=== PATIENT | female | born 1965 | race Caucasian/White ===

== ENCOUNTER 2020-03-17 06:54 | Outpatient (NON) | payer BC, SELFPAY ==
[2020-03-17 23:36] LABS: SARS-CoV-2 RNA PCR Negative
== END 2020-03-17 06:55 ==
LOC: ANHCOVIDDT 07:09
PROVIDERS: PCP Family Medicine; Visit Provider Family Medicine
DX: R51.9 Headache, unspecified (principal); R43.0 Anosmia; R43.2 Parageusia; Z20.828 Contact with and (suspected) exposure to other viral communicable diseases
CPT/HCPCS: 87635; C9803; U0003

== ENCOUNTER → 2020-09-18 06:39 | Outpatient (CLI) | payer BC, SELFPAY ==
[2020-09-18 18:15] LABS: SARS-CoV-2 RNA PCR Negative
== END ==
PROVIDERS: PCP Family Medicine; Visit Provider Physician Assistant
DX: R68.89 Other general symptoms and signs (principal); Z20.822 Contact with and (suspected) exposure to COVID-19
CPT/HCPCS: C9803; U0003; U0005

== ENCOUNTER 2021-07-27 15:51 | Observation (INO) | payer BC, SELFPAY ==
[2021-07-27] VITALS (37 sets, daily range): BP systolic 75–98; BP diastolic 35–74; PULSE 101–130; RESP 12–29; TEMP 36.3–36.7; O2SAT 93–100; BMI 32.3
--- NOTE | ~2021-07-27 | XR_ITS ---
EXAMINATION: XR abdomen/kub 1V INDICATION: Nausea and vomiting TECHNIQUE: Supine view of the abdomen is obtained. COMPARISON: 0830 hours FINDINGS: Cholecystectomy clips are noted. There is a paucity of abdominal gas. No dilated loops of b owel are evident. The visualized lung bases are clear. IMPRESSION: 1. Nonspecific bowel gas pattern. Reviewed, dictated and finalized at location A.
--- NOTE | ~2021-07-27 | CT_ITS ---
EXAMINATION: CT abdomen pelvis wo con DATE: 07/27/2021 18:10 INDICATION: fistula pain TECHNIQUE: Computed tomography (CT) of the abdomen and pelvis was performed without intravenous contr ast. Automated exposure control and iterative reconstruction technique were employed. The dose-length product was 1060.76 mGy-cm. COMPARISON: 07/06/2017. FINDINGS: Lower thorax: Unremarkable. Liver: Normal. Biliary/Gallbladder: Gallbladder is absent. No bile duct dilation. Spleen: Normal. Pancreas: No mass or duct dilation. Adrenals:No mass. Kidneys: No mass or hydronephrosis. Bilateral nonobstructive renal calculi. GI tract: Status post colectomy. Right lower quadrant ostomy with a adjacent fat and small bowel cont aining uncomplicated appearing ventral hernia, to the right of midline. Midline ventral hernia contai rosendo a loop of dilated small bowel, no inflammation or fluid within the sac Smaller uncomplicated mid line ventral hernia more superiorly. Mesentery/Peritoneum: No ascites, mass, or free air. Retroperitoneum: No mass. Pelvis: Fibroid uterus. Normal bladder. No free pelvic fluid. Bones/Soft Tissues: No additional soft tissue abnormalities. No acute osseous finding. Additional Findings: None. IMPRESSION: Midline ventral abdominal wall hernia containing a dilated loop of small bowel which may represent mi ld early or partial mechanical obstruction. Otherwise no evidence of bowel obstruction or ileus. Audie tional ventral abdominal wall hernias are uncomplicated. Reviewed, dictated and finalized at location K. IMPRESSION: Midline ventral abdominal wall hernia containing a dilated loop of small bowel which may represent mild early or partial mechanical obstruction. Otherwise no evidence of bowel obstruction or ileus. Additional ventral abdominal wall herni as are uncomplicated.
--- NOTE | ~2021-07-27 | XR_ITS ---
EXAMINATION: XR abdomen obstructive series DATE: 07/28/2021 08:45 INDICATION: Nausea and vomiting. TECHNIQUE: Upright and supine views of the abdomen on 3 radiographs were obtained. COMPARISON: CT abdomen and pelvis 07/27/2021 FINDINGS: There are no dilated loops of bowel. There is a paucity of stool in the colon. There are st ones in the kidneys measuring up to 10 mm on the left. There are phleboliths in the pelvis. Surgical clips in the right upper quadrant are likely from cholecystectomy. No free intraperitoneal gas. IMPRESSION: 1. Nonobstructive bowel gas pattern. 2. Bilateral kidney stones. Reviewed, dictated and finalized at location A.
--- NOTE | 2021-07-27 16:04 | ECG_ITS ---
Measurements Intervals [place] Rate: 121 P: 36 CA: 136 QRS: 43 QRSD: 86 T: 3 QT: 312 QTc: 444 Interpretive Statements SINUS TACHYCARDIA NONSPECIFIC T-WAVE ABNORMALITY ABNORMAL ECG NO PREVIOUS ECG AVAILABLE FOR COMPARISON Electronically Signed On 07-30-2021 15:35:03 CDT by Willy Gomez M.D.
[2021-07-27 16:21] LABS: Basophils Absolute Auto 0.1 K/mm3 (0.0-0.1); Basophils Percent Auto 0.9 % (0.2-1.2); Eosinophils Absolute Auto 0.2 K/mm3 (0-0.3); Eosinophils Percent Auto 1.6 % (0-4.4); Hematocrit 56.2 % (37.0-47.0); Hemoglobin 18.7 g/dL (12.0-15.0); Immature Granulocyte Absolute 0.07 K/mm3 (0.00-0.031); Immature Granulocyte Percent A 0.5 % (0-0.5); Lymphocytes Absolute Auto 0.97 K/mm3 (0.9-3.2); Lymphocytes Percent Auto 6.6 % (18.3-44.2); Mean Corpuscular HGB Conc 33.3 g/dl (32-36); Mean Corpuscular Hemoglobin 34.7 pg (26-34); Mean Corpuscular Volume 104.3 fl (80-100); Mean Platelet Volume 10.7 fl (7.4-10.4); Monocytes Absolute Auto 1.5 K/mm3 (0.1-0.6); Monocytes Percent Auto 10.3 % (2.6-8.5); Neutrophils Absolute Auto 11.9 K/mm3 (1.3-6.7); Neutrophils Percent Auto 80.1 % (45.5-73.1); Platelet Count Result 277 k/mm3 (150-375); Red Blood Count 5.39 M/mm3 (4.2-5.4); Red Cell Distribution Width 14.4 % (11.5-14.5); White Blood Count 14.8 K/mm3 (4.5-10.0)
[2021-07-27] MEDS: SODIUM CHLORIDE 0.9% IV 1,000 ML 999 ML IV CONT ×2 (16:23→18:31)
[2021-07-27] MEDS: ONDANSETRON INJ 4 MG/2 ML VIAL IV PUSH (16:23)
--- NOTE | 2021-07-27 16:27 | ED.NAVMDI ---
HPI - Nausea/Vomiting/Diarrhea General Chief complaint: Nausea/Vomiting/Diarrhea Stated complaint: n/v, diarrhea in ostomy Time Seen by Provider: 07/27/21 16:20 Source: patient Limitations: no limitations History of Present Illness HPI Narrative: Pt presents with nausea, vomiting and diarrhea since 0600 today. Pt also says the area in her low back where she had a fistula and necrotizing fascitis is a little painful. Pt has vomited and had numerous episodes of diarrhea. MD elicited complaint: nausea, vomiting and diarrhea Pertinent past history: other (ileostomy , fistula, necrotizing fasciitis) Onset (ago): hour(s) (10) Description of vomiting: bilious Description of diarrhea: lose Associated nausea: Yes Associated abdominal pain: No Exacerbating factors: none Relieving factors: none Related Data Home Medications Medication Instructions Recorded Confirmed diphenhydramine HCl 25 mg capsule 25 mg PO Q6H PRN 01/28/21 03/08/21 famotidine 20 mg tablet 20 mg PO BID tablet 01/28/21 03/08/21 gabapentin 600 mg tablet See Rx Instructions .ROUTE .COMPLEX 01/28/21 03/08/21 hydrocortisone 1 % topical cream 1 applic TOPICAL TID PRN 01/28/21 03/08/21 oxycodone 10 mg tablet 10 mg PO Q8H PRN 01/28/21 03/08/21 ropinirole 0.5 mg tablet 0.5 mg PO QHS tablet 01/28/21 03/08/21 vitamin A palmitate 10,000 unit unit PO QHS cap 01/28/21 03/08/21 capsule Allergies Allergy/AdvReac Type Severity Reaction Status Date / Time adhesive tape Allergy Unknown BLISTERED Verified 07/27/21 16:12 egg Allergy Unknown Nausea Verified 07/27/21 16:12 erythromycin base Allergy Unknown intolerance Verified 07/27/21 16:12 kiwi Allergy Unknown Swelling Verified 07/27/21 16:12 in mouth latex Allergy Unknown Unknown Verified 07/27/21 16:12 meperidine Allergy Unknown Nausea Verified 07/27/21 16:12 prochlorperazine Allergy Unknown Skin Verified 07/27/21 16:12 Reaction Review of Systems Review of Systems: All systems reviewed & are unremarkable except as noted in HPI and below PMFSH Family History Family History Mother Hypertension Family history of elevated blood lipids Diabetes mellitus Grandparent Diabetes mellitus Family history of glaucoma Hypertension Family history of elevated blood lipids Social History Social History Alcohol intake: current Exam Const: General: no acute distress Orientation/consciousness: patient oriented x3 HENMT: Mouth: Yes dry mucous membranes Chest: Chest palpation & inspection: normal inspection of the chest Resp: Effort & Inspection: normal respiratory effort Auscultation: clear to auscultation bilaterally Cardio: Rate: regular rate Rhythm: regular rhythm GI: GI Palp: Yes Soft to palpation Auscultation: normal bowel sounds Other: fistulas not draining no obvious abscess or erythema Neuro: General: patient oriented x3, moves all extremities and no focal motor deficits Extrem: General: normal to inspection Psych: Appearance: grossly normal Mental Status: mental status grossly normal Thought content: Yes Normal thought content present Course Vital Signs Vital signs: Vital Signs Temperature 97.4 F L 07/27/21 15:53 Pulse Rate 124 H 07/27/21 15:53 Respiratory Rate 19 07/27/21 15:53 Blood Pressure 75/46 L 07/27/21 15:53 Pulse Oximetry 96 07/27/21 15:53 Temperature 97.4 F L 07/27/21 15:53 Pulse Rate 106 H 07/27/21 19:02 Respiratory Rate 22 H 07/27/21 19:02 Blood Pressure 88/52 L 07/27/21 19:02 Pulse Oximetry 94 07/27/21 19:02 MDM - Nausea/Vomiting/Diarrhea Lab Data Result diagrams: 07/27/21 16:15 07/27/21 17:32 Labs: Lab Results 07/27/21 07/27/21 07/27/21 Range/Units 16:15 17:32 18:34 WBC 14.8 H (4.5-10.0) K/mm3 RBC 5.39 (4.2-5.4) M/mm3 Hgb 18.7 H (12.0-15.0) g/dL Hct 56.2 H (37.0-47.
[2021-07-27 17:48] LABS: Alanine Aminotransferase 82 U/L (4-35); Albumin Level 4.9 g/dL (3.5-5.1); Alkaline Phosphatase 87 U/L (38-126); Anion Gap 17 mmol/L (8-16); Aspartate Amino Transferase 81 U/L (14-36); Bilirubin,Total 1.6 mg/dL (0.2-1.3); Blood Urea Nitrogen 29 mg/dL (7-17); Calcium 11.2 mg/dL (8.4-10.2); Carbon Dioxide 20 mmol/L (22-30); Chloride 101 mmol/L (98-107); Estimated CRCL calculation 31 ml/min; Estimated Glomerular Filt Rate 27; Glucose 115 mg/dL (65-110); Lipase 148 U/L (23-300); Potassium 4.1 mmol/L (3.4-5.0); Sodium 138 mmol/L (137-145)
--- NOTE | 2021-07-27 18:15 | PC.NURSE ---
ERP notified of Pt. low BPs. ERP ordered additional liter of normal saline via verbal order readback.
[2021-07-27 18:41] LABS: Appearance Urine Clear (Clear); Bilirubin Urine Negative (Negative); Blood Urine Negative (Negative); Glucose Urine UA Negative (Negative); Ketones Urine Negative (Negative); Leukocyte Esterase Ur Negative LEU/UL (Negative); Nitrate Urine Negative (Negative); Protein Urine 1+ mg/dL (Negative); Specific Grav Ur >= 1.030 (1.001-1.035); Urobilinogen Urine 0.2 mg/dL (<2.0); pH Urine 5.5 (5.0-9.0)
[2021-07-27 18:53] LABS: Add Urine Microscopic? YES; Color Urine Dark Brown (Yellow)
[2021-07-27 19:00] LABS: Mucus Urine Few /lpf
--- NOTE | 2021-07-27 19:55 | PM.IMHP ---
H&P: HPI History of Present Illness Date/Time: 07/27/21 19:55 Chief Complaint: Nausea and vomiting. Narrative: This is a 56-year-old female with past medical history significant for Crohn's disease with fistula formation patient is status post ileostomy secondary to necrotizing fascitis. Patient presents to the emergency room due to intractable nausea vomiting and increased ileostomy output diet started the day before in the morning and has persisted for the last 48 hours or so. Patient denies any fevers rigors or chills states that she has had sepsis before, she has been in her usual state of health prior to this. Patient denies any abdominal pain. Preliminary workup was significant for CT of abdomen and pelvis early or partial mechanical obstruction. In emergency room patient had episodes of hypotension. Patient was started on IV fluids. Decision has been made to admit the patient for further evaluation, management and treatment. Review of Systems Review of Systems: Nausea, vomiting, increased ileostomy output. Constitutional: Constitutional: Denies chills, Reports fatigue, Denies fever(s), Denies malaise, Denies night sweats and Denies weakness Eyes: Eyes: Denies change in vision ENT: Denies dysphagia, Denies nasal congestion, Denies nasal discharge, Denies nasal obstruction and Denies odynophagia Cardiovascular: Cardiovascular: Denies pedal edema, Denies edema, Denies irregular heart rhythm, Denies leg edema, Denies lightheadedness, Denies radiating jaw, neck or arm pain, Denies palpitations, Denies dyspnea and Denies dyspnea on exertion Respiratory: Respiratory: Denies cough, Denies excessive phlegm production and Denies dyspnea Gastrointestinal: Gastrointestinal: Reports abdominal pain, Denies dyspepsia, Denies heartburn, Reports nausea and Reports vomiting Comments: Increased ileostomy output. Genitourinary: Genitourinary: Denies dysuria Musculoskeletal: Musculoskeletal: Denies back pain, Denies myalgias and Denies arthralgias Integumentary/Breasts: Skin/Breast: Denies rash Neurologic: Denies focal weakness and Denies Sensory deficit (Neuro) Psychiatric: Psychiatric: Reports no additional psychiatric complaints and Reports as per HPI Endocrine: Endocrine: Denies cold intolerance, Denies heat intolerance, Denies polyphagia, Denies polydipsia and Denies palpitations Hematologic/Lymphatic: Hematologic/Lymphatic: Reports no additional hematologic/lymphatic complaints and Reports as per HPI Allergic/Immunologic: Allergic/Immunologic: Reports no additional allergic/immunologic complaints and Reports as per HPI PMFSH Family History Family History Mother Hypertension Family history of elevated blood lipids Diabetes mellitus Grandparent Diabetes mellitus Family history of glaucoma Hypertension Family history of elevated blood lipids Social History Social History Smoking status: Never smoker Alcohol intake: current Substance use: never Spiritual care concerns: No Meds Home Medications and Allergies Home Medications Medication Instructions Recorded Confirmed Type diphenhydramine HCl 25 mg capsule 25 mg PO Q6H PRN 01/28/21 07/27/21 History duloxetine 60 mg capsule,delayed 60 mg PO DAILY #90 cap 01/28/21 07/27/21 Rx release famotidine 20 mg tablet 20 mg PO DAILY tablet 01/28/21 07/27/21 History gabapentin 600 mg tablet 300 mg PO BID 01/28/21 07/27/21 History hydrocortisone 1 % topical cream 1 applic TOPICAL DAILY PRN 01/28/21 07/27/21 History metoprolol succinate 25 mg 25 mg PO DAILY #90 tablet 01/28/21 07/27/21 Rx tablet,extended release 24 hr oxycodone 10 mg tablet 10 mg PO Q6H PRN 01/28/21 07/27/21 History ropinirole 0.5 mg tablet 1 mg PO QHS tablet 01/28/21 07/27/21 History insulin glargine [Lantus Solostar 30 unit SUBCUT BID 07/27/21 07/27/21 History U-100 Insulin] insuli
--- NOTE | 2021-07-27 20:00 | PC.NURSE ---
Handoff received from Lex LYNCH. Pt found lying comfortably in ED stretcher. Calm and cooperative. AAOx4. Equal and unlabored resp. Skin is warm and dry. 20g IV L AC and 22g IV R hand in place secured and patent. Ileostomy in place, secured and draining green liquid. Site WNL. No complaints at this time. Pending admission orders and bed assignment. Will continue to monitor.
[2021-07-27 22:34] LABS: SARS-CoV-2 RNA PCR Negative
--- NOTE | 2021-07-27 23:30 | ADMGEN ---
This patient, Terrie Lopez, was admitted to IMU Room 206-02 at 2330. Patient/family oriented to hospital policies and general routines including ID bracelet, bed and alarms, visiting hours, pain management, procedures, bathroom and other care routines, personal items, smoking policy, room service/diet, and visiting hours. Information on how to activate the Rapid Response Team has been discussed. Patient/Family are encouraged to report perceived risks to care and to ask questions if they do not understand what they are told or what they should do.
[2021-07-28] VITALS (10 sets, daily range): BP systolic 95–116; BP diastolic 37–62; PULSE 93–116; RESP 14–18; TEMP 36–36.4; O2SAT 93–98
[2021-07-28] MEDS: oxyCODONE HCL (*CRX) 5 MG TAB IR 10 MG PO ×3 (01:20→20:17)
[2021-07-28] MEDS: rOPINIRole HCL 1 MG TABLET PO ×2 (01:21→20:17)
[2021-07-28 05:02] LABS: Basophils Absolute Auto 0.1 K/mm3 (0.0-0.1); Basophils Percent Auto 0.7 % (0.2-1.2); Eosinophils Absolute Auto 0.2 K/mm3 (0-0.3); Hematocrit 48.7 % (37.0-47.0); Hemoglobin 15.9 g/dL (12.0-15.0); Immature Granulocyte Absolute 0.04 K/mm3 (0.00-0.031); Immature Granulocyte Percent A 0.5 % (0-0.5); Lymphocytes Percent Auto 13.8 % (18.3-44.2); Mean Corpuscular HGB Conc 32.6 g/dl (32-36); Mean Corpuscular Hemoglobin 35.3 pg (26-34); Mean Platelet Volume 9.8 fl (7.4-10.4); Monocytes Absolute Auto 1.1 K/mm3 (0.1-0.6); Monocytes Percent Auto 12.6 % (2.6-8.5); Neutrophils Absolute Auto 6.1 K/mm3 (1.3-6.7); Neutrophils Percent Auto 70.4 % (45.5-73.1); Platelet Count Result 279 k/mm3 (150-375); Red Blood Count 4.51 M/mm3 (4.2-5.4); Red Cell Distribution Width 13.9 % (11.5-14.5); White Blood Count 8.7 K/mm3 (4.5-10.0)
[2021-07-28 05:25] LABS: Anion Gap 16 mmol/L (8-16); Blood Urea Nitrogen 34 mg/dL (7-17); Calcium 9.8 mg/dL (8.4-10.2); Carbon Dioxide 21 mmol/L (22-30); Chloride 100 mmol/L (98-107); Estimated CRCL calculation 34 ml/min; Estimated Glomerular Filt Rate 31; Glucose 150 mg/dL (65-110); Potassium 3.8 mmol/L (3.4-5.0); Sodium 137 mmol/L (137-145)
[2021-07-28 08:24] LABS: Glucose Point of Care 178 mg/dl (65-105)
[2021-07-28] MEDS: FAMOTIDINE 20 MG TABLET PO (08:30)
[2021-07-28] MEDS: DULoxetine HCL 60 MG CAPSULE.DR PO (08:30)
[2021-07-28] MEDS: GABAPENTIN 300 MG CAPSULE PO ×2 (08:30→20:17)
[2021-07-28] MEDS: predniSONE 5 MG TABLET PO (08:31)
[2021-07-28] MEDS: INSULIN ASPART (*BKC) 100 UNITS/ML 18 UNITS SUB-Q ×2 (08:31→12:12)
[2021-07-28] MEDS: INSULIN GLARGINE (*BKC) 100 UNITS/ML 30 UNITS SUB-Q (08:31)
--- NOTE | 2021-07-28 09:03 | ECG_ITS ---
Measurements Intervals [place] Rate: 97 P: 50 MS: 142 QRS: 55 QRSD: 86 T: 46 QT: 331 QTc: 421 Interpretive Statements SINUS RHYTHM NONSPECIFIC T-WAVE ABNORMALITY ABNORMAL ECG COMPARED TO ECG 07/27/2021 16:04:58 SINUS RHYTHM NOW PRESENT Electronically Signed On 07-28-2021 15:50:41 CDT by Willy Gomez M.D.
[2021-07-28 09:52] LABS: Mean Corpuscular HGB Conc 33.3 g/dl (32-36); Mean Platelet Volume 9.5 fl (7.4-10.4); Platelet Count Result 281 k/mm3 (150-375); Red Blood Count 4.57 M/mm3 (4.2-5.4); Red Cell Distribution Width 13.8 % (11.5-14.5); White Blood Count 7.3 K/mm3 (4.5-10.0)
[2021-07-28 10:13] LABS: Alanine Aminotransferase 65 U/L (4-35); Alkaline Phosphatase 77 U/L (38-126); Anion Gap 13 mmol/L (8-16); Aspartate Amino Transferase 70 U/L (14-36); Bilirubin,Total 1.4 mg/dL (0.2-1.3); Blood Urea Nitrogen 37 mg/dL (7-17); Carbon Dioxide 28 mmol/L (22-30); Chloride 98 mmol/L (98-107); Estimated CRCL calculation 36 ml/min; Estimated Glomerular Filt Rate 33; Glucose 194 mg/dL (65-110); Lactic Acid Reflex 4.2 mmol/L (0.7-2.1); Potassium 4.5 mmol/L (3.4-5.0); Sodium 139 mmol/L (137-145)
--- NOTE | 2021-07-28 10:18 | PM.CNGS ---
Assessment and Plan Assessment and plan (1) Partial intestinal obstruction: Code(s): K56.600 - Partial intestinal obstruction, unspecified as to cause Status: Acute Assessment and Plan: CT reviewed and discussed with the patient in detail. There was concern of a possible small bowel obstruction secondary to the inferior ventral hernia with a loop of dilated small bowel in the hernia. On exam, her inferior incisional hernia that was containing small bowel is soft, nontender, and fully reducible. There is no evidence of incarceration or obstruction. She is clinically improving and no longer having any nausea, vomiting, or abdominal pain. Her abdominal exam is benign and ileostomy is functioning well. No indication for urgent surgical intervention. Will start advancing her diet as tolerated. If she continues to improve and is able to tolerate a diet, then we would recommend that she follow-up with her surgeon at [facility] to discuss hernia repair given her extensive surgical history and treatment at [facility]. Patient is agreeable to plan. Thank you for allowing us to see the patient in consultation and we will continue to follow along with you. (2) Ventral hernia without obstruction or gangrene: Code(s): K43.9 - Ventral hernia without obstruction or gangrene Status: Acute Assessment and Plan: Two ventral hernias noted on CT scan with the more superior hernia at midline appearing small and containing fat. The inferior incisional hernia is larger and containing a loop of dilated small bowel on CT scan. Both hernias are soft and reducible on exam with no evidence of incarceration. She is clinically improving as well. No indication for urgent surgical intervention at this time. Would recommend that she follow-up with the surgeon at [facility] to discuss options for surgical repair given her extensive surgical and medical history. (3) Acute dehydration: Code(s): E86.0 - Dehydration Status: Acute Assessment and Plan: Likely secondary to high ileostomy output and vomiting. This appears to be improving with IV fluids, but she received 2L IV boluses in the ER and is not currently on continuous IV fluids with only a clear liquid diet. I discussed this with the Hospitalist, who was adding IV fluids this morning. Continue to monitor labs and urine output. (4) Intractable nausea and vomiting: Code(s): R11.2 - Nausea with vomiting, unspecified Status: Acute Assessment and Plan: Resolving. Seems more likely to be related to gastroenteritis considering her high ileostomy output. She also could have had a mechanical obstruction due to positioning of her ostomy appliance over the stoma, which has resolved. She is clinically improving and no longer having any nausea or vomiting. Okay to start advancing her diet. Discussed this with the Hospitalist. Continue antiemetics as needed. (5) Parastomal hernia without obstruction or gangrene: Code(s): K43.5 - Parastomal hernia without obstruction or gangrene Status: Acute Assessment and Plan: Parastomal hernia noted on CT with a loop of small bowel that does not appear to be obstructed. On exam, this is soft and non-tender. Recommended following up with Surgery at [facility] to discuss options for surgical repair electively due to her extensive surgical and medical history. (6) Ileostomy in place: Code(s): Z93.2 - Ileostomy status Status: Acute Assessment and Plan: Functioning well with actually increased output, possibly related to gastroenteritis. (7) Crohn's disease: Code(s): K50.90 - Crohn's disease, unspecified, without complications Status: Acute Assessment and Plan: No acute issues. Recommend follow-up with GI as an outpatient. (8) Insulin dependent type 2 diabetes mellitus: Code(s): E11.9 - Type 2 diabetes mellitus without complications; Z79.4 - terminal worker (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 of insulin Status: Chronic
[2021-07-28] MEDS: SODIUM CHLORIDE 0.9% IV 1,000 ML 125 ML IV CONT ×2 (12:02→20:17)
[2021-07-28 12:13] LABS: Glucose Point of Care 142 mg/dl (65-105)
[2021-07-28 12:47] LABS: Reflex Lactic Acid Yes or No Add Lactic
[2021-07-28 13:29] LABS: Lactic Acid 2.9 mmol/L (0.7-2.1)
[2021-07-28] MEDS: METOPROLOL SUCCINATE EXT REL 25 MG TABCR PO (15:20)
--- NOTE | 2021-07-28 15:48 | PC.NURSE ---
This patient, Terrie Lopez, was transferred to [facility] on 07/28/21 at 1548. Personal belongings sent with patient. Report given to Sheila LYNCH. Appropriate documentation sent with patient.
--- NOTE | 2021-07-28 15:50 | PM.IMPN ---
Progress Note: A&P Assessment and Plan (1) Intractable nausea and vomiting: Code(s): R11.2 - Nausea with vomiting, unspecified Status: Acute Assessment and Plan: NPO Supportive care IV fluids 07/28/2021 interval history: patient presented with possible small-bowel obstruction secondary to ventral hernia patient was seen by surgery service, hernia is reducible and patient does not have any obstruction, currently patient is eating her lunch denies any abdominal pain nausea or vomiting, will continue present management monitor patient overnight and possibly discharge the patient tomorrow. (2) Increased ileostomy output: Code(s): R19.8 - Other specified symptoms and signs involving the digestive system and abdomen; Z93.2 - Ileostomy status Status: Acute Assessment and Plan: Continue to monitor Ileostomy care (3) Partial intestinal obstruction: Code(s): K56.600 - Partial intestinal obstruction, unspecified as to cause Status: Acute Assessment and Plan: Obstructive series in a.m. Surgery consult (4) Gastro-esophageal reflux disease without esophagitis: Code(s): K21.9 - Gastro-esophageal reflux disease without esophagitis Status: Chronic (5) Type 2 diabetes mellitus: Qualifiers: Diabetes mellitus skilled nursing insulin use: with skilled nursing use Diabetes mellitus complication status: with hyperglycemia Qualified Code(s): E11.65 - Type 2 diabetes mellitus with hyperglycemia; Z79.4 - longterm (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 of insulin Code(s): E11.9 - Type 2 diabetes mellitus without complications Status: Deleted Assessment and Plan: Continue to monitor. NPO currently (6) Crohn's disease, unspecified, with abscess: Qualifiers: Gastrointestinal tract location: unspecified location Qualified Code(s): K50.914 - Crohn's disease, unspecified, with abscess Code(s): K50.914 - Crohn's disease, unspecified, with abscess Status: Resolved Assessment and Plan: Status post partial bowel resection and ileostomy placement. Subjective Date/time seen: 07/28/21 15:50 Chief Complaint: Nausea and vomiting. HPI:Narrative: This is a 56-year-old female with past medical history significant for Crohn's disease with fistula formation patient is status post ileostomy secondary to necrotizing fascitis. Patient presents to the emergency room due to intractable nausea vomiting and increased ileostomy output diet started the day before in the morning and has persisted for the last 48 hours or so. Patient denies any fevers rigors or chills states that she has had sepsis before, she has been in her usual state of health prior to this. Patient denies any abdominal pain. Preliminary workup was significant for CT of abdomen and pelvis early or partial mechanical obstruction. In emergency room patient had episodes of hypotension. Patient was started on IV fluids. Decision has been made to admit the patient for further evaluation, management and treatment. 07/28/2021 interval history: patient presented with possible small-bowel obstruction secondary to ventral hernia patient was seen by surgery service, hernia is reducible and patient does not have any obstruction, currently patient is eating her lunch denies any abdominal pain nausea or vomiting, will continue present management monitor patient overnight and possibly discharge the patient tomorrow. Review of Systems Review of Systems: All systems reviewed & are unremarkable except as noted in HPI and below Exam Narrative: moderately obese Patient is comfortable, NAD HEENT: eyes are clear and none icteric LUNGS: normal respiratory effort ABD: distended Lower extremities: no edema SKIN: nonjaundiced Neuro: grossly intact. Objective Data Vital Signs Vital Signs: Vital Signs - 24 hr 07/27/21 15:53 07/27/21 16:01 07/27/21 16:02 Temperature 97.4 F L Pulse Rate 124 H 130 H 127 H R
--- NOTE | 2021-07-28 16:16 | PC.NURSE ---
This patient, Terrie Lopez, was received from [IMU bed 206 ] on 07/28/21 at 1535. Patient/family oriented to unit policies and routines. Report received from Vish LYNCH
[2021-07-28 16:22] LABS: Glucose Point of Care 129 mg/dl (65-105)
[2021-07-28 19:47] LABS: Glucose Point of Care 146 mg/dl (65-105)
[2021-07-28] MEDS: ONDANSETRON INJ 4 MG/2 ML VIAL IV PUSH (22:35)
[2021-07-29] VITALS (7 sets, daily range): BP systolic 100–115; BP diastolic 49–76; PULSE 97–112; RESP 14–19; TEMP 35.5–36.8; O2SAT 90–97
[2021-07-29] MEDS: SODIUM CHLORIDE 0.9% IV 1,000 ML 125 ML IV CONT (02:25)
[2021-07-29] MEDS: oxyCODONE HCL (*CRX) 5 MG TAB IR 10 MG PO ×3 (02:25→23:36)
[2021-07-29] MEDS: ONDANSETRON INJ 4 MG/2 ML VIAL IV PUSH (05:12)
[2021-07-29 07:56] LABS: Glucose Point of Care 181 mg/dl (65-105)
[2021-07-29] MEDS: DULoxetine HCL 60 MG CAPSULE.DR PO (09:05)
[2021-07-29] MEDS: FAMOTIDINE 20 MG TABLET PO (09:05)
[2021-07-29] MEDS: METOPROLOL SUCCINATE EXT REL 25 MG TABCR PO (09:05)
[2021-07-29] MEDS: GABAPENTIN 300 MG CAPSULE PO ×2 (09:06→20:10)
[2021-07-29] MEDS: predniSONE 5 MG TABLET PO (09:06)
[2021-07-29 09:50] LABS: Hematocrit 52.7 % (37.0-47.0); Hemoglobin 17.1 g/dL (12.0-15.0); Mean Corpuscular HGB Conc 32.4 g/dl (32-36); Mean Corpuscular Hemoglobin 34.6 pg (26-34); Mean Corpuscular Volume 106.7 fl (80-100); Mean Platelet Volume 9.9 fl (7.4-10.4); Platelet Count Result 318 k/mm3 (150-375); Red Blood Count 4.94 M/mm3 (4.2-5.4); Red Cell Distribution Width 13.8 % (11.5-14.5); White Blood Count 7.2 K/mm3 (4.5-10.0)
[2021-07-29 10:00] LABS: Lactic Acid Reflex 3.8 mmol/L (0.7-2.1)
[2021-07-29 10:10] LABS: Anion Gap 13 mmol/L (8-16); Blood Urea Nitrogen 37 mg/dL (7-17); Calcium 9.9 mg/dL (8.4-10.2); Carbon Dioxide 23 mmol/L (22-30); Chloride 99 mmol/L (98-107); Estimated CRCL calculation 40 ml/min; Estimated Glomerular Filt Rate 36; Glucose 197 mg/dL (65-110); Potassium 5.8 mmol/L (3.4-5.0); Sodium 135 mmol/L (137-145)
--- NOTE | 2021-07-29 11:42 | PM.PNGS ---
Progress Note: A&P Assessment and Plan (1) Partial intestinal obstruction: Code(s): K56.600 - Partial intestinal obstruction, unspecified as to cause <Kyleigh BeckTRIXIE - Last Filed: 07/29/21 11:52> Status: Acute <Kyleigh Beck E LEARNING MANAGER - Last Filed: 07/29/21 11:52> Assessment and Plan: Vomiting again overnight. Plain films this morning show nonobstructive bowel gas pattern. Abdominal exam is benign. Ileostomy has high output. She is feeling better this morning. Will back off to full liquids. Could still be related to gastroenteritis. If ileostomy output slows down and she continues to have issues tolerating her diet, then may need to consider gastrografin SBFT. <Kyleigh BeckTRIXIE - Last Filed: 07/29/21 11:52> (2) Ventral hernia without obstruction or gangrene: Code(s): K43.9 - Ventral hernia without obstruction or gangrene <Kyleigh TrimbleTRIXIE bright - Last Filed: 07/29/21 11:52> Status: Acute <Kyleigh Beck E LEARNING MANAGER - Last Filed: 07/29/21 11:52> Assessment and Plan: Remains soft and reducible. Does not appear to be incarcerated or causing her acute issues. Continue to monitor. <Kyleigh Beck E LEARNING MANAGER - Last Filed: 07/29/21 11:52> (3) Acute dehydration: Code(s): E86.0 - Dehydration <Kyleigh TrimbleTRIXIE bright - Last Filed: 07/29/21 11:52> Status: Acute <Kyleigh Beck E LEARNING MANAGER - Last Filed: 07/29/21 11:52> Assessment and Plan: Slight improvement, but continues to have high ileostomy output and vomiting overnight. Continue IV fluids. <Kyleigh TrimbleTRIXIE bright - Last Filed: 07/29/21 11:52> (4) Intractable nausea and vomiting: Code(s): R11.2 - Nausea with vomiting, unspecified <Kyleigh TrimbleTRIXIE bright - Last Filed: 07/29/21 11:52> Status: Acute <TRIXIE Carcamo - Last Filed: 07/29/21 11:52> Assessment and Plan: Had vomiting again overnight, but feeling better this morning. KUB showed nonobstructive bowel gas pattern. See plan above. <TRIXIE Carcamo - Last Filed: 07/29/21 11:52> (5) Parastomal hernia without obstruction or gangrene: Code(s): K43.5 - Parastomal hernia without obstruction or gangrene <Kyleigh Beck E LEARNING MANAGER - Last Filed: 07/29/21 11:52> Status: Acute <AIME CarcamoP - Last Filed: 07/29/21 11:52> Assessment and Plan: Soft and nontender. Ileostomy functioning well. <AIME CarcamoP - Last Filed: 07/29/21 11:52> (6) Ileostomy in place: Code(s): Z93.2 - Ileostomy status <Kyleigh Beck TRIXIE - Last Filed: 07/29/21 11:52> Status: Acute <Kyleigh Beck E LEARNING MANAGER - Last Filed: 07/29/21 11:52> (7) Crohn's disease: Code(s): K50.90 - Crohn's disease, unspecified, without complications <Kyleigh Beck E LEARNING MANAGER - Last Filed: 07/29/21 11:52> Status: Acute <Kyleigh Beck E LEARNING MANAGER - Last Filed: 07/29/21 11:52> Additional Plan I have discussed the patient's case and plan of care with Dr. Love. <Kyleigh Beck E LEARNING MANAGER - Last Filed: 07/29/21 11:52> Pt seen and examined on 07/28/21. Labs and imaging reviewed. Agree c documentation per Ebony ARMOR OFFICER. Abd - S, sl dist, NT, ileostomy +fxn. Exam benign, agree c slowly ADAT, long d/w pt re: known incisional hernias and pt wants to cont c conservative mgmt <Kirstin Love MD - Last Filed: 07/30/21 09:04> Subjective Subjective Date/Time Seen: 07/29/21 09:42 <TRIXIE Carcamo - Last Filed: 07/29/21 11:52> Patient reports: nausea (subsided), vomiting and afebrile <TRIXIE Carcamo - Last Filed: 07/29/21 11:52> Interval history: Patient seen and examined this morning. She reports generalized weakness and fatigue this morning. She reportedly tolerated her diet yesterday until after dinner. She had pork roast with vegetables. She reports feeling well when eating and ate most of her tray, but shortly after eating she had
[2021-07-29 11:53] LABS: Glucose Point of Care 192 mg/dl (65-105)
[2021-07-29] MEDS: ONDANSETRON HCL ODT 4 MG TABLET PO ×2 (12:33→23:29)
[2021-07-29 12:45] LABS: Reflex Lactic Acid Yes or No Add Lactic
[2021-07-29 13:20] LABS: Lactic Acid 3.2 mmol/L (0.7-2.1)
--- NOTE | 2021-07-29 13:20 | PCCCNOTE ---
On 07/29/21, the student, [Mariola Gray], provided care and completed [facility] documentation on this patient. I have reviewed the student's documentation and agree with the findings.
--- NOTE | 2021-07-29 13:53 | PC.NURSE ---
On 07/29/21, the student, [ Mercedes Jansen], provided care and completed [facility] documentation on this patient. I have reviewed the student's documentation and agree with the findings.
--- NOTE | 2021-07-29 14:18 | PM.IMPN ---
Progress Note: A&P Assessment and Plan (1) Intractable nausea and vomiting: Code(s): R11.2 - Nausea with vomiting, unspecified Status: Acute Assessment and Plan: NPO Supportive care IV fluids 07/28/2021 interval history: patient presented with possible small-bowel obstruction secondary to ventral hernia patient was seen by surgery service, hernia is reducible and patient does not have any obstruction, currently patient is eating her lunch denies any abdominal pain nausea or vomiting, will continue present management monitor patient overnight and possibly discharge the patient tomorrow. (2) Increased ileostomy output: Code(s): R19.8 - Other specified symptoms and signs involving the digestive system and abdomen; Z93.2 - Ileostomy status Status: Acute Assessment and Plan: Continue to monitor Ileostomy care (3) Partial intestinal obstruction: Code(s): K56.600 - Partial intestinal obstruction, unspecified as to cause Status: Acute Assessment and Plan: Obstructive series in a.m. Surgery consult (4) Gastro-esophageal reflux disease without esophagitis: Code(s): K21.9 - Gastro-esophageal reflux disease without esophagitis Status: Chronic (5) Type 2 diabetes mellitus: Qualifiers: Diabetes mellitus mcfp insulin use: with terminal worker use Diabetes mellitus complication status: with hyperglycemia Qualified Code(s): E11.65 - Type 2 diabetes mellitus with hyperglycemia; Z79.4 - intermediate (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 of insulin Code(s): E11.9 - Type 2 diabetes mellitus without complications Status: Deleted Assessment and Plan: Continue to monitor. NPO currently (6) Crohn's disease, unspecified, with abscess: Qualifiers: Gastrointestinal tract location: unspecified location Qualified Code(s): K50.914 - Crohn's disease, unspecified, with abscess Code(s): K50.914 - Crohn's disease, unspecified, with abscess Status: Resolved Assessment and Plan: Status post partial bowel resection and ileostomy placement. Subjective Date/time seen: 07/29/21 14:18 07/28/2021 interval history: patient presented with possible small-bowel obstruction secondary to ventral hernia patient was seen by surgery service, hernia is reducible and patient does not have any obstruction, currently patient is eating her lunch denies any abdominal pain nausea or vomiting, will continue present management monitor patient overnight and possibly discharge the patient tomorrow. 07/29/2021 interval history patient was seen by surgery service and was placed on regular diet however 1st patient had a bloating and then had a high output in her ileostomy, and felt nauseated, KUB was done and showed normal bowel pattern no obstruction, surgery service seen the patient and recommended stop the regular diet started the patient on a clear liquid will continue to monitor and there is no improvement further evaluate patient will need a small bowel follow-through study, will continue to monitor. Review of Systems Review of Systems: All systems reviewed & are unremarkable except as noted in HPI and below Exam Narrative: moderately obese Patient is comfortable, NAD HEENT: eyes are clear and none icteric LUNGS: normal respiratory effort ABD: distended Lower extremities: no edema SKIN: nonjaundiced Neuro: grossly intact. Objective Data Vital Signs Vital Signs: Vital Signs - 24 hr 07/28/21 16:00 07/28/21 21:48 07/28/21 23:05 Temperature 97.6 F 96.8 F L Pulse Rate 112 H 93 Respiratory Rate 18 18 Blood Pressure 116/62 97/37 L Pulse Oximetry 98 93 93 07/29/21 06:01 07/29/21 08:18 07/29/21 09:05 Temperature 98.3 F Pulse Rate 112 H 101 H Respiratory Rate 18 Blood Pressure 100/66 Pulse Oximetry 90 94 07/29/21 14:08 Temperature 96 F L Pulse Rate 104 H Respiratory Rate 14 Blood Pressure 115/76 Pulse Oximetry 96 Intake/Outp
[2021-07-29 17:04] LABS: Glucose Point of Care 189 mg/dl (65-105)
[2021-07-29] MEDS: INSULIN GLARGINE (*BKC) 100 UNITS/ML 30 UNITS SUB-Q (17:07)
[2021-07-29] MEDS: rOPINIRole HCL 1 MG TABLET PO (20:10)
[2021-07-29 21:29] LABS: Glucose Point of Care 137 mg/dl (65-105)
[2021-07-30 05:54] VITALS: BP 108/62; PULSE 112; RESP 18; TEMP 36.1; O2SAT 97
[2021-07-30 07:34] LABS: Glucose Point of Care 178 mg/dl (65-105)
[2021-07-30] MEDS: INSULIN GLARGINE (*BKC) 100 UNITS/ML 30 UNITS SUB-Q (08:00)
[2021-07-30 08:07] VITALS: PULSE 120
[2021-07-30] MEDS: predniSONE 5 MG TABLET PO (08:07)
[2021-07-30] MEDS: DULoxetine HCL 60 MG CAPSULE.DR PO (08:07)
[2021-07-30] MEDS: FAMOTIDINE 20 MG TABLET PO (08:07)
[2021-07-30] MEDS: METOPROLOL SUCCINATE EXT REL 25 MG TABCR PO (08:07)
[2021-07-30] MEDS: GABAPENTIN 300 MG CAPSULE PO (08:07)
[2021-07-30] MEDS: ONDANSETRON HCL ODT 4 MG TABLET PO (08:12)
[2021-07-30] MEDS: oxyCODONE HCL (*CRX) 5 MG TAB IR 10 MG PO (09:07)
--- NOTE | 2021-07-30 09:23 | WPDPN ---
Progress Note: A&P Assessment and Plan (1) Partial intestinal obstruction: Code(s): K56.600 - Partial intestinal obstruction, unspecified as to cause Status: Acute Assessment and Plan: resolved, +ostomy fxn, exam CHOLO conrad, no acute surgical issues, will sign off, call c ?s, issues (2) Ventral hernia without obstruction or gangrene: Code(s): K43.9 - Ventral hernia without obstruction or gangrene Status: Acute Assessment and Plan: easily reducible, cont conservative mgmt Subjective Date/time seen: 07/30/21 09:23 feels pretty good, rosio full liquids, +ileostomy fxn Review of Systems Review of Systems: All systems reviewed & are unremarkable except as noted in HPI and below Exam Const: General: cooperative, comfortable and no acute distress Resp: Auscultation: clear to auscultation bilaterally Cardio: Rate: regular rate Rhythm: regular rhythm GI: Inspection: normal to inspection and non-distended GI Palp: No abdominal tenderness, Yes Soft to palpation, No Tenderness to palpation present (GI), No Guarding due to palpation present (GI) and No Rigid due to palpation Other: ileostomy - +fxn Objective Data Vital Signs Vital Signs: Vital Signs - 24 hr 07/29/21 14:08 07/29/21 14:25 07/29/21 20:20 Temperature 35.5 C L 35.9 C L Pulse Rate 104 H 97 Respiratory Rate 14 19 Blood Pressure 115/76 101/49 L Pulse Oximetry 96 97 97 07/29/21 21:51 07/30/21 05:54 07/30/21 08:07 Temperature 36.4 C L 36.1 C L Pulse Rate 99 112 H 120 H Respiratory Rate 18 18 Blood Pressure 110/71 108/62 Pulse Oximetry 96 97 Intake/Output Intake/Output: Intake & Output 07/27/21 07/28/21 07/29/21 07/30/21 23:59 23:59 23:59 23:59 Intake Total 19990 418 Output Total 6650 4700 700 Balance 1999 -360 -2310 -282 Meds/Results Medications: Active Medications Generic Name Dose Route Start Last Admin Trade Name Freq PRN Reason Stop Dose Admin Dextrose 12.5 gm 07/29/21 08:04 Dextrose 50% 25 Gm/50 Ml Syringe IV PUSH PRN PRN Hypoglycemia Protocol Diphenhydramine HCl 25 mg 07/28/21 00:34 Diphenhydramine Hcl Cap 25 Mg Capsule PO Q6H PRN Allergy Symptoms Duloxetine HCl 60 mg 07/28/21 09:00 07/30/21 08:07 Duloxetine Hcl 60 Mg Capsule.Dr PO 60 mg DAILY LEE Administration Famotidine 20 mg 07/28/21 09:00 07/30/21 08:07 Famotidine 20 Mg Tablet PO 20 mg DAILY LEE Administration Gabapentin 300 mg 07/28/21 09:00 07/30/21 08:07 Gabapentin 300 Mg Capsule PO 300 mg Q12HR LEE Administration Glucagon 1 mg 07/29/21 08:04 Glucagon For Inj 1 Mg Vial IM PRN PRN Hypoglycemia Protocol Glucose 15 gm 07/29/21 08:04 Glucose Oral Gel 15 Gm Of Glucse In 37.5 Gm Tube PO PRN PRN Hypoglycemia Protocol Dextrose 1,000 mls @ 100 mls/hr 07/29/21 08:04 Dextrose 5% 1,000 Ml IVPB PRN PRN Hypoglycemia Protocol Insulin Aspart 2 - 5 units 07/29/21 12:00 07/30/21 07:45 Insulin Aspart (*Bkc) 100 Units/Ml SUB-Q Not Given TIDWM [facility] Protocol Insulin Glargine 30 units 07/28/21 09:00 07/30/21 08:00 Insulin Glargine (*Bkc) 100 Units/Ml SUB-Q 30 units BID LEE Administration Metoprolol Succinate 25 mg 07/28/21 09:00 07/30/21 08:07 Metoprolol Succinate Ext Rel 25 Mg Tabcr PO 25 mg DAILY LEE Administration Ondansetron HCl 4 mg 07/29/21 12:20 07/30/21 08:12 Ondansetron Hcl Odt 4 Mg Tablet PO 4 mg Q6H PRN Administration Nausea And Vomiting Oxycodone HCl 10 mg 07/28/21 00:34 07/30/21 09:07 Oxycodone Hcl (*Crx) 5 Mg Tab Ir PO 10 mg Q6H PRN Administration Pain Rated 7-10 Prednisone 5 mg 07/28/21 08:00 07/30/21 08:07 Prednisone 5 Mg Tablet PO 5 mg DAILY@0800 LEE Administration Ropinirole HCl 1 mg 07/28/21 21:00 07/29/21 20:10 Ropinirole Hcl 1 Mg Tablet PO 1 mg HS LEE Administration Triamcinolone
[2021-07-30 09:26] LABS: Hematocrit 51.3 % (37.0-47.0); Hemoglobin 16.8 g/dL (12.0-15.0); Mean Corpuscular HGB Conc 32.7 g/dl (32-36); Mean Corpuscular Hemoglobin 34.5 pg (26-34); Mean Corpuscular Volume 105.3 fl (80-100); Mean Platelet Volume 9.6 fl (7.4-10.4); Platelet Count Result 308 k/mm3 (150-375); Red Blood Count 4.87 M/mm3 (4.2-5.4); Red Cell Distribution Width 13.6 % (11.5-14.5); White Blood Count 9.1 K/mm3 (4.5-10.0)
[2021-07-30 09:36] LABS: Anion Gap 15 mmol/L (8-16); Blood Urea Nitrogen 33 mg/dL (7-17); Calcium 9.9 mg/dL (8.4-10.2); Carbon Dioxide 22 mmol/L (22-30); Chloride 96 mmol/L (98-107); Estimated CRCL calculation 43 ml/min; Estimated Glomerular Filt Rate 39; Glucose 200 mg/dL (65-110); Magnesium 1.8 mg/dL (1.6-2.3); Potassium 4.1 mmol/L (3.4-5.0); Sodium 133 mmol/L (137-145)
[2021-07-30 11:34] LABS: Glucose Point of Care 214 mg/dl (65-105)
[2021-07-30] MEDS: INSULIN ASPART (*BKC) 100 UNITS/ML SUB-Q (11:40)
--- NOTE | 2021-07-30 13:28 | PM.DS ---
DS: Admitting Diagnosis Discharge Date 07/30/2021 Admitting Diagnosis Nausea and vomiting. DS: Discharge Diagnosis Discharge Diagnosis (1) Intractable nausea and vomiting: Code(s): R11.2 - Nausea with vomiting, unspecified Status: Acute Assessment and Plan: NPO Supportive care IV fluids 07/28/2021 interval history: patient presented with possible small-bowel obstruction secondary to ventral hernia patient was seen by surgery service, hernia is reducible and patient does not have any obstruction, currently patient is eating her lunch denies any abdominal pain nausea or vomiting, will continue present management monitor patient overnight and possibly discharge the patient tomorrow. (2) Increased ileostomy output: Code(s): R19.8 - Other specified symptoms and signs involving the digestive system and abdomen; Z93.2 - Ileostomy status Status: Acute Assessment and Plan: Continue to monitor Ileostomy care (3) Partial intestinal obstruction: Code(s): K56.600 - Partial intestinal obstruction, unspecified as to cause Status: Acute Assessment and Plan: Obstructive series in a.m. Surgery consult (4) Gastro-esophageal reflux disease without esophagitis: Code(s): K21.9 - Gastro-esophageal reflux disease without esophagitis Status: Chronic (5) Type 2 diabetes mellitus: Qualifiers: Diabetes mellitus long distance operator insulin use: with long distance operator use Diabetes mellitus complication status: with hyperglycemia Qualified Code(s): E11.65 - Type 2 diabetes mellitus with hyperglycemia; Z79.4 - FDC (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 of insulin Code(s): E11.9 - Type 2 diabetes mellitus without complications Status: Deleted Assessment and Plan: Continue to monitor. NPO currently (6) Crohn's disease, unspecified, with abscess: Qualifiers: Gastrointestinal tract location: unspecified location Qualified Code(s): K50.914 - Crohn's disease, unspecified, with abscess Code(s): K50.914 - Crohn's disease, unspecified, with abscess Status: Resolved Assessment and Plan: Status post partial bowel resection and ileostomy placement. DS: Summary Hospital Course Reason for hospitalization: Chief Complaint: Nausea and vomiting. Narrative: This is a 56-year-old female with past medical history significant for Crohn's disease with fistula formation patient is status post ileostomy secondary to necrotizing fascitis. Patient presents to the emergency room due to intractable nausea vomiting and increased ileostomy output diet started the day before in the morning and has persisted for the last 48 hours or so. Patient denies any fevers rigors or chills states that she has had sepsis before, she has been in her usual state of health prior to this. Patient denies any abdominal pain. Preliminary workup was significant for CT of abdomen and pelvis early or partial mechanical obstruction. In emergency room patient had episodes of hypotension. Patient was started on IV fluids. Decision has been made to admit the patient for further evaluation, management and treatment. Hospital Course: 07/28/2021 interval history: patient presented with possible small-bowel obstruction secondary to ventral hernia patient was seen by surgery service, hernia is reducible and patient does not have any obstruction, currently patient is eating her lunch denies any abdominal pain nausea or vomiting, will continue present management monitor patient overnight and possibly discharge the patient tomorrow. 07/29/2021 interval history patient was seen by surgery service and was placed on regular diet however 1st patient had a bloating and then had a high output in her ileostomy, and felt nauseated, KUB was done and showed normal bowel pattern no obstruction, surgery service seen the patient and recommended stop the regular diet started the patient on a clear liquid will continue to monitor and ther
[2021-07-30 14:00] VITALS: BP 109/86; PULSE 96; RESP 16; TEMP 35.6; O2SAT 93
--- NOTE | 2021-07-30 16:08 | PCCCNOTE ---
On 07/30/21, the student, [Mariola Gray], provided care and completed [facility] documentation on this patient. I have reviewed the student's documentation and agree with the findings.
== END 2021-07-30 14:00 | disposition home or self-care (01) ==
LOC: ANHED 20:13 → ANHIMU 07-28 12:00 → ANH3MEDSUR 07-29 11:14 → ANHIMU 08-02 11:14
PROVIDERS: Emergency Medicine; Admitting Provider Internal Medicine; Emergency Provider Emergency Medicine; PCP Family Medicine; Visit Provider Family Medicine
DX: K43.2 Incisional hernia without obstruction or gangrene (principal); K43.9 Ventral hernia without obstruction or gangrene; K43.5 Parastomal hernia without obstruction or gangrene; K50.90 Crohn's disease, unspecified, without complications; E86.0 Dehydration; K21.9 Gastro-esophageal reflux disease without esophagitis; I10 Essential (primary) hypertension; E11.9 Type 2 diabetes mellitus without complications; Q79.60 Ehlers-Danlos syndrome, unspecified; E66.9 Obesity, unspecified; Z20.822 Contact with and (suspected) exposure to COVID-19; Z93.2 Ileostomy status; Z79.4 Long term (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 of insulin; Z79.899 Other long term (current) drug therapy
CPT/HCPCS: 36415; 51701; 74018; 74019; 74176; 80048; 80053; 81001; 82948; 83605; 83690; 83735; 85025; 85027; 87086; 93005; 96361; 96374; 96376; 99285; A9270; C9803; G0378; J1815; J2405; J7030; J7512; U0003; U0005

== ENCOUNTER 2022-03-08 10:35 | Outpatient (CLI) | payer BC, SELFPAY ==
--- NOTE | ~2022-03-08 | CT_ITS ---
EXAMINATION: CT abdomen pelvis w con DATE: 03/08/2022 11:34 INDICATION: Crohn's disease presenting with abdominal pain TECHNIQUE: Computed tomography (CT) of the abdomen and pelvis was performed with 100 mL Omnipaque-350 intravenous contrast. Automated exposure control and iterative reconstruction technique were employe d. The dose-length product was 1115.30 mGy-cm. COMPARISON: 07/27/2021 FINDINGS: Mild dependent atelectasis in the bilateral lower lobes. Heart size is normal. No pericardial or pleu ral effusion. Cholecystectomy clips at the gallbladder fossa. Mild focal hepatic steatosis along the glenys hepatis. Spleen, pancreas and bilateral adrenal glands are normal. Bilateral subcentimeter low- attenuation renal cysts. The right kidney is 9 mm stone filling a calyx in the interpolar region of t he left kidney. Cluster of a few smaller stones the largest measuring 5 mm in the anterior calyx of t he horizontally oriented right kidney. Additional 3 mm stone in a middle calyx of the right kidney. N o ureteral stones or hydronephrosis. Fibroid uterus with a 9.2 similar fibroid at the right posterior lower uterine segment which exerts mass effect upon the posterior wall of the bladder. Postoperative changes of a subtotal colectomy with residual long Gay's pouch and a right lower quadrant and il eostomy. There is extensive fatty infiltration of the wall of the Gay's pouch and increased perir ectal fat consistent with sequela of chronic inflammatory bowel disease. Multiple loops of more proxi mal nonobstructed bowel extending into a moderate-sized widemouthed umbilical hernia and similar mode rate-sized widemouth peristomal hernia which have essentially combined with only a small intervening sagittally oriented strip of the right rectus abdominis muscle. Aside from the fatty infiltration of the remaining distal colon there are no other segments of bowel demonstrating wall thickening or surr ounding inflammatory stranding to suggest acute Crohn's flare. There is an additional small supraumbi lical ventral hernia. No abscess or free intraperitoneal gas or fluid. No pathologically enlarged abd ominal or pelvic lymphadenopathy. Bones are unremarkable. IMPRESSION: 1. No abscess or acute intra-abdominal/pelvic process. 2. Status post prior subtotal colectomy with long Gay's pouch and right lower quadrant and ileost corona. No interval change in herniation of several loops of nonobstructed small bowel into both a moder ate-sized umbilical hernia and immediately adjacent right lower quadrant parastomal hernia. 3. Bilateral nonobstructing nephrolithiasis. 4. Fibroid uterus. Reviewed, dictated and finalized at location A. KO KURA TUARUA IMPRESSION: 1. No abscess or acute intra-abdominal/pelvic process. 2. Status post prior subtotal colectomy with long Gay's pouch and right low er quadrant and ileostomy. No interval change in herniation of several loops of nonobstructed small bowel into both a moderate-sized umbilical hernia and imme diately adjacent right lower quadrant parastomal hernia. 3. Bilateral nonobstructing nephrolithiasis. 4. Fibroid uterus.
[2022-03-08 11:22] LABS: Estimated Glomerular Filt Rate 51
== END 2022-03-08 10:36 | disposition home or self-care (01) ==
PROVIDERS: PCP Family Medicine; Visit Provider Physician Assistant
DX: R10.9 Unspecified abdominal pain (principal); D25.9 Leiomyoma of uterus, unspecified; N20.0 Calculus of kidney
CPT/HCPCS: 74177; Q9967

== ENCOUNTER 2022-06-08 14:21 | Outpatient (CLI) | payer BC, SELFPAY ==
[2022-06-08 14:39] LABS: Basophils Absolute Auto 0.1 K/mm3 (0.0-0.1); Basophils Percent Auto 1.3 % (0.2-1.2); Eosinophils Absolute Auto 0.2 K/mm3 (0-0.3); Hematocrit 44.3 % (37.0-47.0); Hemoglobin 14.7 g/dL (12.0-15.0); Immature Granulocyte Absolute 0.03 K/mm3 (0.00-0.031); Immature Granulocyte Percent A 0.3 % (0-0.5); Lymphocytes Absolute Auto 1.16 K/mm3 (0.9-3.2); Lymphocytes Percent Auto 12.1 % (18.3-44.2); Mean Corpuscular HGB Conc 33.2 g/dl (32-36); Mean Corpuscular Hemoglobin 34.3 pg (26-34); Mean Corpuscular Volume 103.3 fl (80-100); Mean Platelet Volume 10.5 fl (7.4-10.4); Monocytes Absolute Auto 0.6 K/mm3 (0.1-0.6); Monocytes Percent Auto 6.6 % (2.6-8.5); Neutrophils Absolute Auto 7.5 K/mm3 (1.3-6.7); Neutrophils Percent Auto 77.7 % (45.5-73.1); Platelet Count Result 161 k/mm3 (150-375); Red Blood Count 4.29 M/mm3 (4.2-5.4); Red Cell Distribution Width 13.2 % (11.5-14.5); White Blood Count 9.6 K/mm3 (4.5-10.0)
[2022-06-08 16:29] LABS: Alanine Aminotransferase 97 U/L (6-35); Albumin Level 4.4 g/dL (3.5-5.1); Alkaline Phosphatase 84 U/L (38-126); Anion Gap 7 mmol/L (8-16); Aspartate Amino Transferase 182 U/L (14-36); Bilirubin,Total 0.7 mg/dL (0.2-1.3); Blood Urea Nitrogen 17 mg/dL (7-17); Calcium 10.3 mg/dL (8.4-10.2); Carbon Dioxide 25 mmol/L (22-30); Chloride 105 mmol/L (98-107); Estimated Glomerular Filt Rate > 60; Glucose 123 mg/dL (65-110); Potassium 4.2 mmol/L (3.4-5.0); Sodium 137 mmol/L (137-145)
[2022-06-08 16:40] LABS: Immunoglobulin A 451 mg/dL (70-400); Immunoglobulin G 1088 mg/dL (700-1600); Immunoglobulin M 71 mg/dL (40-230)
[2022-06-08 16:50] LABS: Erythrocyte Sedimentation Rate 19 mm/hr (0-20)
[2022-06-10 20:11] LABS: Lambda Light Chain 25.4 mg/L (5.7-26.3)
[2022-06-11 17:25] LABS: Albumin 3.9 g/dL (3.8-4.8); Alpha 1 Globulin 0.3 g/dL (0.2-0.3); Alpha 2 Globulin 0.8 g/dL (0.5-0.9); Beta 1 Globulin 0.7 g/dL (0.4-0.6); Gamma Globulin 1.2 g/dL (0.8-1.7); Protein, Total 7.4 g/dL (6.1-8.1)
== END 2022-06-08 14:22 | disposition home or self-care (01) ==
LOC: ANHLAB 14:22
PROVIDERS: PCP Family Medicine; Visit Provider Internal Medicine Hematology & Oncology
DX: D72.9 Disorder of white blood cells, unspecified (principal)
CPT/HCPCS: 36415; 80053; 82784; 83883; 84155; 84165; 85025; 85652

== ENCOUNTER 2022-06-09 15:58 | Outpatient (CLI) | payer BC, SELFPAY ==
[2022-06-09 17:54] LABS: Alanine Aminotransferase 77 U/L (6-35); Albumin Level 4.2 g/dL (3.5-5.1); Alkaline Phosphatase 80 U/L (38-126); Anion Gap 8 mmol/L (8-16); Aspartate Amino Transferase 126 U/L (14-36); Bilirubin,Total 0.9 mg/dL (0.2-1.3); Blood Urea Nitrogen 14 mg/dL (7-17); Carbon Dioxide 25 mmol/L (22-30); Chloride 106 mmol/L (98-107); Estimated Glomerular Filt Rate 57; Glucose 276 mg/dL (65-110); Potassium 4.5 mmol/L (3.4-5.0); Sodium 139 mmol/L (137-145); Uric Acid 6.9 mg/dL (2.5-7.5)
[2022-06-09 17:55] LABS: Rheumatoid Factor < 8.6 IU/ML (<12)
[2022-06-09 18:21] LABS: Hepatitis B Surface Antigen Negative (Negative)
[2022-06-09 18:27] LABS: HAV RESULT Negative (Negative); Hepatitis B Core IgM Result Negative (Negative)
[2022-06-09 18:39] LABS: Hepatitis C Virus Antibody Negative (Negative)
[2022-06-11 15:24] LABS: GGT 102 U/L (3-70)
[2022-06-13 11:23] LABS: Gliadin AB, IgG 1.3 U/mL (<15.0); TTG IGA AB <1.0 U/mL (<15.0)
[2022-06-13 23:33] LABS: ANA Cascade Screen Negative (Negative)
== END 2022-06-09 15:59 | disposition home or self-care (01) ==
LOC: ANHLAB 15:59
PROVIDERS: PCP Family Medicine; Visit Provider Family Medicine
DX: D75.89 Other specified diseases of blood and blood-forming organs (principal); R74.8 Abnormal levels of other serum enzymes; K50.90 Crohn's disease, unspecified, without complications; M25.50 Pain in unspecified joint
CPT/HCPCS: 36415; 80053; 80074; 82248; 82607; 82728; 82977; 83516; 84550; 86038; 86255; 86430

== ENCOUNTER 2022-06-13 11:54 | Outpatient (CLI) | payer BC, SELFPAY ==
--- NOTE | ~2022-06-13 | US_ITS ---
US abdomen limited INDICATION: Elevated liver enzymes PROCEDURE: Realtime right upper abdominal ultrasound. COMPARISON: No prior studies for comparison. FINDINGS: The pancreas is normal without focal mass or pancreatic ductal dilation. Liver echotexture is increased, consistent with fatty infiltration. There is normal directional flow in the portal ve in. Gallbladder surgically absent. Common bile duct measures 6.5 mm. No sonographic Shoemaker's sign. IMPRESSION: 1: Hepatic steatosis. Reviewed, dictated and finalized at location B. X UNIX SYSTEM ADMINISTRATOR IMPRESSION: 1: Hepatic steatosis.
== END 2022-06-13 11:55 ==
LOC: MICIMG 11:55
PROVIDERS: PCP Family Medicine; Visit Provider Family Medicine
DX: R74.8 Abnormal levels of other serum enzymes (principal); K50.90 Crohn's disease, unspecified, without complications; K76.0 Fatty (change of) liver, not elsewhere classified; Z90.49 Acquired absence of other specified parts of digestive tract
CPT/HCPCS: 76705

== ENCOUNTER 2022-08-09 15:07 | Outpatient (CLI) | payer BC, SELFPAY ==
--- NOTE | ~2022-08-09 | US_ITS ---
EXAMINATION: US pelvic complete w TV DATE: 08/09/2022 15:55 INDICATION: Pelvic and perineal pain. TECHNIQUE: Multiple transabdominal and transvaginal sonographic images of the pelvis were obtained. COMPARISON: CT abdomen and pelvis 03/08/2022 FINDINGS: TRANSABDOMINAL ULTRASOUND: The uterus measures 12.1 x 9.1 x 7.4 cm. There is no free fluid in the pelvis. TRANSVAGINAL ULTRASOUND: The endometrial complex is not well visualized. There is a 4.9 cm subserosal fibroid. There is 8.5 cm intramural fibroid. The ovaries are not visualized. IMPRESSION: 1. Uterine fibroids. 2. Endometrial complex not well visualized. Reviewed, dictated and finalized at location A.
== END 2022-08-09 15:08 ==
PROVIDERS: PCP Family Medicine; Visit Provider Registered Nurse
DX: D25.9 Leiomyoma of uterus, unspecified (principal)
CPT/HCPCS: 76830; 76856

== ENCOUNTER 2022-08-12 11:01 | Outpatient (CLI) | payer BC, SELFPAY ==
[2022-08-12 18:38] LABS: Basophils Absolute Auto 0.1 K/mm3 (0.0-0.1); Basophils Percent Auto 1.6 % (0.2-1.2); Eosinophils Absolute Auto 0.4 K/mm3 (0-0.3); Eosinophils Percent Auto 4.7 % (0-4.4); Hematocrit 45.6 % (37.0-47.0); Hemoglobin 14.6 g/dL (12.0-15.0); Immature Granulocyte Absolute 0.03 K/mm3 (0.00-0.031); Immature Granulocyte Percent A 0.4 % (0-0.5); Lymphocytes Absolute Auto 0.92 K/mm3 (0.9-3.2); Lymphocytes Percent Auto 11.2 % (18.3-44.2); Mean Corpuscular Hemoglobin 33.4 pg (26-34); Mean Corpuscular Volume 104.3 fl (80-100); Mean Platelet Volume 10.6 fl (7.4-10.4); Monocytes Absolute Auto 0.7 K/mm3 (0.1-0.6); Monocytes Percent Auto 8.4 % (2.6-8.5); Neutrophils Absolute Auto 6.1 K/mm3 (1.3-6.7); Neutrophils Percent Auto 73.7 % (45.5-73.1); Platelet Count Result 245 k/mm3 (150-375); Red Blood Count 4.37 M/mm3 (4.2-5.4); Red Cell Distribution Width 14.3 % (11.5-14.5); White Blood Count 8.2 K/mm3 (4.5-10.0)
[2022-08-12 18:57] LABS: Hemoglobin A1C 6.7 % (<5.7)
[2022-08-12 19:05] LABS: Alanine Aminotransferase 102 U/L (6-35); Albumin Level 4.1 g/dL (3.5-5.1); Alkaline Phosphatase 78 U/L (38-126); Amylase 65 U/L (30-110); Aspartate Amino Transferase 146 U/L (14-36); Bilirubin,Total 0.9 mg/dL (0.2-1.3); Lipase 188 U/L (23-300)
[2022-08-12 19:31] LABS: Vitamin D 25 Hydroxy 37.4 ng/mL
[2022-08-16 15:51] LABS: Ionized Calcium 5.5 mg/dL (4.7-5.5)
== END 2022-08-12 11:02 | disposition home or self-care (01) ==
LOC: ANHGOSHLAB 11:02
PROVIDERS: PCP Family Medicine; Visit Provider Physician Assistant
DX: K76.0 Fatty (change of) liver, not elsewhere classified (principal); D75.89 Other specified diseases of blood and blood-forming organs; E11.9 Type 2 diabetes mellitus without complications; E55.9 Vitamin D deficiency, unspecified; Q79.60 Ehlers-Danlos syndrome, unspecified; Z79.4 Long term (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 of insulin
CPT/HCPCS: 36415; 80076; 82150; 82306; 82330; 82728; 83036; 83690; 85025

== ENCOUNTER → 2022-09-01 10:28 | Outpatient (CLI) | payer BC, SELFPAY ==
--- NOTE | ~2022-09-01 | DEXA_ITS ---
Bone Density Report Name: TIA IRENE Age: 57 Sex: Female Ethnicity: White Date of : 1965 Indication: osteopenia; parental hip fracture; height loss; inflammatory bowel disease; history of glucocorticoids; asthma or emphysema; rheumatoid arthritis; postmenopausal Referring Provider: MarcusCata Study: Bone densitometry was performed. Exam Date: September 01, 2022 Accession number: [id number] Bone Density: Region BMD T-score Z-score Classification AP Spine (L1-L4) 0.945 -0.9 0.3 Normal Femoral Neck (Left) 0.735 -1.0 0.1 Normal Total Hip (Left) 0.801 -1.2 -0.4 Osteopenia Femoral Neck (Right) 0.693 -1.4 -0.3 Osteopenia Total Hip (Right) 0.838 -0.9 -0.1 Normal Total Hip Mean 0.820 -1.1 -0.3 Osteopenia World Health Organization criteria for BMD impression classify patients as: Normal (T-score at or above -1.0), Osteopenia (T-score between -1.0 and -2.5), or Osteoporosis (T-score at or below -2.5). 10-year Fracture Risk(1): Major Osteoporotic Fracture 26% Hip Fracture 1.3% Reported Risk Factors: [place] (), Neck BMD=0.693, BMI=35.4, parental fracture, glucocorticoids, rheumatoid arthritis (1) FRAX(R) Version 3.08. Fracture probability calculated for an untreated patient. Fracture probability may be lower if the patient has received treatment. Previous Exams: Region Exam Age BMD T-score BMD Change BMD Change Date g/cm2 vs Baseline vs Previous AP Spine(L1-L4) 09/01/2022 57 0.945 -0.9 -0.040* 0.065* 09/08/2016 51 0.881 -1.5 -0.104* -0.104* 07/31/2013 48 0.985 -0.6 Total Hip(Left) 09/01/2022 57 0.801 -1.2 -0.137* -0.129* 09/08/2016 51 0.930 -0.1 -0.008 -0.008 07/31/2013 48 0.939 0.0 Total Hip(Right) 09/01/2022 57 0.838 -0.9 -0.109* -0.064* 09/08/2016 51 0.903 -0.3 -0.044* -0.044* 07/31/2013 48 0.947 0.0 *Denotes significance at 95% confidence level, LSC for AP Spine = 0.022 g/cm2, LSC for Total Hip = 0.027 g/cm2 Clinical Information Provided by Patient: Parent has had a hip fracture Has taken Glucocorticoids Has rheumatoid arthritis Has used the following medications: Vitamin D Has the following medical conditions: Asthma or Emphysema, Inflammatory bowel diseases Patient maximum height was 63.5 No regular weight bearing exercise Drinks caffeinated beverages Onset of menses at age 14 Number of children 2
== END ==
PROVIDERS: PCP Family Medicine; Visit Provider Internal Medicine Endocrinology, Diabetes & Metabolism
DX: N95.1 Menopausal and female climacteric states (principal); M85.851 Other specified disorders of bone density and structure, right thigh
CPT/HCPCS: 77080

== ENCOUNTER 2022-10-26 14:26 | Outpatient (CLI) | payer BC, SELFPAY ==
--- NOTE | ~2022-10-26 | CT_ITS ---
EXAMINATION: CT abdomen pelvis wo con DATE: 10/26/2022 14:46 INDICATION: Nephrolithiasis and uterine fibroids presenting with left flank and abdominal pain, fever and chills.. TECHNIQUE: Computed tomography (CT) of the abdomen and pelvis was performed without intravenous contr ast. Automated exposure control and iterative reconstruction technique were employed. The dose-length product was 718.81 mGy-cm. COMPARISON: 03/08/2022 FINDINGS: Mild dependent atelectasis in bilateral lower lobes. Heart size is normal. No pericardial or pleural effusion. Cholecystectomy clips at the gallbladder fossa. Liver, gallbladder, spleen, pancreas and bi lateral adrenal glands are normal. 13 x 8 x 8 mm obstructing stone at the proximal left ureter with m oderate more proximal hydroureteronephrosis. A few stones in the lower pole calyces of the right kidn ey the largest measuring up to 7 mm in maximal diameter. Fibroid uterus including a 8.6 cm fibroid at the lower uterine segment which exerts mass effect upon the bladder which is compressed anteriorly. Subtotal colectomy with Gay's pouch in the pelvis. There is fatty infiltration of the wall of the Gay's pouch which suggests sequela of chronic colitis centimeters in the setting of inflammatory bowel disease. Right lower quadrant and ileostomy with associated large parastomal hernia containing multiple loops of nonobstructed small bowel. Multiple additional loops of nonobstructed small bowel extend into a second large more midline ventral hernia. Additional small more cephalad midline ventra l hernia. Small fat-containing right inguinal hernia. No free intraperitoneal gas or fluid. No pathol ogically enlarged abdominal or pelvic lymphadenopathy. Bones are unremarkable. IMPRESSION: 1. Bilateral nephrolithiasis with obstructing 13 x 8 x 8 mm proximal left ureteral stone with moderat e left hydroureteronephrosis. 2. Status post prior subtotal colectomy with long Gay's pouch and right lower quadrant end ileostomy. No interval change in herniation of several loops of nonobstructed small bowel into both a moderate-sized umbilical hernia and immediately adjacent right lower quadrant parastomal hernia. 3. Fibroid uterus. Reviewed, dictated and finalized at location A. IMPRESSION: 1. Bilateral nephrolithiasis with obstructing 13 x 8 x 8 mm proximal left urete ral stone with moderate left hydroureteronephrosis. 2. Status post prior subtotal colectomy with long Gay's pouch and right low er quadrant end ileostomy. No interval change in herniation of several loops of nonobstructed s mall bowel into both a moderate-sized umbilical hernia and immediately adjacent right lower quadrant parastomal hernia. 3. Fibroid uterus.
== END 2022-10-26 14:27 ==
PROVIDERS: PCP Family Medicine; Visit Provider Family Medicine
DX: R31.9 Hematuria, unspecified (principal); R10.9 Unspecified abdominal pain; N20.0 Calculus of kidney; D25.9 Leiomyoma of uterus, unspecified
CPT/HCPCS: 74176

== ENCOUNTER 2022-10-26 14:50 | Outpatient (CLI) | payer BC, SELFPAY ==
[2022-10-29 05:56] LABS: Prolactin 3.9 ng/mL (***)
== END 2022-10-26 14:51 | disposition home or self-care (01) ==
LOC: ANHGOSHLAB 14:53
PROVIDERS: PCP Family Medicine; Visit Provider Registered Nurse
DX: N64.3 Galactorrhea not associated with childbirth (principal); R31.9 Hematuria, unspecified
CPT/HCPCS: 36415; 84146

== ENCOUNTER 2023-07-03 14:22 | Outpatient (CLI) | payer BC, SELFPAY ==
--- NOTE | ~2023-07-03 | MMUS_ITS ---
EXAMINATION: MM diagnostic derrick BI w tamie, US breast BI limited HISTORY: Palpable left breast abnormality. Bilateral axillary lymph nodes swelling for one year. TECHNIQUE: Additional 3-D tomosynthesis images of the breasts were performed and synthetic 2-D images were generated. CAD analysis was submitted and interpreted. High resolution limited bilateral breast ultrasound was performed. COMPARISON: Comparison to multiple prior studies sequentially, with oldest reviewed study dated 07/31. BREAST PARENCHYMAL COMPOSITION: Not dense: There are scattered areas of fibroglandular density. FINDINGS: MAMMOGRAPHIC FINDINGS: There is right axillary lymphadenopathy which is new compared with prior studies allowing for differe nces of technique. The left breast is stable without evidence for malignancy. No discrete abnormality is identified in the area palpable concern. ULTRASOUND: Limited right breast/axillary ultrasound: In the area of axillary swelling there is an enlarged lymph node measuring 1.8 x 1.3 x 1.2 cm with persistent fatty hilum and internal vascularity. Limited left breast ultrasound: Normal heterogeneous echotexture in the area of palpable concern. No discrete mass. IMPRESSION: 1. Right axillary lymphadenopathy. No evidence for malignancy in the left breast. 2. Ultrasound-guided right axillary biopsy recommended. BI-RADS category 4, suspicious findings. Reviewed, dictated and finalized at location A. IMPRESSION: 1. Right axillary lymphadenopathy. No evidence for malignancy in the left breas t. 2. Ultrasound-guided right axillary biopsy recommended. BI-RADS category 4, suspicious findings.
== END 2023-07-03 14:23 ==
LOC: MICIMG 14:22
PROVIDERS: PCP Family Medicine; Visit Provider Emergency Medicine
DX: N63.20 Unspecified lump in the left breast, unspecified quadrant (principal); R92.8 Other abnormal and inconclusive findings on diagnostic imaging of breast
CPT/HCPCS: 76642; 77062; 77066; G0279

== ENCOUNTER 2023-07-21 08:27 | Outpatient (CLI) | payer BC, SELFPAY ==
--- NOTE | ~2023-07-21 | US_ITS ---
US soft tissue head and neck DATE: 07/21/2023 09:38 INDICATION: Localized swelling, mass, lump TECHNIQUE: Real-time imaging, color flow imaging COMPARISON: None FINDINGS: There is a circumscribed oval heterogeneous hypoechoic mass with through transmission and t he right lobe of the thyroid gland, measuring approximately 5.5 x 8 x 10 mm dimension, with through t ransmission and posterior enhancement. No cervical mass lesion or lymphadenopathy is detected otherwise. IMPRESSION: Nonspecific 1 cm right thyroid lobe heterogeneous hypoechoic lesion with through transmis jorge posterior enhancement Reviewed, dictated and finalized at Location [facility]. Reviewed, dictated and finalized at location A. IMPRESSION: Nonspecific 1 cm right thyroid lobe heterogeneous hypoechoic lesion with through transmission posterior enhancement
--- NOTE | ~2023-07-21 | US_ITS ---
EXAMINATION: US_BXSTAXLIMG_US DATE: 07/21/2023 09:38 INDICATION: Localized enlarged right axillary lymph node TECHNIQUE: The procedure including the risks and benefits was discussed with the patient. Risks discu ssed included bleeding and infection. The patient understood the risks and agreed to proceed. The sk in overlying the liver was prepped and draped in usual sterile fashion. Anesthetic was administered with 1% lidocaine subcutaneously. A 14 gauge core biopsy needle was advanced under continuous ultras ound observation to the lesion of interest. 6 core biopsy specimens were obtained, 4 placed in RPMI media and 2 in formalin. The needle was removed and the entry site was cleaned and dressed. Post pr ocedure ultrasound demonstrated no hemorrhage. FINDINGS: Ultrasound images demonstrate the 2.9 x 2.1 x 1.0 cm right axillary lymph node of concern. Subsequent images demonstrate the biopsy needle advanced through the lymph node. IMPRESSION: 1. Successful Ultrasound-guided biopsy of a 2.9 x 2.1 x 1.0 cm right axillary lymph node. Reviewed, dictated and finalized at location A. IMPRESSION: 1. Successful Ultrasound-guided biopsy of a 2.9 x 2.1 x 1.0 cm right axillary l ymph node.
== END 2023-07-21 08:28 | disposition home or self-care (01) ==
PROVIDERS: PCP Family Medicine; Visit Provider Family Medicine
DX: R59.0 Localized enlarged lymph nodes (principal); R93.0 Abnormal findings on diagnostic imaging of skull and head, not elsewhere classified
CPT/HCPCS: 20999; 76536; 76942; 88305; 88341; 88342

== ENCOUNTER 2023-08-28 12:34 | Outpatient (CLI) | payer BC, SELFPAY ==
--- NOTE | ~2023-08-28 | US_ITS ---
EXAMINATION: US FNA w image guidance DATE: 08/28/2023 13:26 INDICATION: Disorder of thyroid, unspecified. TECHNIQUE: The procedure and its benefits and risks were discussed with the patient. Risks specifically discusse d included bleeding. The patient verbalized understanding of the risks and agreed to proceed. The nec k was prepped and draped in the usual sterile manner. 1% lidocaine was used for local anesthesia. 6 passes were made with a 25G needle into the lesion under ultrasound guidance. There were no immedia te complications. FINDINGS: Grayscale ultrasound images demonstrate needles advanced into a 10 mm nodule in right thyroid lobe fo r biopsy. IMPRESSION: 1. Ultrasound-guided fine needle aspiration of a thyroid nodule. Reviewed, dictated and finalized at location A.
== END 2023-08-28 12:35 | disposition home or self-care (01) ==
PROVIDERS: PCP Family Medicine; Visit Provider Family Medicine
DX: E07.9 Disorder of thyroid, unspecified (principal)
CPT/HCPCS: 10005; 88172; 88173; 88305

== ENCOUNTER 2024-05-21 17:38 | Emergency (ER) | payer BC, SELFPAY ==
--- OUTSIDE RECORDS SUMMARY | 2024-05-21 17:41 | XMS_ITS | Encounter Summary ---
Author Organization [facility] Address [facility] [place] [address] Care Team Providers Care Plate Take Out Worker Name Role Phone Candida Paris MD Primary Care Provider [phone] Encounter Details Date Type Department Care Team (Late st Contact Info) Description 07/24/2023 Lab Requisition [facility] - Pathology Lab [address] [place] [id number] Jatin Altamirano MD [address] [place] [id number] Illness, unspecified Social History Tobacco Use Types Packs/Day Years Used Date Smoking Tobacco: Never Assessed Sex and Gender Information Value Date Recorded Sex Assigned at Not on file Gender Identity Not on file Sexual Orientation Not on file documented as of this encounter Plan of Treatment Not on file documented as of this encounter Procedures Procedure Name Priority Date/Time Associated Diagnosis Comments PATHOLOGY TISSUE Routine 07/21/2023 9:28 AM CDT Illness, unspecified documented in this encounter Results * PATHOLOGY TISSUE (07/21/2023 9:28 AM CDT) Case Report Surgical Pathology Report ? Case: [id number] ? Authorizing Provider: ??Jatin Altamirano MD ?Collected: ? 07/21/2023 09:28 AM ? Ordering Location: ? [facility] - ??Received: ?07/24/2023 01:18 PM ? Pathology Lab ? Pathologist: ? Stephenie Arguelles MD ? Specimen: ?Lymph Node Biopsy ? 07/25/2023 9:56 AM [facility] Final Diagnosis Lymph node, right axilla, needle core biopsy: - Follicular and paracortical hyperplasia - No evidence of lymphoma or metastatic carcinoma, as sampled - See description 07/25/2023 9:56 AM [facility] Microscopic Description and Comment Sections show lymph node parenchyma with multiple germinal centers with intact mantle zones. The paracortical areas show a mild increase in vascularity and also contain a mix of cellularity, with occasional eosinophils and plasma cells. Despite the cellular mix, no definitive Hodgkin or Panchito-Zachariah cells are seen in this sample of tissue. No necrosis or granulomas are present. A deeper H&E recut of the specimen confirms these findings. To further define the cellular mix in the specimen, immunohistochemistry is performed. All controls are appropriately reactive. CD20 shows B-cells appropriately present in the specimen, concentrated in the follicles/germinal centers and mantle zones. CD21 corresponds to these follicular dendritic cell meshworks. CD3 is expressed by the T-cells, appropriately located in the paracortical areas. PAX-5 is normally expressed by the B-cells and does not highlight any potential Hodgkin or Panchito-Zachariah cells. CD30 shows scattered small immunoblasts, and CD15 highlights granulocytes. OCT-2 and RENARD.1 show normal expression in the B-cells and immunoblasts. Pancytokeratin is negative for metastatic carcinoma. Concurrent flow cytometry ([employer] [address], [address], [place] [address]) shows non-specific findings. B-cells are described as polyclonal. T-cells show no aberrancy; however, bright CD38 is described (feature of activation). The CD4:CD8 ratio is normal (2.7:1). In summary, this sample of right axillary lymph node shows no evidence of lymphoma or metastatic carcinoma, as sampled. While the paracortical cellular mix can be noted in classic Hodgkin lymphoma, no tumor cells are appreciated on multiple H&E levels or by immunohistochemistry. This could be related to sampling. If clinical suspicion for a neoplastic process persists, consider excisional biopsy. 07/25/2023 9:56 AM [facility] Clinical History The patient is a 58 year old woman with an enlarged right axillary lymph node. 07/25/2023 9:56 AM [facility] Materials Received Received are 2 slides and 1 block labeled [id number] for initial diagnostic interpretation. [place] [address]. All original materials are returned to the referring institution, along with a copy of our final report. 07/25/2023 9:56 AM [facility] Pathologist Location at [facility] 07/25/2023 9:56 AM [facility] Disclaimer The performance characteristics of all immunohistochemical and indirect immunofluorescence stains (if any) cited in this report were determined by the Histopathology Laboratory of [facility]. Some of these tests were developed by our own laboratory and have not been cleared or approved by the US Food and Drug Administration. The FDA does not require this test to go through premarket FDA review. These tests are used for clinical purposes. They should not be regarded as investigational or for research. This laboratory is certified under the Clinical Laboratory Improvement Amendments (CLIA) as qualified to perform high complexity clinical laboratory testing. This case has been personally reviewed and interpreted by the attending (teaching) pathologist. 07/25/2023 9:56 AM CDT [facility] Embedded Images 07/25/2023 9:56 AM CDT [facility] Pathology/Cytolo gy BIOPSY OF LYMPH NODE / Unknown 07/21/2023 9:28 AM CDT 07/24/2023 1:18 PM CDT Jatin Altamirano MD LAB - PATHOLOGY/CYTO LOGY ORDERABLES Performing Organization Address City/State/[facility] Co de Phone Number [facility] [address] [phone] documented in this encounter Visit Diagnoses Diagnosis Illness, unspecified documented in this encounter Care Teams Plate Take Out Worker Relationship Specialty Start Date End Date Candida Paris MD [address] [place], [place] [id number] PCP - General Family Medicine 06/11/14 documented as of this encounter
--- OUTSIDE RECORDS SUMMARY | 2024-05-21 17:41 | XMS_ITS | Data Portability ---
Author Organization [facility], Main Office Address [address] [place] [address] Assessment No assessment recorded. Plan of Treatment Reminders Order Date Submit Date Provider Last Modified By Organization Details Last Modified Time Details Appointments None recorded. Lab phosphorus, serum or plasma 2022 023 [facility], 2022 [address], [address], [place], [address], 3 15:20:57 PTH (parathyroi d hormone), intact + calcium, serum or plasma 2022 023 [facility], 2022 K[address]olomew, [address], [place], [address], 3 15:20:58 vitamin D, 25-hydroxy, total, serum 2022 023 [facility], 2022 Karely [address]omew, [address], [place], [address], 3 15:20:58 HbA1c (hemoglobin A1c), blood 2022 023 [facility], 2022 [address]tholomew, [address], [place], [address], 3 15:19:13 albumin/cre atinine, mass ratio, urine 2022 023 [facility], 2022 Kare[address]th[address]omew, [address], [place], [address], 3 15:19:14 CMP, serum or plasma 2022 023 [facility], 2022 [address]ome[address], [address], [place], [address], 3 15:19:14 TSH + free T4, serum 2022 023 [facility], 2022 [address], [address], [place], [address], 3 15:19:14 lipid panel, serum 2022 023 [facility], 2022 Kare[address]th[address]omew, [address], [place], [address], 3 15:19:13 Referral None recorded. Procedures None recorded. Surgeries None recorded. Imaging SPECT-CT, parathyroid 2022 [address] [facility], [facility] [place], [address], 3 16:58:19 bone density 2022 023 [facility], 2022 Luci [address]omew, [address], [place], [address], 3 18:13:51 Medication Orders Jardiance 25 mg tablet 2022 023 [facility] [address] [place], [address], 3 15:13:21 Ozempic 0.25 mg or 0.5 mg (2 mg/1.5 mL) subcutaneou s pen injector 2022 023 [facility] [address] [place], [address], 3 15:13:19 glimepiride 2 mg tablet 2022 023 [facility] [address] [place], [address], 3 15:18:29 metformin ER 500 mg tablet,exte nded release 24 hr 2022 023 [facility] [address] [place], [address], 3 17:48:59 Patient TargetsNo targets recorded. Patient InstructionsNo instructions recorded. Reason for Referral None Reported. Results Created Date Observation Date Name Description Value Unit Range Abnormal Flag Note LastModifiedBy Organization Detail LastModifiedTime 08/11/19 23 08/10/2022 SPECT -CT, parat hyroi d No observ ation record ed. [facility] [place] [address] [place], [address], 09/15/2022 09:11:30 09/02/19 23 09/01/2022 bone densi ty No observ ation record ed. [facility] [address], [place], [address], 09/08/2022 11:00:47 09/16/19 bone densi ty No observ ation record ed. [facility] [address], [place], [address], 09/15/2022 11:40:46 Result Notes None recorded. Problems Name Problem SNOMED Code Status Onset Date Resolution Date Notes Provider Name and Address Organization Details Recorded Time Well controlled type 2 diabetes mellitus 907225339 Active 2022 Cata Velazquez MD [address], [place], [address], [employer] 3 15:11:07 Dyslipidemia 456053084 Active 2022 Cata Velazquez MD [address], [place], [address], [employer] 3 15:18:42 Menopausal symptom 02658867 Active 2022 Cata Velazquez MD [address], [address], [place], [address], [employer] 3 15:19:24 Hyperparathyro idism 19907753 Active 2022 Cata Velazquez MD [address], [address], [place], [address], [employer] 3 15:19:39 Primary hyperparathyro idism 30285676 Active 2022 Cata Velazquez MD [address], [address], [place], [address], [employer] 3 16:59:54 Problem Notes None recorded. Procedures Surgical History None recorded. Imaging Results Imaging Date Name Status LastModified by Organiz ation Details LastModified Time 08/10/2022 SPECT-CT, parathyroid completed [facility] [place] [address], [place], [address], 09/15/2022 09:11:30 09/01/2022 bone density completed [facility] [address], [place], [address], 09/08/2022 11:00:47 09/15/2022 bone density completed [address] [facility] [address], [place], [address], 09/15/2022 11:40:46 Procedure Notes None recorded. Medical Equipment None Reported. Allergies Allergen ID Allergen Name Allergen Category Reaction Reaction Severity Criticality Documentation Date Start Date Code Code System Note Provider Name and Address Organization Details Recorded Time 79937 latex environme nt,medica tion Not available Not available Not available 06/16/2022 27937 91 RxNorm Not Available [facility] 3 00:02:23 12529 Compazine medicatio n Not available Not available Not available 06/16/202285368 6 RxNorm Not Available [facility] 3 00:02:24 Medications Name Sig Start Date Stop Date Status Note LastModified by Organization Details LastModified Time gabapentin 600 mg tablet 04/23 completed Not Available Not Available Not Available fluconazole 150 mg tablet 04/23 completed Not Available Not Available Not Available ondansetron HCl 4 mg tablet TAKE 1 TABLET BY MOUTH EVERY 8 HOURS NEEDED FOR NAUSEA AND VOMITING active Not Available Not Available No t Available gabapentin 400 mg capsule TAKE 1 CAPSULE BY MOUTH THREE TIMES DAILY 04/29 completed Not Available Not Available Not Available prednisone 5 mg tablet TAKE 1 & 1/2 (ONE & ONE-HALF) TABLETS BY MOUTH ONCE DAILY active Not Available Not Available No t Available ciprofloxac in 500 mg tablet TAKE 1 TABLET BY MOUTH EVERY 12 HOURS 12/13 completed Not Available Not Available Not Available triamcinolo ne acetonide 0.1 % topical cream APPLY TO THE AFFECTED AREA(S) TWICE DAILY active Not Available Not Available No t Available glimepiride 2 mg tablet TAKE 2 TABLETS BY MOUTH TWICE DAILY BEFORE MEAL(S) active Not Available Not Available No t Available amoxicillin 875 mg tablet 04/23 completed Not Available Not Available Not Available cephalexin 500 mg capsule TAKE 1 CAPSULE BY MOUTH EVERY 8 HOURS 12/13 completed Not Available Not Available Not Available ropinirole 0.5 mg tablet TAKE 2 TABLETS BY MOUTH ONCE DAILY AT BEDTIME active Not Available Not Available No t Available gabapentin 300 mg capsule TAKE 1 CAPSULE BY MOUTH TWICE DAILY 04/29 completed Not Available Not Available Not Available hydrocortis one 2.5 % topical cream APPLY CREAM TO AFFECTED AREA TWICE DAILY NEEDED FOR IRRITATIO N active Not Available Not Available No t Available mupirocin 2 % topical ointment APPLY OINTMENT TOPICALLY TWICE DAILY active Not Available Not Available No t Available gabapentin 100 mg capsule TAKE 1 CAPSULE BY MOUTH THREE TIMES DAILY FOR 90 DAYS active Not Available Not Available No t Available metoprolol succinate ER 25 mg tablet,exte nded release 24 hr TAKE 1 TABLET BY MOUTH ONCE DAILY active Not Available Not Available No t Available ergocalcife rol (vitamin D2) 1,250 mcg (50,000 unit) capsule TAKE 1 CAPSULE BY MOUTH ONCE A WEEK 07/05 completed Not Available Not Available Not Available ondansetron 4 mg disintegrat ing tablet DISSOLVE 1 TABLET IN MOUTH EVERY 6 HOURS NEEDED FOR NAUSEA AND VOMITING active Not Available Not Available No t Available metformin ER 500 mg tablet,exte nded release 24 hr TAKE 1 TABLET BY MOUTH TWICE DAILY BEFORE MEAL(S) 2022 active Not Available Not Available Not Avai lable calcitriol 0.25 mcg capsule TAKE 1 CAPSULE BY MOUTH ONCE DAILY FOR 14 DAYS active Not Available Not Available No t Available amoxicillin 875 mg-shanique m clavulanate 125 mg tablet 04/23 completed Not Available Not Available Not Available Benadryl 25 mg capsule Take 1 capsule every 4 hours by oral route. 2021 active Not Available Not Available Not Avai lable insulin lispro (U-100) 100 unit/mL subcutaneou s pen INJECT 20 UNITS SUBCUTANE OUSLY THREE TIMES DAILY BEFORE MEAL(S) active Not Available Not Available No t Available duloxetine 20 mg capsule,del ayed release TAKE 1 CAPSULE BY MOUTH TWICE DAILY active Not Available Not Available No t Available duloxetine 30 mg capsule,del ayed release 04/29 completed Not Available Not Available Not Available duloxetine 60 mg capsule,del ayed release TAKE 1 CAPSULE BY MOUTH ONCE DAILY active Not Available Not Available No t Available Lantus Solostar U-100 Insulin 100 unit/mL (3 mL) subcutaneou s pen INJECT 60 UNITS SUBCUTANE OUSLY ONCE DAILY AT BEDTIME active Not Available Not Available No t Available oxycodone 10 mg tablet TAKE 1 TABLET BY MOUTH EVERY 6 HOURS NEEDED FOR 30 DAYS active Not Available Not Available No t Available pen needle, diabetic 32 gauge x 5/32 USE 1 TO INJECT INSULIN UP TO 5 TIMES DAILY BEFORE MEALS AND AT BEDTIME. active Not Available Not Available No t Available OneTouch Verio test strips USE 1 STRIP TO CHECK GLUCOSE 4 TIMES DAILY BEFORE MEAL(S) active Not Available Not Available No t Available Jardiance 25 mg tablet Take 1 tablet every day by oral route in the morning for 90 days. 2022 active Not Available Not Available Not Avai lable OneTouch Verio Flex Meter active Not Available Not Available Not Available Ozempic 0.25 mg or 0.5 mg (2 mg/1.5 mL) subcutaneou s pen injector INJECT 0.5 MG WEEKLY active Not Available Not Available No t Available OneTouch Delica Plus Lancet 33 gauge active Not Available Not Available Not Available Vitals Date Recorded Body mass index (BMI) Body height Oxygen saturation Oxygen saturation in Arterial blood by Pulse oximetry Heart rate Body temperature Body weight Systolic blood pressure Diastolic blood pressure Provider Name and Address Organization Details Last Updated DateTime 3 35.4 kg/m2 160.02 cm 98 % 98 % 99 /min 98.2 [degF] 06945.4 7 g 132 mm[Hg] 71 mm[Hg] Not Available [facility] 3 00:00:13 Date Recorded Body height Body mass index (BMI) Body weight Body temperature Heart rate Systolic blood pressure Diastolic blood pressure Provider Name and Address Organization Details Last Updated DateTime 3 160.02 cm 37 kg/m2 30756.8 1 g 97.2 [degF] 120 /min 126 mm[Hg] 72 mm[Hg] RADHA Ames [place] [facility] [employer] 3 14:51:06 Social History Question Answer Notes LastModified by [employer] ion Details LastModified Time Tobacco Smoking Status Never Smoker Not Available [facility] 06/15/2022 23:58:11 What Is Your Level Of Alcohol Consumption? None [id number] Information not available 06/15/2022 What Is Your Level Of Caffeine Consumption? Moderate [id number] Information not available 06/15/2022 In The 14 Days Before Symptom Onset, Have You Had Close Contact With A Laboratory-confirm ed COVID-19 While That Case Was Ill? No [id number] Information not available 06/15/2022 In The 14 Days Before Symptom Onset, Have You Had Close Contact With A Person Who Is Under Investigation For COVID-19 While That Person Was Ill? No [id number] Information not available 06/15/2022 What Type Of Diet Are You Following? REGULAR [id number] Information not available 06/15/2022 What Is Your Relationship Status? [id number] Information not available 06/15/2022 Have You Recently Traveled Abroad? No [id number] Information not available 06/15/2022 Sex: Female Functional Status None recorded. Mental Status None recorded. Family History Relationship Description Onset Age of this Age Resolved Age Notes LastModified by Organization Details LastModified Time Mother Diabetes mellitus [id number] Not available 06/15/2022 23:58:20 Paternal Grandmother Diabetes mellitus [id number] Not available 06/15/2022 23:58:20 Maternal Aunt Diabetes mellitus [id number] Not available 06/15/2022 23:58:20 Maternal Uncle Diabetes mellitus [id number] Not available 06/15/2022 23:58:20 Maternal Uncle Heart disease [id number] Not available 06/15/2022 23:58:20 Medical History Condition Response DEPRESSION (INCLUDING POST ) Y ARTHRITIS Y USE OF BLOOD THINNERS Y DIABETES, TYPE GI PROBLEMS Y HEART DISEASE/HEART PROBLEMS Y KIDNEY DISEASE BLOOD TRANSFUSION Y ANEMIA/BLOOD DISORDER Y Gynecological HistoryNo gynecological history recorded. Obstetrics History GPAL:G 0 P 0 0 0 0 Past Encounters Encounter ID Performer Location Encounter Start Date Encounter Closed Date Diagnosis/Indication Diagnosis SNOMED-CT Code Diagnosis ICD10 Code Diagnosis Note [id number] [facility] [address] [place] [address] 04/23/2021 00:00:00 04/23/2021 16:34:21 [id number] [facility] [address] [place] [address] 04/29/2022 00:00:00 04/29/2022 17:48:00 [id number] Cata Velazquez MD [facility] [address] [place] [address] 07/05/2022 14:27:36 07/05/2022 15:25:27 Well controlled type 2 diabetes mellitus 066311595 E11.9 a1c of 6.8% much improved with high C peptide c/w type 2 DM- will transition off high dose insulin and try to get patient on better type 2 regimen for insulin resistance . Will uptitrate metformin to twice daily before meals. Will add jardiance 10 mg daily x 1 week (sample provided) and if well tolerated uptitrate to 25 mg daily - patient advised to drink adequate water up to 64 ozs per day due to loss of calories and sugar through renal excretion- she was advised to contact clinic with any concern of dizziness, lightheade dness, flank pain or urinary pain or discomfort that might suggest the need for a urinalysis . She voiced understand ing. Recommende d GLP1 agonist therapy as she is having trouble at times with cravings of sweets and portion control. 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 She has no hx of pancreatit is or medullary thyroid cancer and is willing to trial on a GLP1 agonist therapy. She was advised to contact clinic if she experience s any nausea, vomiting or significan t thyroid pain / swelling or abdominal pain so we can discuss and discontinu e and potentiall y look to other therapy. Will trial on ozempic 0.25 mg SQ weekly x 4 weeks then increase to 0.5 mg SQ weekly with largest meal of that day as tolerated. Encouraged patient to test sugars prebreakfa st and predinner and at times before bedtime to maintain log for review at return visit. Recommend she take her glimepirid e on glucose scale according to glucose checks. If sugars are running under 100 mg/dL hold glimepirid e, if 101-140 mg/dL take half tablet, if 141-180 mg/dL take full tablet and if over 180 mg/dL take 2 tablets for the full 4 mg of glimepirid e up to twice daily before meals. If sugars are consistent ly over 180 mg/dL she was advised to contact clinic and notify me so we can modify changes. Patient advised to bring glucose meter at return visit for review. She is aware to hold lispro and only take for rescue if premeals sugars 2U:50>200 mg/dL. Will split her lantus to 15 units in morning and 30 units at bedtime and she is aware goal is to wean off insulin and to reduce if sugars under 90 mg/dL fasting. Dyslipidemia 090681407 E 78.5 Continue statin therapy. Menopausal symptom 52113 002 N95.1 Send for bone density scan to screen for bone loss. Hyperparathyroidism 6699 9008 E21.3 Patient is not taking any additional sources of calcium such as tums or rolaids or calcium containing antacids and was encouraged to abstain from these supplement s. If urinary calcium is markedly elevated with calcium to creatinine clearance of >0.01 then very consistent with primary hyperparat hyroidism however if calcium to creatinine clearance is <0.01 then more consistent with benign condition known as familial hypercalce анна hypocalciu vitor. Will send for parathyroi d scan to assess for localizati on. Will send for bone density to screen for bone loss. Spent up to 28 minutes preparing to see the patient (eg, review of tests), obtaining and/or reviewing separately obtained history, performing a medically appropriat e examinatio n and evaluation , counseling and educating the patient, ordering medication s, tests, along with documentin g clinical informatio n in the electronic health record, independen tly interpreti ng results and communicat ing results to the patient. RTC in 4 months. Patient was provided a handwritte n lab order which contains our fax number. If she chooses to go outside of the [facility] system to obtain labwork she was advised to provide our fax number and my informatio n to the lab she will be obtaining labwork from in order to have her labs properly forwarded over for me to review so there is no loss of follow up due to use of outside network. She was also advised to contact our clinic informing us that she has completed her labwork so we are aware we will need to reach out to the appropriat e laboratory to request her results be forwarded to us so I might have the ability to review and make further medical decision making in her case. She voiced understand ing. Health Concerns Section Related Observation LastModified by Organization Detai ls LastModified Time None Recorded Concern Status LastModified by Organization Details LastModified Time None Recorded Advance Directives Directive None Recorded Payers Encounter Date Sequence Insurance Name Policy Number Policy Hanley Covered Member ID Hanley Member ID Guarantor Name 07/05/2022 1 [place] [id number] Lee Lopez [id number] Terrie Lopez Notes Date Note Type Note Provider Name and Address Organization Details Recorded Time 3 text/html 56 yo female comes in for follow up in management of well controlled type 2 DM (A1C 6.8%), dyslipidemia and hypercalcemia appears secondary to hyperparathyroidism (get bone denity/scan) last seen in April at that time we added metformin and had patient split her lantus and take 28 units in morning and 32 units at bedtime if having 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 We also had patient continue on lispro 1:3 carb ratio along with correction of 2U:50>150 mg/dL on premeal sugars. She is doing well on the metformin and tolerating well. She is taking lantus 20 units in morning and 40 units in evening and lispro 20 units TID before meals. She saw Dr. Anthony and she was tested for multiple myeloma and she was negative for this. we sent for calcium workup labs from 05/09:microalbumin 59 ug/mginsulin/islet cell abs negcalcium 10.2 mg/dL with PTH 48 pg/mL24 hour urine calcium 119 mg/24 hourcpeptide 4.5 ng/mlGAD negTSH of 1.150 uIU/mlFT4 of 1.8 ng/dLglucose 116 mg/dLa1c 6.8%SPEP/immunofixation normal Cata Velazquez MD [address] [facility], [facility] [place] [address], [place], [address], [place] [facility] [employer] [facility] 07/05/2022 17:52:03 OBGyn Episode No OBEpisode recorded.
--- OUTSIDE RECORDS SUMMARY | 2024-05-21 17:41 | XMS_ITS | Referral Summary ---
Author Organization [facility] Address [address] [place] [address] Care Team Providers Care Deputy Director Of Nursing Name Role Phone Candida Paris MD Primary Care Provider Source Comments [facility],non-owned Affiliates and Associated Physician Practices is amultiple site organization consisting of ambulatory clinics and hospital sitesin [place], [place], [place] and [place]. This disclosure is being madepursuant to the Care Everywhere program and may not contain all information available regarding this patient. Last updated 18.[facility] Allergies Active Allergy Reactions Criticality Noted Date Comments Prochlorperazine Rash Low 07/14/2014 Latex Rash Low 07/14/2014 Medications * Be aware that medications may not be up to date on this document. Alwaysverify current medications with the patient. Medication Sig Dispensed Refills Start Date End Date Status predniSONE (DELTASONE) 5 MG tablet Take 5 mg by mouth once daily. Active metoprolol succinate XL 24hr (TOPROL XL) 25 MG tablet Take 25 mg by mouth at bedtime. Active hydrocodone-aceta minophen (NORCO) 5-325 MG tablet Take 1 Tab by mouth every 6 hours as needed for Pain. Active acetaminophen (TYLENOL) 325 MG tablet Take 325 mg by mouth every 4 hours as needed for Fever or Pain. Maximum allowable Acetaminophen amount = 4 Grams (4000 mg) / 24 hours. Active ibuprofen (MOTRIN) 200 MG tablet Take by mouth every 6 hours as needed for Pain Active DULoxetine (CYMBALTA) 30 MG capsule Take 30 mg by mouth once daily Active gabapentin (NEURONTIN) 300 MG capsule Take 300 mg by mouth 3 times daily Active vitamin D, ergocalciferol, (DRISDOL) 10573 UNITS capsule Take 50,000 Units by mouth every 30 days Active ascorbic acid (VITAMIN C) 500 MG tablet Take 500 mg by mouth once daily Active cyanocobalamin (VITAMIN B-12) 1000 MCG tablet Take 1,000 mcg by mouth once daily Active iron dextran complex 500 mg in 0.9% NaCl 0.9 % 500 mL 500 mg by Intravenous route once Active ondansetron (ZOFRAN) 8 MG tablet Take 8 mg by mouth every 6 hours as needed for Nausea/Vomiting Active ranitidine (ZANTAC) 300 MG tabletIndications :Gastroesophageal Reflux Disease Take 300 mg by mouth once daily Reasons: Gastroesophageal Reflux Disease Active Active Problems Problem Noted Date Diagnosed Date Hypermobility of joint 07/16/2014 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 Social History Tobacco Use Types Packs/Day Years Used Date Smoking Tobacco: Never Assessed Sex and Gender Information Value Date Recorded Sex Assigned at Not on file Gender Identity Not on file Sexual Orientation Not on file Last Filed Vital Signs Vital Sign Reading Time Taken Comments Blood Pressure 92/56 10/21/2014 10:36 AM CDT Pulse 102 10/21/2014 10:36 AM CDT Temperature - - Respiratory Rate 16 10/21/2014 10:36 AM CDT Oxygen Saturation - - Inhaled Oxygen Concentration - - Weight 81.4 kg (179 lb 6.4 oz) 10/21/2014 10:36 AM CDT Height 159.2 cm (5' 2.68 ) 10/21/2014 10:36 AM C DT Body Mass Index 32.11 10/21/2014 10:36 AM CDT Plan of Treatment Not on file Care Teams Deputy Director Of Nursing Relationship Specialty Start Date End Date Candida Paris MD [address] [place] [address] PCP - General Family Medicine 06/11/14
--- OUTSIDE RECORDS SUMMARY | 2024-05-21 17:41 | XMS_ITS | Clinical Summary ---
Author Organization [facility] Address [address] [address] Phone Care Team Providers Care Supervisor Wood Crew Name Role Phone Viral Paris MD Primary Care Provider Allergies Active Allergy Reactions Criticality Noted Date Comments Prochlorperazine Maleate Unknown 10/19/2016 Latex Unknown 10/19/2016 Medications gabapentin (NEURONTIN) 600 MG Tablet Take 600 mg by mouth 3 times daily. Active HYDROcodone-acet aminophen (NORCO) 5-325 MG Tablet Take 1 Tab by mouth every 8 hours as needed for Pain. Active HYDROcodone Bitartrate ER (HYSINGLA ER) 30 MG Tablet Extended Release 24 hour Abuse-Deterrent Take 1 Tab by mouth daily. Active DULoxetine (CYMBALTA) [address] Particles Take 30 mg by mouth daily. Active metoprolol tartrate (LOPRESSOR) 50 MG Tablet Take 50 mg by mouth daily. Active predniSONE (DELTASONE) 10 MG Tablet Take 10 mg by mouth daily. Active bisacodyl EC (DULCOLAX) 5 MG Tablet Delayed Response Take 5 mg by mouth daily as needed for Constipatio n. Active Cholecalciferol (VITAMIN D PO) Take 50,000 Units by mouth once a week. Active Calcium Carbonate-Vit D-Min (CALCIUM 1200 PO) Take 1 Tab by mouth daily. Active Family History Medical History Relation Name Comments Diabetes Mother Relation Name Status Comments Mother Social History Tobacco Use Types Packs/Day Years Used Date Smoking Tobacco: Never Smokeless Tobacco: Never Alcohol Use Standard Drinks/Week Comments Yes 0 (1 standard drink = 0.6 oz pur e alcohol) 1 glass wine per month Comments Unknown Sex and Gender Information Value Date Recorded Sex Assigned at Not on file Legal Sex Female 12:35 AM CDT Gender Identity Not on file Sexual Orientation Not on file Plan of Treatment Health Maintenance Due Date Last Done Comments Hepatitis C Virus (HCV) Screening 1965 TdaP Immunization 1965 Hepatitis B Immunization (1 of 3 - 19+ 3-dose series) 1984 Pap Smear 1986 Cervical Cancer Screening (CCS) 07/12/1995 HPV/Cotest 07/12/1995 Colonoscopy 2010 Colorectal Cancer Screening 2010 Cologuard 07/12/2015 Immunochemical Fecal Occult Blood 07/12/2015 Mammogram 07/12/2015 Pneumococcal Immunization (5 0+ years) (1 of 1 - PCV) 07/12/2015 Zoster Immunization (1 of 2) 07/12/2015 Influenza Immunization (#1) 2023 SARS-COV-2 Immunization (1 - 2023- season) 2023 Respiratory Syncytial Virus (RSV) Immunization (Adult) (1 - 1-dose 75+ series) 2040 Meningococcal Immunization (ACWY) Aged Out No longer eligible based on patient's age to complete this topic Pneumococcal Immunization Combined Aged Out No longer eligible based on patient's age to complete this topic Rotavirus Immunization Aged Out No lo nger eligible based on patient's age to complete this topic Insurance [facility] Care Teams Supervisor Wood Crew Relationship Specialty Start Date End Date Viral Paris MD [address] [place] [address] PCP - General Family Medicine 05/31/16
--- OUTSIDE RECORDS SUMMARY | 2024-05-21 17:41 | XMS_ITS | Clinical Summary ---
Author Organization [facility] Address [address] [place] [address] Care Team Providers Care Ciaio Counter Molder Name Role Phone Bhaskar Marcano MD Primary Care Provider [phone] Allergies Active Allergy Reactions Criticality Noted Date Comments Adhesive Rash Low 06/08/2022 Latex Rash Low 06/08/2022 Prochlorperazine Rash Low 06/08/2022 Medications predniSONE (DELTASONE) 5 mg tablet prednisone 5 mg tablet TAKE 1 & 1/2 (ONE & ONE-HALF) TABLETS BY MOUTH ONCE DAILY Active gabapentin (NEURONTIN) 100 mg capsule Take 100 mg by mouth 3 times daily. 3 Active oxyCODONE (ROXICODONE) 10 mg tablet oxycodone 10 mg tablet TAKE 1 TABLET BY MOUTH EVERY 6 HOURS Active rOPINIRole (REQUIP) 0.5 mg tablet ropinirole 0.5 mg tablet TAKE 2 TABLETS BY MOUTH ONCE DAILY AT BEDTIME 1 Active metoprolol succinate (TOPROL XL) 25 mg Extended Release 24 hour tablet metoprolol succinate ER 25 mg tablet,extended release 24 hr TAKE 1 TABLET BY MOUTH ONCE DAILY Active DULoxetine (CYMBALTA) 20 mg Capsule, Delayed Release(E.C.) duloxetine 20 mg capsule,delayed release TAKE 1 CAPSULE BY MOUTH TWICE DAILY Active Active Problems No known active problems Family History Relation Name Status Comments Father Mother Alive Social History Tobacco Use Types Packs/Day Years Used Date Smoking Tobacco: Former Cigarettes 0.3 3 0 04/17/1982 - 04/17/1985 Smokeless Tobacco: Never Tobacco Cessation:Counseling Given: Not Answered Comments Unknown Sex and Gender Information Value Date Recorded Sex Assigned at Not on file Legal Sex Female 10:27 AM CONCERT SINGER Gender Identity Not on file Sexual Orientation Not on file Last Filed Vital Signs Vital Sign Reading Time Taken Comments Blood Pressure 110/68 06/08/2022 1:36 PM CONCERT SINGER Pulse 94 06/08/2022 1:36 PM CONCERT SINGER Temperature 36.2 ??C (97.1 ??F) 06/08/2022 1:36 PM CS T Respiratory Rate 20 06/08/2022 1:36 PM CONCERT SINGER Oxygen Saturation 96% 06/08/2022 1:36 PM CONCERT SINGER Inhaled Oxygen Concentration - - Weight 93.3 kg (205 lb 11.2 oz) 06/08/2022 1:36 PM CONCERT SINGER Height 160 cm (5' 3 ) 06/08/2022 1:36 PM CONCERT SINGER Body Mass Index 36.44 06/08/2022 1:36 PM CONCERT SINGER Plan of Treatment Health Maintenance Due Date Last Done Comments PNEUMOCOCCAL VACCINE 0-64 YEARS (1 of 2 - PCV) 972 DTAP/TDAP/TD VACCINES (1 - Tdap) 1984 HEPATITIS B VACCINES (1 of 3 - 19+ 3-dose series) 06/16 CERVICAL CANCER SCREENING 07/12/1995 BREAST CANCER SCREENING 2005 COLORECTAL SCREENING 2010 Colorectal Cancer Screening 2010 FIT-DNA Q 3 years 2010 FIT/FOBT Q 1 year 2010 Flex Sig/CT Colonography Q 5 years 2010 ZOSTER VACCINE (1 of 2) 07/12/2015 INFLUENZA VACCINE (#1) 2023 03/07/2013 Insurance [facility] BLUE ACCESS CHOICE BLUE ACCESS CHOICE Care Teams Ciaio Counter Molder Relationship Specialty Start Date End Date Bhaskar Marcano MD PCP - General Family Practice 06/08/22
--- OUTSIDE RECORDS SUMMARY | 2024-05-21 17:41 | XMS_ITS | Patient Health Summary ---
Author Organization [facility] [employer] Address [address] [place] [address] Care Team Providers Care Ticket Agent Name Role Phone Candida Paris MD Primary Care Provider [phone] Note from [facility],non-owned Affiliates and Associated Physician Practices is amultiple site organization consisting of ambulatory clinics and hospital sitesin [place], [place], [place] and [place]. This disclosure is being madepursuant to the Care Everywhere program and may not contain all information available regarding this patient. Last updated 18.[facility] [employer] Allergies * Prochlorperazine(Rash) -Low Criticality * Latex(Rash) -Low Criticality Medications * Be aware that medications may not be up to date on this document. Alwaysverify current medications with the patient. * predniSONE (DELTASONE) 5 MG tablet Take 5 mg by mouth once daily. * metoprolol succinate XL 24hr (TOPROL XL) 25 MG tablet Take 25 mg by mouth at bedtime. * hydrocodone-acetaminophen (NORCO) 5-325 MG tablet Take 1 Tab by mouth every 6 hours as needed for Pain. * acetaminophen (TYLENOL) 325 MG tablet Take 325 mg by mouth every 4 hours as needed for Fever or Pain. Maximum allowable Acetaminophen amount = 4 Grams (4000 mg) / 24 hours. * ibuprofen (MOTRIN) 200 MG tablet Take by mouth every 6 hours as needed for Pain * DULoxetine (CYMBALTA) 30 MG capsule Take 30 mg by mouth once daily * gabapentin (NEURONTIN) 300 MG capsule Take 300 mg by mouth 3 times daily * vitamin D, ergocalciferol, (DRISDOL) 88808 UNITS capsule Take 50,000 Units by mouth every 30 days * ascorbic acid (VITAMIN C) 500 MG tablet Take 500 mg by mouth once daily * cyanocobalamin (VITAMIN B-12) 1000 MCG tablet Take 1,000 mcg by mouth once daily * iron dextran complex 500 mg in 0.9% NaCl 0.9 % 500 mL 500 mg by Intravenous route once * ondansetron (ZOFRAN) 8 MG tablet Take 8 mg by mouth every 6 hours as needed for Nausea/Vomiting * ranitidine (ZANTAC) 300 MG tablet Take 300 mg by mouth once daily Reasons: Gastroesophageal Reflux Disease Active Problems Problem Noted Date Diagnosed Date [...] Mass Index 32.11 10/21/2014 10:36 AM CDT Procedures * PATHOLOGY TISSUE(Performed 07/21/2023) Performed for Illness, unspecified * LAB MISC TEST(Performed 07/14/2014) Performed for Hypermobility of joint Results * PATHOLOGY TISSUE (07/21/2023 9:28 AM CDT) Case Report Surgical Pathology Report ? Case: [id number] ? Authorizing Provider: ??Jatin Altamirano MD ?Collected: ? 07/21/2023 09:28 AM ? Ordering Location: ? [facility] - ??Received: ?07/24/2023 01:18 PM ? Pathology Lab ? Pathologist: ? Stephenie Arguelles MD ? Specimen: ?Lymph Node Biopsy ? 07/25/2023 9:56 AM [facility] Final Diagnosis Lymph node, right axilla, needle core biopsy: - Follicular and paracortical hyperplasia - No evidence of lymphoma or metastatic carcinoma, as sampled - See description 07/25/2023 9:56 AM [facility] Microscopic Description and Comment Sections [...] negative for metastatic carcinoma. Concurrent flow cytometry ([employer] [address], [facility], [place] [address]) shows non-specific findings. B-cells are described as [...] persists, consider excisional biopsy. 07/25/2023 9:56 AM [facility] Clinical History The patient is a 58 year old woman with an enlarged right axillary lymph node. 07/25/2023 9:56 AM [facility] Materials Received Received are 2 slides and 1 block labeled [id number] for initial diagnostic interpretation. [place] [address]. All original materials are returned to the referring institution, along with a copy of our final report. 07/25/2023 9:56 AM [facility] Pathologist Location at [facility] 07/25/2023 9:56 AM [facility] Disclaimer The performance characteristics of all immunohistochemical and indirect immunofluorescence stains (if any) cited in this report were determined by the Histopathology Laboratory of [facility]. Some of these tests were developed [...] attending (teaching) pathologist. 07/25/2023 9:56 AM CDT [facility] Embedded Images 07/25/2023 9:56 AM CDT [facility] Pathology/Cytolo gy BIOPSY OF LYMPH NODE / Unknown 07/21/2023 9:28 AM CDT 07/24/2023 1:18 PM CDT Jatin Altamirano MD LAB - PATHOLOGY/CYTO LOGY ORDERABLES Performing Organization Address City/[facility]/ZIP Co de Phone Number [facility] [address] [place], [place] [id number] [place] [address] * LAB MISC TEST (07/14/2014 4:17 PM CDT) Test Name Send out to [employer]/test# 597/2-5ml blood in EDTA 09/25/2014 7:45 AM CDT [facility] Test Result See Scanned Report 09/25/2014 7:45 AM CDT [facility] Other (qualifier value) BLOOD SPECIMEN / Unknown Lab Venipuncture / Unknown 07/14/2014 4:17 PM CDT 07/14/2014 4:25 PM CDT Emma Alcala MD LAB SEND OUT Performing Organization Address City/[facility]/ZIP Co de Phone Number [facility] [address] [place] [address] Care Teams Ticket Agent Relationship Specialty Start Date End Date Candida Paris MD [address] [place] [address] PCP - General Family Medicine 06/11/14
--- OUTSIDE RECORDS SUMMARY | 2024-05-21 17:41 | XMS_ITS | Clinical Summary ---
Author Organization [facility] [employer] Address [address] [facility] [place] [address] Care Team Providers Care City Engineer Name Role Phone Candida Paris MD Primary Care Provider [phone] Source Comments [facility] [employer],non-owned Affiliates and Associated Physician Practices is amultiple site organization consisting of ambulatory clinics and hospital sitesin [place], [place], [place]. This disclosure is being madepursuant to the Care Everywhere program and may not contain all information available regarding this patient. Last updated 18.[facility] [employer] Allergies Active Allergy Reactions Criticality Noted Date [...] times daily Active vitamin D, ergocalciferol, (DRISDOL) 07840 UNITS capsule Take 50,000 Units by mouth [...] 10/21/2014 10:36 AM CDT Plan of Treatment Health Maintenance Due Date Last Done Comments COLOGUARD (AGES 45-75) - COL ON CA SCREENING 1965 COLON MONITORING 1965 COLONOSCOPY - COLON CA SCREENING 1965 CT COLONOGRAPHY - COLON CA SCREENING 1965 Colorectal Cancer Screening 1965 FIT - COLON CA SCREENING 1965 FLEX SIG - COLON CA SCREENING 1965 LIPID TESTING 1965 MAMMOGRAM 1965 PAP SMEAR 1965 HIV SCREENING 1980 HEPATITIS C SCREENING 07/07/1983 DTAP/TDAP/TD VACCINES (1 - Tdap) 1984 HEPATITIS B VACCINE (1 of 3 - 19+ 3-dose series) 1984 PNEUMOCOCCAL VACCINE 50+ (1 of 1 - PCV) 07/12/2015 ZOSTER VACCINE (1 of 2) 07/12/2015 COVID-19 VACCINE ( - 2023-2 5 season) 2023 INFLUENZA VACCINE (#1) 2023 DEPRESSION SCREENING 04/17/2024 HIB VACCINE Aged Out No longer eligi ble based on patient's age to complete this topic HPV VACCINE Aged Out No longer eligi ble based on patient's age to complete this topic MENINGOCOCCAL (Group B) VACCINE Aged Out No longer eligible based on patient's age to complete this topic MENINGOCOCCAL VACCINE Aged Out No martha francisco eligible based on patient's age to complete this topic PNEUMOCOCCAL VACCINE Aged Out No long er eligible based on patient's age to complete this topic Care Teams City Engineer Relationship Specialty Start Date End Date Candida Paris MD [address] [place] [address] PCP - General Family Medicine 06/11/14
[2024-05-21 19:26] VITALS: BP 103/68; PULSE 120; RESP 18; TEMP 36.6; O2SAT 95
[2024-05-21 20:30] LABS: Influenza A QL RT-PCR Negative (Negative); Influenza B QL RT-PCR Negative (Negative); RSV RNA, RT-PCR Negative (Negative); SARS-CoV-2 RNA PCR Negative (Negative)
--- NOTE | 2024-05-21 21:40 | PC.NURSE ---
Pt at triage desk stating she would like to leave. States that she would like her results. Explained to pt that she could go into the portal/have provider obtain results, but encouraged pt to stay for MSE. Pt axox4 at this time and declined staying for MSE. Ambulatory to parking lot with steady gait.
--- OUTSIDE RECORDS SUMMARY | 2024-05-21 21:45 | XMS_ITS | Clinical Summary ---
Author Organization [facility] Address [address] [address] Phone Care Team Providers Care Appeals And Generalist Clerk Name Role Phone Viral Paris MD Primary Care Provider [phone] Allergies Active Allergy Reactions Criticality Noted Date [...] patient's age to complete this topic Insurance [facility] [[email or web address]] Care Teams Appeals And Generalist Clerk Relationship Specialty Start Date End Date Viral Paris MD [address] [place] [address] PCP - General Family Medicine 05/31/16
--- OUTSIDE RECORDS SUMMARY | 2024-05-21 21:45 | XMS_ITS | Clinical Summary ---
Author Organization [facility] [employer] Address [address] [facility] [place] [address] Care Team Providers Care Putaway Driver Name Role Phone Candida Paris MD Primary Care Provider [phone] Source Comments [facility] [employer],non-owned Affiliates and Associated Physician Practices is amultiple site organization consisting of ambulatory clinics and hospital sitesin [place], [place], [place] and [place]. This disclosure is being madepursuant to the Care Everywhere program and may not contain all information available regarding this patient. Last updated 18.[facility] [employer] Allergies Active Allergy Reactions Criticality Noted Date [...] times daily Active vitamin D, ergocalciferol, (DRISDOL) 58756 UNITS capsule Take 50,000 Units by mouth [...] age to complete this topic Care Teams Putaway Driver Relationship Specialty Start Date End Date Candida Paris MD [address] [place] [address] PCP - General Family Medicine 06/11/14
--- OUTSIDE RECORDS SUMMARY | 2024-05-21 21:45 | XMS_ITS | Clinical Summary ---
Author Organization [facility] [employer] Address [address] [place] [address] Care Team Providers Care Customer Success Manager Name Role Phone Bhaskar Marcano MD Primary Care Provider [phone] Allergies Active Allergy Reactions Criticality Noted Date [...] on file Legal Sex Female 10:27 AM SAT MATH TUTOR Gender Identity Not on file Sexual Orientation Not on file Last Filed Vital Signs Vital Sign Reading Time Taken Comments Blood Pressure 110/68 06/08/2022 1:36 PM SAT MATH TUTOR Pulse 94 06/08/2022 1:36 PM SAT MATH TUTOR Temperature 36.2 ??C (97.1 ??F) 06/08/2022 1:36 PM CS T Respiratory Rate 20 06/08/2022 1:36 PM SAT MATH TUTOR Oxygen Saturation 96% 06/08/2022 1:36 PM SAT MATH TUTOR Inhaled Oxygen Concentration - - Weight 93.3 kg (205 lb 11.2 oz) 06/08/2022 1:36 PM SAT MATH TUTOR Height 160 cm (5' 3 ) 06/08/2022 1:36 PM SAT MATH TUTOR Body Mass Index 36.44 06/08/2022 1:36 PM SAT MATH TUTOR Plan of Treatment Health Maintenance Due Date [...] 07/12/2015 INFLUENZA VACCINE (#1) 2023 03/07/2013 Insurance [facility] BLUE ACCESS CHOICE BLUE ACCESS CHOICE Care Teams Customer Success Manager Relationship Specialty Start Date End Date Bhaskar Marcano MD PCP - General Family Practice 06/08/22
--- OUTSIDE RECORDS SUMMARY | 2024-05-21 21:45 | XMS_ITS | Patient Health Summary ---
Author Organization [facility] [employer] Address [address] [facility] [place] [address] Care Team Providers Care Commodity Loan Clerk Name Role Phone Candida Paris MD Primary Care Provider [phone] Note from [facility],non-owned Affiliates and Associated Physician Practices is amultiple site organization consisting of ambulatory clinics and hospital sitesin [place], [place], [place] and [place]. This disclosure is being madepursuant to the Care Everywhere program and may not contain all information available regarding this patient. Last updated 18.[facility] [employer] Allergies * Prochlorperazine(Rash) -Low Criticality * Latex(Rash) [...] times daily * vitamin D, ergocalciferol, (DRISDOL) 00055 UNITS capsule Take 50,000 Units by mouth [...] Case Report Surgical Pathology Report ? Case: [id number] ? Authorizing Provider: ??Jatin Altamirano MD ?Collected: ? 07/21/2023 09:28 AM ? Ordering Location: ? [facility] - ??Received: ?07/24/2023 01:18 PM ? Pathology Lab ? Pathologist: ? Stephenie Arguelles MD ? Specimen: ?Lymph Node Biopsy ? 07/25/2023 9:56 AM [facility] Final Diagnosis Lymph node, right axilla, needle core biopsy: - Follicular and paracortical hyperplasia - No evidence of lymphoma or metastatic carcinoma, as sampled - See description 07/25/2023 9:56 AM [facility] Microscopic Description and Comment Sections [...] negative for metastatic carcinoma. Concurrent flow cytometry ([employer] [address], [facility], [place] [address]) shows non-specific findings. B-cells are described as [...] persists, consider excisional biopsy. 07/25/2023 9:56 AM [facility] Clinical History The patient is a 58 year old woman with an enlarged right axillary lymph node. 07/25/2023 9:56 AM [facility] Materials Received Received are 2 slides and 1 block labeled [id number] for initial diagnostic interpretation. [place] [address]. All original materials are returned to the referring institution, along with a copy of our final report. 07/25/2023 9:56 AM [facility] Pathologist Location at [facility] 07/25/2023 9:56 AM [facility] Disclaimer The performance characteristics of [...] attending (teaching) pathologist. 07/25/2023 9:56 AM CDT [facility] Embedded Images 07/25/2023 9:56 AM CDT [facility] Pathology/Cytolo gy BIOPSY OF LYMPH NODE / Unknown 07/21/2023 9:28 AM CDT 07/24/2023 1:18 PM CDT Jatin Altamirano MD LAB - PATHOLOGY/CYTO LOGY ORDERABLES Performing Organization Address City/[facility]/ZIP Co de Phone Number [facility] [address] [place], [place] [id number] [place] [address] * LAB MISC TEST (07/14/2014 4:17 PM CDT) Test Name Send out to [employer]/test# 597/2-5ml blood in EDTA 09/25/2014 7:45 AM CDT [facility] Test Result See Scanned Report 09/25/2014 7:45 AM CDT [facility] Other (qualifier value) BLOOD SPECIMEN / Unknown Lab Venipuncture / Unknown 07/14/2014 4:17 PM CDT 07/14/2014 4:25 PM CDT Emma Alcala MD LAB SEND OUT Performing Organization Address City/[facility]/ZIP Co de Phone Number [facility] [address] [place] [address] Care Teams Commodity Loan Clerk Relationship Specialty Start Date End Date Candida Paris MD [address] [place] [address] PCP - General Family Medicine 06/11/14
--- OUTSIDE RECORDS SUMMARY | 2024-05-21 21:46 | XMS_ITS | Referral Summary ---
Author Organization [facility] [employer] Address [address] [place] [address] Care Team Providers Care Injection Wax Molder Name Role Phone Candida Paris MD Primary Care Provider [phone] Source Comments [facility] [employer],non-owned Affiliates and Associated Physician Practices is amultiple site organization consisting of ambulatory clinics and hospital sitesin [place], [place], [place] and [place]. This disclosure is being madepursuant to the Care Everywhere program and may not contain all information available regarding this patient. Last updated 18.[facility] [employer] Allergies Active Allergy Reactions Criticality Noted Date [...] times daily Active vitamin D, ergocalciferol, (DRISDOL) 37535 UNITS capsule Take 50,000 Units by mouth [...] of Treatment Not on file Care Teams Injection Wax Molder Relationship Specialty Start Date End Date Candida Paris MD [address] [place] [address] PCP - General Family Medicine 06/11/14
--- OUTSIDE RECORDS SUMMARY | 2024-05-21 21:46 | XMS_ITS | Encounter Summary ---
Author Organization [facility] Address [facility] [place] [address] Care Team Providers Care Hogshead Liner Name Role Phone Candida Paris MD Primary Care Provider [phone] Encounter Details Date Type Department Care Team (Late st Contact Info) Description 07/24/2023 Lab Requisition [facility] - Pathology Lab [address] [place] [id number] Jatin Altamirano MD [address] [place] [id number] Illness, unspecified Social History Tobacco Use [...] Case Report Surgical Pathology Report ? Case: [id number] ? Authorizing Provider: ??Jatin Altamirano MD ?Collected: ? 07/21/2023 09:28 AM ? Ordering Location: ? [facility] - ??Received: ?07/24/2023 01:18 PM ? Pathology Lab ? Pathologist: ? Stephenie Arguelles MD ? Specimen: ?Lymph Node Biopsy ? 07/25/2023 9:56 AM [facility] Final Diagnosis Lymph node, right axilla, needle core biopsy: - Follicular and paracortical hyperplasia - No evidence of lymphoma or metastatic carcinoma, as sampled - See description 07/25/2023 9:56 AM [facility] Microscopic Description and Comment Sections [...] negative for metastatic carcinoma. Concurrent flow cytometry ([employer] [address], [place] [address]) shows non-specific findings. B-cells are described as [...] persists, consider excisional biopsy. 07/25/2023 9:56 AM [facility] Clinical History The patient is a 58 year old woman with an enlarged right axillary lymph node. 07/25/2023 9:56 AM [facility] Materials Received Received are 2 slides and 1 block labeled [id number] for initial diagnostic interpretation. [place] [address]. All original materials are returned to the referring institution, along with a copy of our final report. 07/25/2023 9:56 AM [facility] Pathologist Location at [facility] 07/25/2023 9:56 AM [facility] Disclaimer The performance characteristics of all immunohistochemical and indirect immunofluorescence stains (if any) cited in this report were determined by the Histopathology Laboratory of [facility]. Some of these tests were developed by [...] attending (teaching) pathologist. 07/25/2023 9:56 AM CDT [facility] PATH[facility] Embedded Images 07/25/2023 9:56 AM CDT [facility] Pathology/Cytolo gy BIOPSY OF LYMPH NODE / Unknown 07/21/2023 9:28 AM CDT 07/24/2023 1:18 PM CDT Jatin Altamirano MD LAB - PATHOLOGY/CYTO LOGY ORDERABLES Performing Organization Address City/State/[facility] Co de Phone Number [facility] [address] [phone] documented in this encounter Visit Diagnoses Diagnosis Illness, unspecified documented in this encounter Care Teams Hogshead Liner Relationship Specialty Start Date End Date Candida Paris MD [address] [place], [place] [id number] PCP - General Family Medicine 06/11/14 documented as of this encounter
== END 2024-05-21 21:53 | disposition left against medical advice (07) ==
PROVIDERS: Emergency Provider Family Medicine; PCP Family Medicine
DX: R09.02 Hypoxemia (principal); Z20.822 Contact with and (suspected) exposure to COVID-19
CPT/HCPCS: 87637; 99199

== ENCOUNTER 2024-05-23 16:13 | Inpatient (IN) | payer BC, SELFPAY ==
--- NOTE | ~2024-05-23 | CT_ITS ---
Clinical Indication: Dyspnea CT Scan of the Chest, Abdomen, and Pelvis with Contrast: Technique: Contiguous sections were acquired throughout the chest, abdomen, and pelvis after intraven ous administration of 100 cc of Omnipaque 350. Dose reduction technique was used on this scan by uti lizing automated exposure control and iterative reconstruction technique. The dose-length product (DL P) was 3410.00 mGy-cm. Comparison: 10/27/2022 Findings: There is no evidence of any significant mediastinal, hilar or axillary lymphadenopathy. The mediastin al soft tissues and vascular structures appear normal. No pulmonary embolus seen. No aortic aneurysm or dissection. There is no evidence of pleural or pericardial effusion. The lungs are clear. No pulmonary nodules or infiltrates are noted. Suggestion of nodular contour of the liver, compatible with sclerotic change. Cholecystectomy clips a re present. Nonobstructing right renal stones are similar to prior exam, with largest stone measuring 1.5 x 0.7 cm. The spleen, pancreas, adrenals and left kidney are within normal limits. No evidence of aortic aneurysm. No lymphadenopathy. Status post probable extensive partial colectomy with right lower quadrant ostomy present. Stable lar ge parastomal hernia containing mesenteric fat and several bowel loops. There is an additional modera te to large midline ventral hernia containing loops of bowel, also similar to prior exam. Urinary bladder is unremarkable. Stable uterine fibroids, including large exophytic posterior fibroid measuring 8.7 cm in diameter. No ascites. Impression: No acute abnormalities identified. No evidence of pulmonary embolus. Probable cirrhotic change of the liver. Nonobstructing right nephrolithiasis, similar to prior exam. Postoperative change of large bowel with large parastomal hernia and additional moderate to large alexus tral hernia, both containing multiple bowel loops, as detailed above. Stable uterine fibroids. Reviewed, dictated and finalized at location . NO BEVERAGE SERVER Impression: No acute abnormalities identified. No evidence of pulmonary embolus. Probable cirrhotic change of the liver. Nonobstructing right nephrolithiasis, similar to prior exam. Postoperative change of large bowel with large parastomal hernia and additional moderate to large ventral hernia, both containing multiple bowel loops, as det valentina above. Stable uterine fibroids.
--- NOTE | ~2024-05-23 | XR_ITS ---
CHEST RADIOGRAPH, PA AND LATERAL CLINICAL HISTORY: syncope . COMPARISON: None available TECHNIQUE: PA and lateral views of the chest. FINDINGS The cardiomediastinal silhouette is unremarkable. The lungs are clear. Visualized osseous structures and soft tissues are unremarkable. IMPRESSION: No focal infiltrate or effusion. Reviewed, dictated and finalized at location A. L [employer]
--- NOTE | ~2024-05-23 | CT_ITS ---
History: Syncope PROCEDURE: CT head without contrast. COMPARISON: None TECHNIQUE: Axial imaging of the head performed from the skull base to the vertex without IV contrast. Sagittal a nd coronal reformations obtained. DLP: 605 mGy-cm FINDINGS: The ventricles are normal in size, shape and position. There is no mass, mass effect or midline shift. There is no abnormal extra-axial fluid collection or intracranial hemorrhage. Visualized paranasal sinuses are clear. The mastoid air cells are well aerated. No acute displaced fractures within the overlying cranium. Impression: No acute intracranial hemorrhage or suspicious mass effect. Reviewed, dictated and finalized at location [facility] [employer] Impression: No acute intracranial hemorrhage or suspicious mass effect.
--- OUTSIDE RECORDS SUMMARY | 2024-05-23 16:14 | XMS_ITS | Clinical Summary ---
Author Organization [facility] [employer] Address [address] [facility] [place] [address] Care Team Providers Care Senior Quality Engineer Name Role Phone Candida Paris MD Primary Care Provider [phone] Source Comments [facility] [employer],non-owned Affiliates and Associated Physician Practices is amultiple site organization consisting of ambulatory clinics and hospital sitesin [place], [place], [place] and [place]. This disclosure is being madepursuant to the Care Everywhere program and may not contain all information available regarding this patient. Last updated 18.[facility] [employer] Allergies Active Allergy Reactions Criticality Noted Date [...] times daily Active vitamin D, ergocalciferol, (DRISDOL) 29552 UNITS capsule Take 50,000 Units by mouth [...] age to complete this topic Care Teams Senior Quality Engineer Relationship Specialty Start Date End Date Candida Paris MD [address] [place] [address] PCP - General Family Medicine 06/11/14
--- OUTSIDE RECORDS SUMMARY | 2024-05-23 16:15 | XMS_ITS | Clinical Summary ---
Author Organization [facility]3] [facility] [employer] Address [address] [place] [address] Care Team Providers Care Water Supervisor Name Role Phone Bhaskar Marcano MD Primary Care Provider [phone] Allergies Active Allergy Reactions Criticality Noted Date [...] on file Legal Sex Female 10:27 AM [facility] Gender Identity Not on file Sexual Orientation Not on file Last Filed Vital Signs Vital Sign Reading Time Taken Comments Blood Pressure 110/68 06/08/2022 1:36 PM [facility] Pulse 94 06/08/2022 1:36 PM [facility] Temperature 36.2 C (97.1 F) 06/08/2022 1:36 PM [facility] Respiratory Rate 20 06/08/2022 1:36 PM [facility] Oxygen Saturation 96% 06/08/2022 1:36 PM [facility] Inhaled Oxygen Concentration - - Weight 93.3 kg (205 lb 11.2 oz) 06/08/2022 1:36 PM [facility] Height 160 cm (5' 3 ) 06/08/2022 1:36 PM [facility] Body Mass Index 36.44 06/08/2022 1:36 PM [facility] Plan of Treatment Health Maintenance Due Date [...] 07/12/2015 INFLUENZA VACCINE (#1) 2023 03/07/2013 Insurance [facility] [employer] ACCESS CHOICE BLUE ACCESS CHOICE Care Teams Water Supervisor Relationship Specialty Start Date End Date Bhaskar Marcano MD PCP - General Family Practice 06/08/22
--- OUTSIDE RECORDS SUMMARY | 2024-05-23 16:15 | XMS_ITS | Encounter Summary ---
Author Organization [facility] Address [address] [place], [place] [address] [address] Care Team Providers Care Dairy Nutrition Specialist Name Role Phone Candida Paris MD Primary Care Provider [phone] Encounter Details Date Type Department Care Team (Late st Contact Info) Description 07/24/2023 Lab Requisition [facility] - Pathology Lab [address] [place] [address] Jatin Altamirano MD [address] [address] Illness, unspecified Social History Tobacco Use [...] AM CDT) Case Report Surgical Pathology Report Case: [id number] Authorizing Provider: Jatin Altamirano MD Collected: 07/21/2023 09:28 AM Ordering Location: [facility] - Received: 07/24/2023 01:18 PM Pathology Lab Pathologist: Stephenie Arguelles MD Specimen: Lymph Node Biopsy 07/25/2023 9:56 AM CDT [facility] Final Diagnosis Lymph node, right axilla, needle core biopsy: - Follicular and paracortical hyperplasia - No evidence of lymphoma or metastatic carcinoma, as sampled - See description 07/25/2023 9:56 AM [facility] PATH[facility] LAB Microscopic Description and [...] negative for metastatic carcinoma. Concurrent flow cytometry ([facility] [address], [address] [facility], [place] [address]) shows non-specific findings. B-cells are described as [...] persists, consider excisional biopsy. 07/25/2023 9:56 AM [facility] Clinical History The patient is a 58 year old woman with an enlarged right axillary lymph node. 07/25/2023 9:56 AM [facility] Materials Received Received are 2 slides and 1 block labeled [id number] for initial diagnostic interpretation. The materials originate from [address] [address]. All original materials are returned to the referring institution, along with a copy of our final report. 07/25/2023 9:56 AM CDT [facility] Pathologist Location at [facility] 07/25/2023 9:56 AM CDT [facility] Disclaimer The performance characteristics of all immunohistochemical and indirect immunofluorescence stains (if any) cited in this report were determined by the Histopathology Laboratory of [facility]. Some of these tests were developed [...] attending (teaching) pathologist. 07/25/2023 9:56 AM CDT [facility] Embedded Images 07/25/2023 9:56 AM CDT [facility] Pathology/Cytolo gy BIOPSY OF LYMPH NODE / Unknown 07/21/2023 9:28 AM CDT 07/24/2023 1:18 PM CDT Jatin Altamirano MD LAB - PATHOLOGY/CYTO LOGY ORDERABLES Performing Organization Address City/State/[facility] Co de Phone Number [facility] [address] [phone] documented in this encounter Visit Diagnoses Diagnosis Illness, unspecified documented in this encounter Care Teams Dairy Nutrition Specialist Relationship Specialty Start Date End Date Candida Paris MD [address] [place] [address] PCP - General Family Medicine 06/11/14 documented as of this encounter
--- OUTSIDE RECORDS SUMMARY | 2024-05-23 16:15 | XMS_ITS | Referral Summary ---
Author Organization [facility] [employer] Address [address] [facility] [place] [address] Care Team Providers Care Road Oiling Truck Driver Name Role Phone Candida Paris MD Primary Care Provider [phone] Source Comments [facility],non-owned Affiliates and Associated Physician Practices is amultiple site organization consisting of ambulatory clinics and hospital sitesin [place], [place], [place] and [place]. This disclosure is being madepursuant to the Care Everywhere program and may not contain all information available regarding this patient. Last updated 18.[facility] [employer] Allergies Active Allergy Reactions Criticality Noted Date [...] times daily Active vitamin D, ergocalciferol, (DRISDOL) 24161 UNITS capsule Take 50,000 Units by mouth [...] of Treatment Not on file Care Teams Road Oiling Truck Driver Relationship Specialty Start Date End Date Candida Paris MD [address] [place] [address] PCP - General Family Medicine 06/11/14
--- OUTSIDE RECORDS SUMMARY | 2024-05-23 16:15 | XMS_ITS | Patient Health Summary ---
Author Organization [facility] [employer] Address [address] [facility] [place] [address] Care Team Providers Care Documentation Liaison Name Role Phone Candida Paris MD Primary Care Provider [phone] Note from [facility] [place],non-owned Affiliates and Associated Physician Practices is amultiple site organization consisting of ambulatory clinics and hospital sitesin [place], [place], [place] and [place]. This disclosure is being madepursuant to the Care Everywhere program and may not contain all information available regarding this patient. Last updated 18.[facility] [employer] Allergies * Prochlorperazine(Rash) -Low Criticality * Latex(Rash) [...] times daily * vitamin D, ergocalciferol, (DRISDOL) 55584 UNITS capsule Take 50,000 Units by mouth [...] CDT) Case Report Surgical Pathology Report Case: [id number] Authorizing Provider: Jatin Altamirano MD Collected: 07/21/2023 09:28 AM Ordering Location: [facility] - Received: 07/24/2023 01:18 PM Pathology Lab Pathologist: Stephenie Arguelles MD Specimen: Lymph Node Biopsy 07/25/2023 9:56 AM CDT [facility] Final Diagnosis Lymph node, right axilla, needle core biopsy: - Follicular and paracortical hyperplasia - No evidence of lymphoma or metastatic carcinoma, as sampled - See description 07/25/2023 9:56 AM [facility] Microscopic Description and Comment [...] negative for metastatic carcinoma. Concurrent flow cytometry ([facility] [address], [place] [address], [place] [address]) shows non-specific findings. B-cells are described as [...] persists, consider excisional biopsy. 07/25/2023 9:56 AM [facility] Clinical History The patient is a 58 year old woman with an enlarged right axillary lymph node. 07/25/2023 9:56 AM [facility] Materials Received Received are 2 slides and 1 block labeled [id number] for initial diagnostic interpretation. The materials originate from [address] [place] [address]. All original materials are returned to the referring institution, along with a copy of our final report. 07/25/2023 9:56 AM CDT [facility] Pathologist Location at [facility] 07/25/2023 9:56 AM CDT [facility] Disclaimer The performance characteristics of all immunohistochemical and indirect immunofluorescence stains (if any) cited in this report were determined by the Histopathology Laboratory of [facility]. Some of these tests were [...] attending (teaching) pathologist. 07/25/2023 9:56 AM CDT [facility] Embedded Images 07/25/2023 9:56 AM CDT [facility] Pathology/Cytolo gy BIOPSY OF LYMPH NODE / Unknown 07/21/2023 9:28 AM CDT 07/24/2023 1:18 PM CDT Jatin Altamirano MD LAB - PATHOLOGY/CYTO LOGY ORDERABLES Performing Organization Address City/State/[facility] Co de Phone Number [facility] [address] [phone] * LAB MISC TEST (07/14/2014 4:17 PM CDT) Test Name Send out to [facility]/test# 597/2-5ml blood in EDTA 09/25/2014 7:45 AM CDT [facility] Test Result See Scanned Report 09/25/2014 7:45 AM CDT [facility] Other (qualifier value) BLOOD SPECIMEN / Unknown Lab Venipuncture / Unknown 07/14/2014 4:17 PM CDT 07/14/2014 4:25 PM CDT Emma J Alcala MD LAB SEND OUT [facility] [address] [facility] [place] [address] Care Teams Documentation Liaison Relationship Specialty Start Date End Date Candida Paris MD [address] [place] [id number] PCP - General Family Medicine 06/11/14
--- OUTSIDE RECORDS SUMMARY | 2024-05-23 16:15 | XMS_ITS | Clinical Summary ---
Author Organization [facility] Address [address] [address] Phone Care Team Providers Care Major Assembly Inspector Name Role Phone Viral Paris MD Primary Care Provider [phone] Allergies Active Allergy Reactions Criticality Noted Date [...] patient's age to complete this topic Insurance [facility] Care Teams Major Assembly Inspector Relationship Specialty Start Date End Date Viral Paris MD [address] [place] [address] PCP - General Family Medicine 05/31/16
[2024-05-23 16:45] VITALS: BP 129/59; PULSE 125; RESP 18; TEMP 36.9; O2SAT 94
--- NOTE | 2024-05-23 16:58 | ECG_ITS ---
Test Date: 2024-05-23 17:05:59 Measurements Intervals [place] Rate: 112 P: 51 MT: 130 QRS: 39 QRSD: 80 T: 50 QT: 275 QTc: 376 Interpretive Statements SINUS TACHYCARDIA NONSPECIFIC ST ELEVATION IN ANT/INF LEADS BASELINE ARTIFACT- I, II, III, AVR, AVL, AVF ABNORMAL ECG No previous ECG available for comparison Electronically Signed On 05-23-2024 17:23:02 GUARD IMMIGRATION by Torres Ibrahim D.O.
--- NOTE | 2024-05-23 17:12 | ED.SYNCOPE ---
HPI - Syncope General Chief Complaint: Syncope <BAR Gil Last Filed: 05/23/24 17:24> Stated Complaint: SOB <BAR Gil Last Filed: 05/23/24 17:24> Time Seen by Provider: 05/23/24 17:12 <BAR Gil Last Filed: 05/23/24 17:24> Focused HPI: Patient is a 58-year-old female who presents the ED with multiple complaints. Patient reports having diarrhea, increased flatulence over the past 2 weeks. Reports intermittent nausea with dry heaving. Has history of colostomy related to Crohn's disease. Reports she has become so weak and fatigued. She has been having lightheadedness and shortness of breath with exertion. Notes that her oxygen dropped to 70-78% with exertion at home via home pulse oximeter. She states she has had 4 syncopal episodes over the past 2 weeks, last occurring yesterday. She has been on metoprolol previously, but stopped taking this week due to having dizziness and lightheadedness. She also reports a 12 lb weight loss in the last 2 weeks. Reports exposure to COVID-19. Denies fevers. Denies significant chest pain. 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 GENERAL: Chronically ill-appearing, well-nourished, and in no acute distress. HEAD: Normocephalic, atraumatic. CHEST: Clear to auscultation. ?No respiratory distress. No significant focal lung sounds. HEART: Regular rate and rhythm.? ABD: Diffuse tenderness. Normoactive BS. Colostomy in R lower abdomen. NEURO: ?Alert and oriented x3. No focal deficits. Patient screened in triage and initial orders placed.? ?Additional care and disposition to be based upon?diagnostic testing and treatment. <BAR Gil Last Filed: 05/23/24 17:24> Source: patient <BAR Gil Last Filed: 05/23/24 17:24> Mode of arrival: ambulatory <Dede Kebede PA-C - Last Filed: 05/23/24 17:24> Limitations: no limitations <BAR Gil Last Filed: 05/23/24 17:24> Related Data Home Medications: Home Medications ?Medication ?Instructions ?Recorded ?Confirmed ?Last Taken ?Type oxycodone 10 mg tablet 10 mg PO Q6H PRN Pain 01/28/21 01/31/24 Unknown History gabapentin 100 mg capsule 100 mg PO TID 03/08/22 01/31/24 Unknown History ropinirole 0.5 mg tablet mg PO 07/06/23 01/31/24 Unknown History <BAR Gil Last Filed: 05/23/24 17:24> Allergies/Adverse Reactions: Allergies Allergy/AdvReac Type Severity Reaction Status Date / Time adhesive tape Allergy Unknown BLISTERED Verified 05/23/24 16:13 erythromycin base Allergy Unknown intolerance Verified 05/23/24 16:13 latex Allergy Unknown Unknown Verified 05/23/24 16:13 meperidine Allergy Unknown Nausea Verified 05/23/24 16:13 prochlorperazine Allergy Unknown Skin Verified 05/23/24 16:13 Reaction formaldehyde AdvReac Intermediate Itching Verified 05/23/24 16:13 ozempic AdvReac Severe vomiting Uncoded 05/23/24 16:13 <BAR Gil Last Filed: 05/23/24 17:24> Review of Systems Review of Systems: All systems as dictated in HPI <BAR Champion Last Filed: 05/24/24 03:21> [facility] Past Medical History Medical History: Medical History Irritable bowel syndrome Hypertension History of gastroesophageal reflux (GERD) Gallbladder disorder History of blood clots Arthritis Anxiety Asthma Allergies Elective Hx of herpes zoster Disseminated superficial actinic porokeratosis Trigger finger of right hand Uterine fibroid ct 2021: cm fibroid @ R posterior lower uterine segment .exerts mass effect upon the posterior wall of the bladder History of osteomyelitis History of meningioma Ileostomy in place History of necrotizing fasciitis Crohn's disease Partial intestinal obstruction Intractable nausea and vomiting Acute dehydration Gastro-esophageal reflux disease without esophagitis Vitamin D deficiency, unspecified Calculus of kidney Ch DVT/embl low ext NOS Not currently on anticoagulation Adam-Danlos syndrome Essential hypertension Fatty (change of) liver, not elsewhere classified <Dede Kebede PA-C - Last Filed: 05/23/24 17:24> Surgical History Surgical History: Surgical History History of parathyroid surgery [place] teeth removed H/O colectomy History of ventral hernia repair Strangulated ventral hernia that required emergent repair at [facility] with reported small bowel resection and suture repair. This was prior to her subtotal colectomy. History of delivery x1 History of laparoscopic cholecystectomy Hx of total colectomy 04/2018 at [facility] - Laparoscopic converted to open subtotal colectomy History of surgery on lower extremity 2017 - Necrotizing fasciitis in the left flank area extending to the left lateral upper leg with extensive debridement and wound care at [facility]. [place] to be a result of fistulizing Crohn's with abscess and possible connection to the necrotizing fasciitis. <Dede Kebede PA-C - Last Filed: 05/23/24 17:24> Family History Family History: Family History Mother Hypertension Family history of elevated blood lipids Diabetes mellitus Alcoholism Anxiety Depression Cerebrovascular accident Grandparent Diabetes mellitus Family history of glaucoma Hypertension Family history of elevated blood lipids Alcoholism <Dede Kebede PA-C - Last Filed: 05/23/24 17:24> Social History Social History: Social History Smoking status: Never smoker Alcohol intake: never Substance use: never Substance use type: does not use Do You Feel Safe in your Home?: Yes Lack of Transportation: No Lack of Food: Never True Current Housing: I Have Housing Concerned About Future Housing: No Difficulty Paying Gas/Electric Bills: No Difficulty Paying for Meds: No Currently Unemployed: No Education: High School Diploma/GED Difficulty w/ Childcare or Family Care: No Living arrangements: with family Additional living arrangements comments: Lives with her . Has two children. Spiritual care concerns: No <Dede Kebede PA-C - Last Filed: 05/23/24 17:24> Exam Narrative: GENERAL: Well-appearing, well-nourished, and in no acute distress. HEAD: Normocephalic, atraumatic. EYES: PERRLA and EOMI. ENT: Nares clear, no rhinorrhea or epistaxis. Mucous membranes moist. Oropharynx without tonsillar hypertrophy exudate or other lesions. NECK: Supple. No adenopathy or masses. CHEST: No respiratory distress. Clear to auscultation. No wheezes rales or rhonchi HEART: Regular rate and rhythm. No murmur heard. Normal peripheral pulses. ABDOMEN: Soft, nontender, nondistended, normal active bowel sounds. MSK: Normal range of motion. No edema. SKIN: Warm, dry, no rash. NEURO: Alert and oriented x4. No focal deficits. PSYCH: Normal mood and affect. <Travis Jorge PA-C - Last Filed: 05/24/24 03:21> GENERAL: Well-appearing, well-nourished, and in no acute distress. HEAD: Normocephalic, atraumatic. EYES: PERRLA and EOMI. ENT: Nares clear, no rhinorrhea or epistaxis. Mucous membranes moist. Oropharynx without tonsillar hypertrophy exudate or other lesions. NECK: Supple. No adenopathy or masses. CHEST: No respiratory distress. Clear to auscultation. No wheezes rales or rhonchi HEART: Regular rate and rhythm. No murmur heard. Normal peripheral pulses. ABDOMEN: Soft, nontender, nondistended, normal active bowel sounds. no appreciable fistula. MSK: Normal range of motion. No edema. SKIN: Warm, dry, no rash. NEURO: Alert and oriented x4. No focal deficits. PSYCH: Normal mood and affect. <Curtis Queen MD - Last Filed: 05/24/24 06:48> Course Course Emergency Course: HESHAM: patient signed out to me pending fluid resuscitation, repeat lab work and CT imaging. CTA chest abdomen pelvis did not show any acute findings. Patient felt better after 3 L of fluid however she is still tachycardic. Repeat lab work showed normalization of her lactic however she still has an acute kidney injury with creatinine of 2.0 from a baseline of 1.0. urine with 21-50 white blood cells and +[address] on ceftriaxone until culture results return. Case was discussed with Dr. Nguyen. C diff was added due to her diarrhea. Patient mentioned a fistula in her HPI but I did not appreciate one on exam. Patient will be placed in observation for rehydration. <Curtis Queen MD - Last Filed: 05/24/24 06:48> Vital Signs Vital signs: Vital Signs Temperature 98.5 F 05/23/24 16:45 Pulse Rate 125 H 05/23/24 16:45 Respiratory Rate 18 05/23/24 16:45 Blood Pressure 129/59 L 05/23/24 16:45 Pulse Oximetry 94 05/23/24 16:45 Oxygen Delivery Room Air 05/23/24 16:45 Temperature 98.5 F 05/23/24 16:45 Pulse Rate 100 05/24/24 06:00 Respiratory Rate 15 05/24/24 06:00 Blood Pressure 128/66 05/24/24 06:00 Pulse Oximetry 100 05/24/24 06:00 Oxygen Delivery Room Air 05/23/24 22:24 <Dede Kebede PA-C - Last Filed: 05/23/24 17:24> Vital Signs Temperature 98.5 F 05/23/24 16:45 Pulse Rate 125 H 05/23/24 16:45 Respiratory Rate 18 05/23/24 16:45 Blood Pressure 129/59 L 05/23/24 16:45 Pulse Oximetry 94 05/23/24 16:45 Oxygen Delivery Room Air 05/23/24 16:45 Temperature 98.5 F 05/23/24 16:45 Pulse Rate 100 05/24/24 06:00 Respiratory Rate 15 05/24/24 06:00 Blood Pressure 128/66 05/24/24 06:00 Pulse Oximetry 100 05/24/24 06:00 Oxygen Delivery Room Air 05/23/24 22:24 <Travis Jorge PA-C - Last Filed: 05/24/24 03:21> Vital Signs Temperature 98.5 F 05/23/24 16:45 Pulse Rate 125 H 05/23/24 16:45 Respiratory Rate 18 05/23/24 16:45 Blood Pressure 129/59 L 05/23/24 16:45 Pulse Oximetry 94 05/23/24 16:45 Oxygen Delivery Room Air 05/23/24 16:45 Temperature 98.5 F 05/23/24 16:45 Pulse Rate 100 05/24/24 06:00 Respiratory Rate 15 05/24/24 06:00 Blood Pressure 128/66 05/24/24 06:00 Pulse Oximetry 100 05/24/24 06:00 Oxygen Delivery Room Air 05/23/24 22:24 <Curtis Queen MD - Last Filed: 05/24/24 06:48> MDM - Syncope MDM Narrative Medical decision making narrative: MSE by SELMA in triage. <Dede Kebede PA-C - Last Filed: 05/23/24 17:24> MSE by SELMA in triage. This is a 58-year-old female who presents to the ED for multiple medical complaints, however seems to be chiefly concerned about the syncopal episodes with standing up and feeling short of breath. Vitals show tachycardia but otherwise are stable. No fevers. Exam remarkable for the above. She does not appear toxic. Lab work showing elevated white count of 16.3. Lactic acid elevated to 3.1. Mildly low bicarb and slightly elevated anion gap with an elevated sugar, however does not appear to be in overt DKA. Seems more consistent with the dehydration. Head CT is negative. Chest x-ray shows no acute findings.. Patient will be handed off pending CTA chest abdomen pelvis. Plan is to continue IV fluids and treat symptomatically. <Travis Jorge PA-C - Last Filed: 05/24/24 03:21> Lab Data Result diagrams: 05/23/24 18:31 05/24/24 05:11 <Dede Kebede PA-C - Last Filed: 05/23/24 17:24> Labs: Lab Results 05/23/24 05/23/24 05/23/24 Range/Units 18:31 19:08 23:08 WBC 16.3 H (4.5-10.0) K/mm3 RBC 4.57 (4.2-5.4) M/mm3 Hgb 16.1 H (12.0-15.0) g/dL Hct 46.6 (37.0-47.0) % MCV 102.0 H (80-100) fl MCH 35.2 H (26-34) pg MCHC 34.5 (32-36) g/dl RDW 14.0 (11.5-14.5) % Plt Count 262 (150-375) k/mm3 MPV 11.0 H (7.4-10.4) fl Immature Gran % (Auto) 1.2 H (0-0.5) % Neut % (Auto) 87.1 H (45.5-73.1) % Lymph % (Auto) 5.5 L (18.3-44.2) % [place] % (Auto) 4.9 (2.6-8.5) % Eos % (Auto) 0.5 (0-4.4) % Baso % (Auto) 0.8 (0.2-1.2) % Lymph # (Auto) 0.89 L (0.9-3.2) K/mm3 [place] # (Auto) 0.8 H (0.1-0.6) K/mm3 Eos # (Auto) 0.1 (0-0.3) K/mm3 Baso # (Auto) 0.1 (0.0-0.1) K/mm3 Abs Immat Gran (auto) 0.19 H (0.00-0.031) K/mm3 Absolute Neuts (auto) 14.2 H (1.3-6.7) K/mm3 Absolute Nucleated RBC 0.000 (0.0-0.012) K/mm3 Nucleated RBC % 0.0 (0.0-0.2) % PT 14.6 (11.1-14.7) Seconds INR 1.1 APTT 26.8 (22.3-36.8) Seconds D-Dimer 1.03 H (<0.48) ug/mL Sodium 128 L (137-145) mmol/L Potassium 5.7 H (3.4-5.0) mmol/L Chloride 95 L (98-107) mmol/L Carbon Dioxide 18 L (22-30) mmol/L Anion Gap 15 H (4-12) mmol/L BUN 53 H D (7-17) mg/dL Creatinine 1.97 H (0.7-1.0) mg/dL Estim Creat Clear Calc Not Reportable Estimated GFR 26 L (59 - ) Glucose 343 H (65-110) mg/dL POC Capillary Glucose (65-105) mg/dl Hemoglobin A1c (<5.7) % Lactic Acid 3.1 H (0.7-2.0) mmol/L Calcium 10.6 H (8.4-10.2) mg/dL Magnesium 1.6 (1.6-2.3) mg/dL Total Bilirubin 1.0 (0.2-1.3) mg/dL AST 40 H (14-36) U/L ALT 43 H (6-35) U/L Alkaline Phosphatase 107 (38-126) U/L Total Creatine Kinase 34 (30-135) U/L Troponin I < 0.012 (0.000-0.034) ng/mL NT-Pro-B Natriuret Pep 178 H (19.9-100) pg/mL Total Protein 8.0 (6.3-8.2) g/dL Albumin 4.3 (3.5-5.1) g/dL Urine Color Yellow (Yellow) Urine Appearance Cloudy H (Clear) Urine pH 6.0 (5.0-9.0) Ur Specific [place] 1.022 (1.001-1.035) Urine Protein 1+ H (Negative) mg/dL Urine Glucose (UA) Negative (Negative) mg/dL Urine Ketones Negative (Negative) mg/dL Ur Blood (Man) 3+ H (Negative) Urine Nitrate Negative (Negative) Urine Bilirubin Negative (Negative) Urine Urobilinogen 0.2 (<2.0) mg/dL Leukocyte Esterase Rfl 2+ H (Negative) LOUANN/UL Urine RBC 51-100 H (0-2) /hpf Urine WBC 21-50 H (0-3) /hpf Ur Squamous Epith Cells Occasional (Few) /hpf Urine Bacteria None seen /hpf Urine Casts 3-5 Influenza A (RT-PCR) Negative (Negative) Influenza B (RT-PCR) Negative (Negative) RSV (RT-PCR) Negative (Negative) SARS-CoV-2 RNA (RT-PCR) Negative (Negative) Blood Type A Positive Antibody Screen Negative 05/23/24 05/24/24 05/24/24 Range/Units 23:27 00:46 05:11 WBC (4.5-10.0) K/mm3 RBC (4.2-5.4) M/mm3 Hgb (12.0-15.0) g/dL Hct (37.0-47.0) % MCV (80-100) fl MCH (26-34) pg MCHC (32-36) g/dl RDW (11.5-14.5) % Plt Count (150-375) k/mm3 MPV (7.4-10.4) fl Immature Gran % (Auto) (0-0.5) % Neut % (Auto) (45.5-73.1) % Lymph % (Auto) (18.3-44.2) % [place] % (Auto) (2.6-8.5) % Eos % (Auto) (0-4.4) % Baso % (Auto) (0.2-1.2) % Lymph # (Auto) (0.9-3.2) K/mm3 [place] # (Auto) (0.1-0.6) K/mm3 Eos # (Auto) (0-0.3) K/mm3 Baso # (Auto) (0.0-0.1) K/mm3 Abs Immat Gran (auto) (0.00-0.031) K/mm3 Absolute Neuts (auto) (1.3-6.7) K/mm3 Absolute Nucleated RBC (0.0-0.012) K/mm3 Nucleated RBC % (0.0-0.2) % PT (11.1-14.7) Seconds INR APTT (22.3-36.8) Seconds D-Dimer (<0.48) ug/mL Sodium 131 L 129 L (137-145) mmol/L Potassium 4.9 4.6 (3.4-5.0) mmol/L Chloride 96 L 99 (98-107) mmol/L Carbon Dioxide 18 L 19 L (22-30) mmol/L Anion Gap 17 H 11 (4-12) mmol/L BUN 55 H 48 H (7-17) mg/dL Creatinine 1.94 H 1.83 H (0.7-1.0) mg/dL Estim Creat Clear Calc Not Reportable Not Reportable Estimated GFR 27 L 28 L (59 - ) Glucose 247 H 128 H (65-110) mg/dL POC Capillary Glucose 169 H (65-105) mg/dl Hemoglobin A1c 6.8 H (<5.7) % Lactic Acid 3.2 H 2.0 (0.7-2.0) mmol/L Calcium 10.6 H 8.7 (8.4-10.2) mg/dL Magnesium (1.6-2.3) mg/dL Total Bilirubin (0.2-1.3) mg/dL AST (14-36) U/L ALT (6-35) U/L Alkaline Phosphatase (38-126) U/L Total Creatine Kinase (30-135) U/L Troponin I (0.000-0.034) ng/mL NT-Pro-B Natriuret Pep (19.9-100) pg/mL Total Protein (6.3-8.2) g/dL Albumin (3.5-5.1) g/dL Urine Color (Yellow) Urine Appearance (Clear) Urine pH (5.0-9.0) Ur Specific [place] (1.001-1.035) Urine Protein (Negative) mg/dL Urine Glucose (UA) (Negative) mg/dL Urine Ketones (Negative) mg/dL Ur Blood (Man) (Negative) Urine Nitrate (Negative) Urine Bilirubin (Negative) Urine Urobilinogen (<2.0) mg/dL Leukocyte Esterase Rfl (Negative) LOUANN/UL Urine RBC (0-2) /hpf Urine WBC (0-3) /hpf Ur Squamous Epith Cells (Few) /hpf Urine Bacteria /hpf Urine Casts Influenza A (RT-PCR) (Negative) Influenza B (RT-PCR) (Negative) RSV (RT-PCR) (Negative) SARS-CoV-2 RNA (RT-PCR) (Negative) Blood Type Antibody Screen <Dede Kebede PA-C - Last Filed: 05/23/24 17:24> Lab Results 05/23/24 05/23/24 05/23/24 Range/Units 18:31 19:08 23:08 WBC 16.3 H (4.5-10.0) K/mm3 RBC 4.57 (4.2-5.4) M/mm3 Hgb 16.1 H (12.0-15.0) g/dL Hct 46.6 (37.0-47.0) % MCV 102.0 H (80-100) fl MCH 35.2 H (26-34) pg MCHC 34.5 (32-36) g/dl RDW 14.0 (11.5-14.5) % Plt Count 262 (150-375) k/mm3 MPV 11.0 H (7.4-10.4) fl Immature Gran % (Auto) 1.2 H (0-0.5) % Neut % (Auto) 87.1 H (45.5-73.1) % Lymph % (Auto) 5.5 L (18.3-44.2) % [place] % (Auto) 4.9 (2.6-8.5) % Eos % (Auto) 0.5 (0-4.4) % Baso % (Auto) 0.8 (0.2-1.2) % Lymph # (Auto) 0.89 L (0.9-3.2) K/mm3 [place] # (Auto) 0.8 H (0.1-0.6) K/mm3 Eos # (Auto) 0.1 (0-0.3) K/mm3 Baso # (Auto) 0.1 (0.0-0.1) K/mm3 Abs Immat Gran (auto) 0.19 H (0.00-0.031) K/mm3 Absolute Neuts (auto) 14.2 H (1.3-6.7) K/mm3 Absolute Nucleated RBC 0.000 (0.0-0.012) K/mm3 Nucleated RBC % 0.0 (0.0-0.2) % PT 14.6 (11.1-14.7) Seconds INR 1.1 APTT 26.8 (22.3-36.8) Seconds D-Dimer 1.03 H (<0.48) ug/mL Sodium 128 L (137-145) mmol/L Potassium 5.7 H (3.4-5.0) mmol/L Chloride 95 L (98-107) mmol/L Carbon Dioxide 18 L (22-30) mmol/L Anion Gap 15 H (4-12) mmol/L BUN 53 H D (7-17) mg/dL Creatinine 1.97 H (0.7-1.0) mg/dL Estim Creat Clear Calc Not Reportable Estimated GFR 26 L (59 - ) Glucose 343 H (65-110) mg/dL POC Capillary Glucose (65-105) mg/dl Hemoglobin A1c (<5.7) % Lactic Acid 3.1 H (0.7-2.0) mmol/L Calcium 10.6 H (8.4-10.2) mg/dL Magnesium 1.6 (1.6-2.3) mg/dL Total Bilirubin 1.0 (0.2-1.3) mg/dL AST 40 H (14-36) U/L ALT 43 H (6-35) U/L Alkaline Phosphatase 107 (38-126) U/L Total Creatine Kinase 34 (30-135) U/L Troponin I < 0.012 (0.000-0.034) ng/mL NT-Pro-B Natriuret Pep 178 H (19.9-100) pg/mL Total Protein 8.0 (6.3-8.2) g/dL Albumin 4.3 (3.5-5.1) g/dL Urine Color Yellow (Yellow) Urine Appearance Cloudy H (Clear) Urine pH 6.0 (5.0-9.0) Ur Specific [place] 1.022 (1.001-1.035) Urine Protein 1+ H (Negative) mg/dL Urine Glucose (UA) Negative (Negative) mg/dL Urine Ketones Negative (Negative) mg/dL Ur Blood (Man) 3+ H (Negative) Urine Nitrate Negative (Negative) Urine Bilirubin Negative (Negative) Urine Urobilinogen 0.2 (<2.0) mg/dL Leukocyte Esterase Rfl 2+ H (Negative) LOUANN/UL Urine RBC 51-100 H (0-2) /hpf Urine WBC 21-50 H (0-3) /hpf Ur Squamous Epith Cells Occasional (Few) /hpf Urine Bacteria None seen /hpf Urine Casts 3-5 Influenza A (RT-PCR) Negative (Negative) Influenza B (RT-PCR) Negative (Negative) RSV (RT-PCR) Negative (Negative) SARS-CoV-2 RNA (RT-PCR) Negative (Negative) Blood Type A Positive Antibody Screen Negative 05/23/24 05/24/24 05/24/24 Range/Units 23:27 00:46 05:11 WBC (4.5-10.0) K/mm3 RBC (4.2-5.4) M/mm3 Hgb (12.0-15.0) g/dL Hct (37.0-47.0) % MCV (80-100) fl MCH (26-34) pg MCHC (32-36) g/dl RDW (11.5-14.5) % Plt Count (150-375) k/mm3 MPV (7.4-10.4) fl Immature Gran % (Auto) (0-0.5) % Neut % (Auto) (45.5-73.1) % Lymph % (Auto) (18.3-44.2) % [place] % (Auto) (2.6-8.5) % Eos % (Auto) (0-4.4) % Baso % (Auto) (0.2-1.2) % Lymph # (Auto) (0.9-3.2) K/mm3 [place] # (Auto) (0.1-0.6) K/mm3 Eos # (Auto) (0-0.3) K/mm3 Baso # (Auto) (0.0-0.1) K/mm3 Abs Immat Gran (auto) (0.00-0.031) K/mm3 Absolute Neuts (auto) (1.3-6.7) K/mm3 Absolute Nucleated RBC (0.0-0.012) K/mm3 Nucleated RBC % (0.0-0.2) % PT (11.1-14.7) Seconds INR APTT (22.3-36.8) Seconds D-Dimer (<0.48) ug/mL Sodium 131 L 129 L (137-145) mmol/L Potassium 4.9 4.6 (3.4-5.0) mmol/L Chloride 96 L 99 (98-107) mmol/L Carbon Dioxide 18 L 19 L (22-30) mmol/L Anion Gap 17 H 11 (4-12) mmol/L BUN 55 H 48 H (7-17) mg/dL Creatinine 1.94 H 1.83 H (0.7-1.0) mg/dL Estim Creat Clear Calc Not Reportable Not Reportable Estimated GFR 27 L 28 L (59 - ) Glucose 247 H 128 H (65-110) mg/dL POC Capillary Glucose 169 H (65-105) mg/dl Hemoglobin A1c 6.8 H (<5.7) % Lactic Acid 3.2 H 2.0 (0.7-2.0) mmol/L Calcium 10.6 H 8.7 (8.4-10.2) mg/dL Magnesium (1.6-2.3) mg/dL Total Bilirubin (0.2-1.3) mg/dL AST (14-36) U/L ALT (6-35) U/L Alkaline Phosphatase (38-126) U/L Total Creatine Kinase (30-135) U/L Troponin I (0.000-0.034) ng/mL NT-Pro-B Natriuret Pep (19.9-100) pg/mL Total Protein (6.3-8.2) g/dL Albumin (3.5-5.1) g/dL Urine Color (Yellow) Urine Appearance (Clear) Urine pH (5.0-9.0) Ur Specific [place] (1.001-1.035) Urine Protein (Negative) mg/dL Urine Glucose (UA) (Negative) mg/dL Urine Ketones (Negative) mg/dL Ur Blood (Man) (Negative) Urine Nitrate (Negative) Urine Bilirubin (Negative) Urine Urobilinogen (<2.0) mg/dL Leukocyte Esterase Rfl (Negative) LOUANN/UL Urine RBC (0-2) /hpf Urine WBC (0-3) /hpf Ur Squamous Epith Cells (Few) /hpf Urine Bacteria /hpf Urine Casts Influenza A (RT-PCR) (Negative) Influenza B (RT-PCR) (Negative) RSV (RT-PCR) (Negative) SARS-CoV-2 RNA (RT-PCR) (Negative) Blood Type Antibody Screen <Travis Jorge PA-C - Last Filed: 05/24/24 03:21> Lab Results 05/23/24 05/23/24 05/23/24 Range/Units 18:31 19:08 23:08 WBC 16.3 H (4.5-10.0) K/mm3 RBC 4.57 (4.2-5.4) M/mm3 Hgb 16.1 H (12.0-15.0) g/dL Hct 46.6 (37.0-47.0) % MCV 102.0 H (80-100) fl MCH 35.2 H (26-34) pg MCHC 34.5 (32-36) g/dl RDW 14.0 (11.5-14.5) % Plt Count 262 (150-375) k/mm3 MPV 11.0 H (7.4-10.4) fl Immature Gran % (Auto) 1.2 H (0-0.5) % Neut % (Auto) 87.1 H (45.5-73.1) % Lymph % (Auto) 5.5 L (18.3-44.2) % [place] % (Auto) 4.9 (2.6-8.5) % Eos % (Auto) 0.5 (0-4.4) % Baso % (Auto) 0.8 (0.2-1.2) % Lymph # (Auto) 0.89 L (0.9-3.2) K/mm3 [place] # (Auto) 0.8 H (0.1-0.6) K/mm3 Eos # (Auto) 0.1 (0-0.3) K/mm3 Baso # (Auto) 0.1 (0.0-0.1) K/mm3 Abs Immat Gran (auto) 0.19 H (0.00-0.031) K/mm3 Absolute Neuts (auto) 14.2 H (1.3-6.7) K/mm3 Absolute Nucleated RBC 0.000 (0.0-0.012) K/mm3 Nucleated RBC % 0.0 (0.0-0.2) % PT 14.6 (11.1-14.7) Seconds INR 1.1 APTT 26.8 (22.3-36.8) Seconds D-Dimer 1.03 H (<0.48) ug/mL Sodium 128 L (137-145) mmol/L Potassium 5.7 H (3.4-5.0) mmol/L Chloride 95 L (98-107) mmol/L Carbon Dioxide 18 L (22-30) mmol/L Anion Gap 15 H (4-12) mmol/L BUN 53 H D (7-17) mg/dL Creatinine 1.97 H (0.7-1.0) mg/dL Estim Creat Clear Calc Not Reportable Estimated GFR 26 L (59 - ) Glucose 343 H (65-110) mg/dL POC Capillary Glucose (65-105) mg/dl Hemoglobin A1c (<5.7) % Lactic Acid 3.1 H (0.7-2.0) mmol/L Calcium 10.6 H (8.4-10.2) mg/dL Magnesium 1.6 (1.6-2.3) mg/dL Total Bilirubin 1.0 (0.2-1.3) mg/dL AST 40 H (14-36) U/L ALT 43 H (6-35) U/L Alkaline Phosphatase 107 (38-126) U/L Total Creatine Kinase 34 (30-135) U/L Troponin I < 0.012 (0.000-0.034) ng/mL NT-Pro-B Natriuret Pep 178 H (19.9-100) pg/mL Total Protein 8.0 (6.3-8.2) g/dL Albumin 4.3 (3.5-5.1) g/dL Urine Color Yellow (Yellow) Urine Appearance Cloudy H (Clear) Urine pH 6.0 (5.0-9.0) Ur Specific [place] 1.022 (1.001-1.035) Urine Protein 1+ H (Negative) mg/dL Urine Glucose (UA) Negative (Negative) mg/dL Urine Ketones Negative (Negative) mg/dL Ur Blood (Man) 3+ H (Negative) Urine Nitrate Negative (Negative) Urine Bilirubin Negative (Negative) Urine Urobilinogen 0.2 (<2.0) mg/dL Leukocyte Esterase Rfl 2+ H (Negative) LOUANN/UL Urine RBC 51-100 H (0-2) /hpf Urine WBC 21-50 H (0-3) /hpf Ur Squamous Epith Cells Occasional (Few) /hpf Urine Bacteria None seen /hpf Urine Casts 3-5 Influenza A (RT-PCR) Negative (Negative) Influenza B (RT-PCR) Negative (Negative) RSV (RT-PCR) Negative (Negative) SARS-CoV-2 RNA (RT-PCR) Negative (Negative) Blood Type A Positive Antibody Screen Negative 05/23/24 05/24/24 05/24/24 Range/Units 23:27 00:46 05:11 WBC (4.5-10.0) K/mm3 RBC (4.2-5.4) M/mm3 Hgb (12.0-15.0) g/dL Hct (37.0-47.0) % MCV (80-100) fl MCH (26-34) pg MCHC (32-36) g/dl RDW (11.5-14.5) % Plt Count (150-375) k/mm3 MPV (7.4-10.4) fl Immature Gran % (Auto) (0-0.5) % Neut % (Auto) (45.5-73.1) % Lymph % (Auto) (18.3-44.2) % [place] % (Auto) (2.6-8.5) % Eos % (Auto) (0-4.4) % Baso % (Auto) (0.2-1.2) % Lymph # (Auto) (0.9-3.2) K/mm3 [place] # (Auto) (0.1-0.6) K/mm3 Eos # (Auto) (0-0.3) K/mm3 Baso # (Auto) (0.0-0.1) K/mm3 Abs Immat Gran (auto) (0.00-0.031) K/mm3 Absolute Neuts (auto) (1.3-6.7) K/mm3 Absolute Nucleated RBC (0.0-0.012) K/mm3 Nucleated RBC % (0.0-0.2) % PT (11.1-14.7) Seconds INR APTT (22.3-36.8) Seconds D-Dimer (<0.48) ug/mL Sodium 131 L 129 L (137-145) mmol/L Potassium 4.9 4.6 (3.4-5.0) mmol/L Chloride 96 L 99 (98-107) mmol/L Carbon Dioxide 18 L 19 L (22-30) mmol/L Anion Gap 17 H 11 (4-12) mmol/L BUN 55 H 48 H (7-17) mg/dL Creatinine 1.94 H 1.83 H (0.7-1.0) mg/dL Estim Creat Clear Calc Not Reportable Not Reportable Estimated GFR 27 L 28 L (59 - ) Glucose 247 H 128 H (65-110) mg/dL POC Capillary Glucose 169 H (65-105) mg/dl Hemoglobin A1c 6.8 H (<5.7) % Lactic Acid 3.2 H 2.0 (0.7-2.0) mmol/L Calcium 10.6 H 8.7 (8.4-10.2) mg/dL Magnesium (1.6-2.3) mg/dL Total Bilirubin (0.2-1.3) mg/dL AST (14-36) U/L ALT (6-35) U/L Alkaline Phosphatase (38-126) U/L Total Creatine Kinase (30-135) U/L Troponin I (0.000-0.034) ng/mL NT-Pro-B Natriuret Pep (19.9-100) pg/mL Total Protein (6.3-8.2) g/dL Albumin (3.5-5.1) g/dL Urine Color (Yellow) Urine Appearance (Clear) Urine pH (5.0-9.0) Ur Specific [place] (1.001-1.035) Urine Protein (Negative) mg/dL Urine Glucose (UA) (Negative) mg/dL Urine Ketones (Negative) mg/dL Ur Blood (Man) (Negative) Urine Nitrate (Negative) Urine Bilirubin (Negative) Urine Urobilinogen (<2.0) mg/dL Leukocyte Esterase Rfl (Negative) LOUANN/UL Urine RBC (0-2) /hpf Urine WBC (0-3) /hpf Ur Squamous Epith Cells (Few) /hpf Urine Bacteria /hpf Urine Casts Influenza A (RT-PCR) (Negative) Influenza B (RT-PCR) (Negative) RSV (RT-PCR) (Negative) SARS-CoV-2 RNA (RT-PCR) (Negative) Blood Type Antibody Screen <Curtis Queen MD - Last Filed: 05/24/24 06:48> ABG Data ABG results: 05/24/24 04:05 VBG pH 7.447 H* VBG pCO2 20.9 L* VBG pO2 108.1 H VBG HCO3 14.1 L O2 Delivery Device Room air O2 Liters/Min 0.0 FiO2 21 <Dede Kebede PA-C - Last Filed: 05/23/24 17:24> 05/24/24 04:05 VBG pH 7.447 H* VBG pCO2 20.9 L* VBG pO2 108.1 H VBG HCO3 14.1 L O2 Delivery Device Room air O2 Liters/Min 0.0 FiO2 21 <Travis Jorge PA-C - Last Filed: 05/24/24 03:21> 05/24/24 04:05 VBG pH 7.447 H* VBG pCO2 20.9 L* VBG pO2 108.1 H VBG HCO3 14.1 L O2 Delivery Device Room air O2 Liters/Min 0.0 FiO2 21 <Curtis Queen MD - Last Filed: 05/24/24 06:48> Discharge Plan Discharge Clinical Impression: Acute dehydration, Syncope due to orthostatic hypotension, UTI (urinary tract infection) <Dede Kebede PA-C - Last Filed: 05/23/24 17:24> Patient Disposition: Still a Patient <Dede Kebede PA-C - Last Filed: 05/23/24 17:24> Condition: Stable <Dede Kebede PA-C - Last Filed: 05/23/24 17:24> Additional Instructions: Please make sure that you are staying well hydrated at home. Follow-up closely with PCP regarding this issue today. If you have any new or worsening symptoms please return to the ER for further evaluation. <Dede Kebede PA-C - Last Filed: 05/23/24 17:24> Patient Language: American <Dede Kebede PA-C - Last Filed: 05/23/24 17:24> Prescriptions: No Action oxycodone 10 mg tablet 10 mg PO Q6H PRN (Reason: Pain) ondansetron HCl 4 mg tablet 4 mg PO Q8H PRN (Reason: nausea and vomiting) Qty: 60 0RF gabapentin 100 mg capsule 100 mg PO TID ropinirole 0.5 mg tablet PO prednisone 1 mg tablet See Rx Instructions .ROUTE .COMPLEX Qty: 90 3RF Dose Instruction: Take 1 tablet by mouth once daily Rx Instructions: Take 1 tablet by mouth once daily ( to take with 5mg for total of 6mg q day) prednisone 5 mg tablet 5 mg PO DAILY Qty: 90 3RF Rx Instructions: 1 po q day ( to take with 1 mg for total of 6mg q day) hydrocortisone 2.5 % cream 1 applic topical BID-TID Qty: 30 2RF lorazepam 0.5 mg tablet 0.5 mg PO Q8H PRN (Reason: anxiety) Qty: 30 0RF duloxetine 20 mg capsule,delayed release(DR/EC) See Rx Instructions .ROUTE .COMPLEX Qty: 180 3RF Dose Instruction: Take 1 capsule by mouth twice daily Rx Instructions: Take 1 capsule by mouth twice daily metoprolol succinate 25 mg tablet extended release 24 hr See Rx Instructions .ROUTE .COMPLEX Qty: 90 3RF Dose Instruction: Take 1 tablet by mouth once daily Rx Instructions: Take 1 tablet by mouth once daily insulin glargine [Lantus Solostar U-100 Insulin] 100 unit/mL (3 mL) insulin pen 25 unit subcut BID Qty: 36 2RF clindamycin phosphate 1 % lotion 1 applic topical BID Qty: 120 2RF Mounjaro 7.5 mg/0.5 mL pen injector 7.5 mg subcut WEEKLY Qty: 2 4RF insulin lispro 100 unit/mL insulin pen 20 unit subcut TID 90 Days Qty: 54 3RF clobetasol 0.05 % solution See Rx Instructions .ROUTE .COMPLEX Qty: 100 0RF Dose Instruction: APPLY ONCE TO THE AFFECTED AREA TOPICALLY ONCE DAILY. Rx Instructions: APPLY ONCE TO THE AFFECTED AREA TOPICALLY ONCE DAILY. <Dede Kebede PA-C - Last Filed: 05/23/24 17:24> Follow-up/Referrals: Hillary Marcano MD [Primary Care Provider] - <Dede Kebede PA-C - Last Filed: 05/23/24 17:24> Time of Disposition: 03:20 <Dede Kebede PA-C - Last Filed: 05/23/24 17:24> 03:20 <Travis Jorge PA-C - Last Filed: 05/24/24 03:21> 03:20 <Curtis Queen MD - Last Filed: 05/24/24 06:48>
--- NOTE | 2024-05-23 17:32 | PC.NURSE ---
Pt. called for order completion. Family alerted this RN that the pt. is in x-ray.
--- NOTE | 2024-05-23 18:28 | PC.NURSE ---
Pt. states that adhesive tape is ok to use to tape her IV on L. hand. Pt. states she will alert staff it causes her irriatation. Pt. aware urine sample is needed.
[2024-05-23] MEDS: ONDANSETRON INJ 4 MG/2 ML VIAL IV PUSH (18:35)
[2024-05-23 18:38] LABS: Basophils Absolute Auto 0.1 K/mm3 (0.0-0.1); Basophils Percent Auto 0.8 % (0.2-1.2); Eosinophils Absolute Auto 0.1 K/mm3 (0-0.3); Eosinophils Percent Auto 0.5 % (0-4.4); Hematocrit 46.6 % (37.0-47.0); Hemoglobin 16.1 g/dL (12.0-15.0); Immature Granulocyte Absolute 0.19 K/mm3 (0.00-0.031); Immature Granulocyte Percent A 1.2 % (0-0.5); Lymphocytes Absolute Auto 0.89 K/mm3 (0.9-3.2); Lymphocytes Percent Auto 5.5 % (18.3-44.2); Mean Corpuscular HGB Conc 34.5 g/dl (32-36); Mean Corpuscular Hemoglobin 35.2 pg (26-34); Monocytes Absolute Auto 0.8 K/mm3 (0.1-0.6); Monocytes Percent Auto 4.9 % (2.6-8.5); Neutrophils Absolute Auto 14.2 K/mm3 (1.3-6.7); Neutrophils Percent Auto 87.1 % (45.5-73.1); Platelet Count Result 262 k/mm3 (150-375); Red Blood Count 4.57 M/mm3 (4.2-5.4); White Blood Count 16.3 K/mm3 (4.5-10.0)
[2024-05-23 18:48] LABS: Lactic Acid Reflex 3.1 mmol/L (0.7-2.0)
[2024-05-23 19:14] LABS: Influenza A QL RT-PCR Negative (Negative); Influenza B QL RT-PCR Negative (Negative); RSV RNA, RT-PCR Negative (Negative); SARS-CoV-2 RNA PCR Negative (Negative)
[2024-05-23 19:31] LABS: INR 1.1; Prothrombin Time 14.6 Seconds (11.1-14.7)
[2024-05-23 19:32] LABS: Partial Thromboplastin Time 26.8 Seconds (22.3-36.8)
[2024-05-23 19:39] LABS: Alanine Aminotransferase 43 U/L (6-35); Albumin Level 4.3 g/dL (3.5-5.1); Alkaline Phosphatase 107 U/L (38-126); Anion Gap 15 mmol/L (4-12); Aspartate Amino Transferase 40 U/L (14-36); Blood Urea Nitrogen 53 mg/dL (7-17); Calcium 10.6 mg/dL (8.4-10.2); Carbon Dioxide 18 mmol/L (22-30); Chloride 95 mmol/L (98-107); Creatine Kinase 34 U/L (30-135); Estimated Glomerular Filt Rate 26; Glucose 343 mg/dL (65-110); Magnesium 1.6 mg/dL (1.6-2.3); Potassium 5.7 mmol/L (3.4-5.0); Sodium 128 mmol/L (137-145)
[2024-05-23 19:44] LABS: D Dimer 1.03 ug/mL (<0.48)
[2024-05-23 19:51] LABS: NT Pro B Type Natriuretic Pept 178 pg/mL (19.9-100); Troponin I < 0.012 ng/mL (0.000-0.034)
[2024-05-23 21:35] LABS: Reflex Lactic Acid Yes or No Add Lactic
[2024-05-23 22:24] VITALS: O2SAT 97
[2024-05-23] MEDS: SODIUM CHLORIDE 0.9% IV 1,000 ML 999 ML IV CONT (22:57)
[2024-05-23] MEDS: LACTATED RINGERS 1,000 ML 999 ML IV CONT (22:57)
[2024-05-23] MEDS: INSULIN HUMAN REGULAR (*BKC) 100 UNITS/ML 6 UNITS IV PUSH (22:58)
[2024-05-23 23:28] LABS: Add Urine Microscopic? YES; Appearance Urine Cloudy (Clear); Bacteria Urine None Seen /hpf; Bilirubin Urine Negative (Negative); Blood Urine 3+ (Negative); Color Urine Yellow (Yellow); Glucose Urine UA Negative (Negative); Ketones Urine Negative (Negative); Leukocyte Esterase Ur 2+ LEU/UL (Negative); Nitrate Urine Negative (Negative); Protein Urine 1+ mg/dL (Negative); RBC Urine 51-100 /hpf (0-2); Specific Grav Ur 1.022 (1.001-1.035); Squamous Epithelial Cell Urine Occasional /hpf (Few); Urobilinogen Urine 0.2 mg/dL (<2.0); WBC Urine 21-50 /hpf (0-3)
[2024-05-23 23:30] VITALS: BP 119/52; PULSE 110; RESP 20; O2SAT 100
[2024-05-23 23:46] LABS: Lactic Acid 3.2 mmol/L (0.7-2.0)
[2024-05-23 23:47] LABS: Anion Gap 17 mmol/L (4-12); Blood Urea Nitrogen 55 mg/dL (7-17); Calcium 10.6 mg/dL (8.4-10.2); Carbon Dioxide 18 mmol/L (22-30); Chloride 96 mmol/L (98-107); Estimated Glomerular Filt Rate 27; Glucose 247 mg/dL (65-110); Potassium 4.9 mmol/L (3.4-5.0); Sodium 131 mmol/L (137-145)
[2024-05-24] VITALS (10 sets, daily range): BP systolic 105–137; BP diastolic 52–77; PULSE 100–113; RESP 12–21; TEMP 36.1–37.6; O2SAT 96–100; BMI 33.3
--- OUTSIDE RECORDS SUMMARY | 2024-05-24 00:04 | XMS_ITS | Clinical Summary ---
Author Organization [facility] Address [address] [address] Phone Care Team Providers Care General Warehouse Associate Name Role Phone Viral Paris MD Primary Care Provider [phone] Allergies Active Allergy Reactions Criticality Noted Date [...] patient's age to complete this topic Insurance [facility] Care Teams General Warehouse Associate Relationship Specialty Start Date End Date Viral Paris MD [address] [place] [address] PCP - General Family Medicine 05/31/16
--- OUTSIDE RECORDS SUMMARY | 2024-05-24 00:04 | XMS_ITS | Patient Health Summary ---
Author Organization [facility] Address [address] [place] [address] Care Team Providers Care Ultrasound Manager Name Role Phone Candida Paris MD Primary Care Provider [phone] Note from [facility],non-owned Affiliates and Associated Physician Practices is amultiple site organization consisting of ambulatory clinics and hospital sitesin [place], [place], [place] and [place]. This disclosure is being madepursuant to the Care Everywhere program and may not contain all information available regarding this patient. Last updated 18.[facility] [employer] Allergies * Prochlorperazine(Rash) -Low Criticality * Latex(Rash) [...] times daily * vitamin D, ergocalciferol, (DRISDOL) 27607 UNITS capsule Take 50,000 Units by mouth [...] CDT) Case Report Surgical Pathology Report Case: [id number] Authorizing Provider: Jatin Altamirano MD Collected: 07/21/2023 09:28 AM Ordering Location: [facility] - Received: 07/24/2023 01:18 PM Pathology Lab Pathologist: Stephenie Arguelles MD Specimen: Lymph Node Biopsy 07/25/2023 9:56 AM CDT [facility] Final Diagnosis Lymph node, right axilla, needle core biopsy: - Follicular and paracortical hyperplasia - No evidence of lymphoma or metastatic carcinoma, as sampled - See description 07/25/2023 9:56 AM [facility] Microscopic Description and Comment [...] negative for metastatic carcinoma. Concurrent flow cytometry ([facility] [address], [place] [address], [place] [address]) shows non-specific findings. B-cells are described as [...] persists, consider excisional biopsy. 07/25/2023 9:56 AM [facility] Clinical History The patient is a 58 year old woman with an enlarged right axillary lymph node. 07/25/2023 9:56 AM [facility] Materials Received Received are 2 slides and 1 block labeled [id number] for initial diagnostic interpretation. The materials originate from [address] [place] [address]. All original materials are returned to the referring institution, along with a copy of our final report. 07/25/2023 9:56 AM CDT [facility] Pathologist Location at [facility] 07/25/2023 9:56 AM CDT [facility] Disclaimer The performance characteristics of all immunohistochemical and indirect immunofluorescence stains (if any) cited in this report were determined by the Histopathology Laboratory of [facility]. Some of these tests were developed by [...] attending (teaching) pathologist. 07/25/2023 9:56 AM CDT [facility] Embedded Images 07/25/2023 9:56 AM CDT [facility] Pathology/Cytolo gy BIOPSY OF LYMPH NODE / Unknown 07/21/2023 9:28 AM CDT 07/24/2023 1:18 PM CDT Jatin Altamirano MD LAB - PATHOLOGY/CYTO LOGY ORDERABLES Performing Organization Address City/State/[facility] Co de Phone Number [facility] [address] [phone] * LAB MISC TEST (07/14/2014 4:17 PM CDT) Test Name Send out to [employer]/test# 597/2-5ml blood in EDTA 09/25/2014 7:45 AM CDT [facility] Test Result See Scanned Report 09/25/2014 7:45 AM CDT [facility] Other (qualifier value) BLOOD SPECIMEN / Unknown Lab Venipuncture / Unknown 07/14/2014 4:17 PM CDT 07/14/2014 4:25 PM CDT Emma J Alcala MD LAB SEND OUT [facility] [address] [place] [address] Care Teams Ultrasound Manager Relationship Specialty Start Date End Date Candida Paris MD [address] [place] [place] [id number] PCP - General Family Medicine 06/11/14
--- OUTSIDE RECORDS SUMMARY | 2024-05-24 00:04 | XMS_ITS | Clinical Summary ---
Author Organization [facility] [employer] Address [address] [place] [address] Care Team Providers Care Telecommunications Administrator Name Role Phone Candida Paris MD Primary Care Provider [phone] Source Comments [facility],non-owned Affiliates and Associated Physician Practices is amultiple site organization consisting of ambulatory clinics and hospital sitesin [place], [place], [place] and [place]. This disclosure is being madepursuant to the Care Everywhere program and may not contain all information available regarding this patient. Last updated 18.[facility] Allergies Active Allergy Reactions Criticality Noted Date [...] times daily Active vitamin D, ergocalciferol, (DRISDOL) 14460 UNITS capsule Take 50,000 Units by mouth [...] age to complete this topic Care Teams Telecommunications Administrator Relationship Specialty Start Date End Date Candida Paris MD [address] [place] [address] PCP - General Family Medicine 06/11/14
--- OUTSIDE RECORDS SUMMARY | 2024-05-24 00:04 | XMS_ITS | Encounter Summary ---
Author Organization [facility] Address [address] [place], [place] [address] [address] Care Team Providers Care Corrugator Name Role Phone Candida Paris MD Primary Care Provider [phone] Encounter Details Date Type Department Care Team (Late st Contact Info) Description 07/24/2023 Lab Requisition [facility] - Pathology Lab [address] [place] [address] Jatin Altamirano MD [address] [address] Illness, unspecified Social History Tobacco [...] CDT) Case Report Surgical Pathology Report Case: [id number] Authorizing Provider: Jatin Altamirano MD Collected: 07/21/2023 09:28 AM Ordering Location: [facility] - Received: 07/24/2023 [...] negative for metastatic carcinoma. Concurrent flow cytometry ([facility] [address], [facility], [place] [address]) shows non-specific findings. B-cells are described as [...] are 2 slides and 1 block labeled [id number] for initial diagnostic interpretation. The materials originate from [address] [address]. All original materials are returned to the referring institution, along with a copy of our final report. 07/25/2023 9:56 AM CDT [facility] Pathologist Location at [facility] 07/25/2023 9:56 AM CDT [facility] Disclaimer The [...] LAB Embedded Images 07/25/2023 9:56 AM CDT [facility] Pathology/Cytolo gy BIOPSY OF LYMPH NODE / Unknown 07/21/2023 9:28 AM CDT 07/24/2023 1:18 PM CDT Jatin Altamirano MD LAB - PATHOLOGY/CYTO LOGY ORDERABLES Performing Organization Address City/State/[facility] Co de Phone Number [facility] [address] [phone] documented in this encounter Visit Diagnoses Diagnosis Illness, unspecified documented in this encounter Care Teams Corrugator Relationship Specialty Start Date End Date Candida Paris MD [address] [place] [address] PCP - General Family Medicine 06/11/14 documented as of this encounter
--- OUTSIDE RECORDS SUMMARY | 2024-05-24 00:04 | XMS_ITS | Referral Summary ---
Author Organization [facility] [employer] Address [address] [place] [address] Care Team Providers Care Policy Officer Name Role Phone Candida Paris MD Primary Care Provider [phone] Source Comments [facility],non-owned Affiliates and Associated Physician Practices is amultiple site organization consisting of ambulatory clinics and hospital sitesin [place], [place], [place] and [place]. This disclosure is being madepursuant to the Care Everywhere program and may not contain all information available regarding this patient. Last updated 18.[facility] [employer] Allergies Active Allergy Reactions Criticality Noted Date [...] times daily Active vitamin D, ergocalciferol, (DRISDOL) 93935 UNITS capsule Take 50,000 Units by mouth [...] of Treatment Not on file Care Teams Policy Officer Relationship Specialty Start Date End Date Candida Paris MD [address] [place] [address] PCP - General Family Medicine 06/11/14
--- OUTSIDE RECORDS SUMMARY | 2024-05-24 00:04 | XMS_ITS | Clinical Summary ---
Author Organization [facility] [employer] Address [address] [place] [address] Care Team Providers Care Brim Flexer Name Role Phone Bhaskar Marcano MD Primary Care Provider [phone] Allergies Active Allergy Reactions Criticality Noted Date [...] on file Legal Sex Female 10:27 AM MANAGER SHELL Gender Identity Not on file Sexual Orientation Not on file Last Filed Vital Signs Vital Sign Reading Time Taken Comments Blood Pressure 110/68 06/08/2022 1:36 PM MANAGER SHELL Pulse 94 06/08/2022 1:36 PM MANAGER SHELL Temperature 36.2 C (97.1 F) 06/08/2022 1:36 PM MANAGER SHELL Respiratory Rate 20 06/08/2022 1:36 PM MANAGER SHELL Oxygen Saturation 96% 06/08/2022 1:36 PM MANAGER SHELL Inhaled Oxygen Concentration - - Weight 93.3 kg (205 lb 11.2 oz) 06/08/2022 1:36 PM MANAGER SHELL Height 160 cm (5' 3 ) 06/08/2022 1:36 PM MANAGER SHELL Body Mass Index 36.44 06/08/2022 1:36 PM MANAGER SHELL Plan of Treatment Health Maintenance Due Date [...] INFLUENZA VACCINE (#1) 2023 03/07/2013 Insurance [facility] [employer] ACCESS CHOICE BLUE ACCESS CHOICE Care Teams Brim Flexer Relationship Specialty Start Date End Date Bhaskar Marcano MD PCP - General Family Practice 06/08/22
[2024-05-24 00:21] LABS: Hemoglobin A1C 6.8 % (<5.7)
[2024-05-24] MEDS: oxyCODONE HCL (*CRX) 5 MG TAB IR 10 MG PO ×2 (00:43→21:50)
[2024-05-24 00:49] LABS: Glucose Point of Care 169 mg/dl (65-105)
[2024-05-24 04:09] LABS: Fractional Inspired Oxygen 21 %; HCO3 VBG 14.1 mEq/l (24.0-30.0); PO2 VBG 108.1 mmHg (35.0-45.0)
[2024-05-24 04:10] LABS: pH VBG 7.447 (7.300-7.400)
[2024-05-24 04:11] LABS: Device ROOM AIR; PCO2 VBG 20.9 mmHg (42.0-48.0)
[2024-05-24 05:26] LABS: Anion Gap 11 mmol/L (4-12); Blood Urea Nitrogen 48 mg/dL (7-17); Calcium 8.7 mg/dL (8.4-10.2); Carbon Dioxide 19 mmol/L (22-30); Chloride 99 mmol/L (98-107); Estimated Glomerular Filt Rate 28; Glucose 128 mg/dL (65-110); Potassium 4.6 mmol/L (3.4-5.0); Sodium 129 mmol/L (137-145)
--- NOTE | 2024-05-24 08:45 | PM.IMHP ---
H&P: HPI History of Present Illness Date/Time: 05/24/24 08:45 Chief Complaint: Weakness shortness of breath Narrative: This is a 58-year-old female who presents the ED from PCPs office with multiple complaints. Patient reports having diarrhea, increased flatulence over the past 2 weeks. Reports intermittent nausea with dry heaving. She complains of generalized weakness and fatigue with lightheadedness. She also reported shortness of breath with exertion. She noted her oxygen dropped to 70-75% on exertion at home. She also reported heart rate dropping to 30s at times. Also had 4 syncopal episodes over the past 2 weeks. Last 1 was yesterday. He has stopped taking her metoprolol due to dizziness and lightheadedness. She also reports a 12 lb weight loss in the last 2 weeks. She Reports exposure to COVID-19. Denies fevers. No chest pain. 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 She has a history of Crohn's disease requiring subtotal colectomy 2018 with history of colostomy tube. In the ED she was tachycardic. History of the vitals were optimal. Laboratory workup revealed leukocytosis 16.3 lactate was elevated at 3.1 bicarbonate was 19. Creatinine was 1.8. Head CT was negative for any acute intracranial abnormality. Chest x-ray showed no acute findings. Troponin was negative less than 0.012. BNP 178 urinalysis revealed 21-50 urine WBC 50 1-100 urine RBC with positive leukocyte esterase suggesting UTI. Influenza RSV COVID swab was negative. Repeat lactic acid after IV fluids was down to 2. She is also mildly hyponatremic at 1:29 a.m.. VBG 7.44/21/108/14. Her baseline creatinine was 1 back in 2022 indicating acute kidney injury. A1c at 6.8 CT chest abdomen pelvis was performed which negative for PE. Probable cirrhotic changes of the liver. Nonobstructing right nephrolithiasis similar to prior exam. Postoperative changes the large bowel with large parastomal hernia and additional moderate to large ventral hernia both containing multiple bowel loops. Stable uterine fibroids. She is admitted in the setting for further treatment. Review of Systems Review of Systems: - CONSTITUTIONAL: Denies weight loss, fever and chills. - HEENT: Denies changes in vision and hearing - RESPIRATORY: Denies SOB and cough. - CV: Denies palpitations and CP. - GI: Denies abdominal pain, reports nausea, vomiting and denies diarrhea. - : Denies dysuria and urinary frequency. - MSK: Denies myalgia and joint pain. - SKIN: Denies rash and pruritus. - NEUROLOGICAL: Denies headache and syncope. - PSYCHIATRIC: Denies recent changes in mood. Denies anxiety and depression. [facility] Past Medical History Medical History Irritable bowel syndrome Hypertension History of gastroesophageal reflux (GERD) Gallbladder disorder History of blood clots Arthritis Anxiety Asthma Allergies Elective Hx of herpes zoster Disseminated superficial actinic porokeratosis Trigger finger of right hand Uterine fibroid ct 2021: cm fibroid @ R posterior lower uterine segment .exerts mass effect upon the posterior wall of the bladder History of osteomyelitis History of meningioma Ileostomy in place History of necrotizing fasciitis Crohn's disease Partial intestinal obstruction Intractable nausea and vomiting Acute dehydration Gastro-esophageal reflux disease without esophagitis Vitamin D deficiency, unspecified Calculus of kidney Ch DVT/embl low ext NOS Not currently on anticoagulation Adam-Danlos syndrome Essential hypertension Fatty (change of) liver, not elsewhere classified Surgical History Surgical History History of parathyroid surgery Endeavor teeth removed H/O colectomy History of ventral hernia repair Strangulated ventral hernia that required emergent repair at [facility] with reported small bowel resection and suture repair. This was prior to her subtotal colectomy. History of delivery x1 History of laparoscopic cholecystectomy Hx of total colectomy 04/2018 at [facility] - Laparoscopic converted to open subtotal colectomy History of surgery on lower extremity 2018 - Necrotizing fasciitis in the left flank area extending to the left lateral upper leg with extensive debridement and wound care at [facility]. [place] to be a result of fistulizing Crohn's with abscess and possible connection to the necrotizing fasciitis. Family History Family History Mother Hypertension Family history of elevated blood lipids Diabetes mellitus Alcoholism Anxiety Depression Cerebrovascular accident Grandparent Diabetes mellitus Family history of glaucoma Hypertension Family history of elevated blood lipids Alcoholism Social History Social History Smoking status: Never smoker Alcohol intake: never Substance use: never Substance use type: does not use Do You Feel Safe in your Home?: Yes Lack of Transportation: No Lack of Food: Never True Current Housing: I Have Housing Concerned About Future Housing: No Difficulty Paying Gas/Electric Bills: No Difficulty Paying for Meds: No Currently Unemployed: No Education: High School Diploma/GED Difficulty w/ Childcare or Family Care: No Living arrangements: with family Additional living arrangements comments: Lives with her . Has two children. Spiritual care concerns: No Meds Home Medications and Allergies Home Medications ?Medication ?Instructions ?Recorded ?Confirmed ?Type oxycodone 10 mg tablet 10 mg PO Q6H PRN Pain 01/28/21 01/31/24 History gabapentin 100 mg capsule 100 mg PO TID 03/08/22 01/31/24 History ondansetron HCl 4 mg tablet 4 mg PO Q8H PRN nausea and 10/26/22 01/31/24 Rx vomiting #60 tabs prednisone 1 mg tablet See Rx Instructions .Route 07/06/23 01/31/24 Rx .COMPLEX #90 tabs prednisone 5 mg tablet 5 mg PO DAILY #90 tabs 07/06/23 01/31/24 Rx ropinirole 0.5 mg tablet mg PO 07/06/23 01/31/24 History hydrocortisone 2.5 % topical cream 1 applic topical BID-TID #30 grams 07/19/23 01/31/24 Rx duloxetine 20 mg capsule,delayed See Rx Instructions .Route 07/20/23 01/31/24 Rx release .COMPLEX #180 caps lorazepam 0.5 mg tablet 0.5 mg PO Q8H PRN anxiety #30 tabs 07/20/23 01/31/24 Rx metoprolol succinate 25 mg See Rx Instructions .Route 10/17/23 01/31/24 Rx tablet,extended release 24 hr .COMPLEX #90 tabs insulin glargine 100 unit/mL (3 25 unit (0.25 mL) subcut BID #36 mL 02/07/24 Rx mL) subcutaneous pen (Lantus Solostar U-100 Insulin) clindamycin phosphate 1 % lotion 1 applic topical BID #120 mL 02/13/24 Rx Mounjaro 7.5 mg/0.5 mL 7.5 mg (0.5 mL) subcut WEEKLY #2 mL 03/27/24 Rx subcutaneous pen injector (tirzepatide) insulin lispro 100 unit/mL 20 unit (0.2 mL) subcut TID 90 03/28/24 Rx subcutaneous pen days #54 mL clobetasol 0.05 % scalp solution See Rx Instructions .Route 04/29/24 Rx .COMPLEX #100 mL Allergies Allergy/AdvReac Type Severity Reaction Status Date / Time adhesive tape Allergy Unknown BLISTERED Verified 05/23/24 16:13 erythromycin base Allergy Unknown intolerance Verified 05/23/24 16:13 latex Allergy Unknown Unknown Verified 05/23/24 16:13 meperidine Allergy Unknown Nausea Verified 05/23/24 16:13 prochlorperazine Allergy Unknown Skin Verified 05/23/24 16:13 Reaction formaldehyde AdvReac Intermediate Itching Verified 05/23/24 16:13 ozempic AdvReac Severe vomiting Uncoded 05/23/24 16:13 Vital Signs Vital Signs - 24 hr 05/23/24 16:45 05/23/24 22:24 05/23/24 23:30 Temperature 98.5 F Pulse Rate 125 H 110 H Respiratory Rate 18 20 Blood Pressure 129/59 L 119/52 L Pulse Oximetry 94 97 100 Oxygen Delivery Room Air Room Air 05/24/24 01:00 05/24/24 03:00 05/24/24 05:00 Temperature Pulse Rate 107 H 103 H 100 Respiratory Rate 16 17 15 Blood Pressure 114/57 L 115/61 105/77 Pulse Oximetry 97 96 100 Oxygen Delivery 05/24/24 06:00 05/24/24 07:27 05/24/24 07:27 Temperature Pulse Rate 100 108 H 108 H Respiratory Rate 15 20 Blood Pressure 128/66 126/52 L Pulse Oximetry 100 97 Oxygen Delivery Exam Narrative: GENERAL: Well-appearing, well-nourished, and in no acute distress. HEAD: Normocephalic, atraumatic. EYES: PERRLA and EOMI. ENT: Nares clear, no rhinorrhea or epistaxis. Mucous membranes moist. NECK: Supple. No adenopathy or masses. CHEST: No respiratory distress. Clear to auscultation. No wheezes rales or rhonchi HEART: Regular rate and rhythm. No murmur heard. Normal peripheral pulses. ABDOMEN: Soft, nontender, nondistended, normal active bowel sounds. no appreciable fistula. MSK: Normal range of motion. No edema. Left hip with scar noted with no open sores SKIN: Warm, dry, no rash. NEURO: Alert and oriented x4. No focal deficits. PSYCH: Normal mood and affect. H&P: Results Labs Labs: Short CBC 05/23/24 Range/Units 18:31 WBC 16.3 H (4.5-10.0) K/mm3 Hgb 16.1 H (12.0-15.0) g/dL Hct 46.6 (37.0-47.0) % Plt Count 262 (150-375) k/mm3 BMP 05/23/24 05/23/24 05/24/24 19:08 23:27 05:11 Sodium 128 L 131 L 129 L Potassium 5.7 H 4.9 4.6 Chloride 95 L 96 L 99 Carbon Dioxide 18 L 18 L 19 L BUN 53 H D 55 H 48 H Creatinine 1.97 H 1.94 H 1.83 H Glucose 343 H 247 H 128 H Calcium 10.6 H 10.6 H 8.7 Cardiac Enzymes 05/23/24 Range/Units 19:08 Total Creatine Kinase 34 (30-135) U/L Troponin I < 0.012 (0.000-0.034) ng/mL Liver Function 05/23/24 Range/Units 19:08 Total Bilirubin 1.0 (0.2-1.3) mg/dL AST 40 H (14-36) U/L ALT 43 H (6-35) U/L Alkaline Phosphatase 107 (38-126) U/L Albumin 4.3 (3.5-5.1) g/dL Urine 05/23/24 Range/Units 23:08 Urine Color Yellow (Yellow) Urine Appearance Cloudy H (Clear) Urine pH 6.0 (5.0-9.0) Ur Specific [place] 1.022 (1.001-1.035) Urine Protein 1+ H (Negative) mg/dL Urine Glucose (UA) Negative (Negative) mg/dL Assessment and Plan Assessment and plan (1) Essential hypertension: Code(s): I10 - Essential (primary) hypertension Status: Chronic (2) Syncope due to orthostatic hypotension: Code(s): I95.1 - Orthostatic hypotension Status: Acute (3) Type 2 diabetes mellitus with chronic kidney disease, with long-term current use of insulin: Qualifiers: Chronic kidney disease stage: stage 3 (moderate) Chronic kidney disease stage 3 subtype: stage 3a (GFR 45-59) Qualified Code(s): E11.22 - Type 2 diabetes mellitus with diabetic chronic kidney disease; N18.31 - Chronic kidney disease, stage 3a; Z79.4 - retirement (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 of insulin Code(s): E11.22 - Type 2 diabetes mellitus with diabetic chronic kidney disease; Z79.4 - long term acute care registered nurse (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 of insulin Status: Acute (4) Crohn's disease: Qualifiers: Digestive disease complication type: unspecified complication Gastrointestinal tract location: unspecified location Qualified Code(s): K50.919 - Crohn's disease, unspecified, with unspecified complications Code(s): K50.90 - Crohn's disease, unspecified, without complications Status: Acute (5) H/O colectomy: Code(s): Z90.49 - Acquired absence of other specified parts of digestive tract Status: Acute (6) Ventral hernia without obstruction or gangrene: Code(s): K43.9 - Ventral hernia without obstruction or gangrene Status: Acute (7) Acute dehydration: Code(s): E86.0 - Dehydration Status: Acute (8) UTI (urinary tract infection): Code(s): N39.0 - Urinary tract infection, site not specified Status: Acute (9) Acute kidney injury: Code(s): N17.9 - Acute kidney failure, unspecified Status: Acute Plan This is a 58-year-old female who presents the ED from PCPs office with multiple complaints. Patient reports having diarrhea, increased flatulence over the past 2 weeks. Reports intermittent nausea with dry heaving. She complains of generalized weakness and fatigue with lightheadedness. She also reported shortness of breath with exertion. She noted her oxygen dropped to 70-75% on exertion at home. She also reported heart rate dropping to 30s at times. Also had 4 syncopal episodes over the past 2 weeks. Last 1 was yesterday. He has stopped taking her metoprolol due to dizziness and lightheadedness. She also reports a 12 lb weight loss in the last 2 weeks. She Reports exposure to COVID-19. Denies fevers. No chest pain. 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 She has a history of Crohn's disease requiring subtotal colectomy 2019 with history of colostomy tube. In the ED she was tachycardic. History of the vitals were optimal. Laboratory workup revealed leukocytosis 16.3 lactate was elevated at 3.1 bicarbonate was 19. Creatinine was 1.8. Head CT was negative for any acute intracranial abnormality. Chest x-ray showed no acute findings. Troponin was negative less than 0.012. BNP 178 urinalysis revealed 21-50 urine WBC 50 1-100 urine RBC with positive leukocyte esterase suggesting UTI. Influenza RSV COVID swab was negative. Repeat lactic acid after IV fluids was down to 2. She is also mildly hyponatremic at 1:29 a.m.. VBG 7.44/21/108/14. Her baseline creatinine was 1 back in 2022 indicating acute kidney injury. A1c at 6.8 CT chest abdomen pelvis was performed which negative for PE. Probable cirrhotic changes of the liver. Nonobstructing right nephrolithiasis similar to prior exam. Postoperative changes the large bowel with large parastomal hernia and additional moderate to large ventral hernia both containing multiple bowel loops. Stable uterine fibroids. She is admitted in the setting for further treatment. Possible cirrhotic liver she does report diagnosis of this in the past SHANI creatinine up to 1.9. Baseline 1. Continue IV fluid UTI ceftriaxone culture Syncope possible orthostasis will recheck orthostatic. Continue IV fluid Dehydration Type 2 diabetes on insulin Chronic steroid therapy DVT prophylaxis Lovenox Code status full code Hospitalist [facility] Advance Care Plan I have confirmed that the patient's Advanced Care Plan is present, code status is documented, or surrogate decision maker is listed in patient medical record.: Yes Medication Reconciliation I have utilized all available resources to obtain, update and review the patients current medications (includes all prescriptions, OTC, herbals, cannabis, and nutritional supplements).: Yes
[2024-05-24] MEDS: LACTATED RINGERS 1,000 ML 150 ML IV CONT (09:34)
--- NOTE | 2024-05-24 11:37 | PC.NURSE ---
1120- Patient assisted to bathroom using wheelchair. Patient again voicing wish to sign out-Made aware that calls have been placed to admitting MD Dr Dumont without answer
--- NOTE | 2024-05-24 12:44 | PC.NURSE ---
1230 Patient agreeing to stay after speaking with Dr Dumont
--- NOTE | 2024-05-24 13:19 | ADMGEN ---
This patient, Terrie Lopez, was admitted to [facility] Surg Room 312-01. Patient/family oriented to hospital policies and general routines including ID bracelet, bed and alarms, visiting hours, pain management, procedures, bathroom and other care routines, personal items, smoking policy, room service/diet, and visiting hours. Information on how to activate the Rapid Response Team has been discussed. Patient/Family are encouraged to report perceived risks to care and to ask questions if they do not understand what they are told or what they should do.
[2024-05-24 17:44] LABS: Anion Gap 7 mmol/L (4-12); Blood Urea Nitrogen 44 mg/dL (7-17); Calcium 8.1 mg/dL (8.4-10.2); Carbon Dioxide 21 mmol/L (22-30); Chloride 99 mmol/L (98-107); Estimated CRCL calculation 35 ml/min; Estimated Glomerular Filt Rate 33; Glucose 256 mg/dL (65-110); Sodium 127 mmol/L (137-145)
[2024-05-24] MEDS: SODIUM CHLORIDE 0.9% IV 1,000 ML 100 ML IV CONT (21:08)
[2024-05-24] MEDS: DULoxetine HCL 20 MG CAPSULE.DR PO (21:51)
[2024-05-24] MEDS: GABAPENTIN 100 MG CAPSULE PO (21:51)
[2024-05-24] MEDS: rOPINIRole HCL 1 MG TABLET PO (21:51)
[2024-05-24 23:33] LABS: Glucose Point of Care 252 mg/dl (65-105)
[2024-05-25] VITALS (10 sets, daily range): BP systolic 88–125; BP diastolic 42–70; PULSE 98–105; RESP 16–18; TEMP 36.2–36.9; O2SAT 96–99
[2024-05-25] MEDS: INSULIN GLARGINE (*BKC) 100 UNITS/ML 25 UNITS SUB-Q (00:04)
[2024-05-25] MEDS: SODIUM CHLORIDE 0.9% IV 1,000 ML 100 ML IV CONT (01:30)
--- NOTE | 2024-05-25 05:38 | P.PNCROSS_ITS ---
Event Note Event Note Event Note: At 5:26 a.m. notified by nurse the patient has orthostatic positive. Normal sa line increased from 100 cc to 200 cc. Continue orthostatics Q shift. Fall precautions. Discontinued metoprolol p.o. which was due to start today. Does not appear she received this yet. She has borderline tachycardia, continue to monitor this with further fluid resuscitation.
[2024-05-25 06:27] LABS: Basophils Absolute Auto 0.2 K/mm3 (0.0-0.1); Basophils Percent Auto 1.3 % (0.2-1.2); Eosinophils Absolute Auto 0.5 K/mm3 (0-0.3); Eosinophils Percent Auto 3.9 % (0-4.4); Hematocrit 39.5 % (37.0-47.0); Immature Granulocyte Absolute 0.05 K/mm3 (0.00-0.031); Immature Granulocyte Percent A 0.4 % (0-0.5); Lymphocytes Absolute Auto 1.16 K/mm3 (0.9-3.2); Lymphocytes Percent Auto 9.7 % (18.3-44.2); Mean Corpuscular HGB Conc 32.9 g/dl (32-36); Mean Corpuscular Hemoglobin 34.5 pg (26-34); Mean Corpuscular Volume 104.8 fl (80-100); Mean Platelet Volume 10.4 fl (7.4-10.4); Monocytes Absolute Auto 0.9 K/mm3 (0.1-0.6); Monocytes Percent Auto 7.7 % (2.6-8.5); Neutrophils Absolute Auto 9.2 K/mm3 (1.3-6.7); Platelet Count Result 176 k/mm3 (150-375); Red Blood Count 3.77 M/mm3 (4.2-5.4); White Blood Count 11.9 K/mm3 (4.5-10.0)
[2024-05-25 06:40] LABS: Alanine Aminotransferase 31 U/L (6-35); Albumin Level 3.2 g/dL (3.5-5.1); Alkaline Phosphatase 70 U/L (38-126); Anion Gap 10 mmol/L (4-12); Aspartate Amino Transferase 32 U/L (14-36); Bilirubin,Total 0.4 mg/dL (0.2-1.3); Blood Urea Nitrogen 39 mg/dL (7-17); Calcium 7.7 mg/dL (8.4-10.2); Carbon Dioxide 21 mmol/L (22-30); Chloride 103 mmol/L (98-107); Estimated CRCL calculation 38 ml/min; Estimated Glomerular Filt Rate 37; Glucose 218 mg/dL (65-110); Magnesium 1.5 mg/dL (1.6-2.3); Potassium 4.3 mmol/L (3.4-5.0); Sodium 134 mmol/L (137-145)
[2024-05-25 08:09] LABS: Glucose Point of Care 210 mg/dl (65-105)
[2024-05-25] MEDS: SODIUM CHLORIDE 0.9% IV 1,000 ML 200 ML IV CONT ×2 (09:14→16:14)
[2024-05-25] MEDS: GABAPENTIN 100 MG CAPSULE PO ×3 (09:15→16:20)
[2024-05-25] MEDS: INSULIN ASPART (*BKC) 100 UNITS/ML 25 UNITS SUB-Q ×3 (09:15→17:55)
[2024-05-25] MEDS: predniSONE 1 MG TABLET PO (09:15)
[2024-05-25] MEDS: DULoxetine HCL 20 MG CAPSULE.DR PO ×2 (09:15→21:06)
[2024-05-25] MEDS: predniSONE 5 MG TABLET PO (09:15)
[2024-05-25] MEDS: INSULIN ASPART (*BKC) 100 UNITS/ML SUB-Q (09:16)
[2024-05-25] MEDS: MAGNESIUM SULF 2 GM/WATER 50ML 2 GM/50 ML BAG IVPB (09:26)
[2024-05-25] MEDS: oxyCODONE HCL (*CRX) 5 MG TAB IR 10 MG PO ×3 (09:38→22:27)
[2024-05-25 11:36] LABS: Glucose Point of Care 150 mg/dl (65-105)
--- NOTE | 2024-05-25 12:49 | P.PNIM_ITS ---
Progress Note: A&P Assessment and Plan (1) Essential hypertension: Code(s): I10 - Essential (primary) hypertension Status: Chronic (2) Syncope due to orthostatic hypotension: Code(s): I95.1 - Orthostatic hypotension Status: Acute (3) Type 2 diabetes mellitus with chronic kidney disease, with long-term current use of insulin: Qualifiers: Chronic kidney disease stage: stage 3 (moderate) Chronic kidney disease stage 3 subtype: stage 3a (GFR 45-59) Qualified Code(s): E11.22 - Type 2 diabetes mellitus with diabetic chronic kidney disease; N18.31 - Chronic kidney disease, stage 3a; Z79.4 - long term care phlebotomist (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 of insulin Code(s): E11.22 - Type 2 diabetes mellitus with diabetic chronic kidney disease; Z79.4 - half-way (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 of insulin Status: Acute (4) Crohn's disease: Qualifiers: Gastrointestinal tract location: unspecified location Digestive disease complication type: unspecified complication Qualified Code(s): K50.919 - Crohn's disease, unspecified, with unspecified complications Code(s): K50.90 - Crohn's disease, unspecified, without complications Status: Acute (5) H/O colectomy: Code(s): Z90.49 - Acquired absence of other specified parts of digestive tract Status: Acute (6) Ventral hernia without obstruction or gangrene: Code(s): K43.9 - Ventral hernia without obstruction or gangrene Status: Acute (7) Acute dehydration: Code(s): E86.0 - Dehydration Status: Acute (8) UTI (urinary tract infection): Code(s): N39.0 - Urinary tract infection, site not specified Status: Acute (9) Acute kidney injury: Code(s): N17.9 - Acute kidney failure, unspecified Status: Acute Plan This is a 58-year-old female who presents the ED from PCPs office with multiple complaints. Patient reports having diarrhea, increased flatulence over the past 2 weeks. Reports intermittent nausea with dry heaving. She complains of generalized weakness and fatigue with lightheadedness. She also reported shortness of breath with exertion. She noted her oxygen dropped to 70-75% on exertion at home. She also reported heart rate dropping to 30s at times. Also had 4 syncopal episodes over the past 2 weeks. Last 1 was yesterday. He has stopped taking her metoprolol due to dizziness and lightheadedness. She also reports a 12 lb weight loss in the last 2 weeks. She Reports exposure to COVID-19. Denies fevers. No chest pain. 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 She has a history of Crohn's disease requiring subtotal colectomy 2018 with history of colostomy tube. In the ED she was tachycardic. History of the vitals were optimal. Laboratory workup revealed leukocytosis 16.3 lactate was elevated at 3.1 bicarbonate was 19. Creatinine was 1.8. Head CT was negative for any acute intracranial abnormality. Chest x-ray showed no acute findings. Troponin was negative less than 0.012. BNP 178 urinalysis revealed 21-50 urine WBC 50 1-100 urine RBC with positive leukocyte esterase suggesting UTI. Influenza RSV COVID swab was negative. Repeat lactic acid after IV fluids was down to 2. She is also mildly hyponatremic at 1:29 a.m.. VBG 7.44/21/108/14. Her baseline creatinine was 1 back in 2022 indicating acute kidney injury. A1c at 6.8 CT chest abdomen pelvis was performed which negative for PE. Probable cirrhotic changes of the liver. Nonobstructing right nephrolithiasis similar to prior exam. Postoperative changes the large bowel with large parastomal hernia and additional moderate to large ventral hernia both containing multiple bowel loops. Stable uterine fibroids. She is admitted in the setting for further treatment. Possible cirrhotic liver she does report diagnosis of this in the past SHANI creatinine up to 1.9. Baseline 1. Continue IV fluid. still orthostatic positive. Slowly improving UTI ceftriaxone culture Syncope likely orthostasis related. continue ivf Dehydration Type 2 diabetes on insulin Chronic steroid therapy DVT prophylaxis Lovenox Code status full code Subjective Date/time seen: 05/25/24 12:49 Interval history: still feels dizzy when she stands up. orthostatic positive. no fever, chills. Review of Systems Review of Systems: All systems reviewed & are unremarkable except as noted in HPI and below Exam Narrative: GENERAL: Well-appearing, well-nourished, and in no acute distress. HEAD: Normocephalic, atraumatic. EYES: PERRLA and EOMI. ENT: Nares clear, no rhinorrhea or epistaxis. Mucous membranes moist. NECK: Supple. No adenopathy or masses. CHEST: No respiratory distress. Clear to auscultation. No wheezes rales or rhonchi HEART: Regular rate and rhythm. No murmur heard. Normal peripheral pulses. ABDOMEN: Soft, nontender, nondistended, normal active bowel sounds. no ap preciable fistula. MSK: Normal range of motion. No edema. Left hip with scar noted with no open sores SKIN: Warm, dry, no rash. NEURO: Alert and oriented x4. No focal deficits. PSYCH: Normal mood and affect. Objective Data Vital Signs Vital Signs: Vital Signs - 24 hr 05/24/24 12:56 05/24/24 14:00 05/24/24 16:06 Temperature 99.6 F 97.0 F L Pulse Rate 102 H 110 H Respiratory Rate 18 18 Blood Pressure 116/62 137/66 Pulse Oximetry 98 98 Oxygen Delivery Room Air 05/24/24 20:00 05/24/24 20:29 05/25/24 04:33 Temperature 97.6 F Pulse Rate 109 H 100 Respiratory Rate 18 Blood Pressure 132/72 122/52 L Pulse Oximetry 100 Oxygen Delivery Room Air 05/25/24 04:35 05/25/24 04:39 05/25/24 04:51 Temperature 97.7 F Pulse Rate 101 H 104 H 100 Respiratory Rate 18 Blood Pressure 122/67 88/52 L 122/52 L Pulse Oximetry 98 Oxygen Delivery 05/25/24 08:00 05/25/24 12:02 05/25/24 12:02 Temperature Pulse Rate Respiratory Rate Blood Pressure 96/54 L 98/48 L 96/42 L Pulse Oximetry Oxygen Delivery Intake/Output Intake/Output: Intake & Output 05/22/24 05/23/24 05/24/24 05/25/24 23:59 23:59 23:59 23:59 Intake Total 2500 2186.7 Balance 2500 2186.7 Meds/Results Medications: Active Medications Generic Name Dose Route Start Last Admin Trade Name Freq PRN Reason Stop Dose Admin Dextrose 12.5 gm 05/23/24 22:21 Dextrose 50% 25 Gm/50 Ml Syringe IV PUSH PRN PRN Hypoglycemia Protocol Duloxetine HCl 20 mg 05/24/24 21:10 05/25/24 09:15 Duloxetine Hcl 20 Mg Capsule.Dr PO 20 mg Q12HR LEE Administration Gabapentin 100 mg 05/24/24 21:15 05/25/24 09:15 Gabapentin 100 Mg Capsule PO 100 mg TID LEE Administration Glucagon 1 mg 05/23/24 22:21 Glucagon For Inj 1 Mg Vial IM PRN PRN Hypoglycemia Protocol Glucose 15 gm 05/23/24 22:21 Glucose Oral Gel 15 Gm Of Glucse In 37.5 Gm Tube PO PRN PRN Hypoglycemia Protocol Dextrose 1,000 mls @ 100 mls/hr 05/23/24 22:21 Dextrose 5% 1,000 Ml IVPB PRN PRN Hypoglycemia Protocol Ceftriaxone Sodium 1 gm in 50 mls @ 100 mls/hr 05/25/24 01:00 05/25/24 00:34 Rocephin 1 Gm/Ns 50 Ml IVPB Infused Q24H LEE Infusion Sodium Chloride 1,000 mls @ 200 mls/hr 05/24/24 13:35 05/25/24 09:14 Normal Saline Iv IV CONT 200 mls/hr .Q5H LEE Administration Insulin Aspart 2 - 5 units 05/25/24 08:00 05/25/24 09:16 Insulin Aspart (*Bkc) 100 Units/Ml SUB-Q 2 units TIDWM LEE Administration Protocol Insulin Aspart 25 units 05/25/24 08:00 05/25/24 09:15 Insulin Aspart (*Bkc) 100 Units/Ml SUB-Q 25 units TIDWM LEE Administration Insulin Glargine 25 units 05/25/24 00:00 05/25/24 00:04 Insulin Glargine (*Bkc) 100 Units/Ml SUB-Q 25 units 1200,0000 LEE Administration Oxycodone HCl 10 mg 05/24/24 21:10 05/25/24 09:38 Oxycodone Hcl (*Crx) 5 Mg Tab Ir PO 10 mg Q6H PRN Administration Pain Prednisone 5 mg 05/25/24 08:00 05/25/24 09:15 Prednisone 5 Mg Tablet PO 5 mg DAILY@0800 LEE Administration Prednisone 1 mg 05/25/24 08:00 05/25/24 09:15 Prednisone 1 Mg Tablet PO 1 mg DAILY@0800 LEE Administration Ropinirole HCl 1 mg 05/24/24 21:15 05/24/24 21:51 Ropinirole Hcl 1 Mg Tablet PO 1 mg QHS LEE Administration Radiology Results: ITS Impressions Chest X-Ray 05/23/24 17:41 IMPRESSION: No focal infiltrate or effusion. Head CT 05/23/24 17:43 Impression: No acute intracranial hemorrhage or suspicious mass effect. Chest/Abdomen/Pelvis CTA 05/24/24 06:12 Impression: No acute abnormalities identified. No evidence of pulmonary embolus. Probable cirrhotic change of the liver. Nonobstructing right nephrolithiasis, similar to prior exam. Postoperative change of large bowel with large parastomal hernia and additional moderate to large ventral hernia, both containing multiple bowel loops, as detailed above. Stable uterine fibroids. Labs Labs: Laboratory Results - last 24 hr 05/24/24 05/24/24 05/24/24 17:24 17:27 20:31 WBC RBC Hgb Hct MCV MCH MCHC RDW Plt Count MPV Immature Gran % (Auto) Neut % (Auto) Lymph % (Auto) [place] % (Auto) Eos % (Auto) Baso % (Auto) Lymph # (Auto) [place] # (Auto) Eos # (Auto) Baso # (Auto) Abs Immat Gran (auto) Absolute Neuts (auto) Absolute Nucleated RBC Nucleated RBC % Sodium 127 L Potassium 5.0 Chloride 99 Carbon Dioxide 21 L Anion Gap 7 BUN 44 H Creatinine 1.59 H Estim Creat Clear Calc 35 Estimated GFR 33 L Glucose 256 H POC Capillary Glucose 252 H Hemoglobin A1c 7.0 H Calcium 8.1 L Magnesium Total Bilirubin AST ALT Alkaline Phosphatase Total Protein Albumin 05/25/24 05/25/24 05/25/24 06:07 07:58 11:33 WBC 11.9 H RBC 3.77 L Hgb 13.0 D Hct 39.5 MCV 104.8 H MCH 34.5 H MCHC 32.9 RDW 14.0 Plt Count 176 MPV 10.4 Immature Gran % (Auto) 0.4 Neut % (Auto) 77.0 H Lymph % (Auto) 9.7 L [place] % (Auto) 7.7 Eos % (Auto) 3.9 Baso % (Auto) 1.3 H Lymph # (Auto) 1.16 [place] # (Auto) 0.9 H Eos # (Auto) 0.5 H Baso # (Auto) 0.2 H Abs Immat Gran (auto) 0.05 H Absolute Neuts (auto) 9.2 H Absolute Nucleated RBC 0.000 Nucleated RBC % 0.0 Sodium 134 L Potassium 4.3 Chloride 103 Carbon Dioxide 21 L Anion Gap 10 BUN 39 H Creatinine 1.47 H Estim Creat Clear Calc 38 Estimated GFR 37 L Glucose 218 H POC Capillary Glucose 210 H 150 H Hemoglobin A1c Calcium 7.7 L Magnesium 1.5 L Total Bilirubin 0.4 AST 32 ALT 31 Alkaline Phosphatase 70 Total Protein 7.0 Albumin 3.2 L
[2024-05-25 17:24] LABS: Glucose Point of Care 115 mg/dl (65-105)
[2024-05-25 19:49] LABS: Glucose Point of Care 90 mg/dl (65-105)
[2024-05-25] MEDS: rOPINIRole HCL 1 MG TABLET PO (21:06)
[2024-05-26] VITALS (8 sets, daily range): BP systolic 85–140; BP diastolic 40–61; PULSE 90–101; RESP 16–18; TEMP 36.6–36.8; O2SAT 98–100
[2024-05-26] MEDS: INSULIN GLARGINE (*BKC) 100 UNITS/ML 18 UNITS SUB-Q ×2 (00:41→12:38)
[2024-05-26] MEDS: SODIUM CHLORIDE 0.9% IV 1,000 ML 200 ML IV CONT ×2 (04:10→10:40)
[2024-05-26 06:31] LABS: Basophils Absolute Auto 0.1 K/mm3 (0.0-0.1); Basophils Percent Auto 1.3 % (0.2-1.2); Eosinophils Absolute Auto 0.4 K/mm3 (0-0.3); Eosinophils Percent Auto 5.6 % (0-4.4); Hematocrit 36.2 % (37.0-47.0); Hemoglobin 11.6 g/dL (12.0-15.0); Immature Granulocyte Absolute 0.04 K/mm3 (0.00-0.031); Immature Granulocyte Percent A 0.5 % (0-0.5); Lymphocytes Absolute Auto 0.72 K/mm3 (0.9-3.2); Lymphocytes Percent Auto 9.1 % (18.3-44.2); Mean Corpuscular Hemoglobin 34.9 pg (26-34); Mean Platelet Volume 10.4 fl (7.4-10.4); Monocytes Absolute Auto 0.6 K/mm3 (0.1-0.6); Monocytes Percent Auto 7.7 % (2.6-8.5); Neutrophils Percent Auto 75.8 % (45.5-73.1); Platelet Count Result 122 k/mm3 (150-375); Red Blood Count 3.32 M/mm3 (4.2-5.4); Red Cell Distribution Width 14.1 % (11.5-14.5); White Blood Count 7.9 K/mm3 (4.5-10.0)
[2024-05-26 06:40] LABS: Alanine Aminotransferase 27 U/L (6-35); Albumin Level 2.5 g/dL (3.5-5.1); Alkaline Phosphatase 58 U/L (38-126); Anion Gap 8 mmol/L (4-12); Aspartate Amino Transferase 32 U/L (14-36); Bilirubin,Total 0.3 mg/dL (0.2-1.3); Blood Urea Nitrogen 27 mg/dL (7-17); Calcium 6.6 mg/dL (8.4-10.2); Carbon Dioxide 19 mmol/L (22-30); Chloride 110 mmol/L (98-107); Estimated CRCL calculation 44 ml/min; Estimated Glomerular Filt Rate 43; Glucose 179 mg/dL (65-110); Magnesium 1.8 mg/dL (1.6-2.3); Potassium 3.6 mmol/L (3.4-5.0); Sodium 137 mmol/L (137-145)
[2024-05-26] MEDS: oxyCODONE HCL (*CRX) 5 MG TAB IR 10 MG PO ×3 (07:04→20:26)
[2024-05-26 08:09] LABS: Glucose Point of Care 132 mg/dl (65-105)
[2024-05-26] MEDS: GABAPENTIN 100 MG CAPSULE PO ×3 (08:11→17:47)
[2024-05-26] MEDS: predniSONE 1 MG TABLET PO (08:11)
[2024-05-26] MEDS: predniSONE 5 MG TABLET PO (08:11)
[2024-05-26] MEDS: INSULIN ASPART (*BKC) 100 UNITS/ML 25 UNITS SUB-Q ×3 (08:11→17:47)
[2024-05-26] MEDS: DULoxetine HCL 20 MG CAPSULE.DR PO ×2 (08:11→20:26)
--- NOTE | 2024-05-26 10:35 | PC.NURSE ---
Patient lying in bed talking on her phone for morning assessment. Patient cooperative and compliant with medications. She is independent with colostomy care and denies any pain or needs at this time.
--- NOTE | 2024-05-26 12:22 | P.PNIM_ITS ---
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 control 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 (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 of insulin Code(s): E11.22 - Type 2 diabetes mellitus with diabetic chronic kidney disease; Z79.4 - termite control servicer (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 of insulin Status: Acute (4) Crohn's disease: Qualifiers: Gastrointestinal tract location: unspecified location Digestive disease complication type: unspecified complication Qualified Code(s): K50.919 - Crohn's disease, unspecified, with unspecified complications Code(s): K50.90 - Crohn's disease, unspecified, without complications Status: Acute (5) H/O colectomy: Code(s): Z90.49 - Acquired absence of other specified parts of digestive tract Status: Acute (6) Ventral hernia without obstruction or gangrene: Code(s): K43.9 - Ventral hernia without obstruction or gangrene Status: Acute (7) Acute dehydration: Code(s): E86.0 - Dehydration Status: Acute (8) UTI (urinary tract infection): Code(s): N39.0 - Urinary tract infection, site not specified Status: Acute (9) Acute kidney injury: Code(s): N17.9 - Acute kidney failure, unspecified Status: Acute Plan This is a 58-year-old female who presents the ED from PCPs office with multiple complaints. Patient reports having diarrhea, increased flatulence over the past 2 weeks. Reports intermittent nausea with dry heaving. She complains of generalized weakness and fatigue with lightheadedness. She also reported shortness of breath with exertion. She noted her oxygen dropped to 70-75% on exertion at home. She also reported heart rate dropping to 30s at times. Also had 4 syncopal episodes over the past 2 weeks. Last 1 was yesterday. He has stopped taking her metoprolol due to dizziness and lightheadedness. She also reports a 12 lb weight loss in the last 2 weeks. She Reports exposure to COVID-19. Denies fevers. No chest pain. 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 She has a history of Crohn's disease requiring subtotal colectomy 2018 with history of colostomy tube. In the ED she was tachycardic. History of the vitals were optimal. Laboratory workup revealed leukocytosis 16.3 lactate was elevated at 3.1 bicarbonate was 19. Creatinine was 1.8. Head CT was negative for any acute intracranial abnormality. Chest x-ray showed no acute findings. Troponin was negative less than 0.012. BNP 178 urinalysis revealed 21-50 urine WBC 50 1-100 urine RBC with positive leukocyte esterase suggesting UTI. Influenza RSV COVID swab was negative. Repeat lactic acid after IV fluids was down to 2. She is also mildly hyponatremic at 1:29 a.m.. VBG 7.44/21/108/14. Her baseline creatinine was 1 back in 2022 indicating acute kidney injury. A1c at 6.8 CT chest abdomen pelvis was performed which negative for PE. Probable cirrhotic changes of the liver. Nonobstructing right nephrolithiasis similar to prior exam. Postoperative changes the large bowel with large parastomal hernia and additional moderate to large ventral hernia both containing multiple bowel loops. Stable uterine fibroids. She is admitted in the setting for further treatment. Possible cirrhotic liver she does report diagnosis of this in the past SHANI creatinine up to 1.9. Baseline 1. Continue IV fluid. still orthostatic positive. Symptomatically improving. Will stop IV fluid and monitor without IV fluid today. UTI ceftriaxone culture Syncope likely orthostasis related. Orthostasis has improved symptomatically. Blood pressure still dropped some when she stands up Dehydration Type 2 diabetes on insulin Chronic steroid therapy DVT prophylaxis Lovenox Code status full code Subjective Date/time seen: 05/26/24 12:22 Interval history: Patient feeling better. Not more dizziness when she stands up. Orthostatic blood pressure still positive. Review of Systems Review of Systems: All systems reviewed & are unremarkable except as noted in HPI and below Exam Narrative: GENERAL: Well-appearing, well-nourished, and in no acute distress. HEAD: Normocephalic, atraumatic. EYES: PERRLA and EOMI. ENT: Nares clear, no rhinorrhea or epistaxis. Mucous membranes moist. NECK: Supple. No adenopathy or masses. CHEST: No respiratory distress. Clear to auscultation. No wheezes rales or rhonchi HEART: Regular rate and rhythm. No murmur heard. Normal peripheral pulses. ABDOMEN: Soft, nontender, nondistended, normal active bowel sounds. no appreciable fistula. MSK: Normal range of motion. No edema. Left hip with scar noted with no open sores SKIN: Warm, dry, no rash. NEURO: Alert and oriented x4. No focal deficits. PSYCH: Normal mood and affect. Objective Data Vital Signs Vital Signs: Vital Signs - 24 hr 05/25/24 14:00 05/25/24 20:00 05/25/24 20:00 Temperature 98.4 F 97.1 F L Pulse Rate 98 105 H Respiratory Rate 16 16 Blood Pressure 115/70 117/50 L Pulse Oximetry 96 99 Oxygen Delivery Room Air 05/25/24 21:11 05/25/24 21:12 05/25/24 21:12 Temperature 97.1 F L Pulse Rate 104 H 105 H 104 H Respiratory Rate 16 Blood Pressure 125/51 L 117/50 L 125/51 L Pulse Oximetry 98 99 98 Oxygen Delivery 05/25/24 21:12 05/26/24 05:57 05/26/24 08:00 Temperature 97.9 F Pulse Rate 90 Respiratory Rate 16 Blood Pressure 106/55 L 109/49 L 104/52 L Pulse Oximetry 100 Oxygen Delivery 05/26/24 09:43 05/26/24 09:43 Temperature Pulse Rate Respiratory Rate Blood Pressure 91/40 L 118/50 L Pulse Oximetry Oxygen Delivery Intake/Output Intake/Output: Intake & Output 05/23/24 05/24/24 05/25/24 05/26/24 23:59 23:59 23:59 23:59 Intake Total 2500 3706.7 2930 Balance 2500 3706.7 2930 Meds/Results Medications: Active Medications Generic Name Dose Route Start Last Admin Trade Name Freq PRN Reason Stop Dose Admin Dextrose 12.5 gm 05/23/24 22:21 Dextrose 50% 25 Gm/50 Ml Syringe IV PUSH PRN PRN Hypoglycemia Protocol Duloxetine HCl 20 mg 05/24/24 21:10 05/26/24 08:11 Duloxetine Hcl 20 Mg Capsule.Dr PO 20 mg Q12HR LEE Administration Gabapentin 100 mg 05/24/24 21:15 05/26/24 08:11 Gabapentin 100 Mg Capsule PO 100 mg TID LEE Administration Glucagon 1 mg 05/23/24 22:21 Glucagon For Inj 1 Mg Vial IM PRN PRN Hypoglycemia Protocol Glucose 15 gm 05/23/24 22:21 Glucose Oral Gel 15 Gm Of Glucse In 37.5 Gm Tube PO PRN PRN Hypoglycemia Protocol Dextrose 1,000 mls @ 100 mls/hr 05/23/24 22:21 Dextrose 5% 1,000 Ml IVPB PRN PRN Hypoglycemia Protocol Ceftriaxone Sodium 1 gm in 50 mls @ 100 mls/hr 05/25/24 01:00 05/26/24 01:13 Rocephin 1 Gm/Ns 50 Ml IVPB Infused Q24H LEE Infusion Sodium Chloride 1,000 mls @ 200 mls/hr 05/24/24 13:35 05/26/24 10:40 Normal Saline Iv IV CONT 200 mls/hr .Q5H LEE Administration Insulin Aspart 2 - 5 units 05/25/24 08:00 05/26/24 08:11 Insulin Aspart (*Bkc) 100 Units/Ml SUB-Q Not Given TIDWM [facility] Protocol Insulin Aspart 25 units 05/25/24 08:00 05/26/24 08:11 Insulin Aspart (*Bkc) 100 Units/Ml SUB-Q 25 units TIDWM LEE Administration Insulin Glargine 18 units 05/26/24 00:00 05/26/24 00:41 Insulin Glargine (*Bkc) 100 Units/Ml SUB-Q 18 units 1200,0000 LEE Administration Oxycodone HCl 10 mg 05/24/24 21:10 05/26/24 07:04 Oxycodone Hcl (*Crx) 5 Mg Tab Ir PO 10 mg Q6H PRN Administration Pain Prednisone 5 mg 05/25/24 08:00 05/26/24 08:11 Prednisone 5 Mg Tablet PO 5 mg DAILY@0800 LEE Administration Prednisone 1 mg 05/25/24 08:00 05/26/24 08:11 Prednisone 1 Mg Tablet PO 1 mg DAILY@0800 LEE Administration Ropinirole HCl 1 mg 05/24/24 21:15 05/25/24 21:06 Ropinirole Hcl 1 Mg Tablet PO 1 mg QHS LEE Administration Radiology Results: ITS Impressions Chest X-Ray 05/23/24 17:41 IMPRESSION: No focal infiltrate or effusion. Head CT 05/23/24 17:43 Impression: No acute intracranial hemorrhage or suspicious mass effect. Chest/Abdomen/Pelvis CTA 05/24/24 06:12 Impression: No acute abnormalities identified. No evidence of pulmonary embolus. Probable cirrhotic change of the liver. Nonobstructing right nephrolithiasis, similar to prior exam. Postoperative change of large bowel with large parastomal hernia and additional moderate to large ventral hernia, both containing multiple bowel loops, as detailed above. Stable uterine fibroids. Labs Labs: Laboratory Results - last 24 hr 05/25/24 05/25/24 05/26/24 15:44 19:45 05:45 WBC 7.9 RBC 3.32 L Hgb 11.6 L Hct 36.2 L MCV 109.0 H MCH 34.9 H MCHC 32.0 RDW 14.1 Plt Count 122 L MPV 10.4 Immature Gran % (Auto) 0.5 Neut % (Auto) 75.8 H Lymph % (Auto) 9.1 L [place] % (Auto) 7.7 Eos % (Auto) 5.6 H Baso % (Auto) 1.3 H Lymph # (Auto) 0.72 L [place] # (Auto) 0.6 Eos # (Auto) 0.4 H Baso # (Auto) 0.1 Abs Immat Gran (auto) 0.04 H Absolute Neuts (auto) 6.0 Absolute Nucleated RBC 0.000 Nucleated RBC % 0.0 Sodium 137 Potassium 3.6 Chloride 110 H Carbon Dioxide 19 L Anion Gap 8 BUN 27 H D Creatinine 1.27 H Estim Creat Clear Calc 44 Estimated GFR 43 L Glucose 179 H POC Capillary Glucose 115 H 90 Calcium 6.6 L Magnesium 1.8 Total Bilirubin 0.3 AST 32 ALT 27 Alkaline Phosphatase 58 Total Protein 4.0 L Albumin 2.5 L 05/26/24 08:02 WBC RBC Hgb Hct MCV MCH MCHC RDW Plt Count MPV Immature Gran % (Auto) Neut % (Auto) Lymph % (Auto) [place] % (Auto) Eos % (Auto) Baso % (Auto) Lymph # (Auto) [place] # (Auto) Eos # (Auto) Baso # (Auto) Abs Immat Gran (auto) Absolute Neuts (auto) Absolute Nucleated RBC Nucleated RBC % Sodium Potassium Chloride Carbon Dioxide Anion Gap BUN Creatinine Estim Creat Clear Calc Estimated GFR Glucose POC Capillary Glucose 132 H Calcium Magnesium Total Bilirubin AST ALT Alkaline Phosphatase Total Protein Albumin
[2024-05-26 12:34] LABS: Glucose Point of Care 126 mg/dl (65-105)
[2024-05-26 17:28] LABS: Glucose Point of Care 150 mg/dl (65-105)
[2024-05-26] MEDS: rOPINIRole HCL 1 MG TABLET PO (20:26)
[2024-05-26 21:58] LABS: Glucose Point of Care 148 mg/dl (65-105)
[2024-05-27] MEDS: INSULIN GLARGINE (*BKC) 100 UNITS/ML 18 UNITS SUB-Q ×2 (00:53→13:14)
[2024-05-27 06:00] VITALS: BP 113/57; PULSE 90; RESP 16; TEMP 36.4; O2SAT 99
[2024-05-27 07:37] LABS: Basophils Absolute Auto 0.1 K/mm3 (0.0-0.1); Eosinophils Absolute Auto 0.5 K/mm3 (0-0.3); Eosinophils Percent Auto 5.6 % (0-4.4); Hematocrit 35.1 % (37.0-47.0); Hemoglobin 11.5 g/dL (12.0-15.0); Immature Granulocyte Absolute 0.04 K/mm3 (0.00-0.031); Immature Granulocyte Percent A 0.5 % (0-0.5); Lymphocytes Percent Auto 9.7 % (18.3-44.2); Mean Corpuscular HGB Conc 32.8 g/dl (32-36); Mean Corpuscular Hemoglobin 34.7 pg (26-34); Mean Platelet Volume 9.9 fl (7.4-10.4); Monocytes Absolute Auto 0.7 K/mm3 (0.1-0.6); Monocytes Percent Auto 8.9 % (2.6-8.5); Neutrophils Absolute Auto 6.1 K/mm3 (1.3-6.7); Neutrophils Percent Auto 74.3 % (45.5-73.1); Platelet Count Result 117 k/mm3 (150-375); Red Blood Count 3.31 M/mm3 (4.2-5.4); Red Cell Distribution Width 14.1 % (11.5-14.5); White Blood Count 8.2 K/mm3 (4.5-10.0)
[2024-05-27 07:57] LABS: Glucose Point of Care 125 mg/dl (65-105)
[2024-05-27 08:00] VITALS: BP 120/70
[2024-05-27 08:05] LABS: Alanine Aminotransferase 30 U/L (6-35); Albumin Level 2.7 g/dL (3.5-5.1); Alkaline Phosphatase 62 U/L (38-126); Anion Gap 7 mmol/L (4-12); Aspartate Amino Transferase 39 U/L (14-36); Bilirubin,Total 0.5 mg/dL (0.2-1.3); Blood Urea Nitrogen 19 mg/dL (7-17); Calcium 6.8 mg/dL (8.4-10.2); Carbon Dioxide 21 mmol/L (22-30); Chloride 109 mmol/L (98-107); Estimated CRCL calculation 50 ml/min; Estimated Glomerular Filt Rate 51; Glucose 106 mg/dL (65-110); Magnesium 1.4 mg/dL (1.6-2.3); Potassium 3.3 mmol/L (3.4-5.0); Sodium 137 mmol/L (137-145)
[2024-05-27 08:20] LABS: Platelet Estimate Slightly Decreased (Adequate)
[2024-05-27 08:21] LABS: Macrocytosis 1+ (NORMAL); Schistocytes None Seen
[2024-05-27] MEDS: predniSONE 5 MG TABLET PO (09:50)
[2024-05-27] MEDS: GABAPENTIN 100 MG CAPSULE PO ×2 (09:50→13:12)
[2024-05-27] MEDS: DULoxetine HCL 20 MG CAPSULE.DR PO (09:50)
[2024-05-27] MEDS: predniSONE 1 MG TABLET PO (09:51)
[2024-05-27] MEDS: INSULIN ASPART (*BKC) 100 UNITS/ML 25 UNITS SUB-Q ×2 (09:52→13:13)
[2024-05-27] MEDS: oxyCODONE HCL (*CRX) 5 MG TAB IR 10 MG PO (10:04)
[2024-05-27 11:43] LABS: Glucose Point of Care 258 mg/dl (65-105)
[2024-05-27] MEDS: POTASSIUM CHLORIDE 20 MEQ ER TABLET 40 MEQ PO (13:12)
[2024-05-27] MEDS: INSULIN ASPART (*BKC) 100 UNITS/ML SUB-Q (13:12)
[2024-05-27] MEDS: MAGNESIUM SULF 2 GM/WATER 50ML 2 GM/50 ML BAG IVPB (13:12)
--- NOTE | 2024-05-27 13:58 | P.DS_ITS ---
DS: Admitting Diagnosis Discharge Date 05/27/2024 Admitting Diagnosis GENERALIZED WEAKNESS PRESYNCOPE DS: Discharge Diagnosis Discharge Diagnosis (1) Essential hypertension: Code(s): I10 - Essential (primary) hypertension Status: Chronic (2) Syncope due to orthostatic hypotension: Code(s): I95.1 - Orthostatic hypotension Status: Acute (3) Type 2 diabetes mellitus with chronic kidney disease, with long-term current use of insulin: Qualifiers: Chronic kidney disease stage: stage 3 (moderate) Chronic kidney disease stage 3 subtype: stage 3a (GFR 45-59) Qualified Code(s): E11.22 - Type 2 diabetes mellitus with diabetic chronic kidney disease; N18.31 - Chronic kidney disease, stage 3a; Z79.4 - correction (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 of insulin Code(s): E11.22 - Type 2 diabetes mellitus with diabetic chronic kidney disease; Z79.4 - bariatric coordinator (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 of insulin Status: Acute (4) Crohn's disease: Qualifiers: Gastrointestinal tract location: unspecified location Digestive disease complication type: unspecified complication Qualified Code(s): K50.919 - Crohn's disease, unspecified, with unspecified complications Code(s): K50.90 - Crohn's disease, unspecified, without complications Status: Acute (5) H/O colectomy: Code(s): Z90.49 - Acquired absence of other specified parts of digestive tract Status: Acute (6) Ventral hernia without obstruction or gangrene: Code(s): K43.9 - Ventral hernia without obstruction or gangrene Status: Acute (7) Acute dehydration: Code(s): E86.0 - Dehydration Status: Acute (8) UTI (urinary tract infection): Code(s): N39.0 - Urinary tract infection, site not specified Status: Acute (9) Acute kidney injury: Code(s): N17.9 - Acute kidney failure, unspecified Status: Acute DS: Summary Hospital Course Hospital Course: This is a 58-year-old female who presents the ED from PCPs office with multiple complaints. Patient reports having diarrhea, increased flatulence over the past 2 weeks. Reports intermittent nausea with dry heaving. She complains of generalized weakness and fatigue with lightheadedness. She also reported shortness of breath with exertion. She noted her oxygen dropped to 70-75% on exertion at home. She also reported heart rate dropping to 30s at times. Also had 4 syncopal episodes over the past 2 weeks. Last 1 was yesterday. He has stopped taking her metoprolol due to dizziness and lightheadedness. She also reports a 12 lb weight loss in the last 2 weeks. She Reports exposure to COVID-19. Denies fevers. No chest pain. 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 She has a history of Crohn's disease requiring subtotal colectomy 2018 with history of colostomy tube. In the ED she was tachycardic. History of the vitals were optimal. Laboratory workup revealed leukocytosis 16.3 lactate was elevated at 3.1 bi carbonate was 19. Creatinine was 1.8. Head CT was negative for any acute intracranial abnormality. Chest x-ray showed no acute findings. Troponin was negative less than 0.012. BNP 178 urinalysis revealed 21-50 urine WBC 50 1-100 urine RBC with positive leukocyte esterase suggesting UTI. Influenza RSV COVID swab was negative. Repeat lactic acid after IV fluids was down to 2. She is also mildly hyponatremic at 129. VBG 7.44/21/108/14. Her baseline creatinine was 1 back in 2022 indicating acute kidney injury. A1c at 6.8 CT chest abdomen pelvis was performed which negative for PE. Probable cirrhotic changes of the liver. Nonobstructing right nephrolithiasis similar to prior exam. Postoperative changes the large bowel with large parastomal hernia and additional moderate to large ventral hernia both containing multiple bowel loops. Stable uterine fibroids. She is admitted in the setting for further treatment. Possible cirrhotic liver she does report diagnosis of this in the past SHANI creatinine up to 1.9. Baseline 1. Continue IV fluid. still orthostatic positive. Symptomatically improving. STOPPED IV fluid AND ORTHOSTATIC BETTER. CREATININE IMPROVED BY THE TIME OF DISCHARGE ALMOST BACK TO BASELINE UTI ceftriaxone culture Syncope likely orthostasis related. Orthostasis has improved symptomatically. ORTHOSTATICS HAS IMPROVED. ADVISED ADEQUATE FLUID INTAKE Dehydration Type 2 diabetes on insulin Chronic steroid therapy DVT prophylaxis Lovenox Code status full code Time Spent with Patient Time attestation: Total time spent providing and/or coordinating discharge services: 45 MINUTES Exam Narrative: GENERAL: Well-appearing, well-nourished, and in no acute distress. HEAD: Normocephalic, atraumatic. EYES: PERRLA and EOMI. ENT: Nares clear, no rhinorrhea or epistaxis. Mucous membranes moist. NECK: Supple. No adenopathy or masses. CHEST: No respiratory distress. Clear to auscultation. No wheezes rales or rhonchi HEART: Regular rate and rhythm. No murmur heard. Normal peripheral pulses. ABDOMEN: Soft, nontender, nondistended, normal active bowel sounds. no appreciable fistula. MSK: Normal range of motion. No edema. Left hip with scar noted with no open sores SKIN: Warm, dry, no rash. NEURO: Alert and oriented x4. No focal deficits. PSYCH: Normal mood and affect. DS: Data Data Completed and Pending Labs on day of discharge: Labs from last 24 hours 05/27/24 05/27/24 05/27/24 11:36 07:48 07:15 WBC 8.2 RBC 3.31 L Hgb 11.5 L Hct 35.1 L MCV 106.0 H MCH 34.7 H MCHC 32.8 RDW 14.1 Plt Count 117 L MPV 9.9 Immature Gran % (Auto) 0.5 Neut % (Auto) 74.3 H Lymph % (Auto) 9.7 L Lares % (Auto) 8.9 H Eos % (Auto) 5.6 H Baso % (Auto) 1.0 Lymph # (Auto) 0.80 L Lares # (Auto) 0.7 H Eos # (Auto) 0.5 H Baso # (Auto) 0.1 Abs Immat Gran (auto) 0.04 H Absolute Neuts (auto) 6.1 Absolute Nucleated RBC 0.000 Nucleated RBC % 0.0 Platelet Estimate Slightly decreased Macrocytosis 1+ Schistocytes None seen Sodium 137 Potassium 3.3 L Chloride 109 H Carbon Dioxide 21 L Anion Gap 7 BUN 19 H Creatinine 1.10 H Estim Creat Clear Calc 50 Estimated GFR 51 L Glucose 106 POC Capillary Glucose 258 H 125 H Calcium 6.8 L Magnesium 1.4 L Total Bilirubin 0.5 AST 39 H ALT 30 Alkaline Phosphatase 62 Total Protein 6.0 L Albumin 2.7 L 05/26/24 05/26/24 21:21 16:48 WBC RBC Hgb Hct MCV MCH MCHC RDW Plt Count MPV Immature Gran % (Auto) Neut % (Auto) Lymph % (Auto) Lares % (Auto) Eos % (Auto) Baso % (Auto) Lymph # (Auto) Lares # (Auto) Eos # (Auto) Baso # (Auto) Abs Immat Gran (auto) Absolute Neuts (auto) Absolute Nucleated RBC Nucleated RBC % Platelet Estimate Macrocytosis Schistocytes Sodium Potassium Chloride Carbon Dioxide Anion Gap BUN Creatinine Estim Creat Clear Calc Estimated GFR Glucose POC Capillary Glucose 148 H 150 H Calcium Magnesium Total Bilirubin AST ALT Alkaline Phosphatase Total Protein Albumin Preliminary micro results at discharge 05/24/24 01:01 Blood Culture - Preliminary Blood 05/24/24 01:01 Blood Culture - Preliminary Blood Imaging Radiologist's impression: ITS Impressions Chest X-Ray 05/23/24 17:41 IMPRESSION: No focal infiltrate or effusion. Head CT 05/23/24 17:43 Impression: No acute intracranial hemorrhage or suspicious mass effect. Chest/Abdomen/Pelvis CTA 05/24/24 06:12 Impression: No acute abnormalities identified. No evidence of pulmonary embolus. Probable cirrhotic change of the liver. Nonobstructing right nephrolithiasis, similar to prior exam. Postoperative change of large bowel with large parastomal hernia and additional moderate to large ventral hernia, both containing multiple bowel loops, as detailed above. Stable uterine fibroids. Discharge Plan Discharge Attending physician on discharge: Huan Dumont Discharging Clinician: Huan Dumont Anticipated Discharge Date/Time: 05/27/24 14:01 Patient Disposition: Home, Self-Care Activity: as tolerated Diet: regular and diabetic Patient Instructions: Antibiotic Form Patient Language: Emirati Stand Alone Forms: General Discharge Information Follow-up/Referrals: Hillary Marcano MD [Primary Care Provider] - 1 Week Discharge Medications: New cephalexin 500 mg capsule 500 mg PO Q12H Qty: 6 0RF Continued oxycodone 10 mg tablet 10 mg PO Q6H PRN (Reason: Pain) ondansetron HCl 4 mg tablet 4 mg PO Q8H PRN (Reason: nausea and vomiting) Qty: 60 0RF gabapentin 100 mg capsule 100 mg PO TID ropinirole 0.5 mg tablet 1 mg PO QHS prednisone 1 mg tablet See Rx Instructions .ROUTE .COMPLEX Qty: 90 3RF Dose Instruction: Take 1 tablet by mouth once daily Rx Instructions: Take 1 tablet by mouth once daily ( to take with 5mg for total of 6mg q day) prednisone 5 mg tablet 5 mg PO DAILY Qty: 90 3RF Rx Instructions: 1 po q day ( to take with 1 mg for total of 6mg q day) hydrocortisone 2.5 % cream 1 applic topical BID-TID PRN (Reason: itching) insulin lispro 100 unit/mL insulin pen 25 unit subcut TID duloxetine 20 mg capsule,delayed release(DR/EC) See Rx Instructions .ROUTE .COMPLEX Qty: 180 3RF Dose Instruction: Take 1 capsule by mouth twice daily Rx Instructions: Take 1 capsule by mouth twice daily metoprolol succinate 25 mg tablet extended release 24 hr See Rx Instructions .ROUTE .COMPLEX Qty: 90 3RF Dose Instruction: Take 1 tablet by mouth once daily Patient Comments: not taken since monday, dropping heart rate Rx Instructions: Take 1 tablet by mouth once daily insulin glargine [Lantus Solostar U-100 Insulin] 100 unit/mL (3 mL) insulin pen 25 unit subcut BID Qty: 36 2RF Patient Comments: noon and midnight Mounjaro 7.5 mg/0.5 mL pen injector 7.5 mg subcut WEEKLY Qty: 2 4RF Date of admission: 05/25/24 15:08 Primary Care Provider: Hillary Marcano Admitting Provider: Adrianne Nguyen Attending physician on admission: Adrianne Nguyen Condition: Stable
[2024-05-27 14:00] VITALS: BP 111/58; BP 120/70; BP 123/66; PULSE 112; RESP 18; TEMP 36.4; O2SAT 96
== END 2024-05-27 14:00 | disposition home or self-care (01) | DRG 683 ==
LOC: ANHED 05-24 06:18 → ANH3MEDSUR 05-24 07:00
PROVIDERS: Nurse Practitioner; Physician Assistant; Student in an Organized Health Care Education/Training Program; Admitting Provider General Practice; Emergency Provider Physician Assistant; PCP Family Medicine; Visit Provider Internal Medicine
DX: N17.9 Acute kidney failure, unspecified (principal); E87.1 Hypo-osmolality and hyponatremia; N39.0 Urinary tract infection, site not specified; K50.90 Crohn's disease, unspecified, without complications; Q79.60 Ehlers-Danlos syndrome, unspecified; I95.1 Orthostatic hypotension; I12.9 Hypertensive chronic kidney disease with stage 1 through stage 4 chronic kidney disease, or unspecified chronic kidney disease; N18.31 Chronic kidney disease, stage 3a; J45.909 Unspecified asthma, uncomplicated; E11.22 Type 2 diabetes mellitus with diabetic chronic kidney disease; E55.9 Vitamin D deficiency, unspecified; N20.0 Calculus of kidney; K21.9 Gastro-esophageal reflux disease without esophagitis; K43.5 Parastomal hernia without obstruction or gangrene; K43.9 Ventral hernia without obstruction or gangrene; M19.90 Unspecified osteoarthritis, unspecified site; F41.9 Anxiety disorder, unspecified; Z20.822 Contact with and (suspected) exposure to COVID-19; Q82.8 Other specified congenital malformations of skin; Z86.718 Personal history of other venous thrombosis and embolism; Z93.2 Ileostomy status
CPT/HCPCS: 36415; 70450; 71046; 71275; 74177; 80048; 80053; 81001; 82550; 82803; 82948; 83036; 83605; 83735; 83880; 84484; 85025; 85380; 85610; 85730; 86850; 86900; 86901; 87040; 87086; 87637; 93005; 96361; 96365; 96366; 96367; 96375; 99285; A9270; G0378; J0696; J1815; J2405; J3475; J7030; J7120; J7512; Q9967

== ENCOUNTER 2024-10-26 08:41 | Emergency (ER) | payer BC, SELFPAY ==
--- NOTE | ~2024-10-26 | US_ITS ---
EXAMINATION: US venous doppler [facility] DATE: 10/26/2024 11:49 INDICATION: Lower limb pain and swelling TECHNIQUE: Grayscale ultrasound images without and with compression and Doppler ultrasound images of the bilateral lower extremity veins were obtained. COMPARISON: None. FINDINGS: The visualized portions of right common femoral vein, profunda (deep) femoral vein, femoral vein, pop liteal vein, posterior tibial veins, peroneal veins, gastrocnemius vein and greater saphenous vein ou tflow are patent. There is noncompressible thrombus at the left greater saphenous vein outflow. The visualized portions of left common femoral vein, profunda femoral vein, femoral vein, popliteal vein, posterior tibial v eins, peroneal veins and gastrocnemius vein are patent. IMPRESSION: 1. Thrombus at the left greater saphenous vein outflow which is generally considered a deep vein equ ivalent for treatment purposes. Dr. De Luna discussed these findings with Dr. Galvan at 12:05 PM. 2. No deep venous thrombosis in either lower limb. Reviewed, dictated and finalized at location A. IMPRESSION: 1. Thrombus at the left greater saphenous vein outflow which is generally cons idered a deep vein equivalent for treatment purposes. Dr. De Luna discussed th geovani findings with Dr. Galvan at 12:05 PM. 2. No deep venous thrombosis in either lower limb.
--- OUTSIDE RECORDS SUMMARY | 2024-10-26 08:43 | XMS_ITS | Clinical Summary ---
Author Organization [facility] Address [address] [address] Phone Care Team Providers Care Cigar Packer And Shader Name Role Phone Viral Parsi MD Primary Care Provider Allergies Active Allergy [...] patient's age to complete this topic Insurance [facility] Care Teams Cigar Packer And Shader Relationship Specialty Start Date End Date Viral Paris MD [address] [place] [address] PCP - General Family Medicine 05/31/16
--- OUTSIDE RECORDS SUMMARY | 2024-10-26 08:43 | XMS_ITS | Encounter Summary ---
Author Organization [facility] Address [address] [place] [address] Care Team Providers Care Electronic News Gathering Editor Name Role Phone Candida Paris MD Primary Care Provider [phone] Rosalind [place] RN Unavailable [phone] Jw Strong Primary Care Provider + Hillary Marcano MD Primary Care Provider + Cata Velazquez MD Unavailable [phone] Encounter Details Date Type Department Care Team (Late st Contact Info) Description 10/16/2017 Documentation [facility] Case Management [address] [place] [id number] Mary Anne Lee RN Social History Tobacco Use Types Packs/Day Years Used Date Smoking Tobacco: Former Smokeless Tobacco: Never Alcohol Use Standard Drinks/Week Comments No 0 (1 standard drink = 0.6 oz pur e alcohol) Comments Unknown Sex and Gender Information Value Date Recorded Sex Assigned at Not on file Legal Sex Female 6:33 PM [employer] Gender Identity Female 08/22/2024 7:58 AM CDT Sexual Orientation Straight 08/22/2024 7: 58 AM CDT documented as of this encounter Plan of Treatment Upcoming Encounters Date Type Department Care Team (Latest Contact Info) Description 11/22/2024 11:30 AM CDT Hospital Encounter [facility] Endoscopy [id number], [place] [address] Trinity Butcher MD [address] [place] [address] 11/22/2024 11:30 AM CDT - 11/22/2024 12:00 PM CDT Surgery [facility] Endoscopy [address] [place] [address] Trinity Butcher MD [address] [place] [address] ESOPHAGOGASTRODUODENOSCOPY Scheduled Procedures Name Priority Associated Diagnoses Date/Ti me ESOPHAGOGASTRODUODENOSCOPY Other cirrhosis of liver (HCC) 11/22/2024 11:30 AM CDT documented as of this encounter Visit Diagnoses Not on filedocumented in this encounter Additional Health Concerns Infection Onset Date Last Indicated Resolved Time MRSA Comment:Germ watcher auto flagging Negatives 11/15&06/04 Latanya Cole RN 01/09/2018 04/23/2014 04/23/2014 01/09/2018 7:50 AM C DT VRE Comment:Last Postive 05/09/18 rectal swab. Pt to remain on contact precautions at this time. Stephanie Lemus, MARYCARMEN 05/16/2018 02/09/18 rectal VRE culture= Positive 07/14/2017 05/09/2018 12/02/2020 5:00 AM C DT documented as of this encounter Care Teams Electronic News Gathering Editor Relationship Specialty Start Date End Date Candida Paris MD [address] [place] [address] PCP - General 01/03/17 12/21/21 Jw Strong PA [address] [place] [address] PCP - General Physician Gathering Machine Setter 12/22/21 09/19/22 Hillary Marcano MD [address] [place] [address] PCP - General Family Medicine 09/20/22 Rosalind [place], RN [address] [address] [facility] Outpatient Chimney Builder 01/25/21 02/21/21 Cata Velazquez MD [address] [place] [address] Internal Medicine 10/11/22 documented as of this encounter
--- OUTSIDE RECORDS SUMMARY | 2024-10-26 08:43 | XMS_ITS ---
Author Organization [facility] Address [address] [facility] [place] [address] Care Team Providers Care Shoe Sewing Machine Operator And Tender Name Role Phone Hillary Marcano MD Primary Care Provider + Cata Velazquez MD Unavailable [phone] Active Problems Problem Noted Date Diagnosed Date Other cirrhosis of liver 10/05/2024 Cirrhosis of liver without ascites 08/22/2024 Primary hyperparathyroidism 10/12/2022 Hyperglycemia 01/18/2021 Assessment & Plan (01/21/2021 5:42 PM CDT): DM2 vs HHS. A1c is 15 on admission. - Previously not on insulin just prior to admission - Uptitrating insulin regimen -- 40U QHS 15U TIDAC and MDSSI - Diabetes education - May require snacktime insulin at discharge given ileostomy Encounter for ostomy nurse consultation 05/16/19 Encounter for ostomy care education 05/16/2018 Rectal cancer 04/23/2018 Overview (04/23/2018): Added automatically from request for surgery [id number] Crohn's disease with complication 03/28/2018 Overview (03/28/2018): Added automatically from request for surgery [id number] Moderate malnutrition 03/22/2018 Cutaneous abscess of back excluding buttocks 08/2017 Ventral hernia without obstruction or gangrene 1 05/14/2017 Overview (03/14/2018): Added automatically from request for surgery [id number] Crohn's disease of large intestine with fistula 02/08/2018 Overview (02/13/2018): Added automatically from request for surgery [id number] Nausea & vomiting 01/19/2018 Assessment & Plan (01/21/2021 5:42 PM CDT): Diabetic gastroparesis felt more likely given chronicity vs rapid electrolyte / BG shifts - Zofran and Reglan PRN - Likely will require outpatient EGD and gastric motility study Septic shock 01/09/2018 Acute pulmonary insufficiency 01/09/2018 Acute kidney injury 01/09/2018 Left lower quadrant abdominal abscess 12/06/2017 Osteomyelitis 12/06/2017 Acute blood loss anemia 11/18/2017 Chronic depression 11/17/2017 Paroxysmal SVT (supraventricular tachycardia) Acute pulmonary insufficiency 11/17/2017 Hypomagnesemia 11/17/2017 Severe sepsis 11/16/2017 Anxiety 10/14/2017 Fluid collection at surgical site 10/13/2017 Assessment & Plan (10/19/2017 9:36 AM CDT): IR evaluating ability to drain, Left flank US ordered per I, Per IR they do not feel there is a pocket of fluid to place drain, they feel this area is greatly inflammed tissue and the fluid that is present is draining from wound. At this time IR is not placing drain. UA (-) BC: NGTD Abscess growing staph aureus: stop linezolid and zosyn, started unasyn on 10/16, prior to discharge the patient was transitioned to Augmentin for a total of 7 days of antibiotics. History of necrotizing fasciitis 10/12/2017 Assessment & Plan (10/19/2017 9:41 AM CDT): S/P multiple debridements and skin graft on 09/15 left flank and left thigh for skin grafting, partial closure of the left flank and placement of split-thickness skin graft, closures clean dry intact, but has open hip wound which is beefy red, wet, treating with Dakins TID at this time. The wound care at the time of discharge was Aquacell to the tunneled area that is approximately 6 inches deep. The Caroline was placed over the open area. This site can have Bacitracin applied in the outpatient setting Acute deep vein thrombosis (DVT) of lower extrem ity 10/12/2017 Assessment & Plan (10/19/2017 9:37 AM CDT): On Eliquis for 09/12: Acute deep vein thrombosis in the left common femoral, distal femoral, popliteal, posterior tibial, peroneal, gastrocnemius and soleal veins, last dose on 10/12, heparin gtt started while eliquis on hold. Prior to discharge the patient was tolerating a PO diet and the home Eliquis was restarted. Urinary tract infection 09/21/2017 Assessment & Plan (10/16/2017 3:44 PM CDT): - Started Unasyn / - Ucx (10/13): Moderate mixed micro-organisms, including staph aureus Assessment & Plan (09/21/2017 2:26 PM CDT): Started overnight on ceftriaxone for positive UA, will follow up culture. Acute pain 09/21/2017 Assessment & Plan (09/21/2017 2:30 PM CDT): PRN oxycodone, scheduled Tylenol in addition to home medications. Open wound of left lower extremity 09/16/2017 Assessment & Plan (11/16/2017 8:06 AM CDT): Appears well healed although persistent sinus tract is visible, but without drainage. Continue local wound care including dry dressings as needed for drainage; may eventually require bacitracin or similar over skin graft site but not until we observe the output Assessment & Plan (09/16/2017 5:46 PM CDT): Chronic left thigh wound, now status post split thickness skin graft on 09/15, now with wound Vac therapy until 09/20 Assessment & Plan (09/22/2017 10:30 AM CDT): The patient was taken to the OR on 09/15/17 & underwent preparation of wound bed of the left flank and left thigh for skin grafting, partial closure of the left flank and placement of split-thickness skin graft with a VAC dressing application, One surgical JIN was placed. The Vac was removed on 09/20 and 90-100% take of distal graft. Proximal graft intact but not sticking well yesterday. At the time of discharge, the graft had roughly 50% take. - Discharge wound care = 04/24 strength Dakin's damp to dry BID to the left hip graft site. Bacitracin to the donor site, cover w/ Allevyn Ag & cover w/ dry dressing and do this daily and as needed. -Fluconazole x 1 week at discharge Open wound of flank 09/16/2017 Assessment & Plan (09/16/2017 5:57 PM CDT): Chronic left flank wound from a history of necrotizing Fascitis who is now status post debridement complex closure and a split thickness skin graft Assessment & Plan (09/22/2017 12:25 PM CDT): Images from the original note were not included. Preparation of wound bed of the left flank and left thigh for skin grafting, partial closure of the left flank and placement of split-thickness skin graft with a VAC dressing application, JIN X 1 on 09/15/2017. Please see open wound of LLE for further daily assessment and plan. -The above photo was the graft site on the day of discharge. 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 Moreno - patient will be transferred to their service -Please call GI consult for the private GI team (IBD service) -NPO -Please call IR for drainage of abdominal wall abscess; further management (short and long-term, ?colectomy) deferred to colorectal -Continue antibiotics pending drainage and cultures Assessment & Plan (09/19/2017 10:56 AM CDT): Continue Prednisone. Asthma 09/14/2017 Assessment & Plan (09/16/2017 9:49 AM CDT): Asthma is unchanged. The patient is experiencing no daytime asthma symptoms. She is experiencing no nighttime asthma symptoms. Medications: continue symbicort BID and PRN albuterol . 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 Past Treatment and Therapy Plans Lifetime Dose Tracking * Chemical Lifetime Dose Automatic Entry Manual Entr y Fluoro Time 6.2 minutes 6.2 minutes 0 minutes Air kerma at the reference point (Ka,r) 25 mGy 2 5 mGy 0 mGy DLP 4,336 mGycm 4,336 mGycm 0 mGycm Resolved Problems Problem Noted Date Diagnosed Date Resolved Date Leukocytosis 09/20/2017 09/22/2017 Assessment & Plan (09/21/2017 2:35 PM CDT): Fluconazole, Daily CBC. Skin graft intact with 90-100% take. Redness noted around left hip closure area but the wound has a drainable area. Ceftriaxone for UTI. Follow up blood cultures. Necrotizing fasciitis 09/16/20172017 Overview (09/16/2017): History of necrotizing fasciitis s/p multiple debridements and skin garafting Most recent STSG 09/15 - vac, JIN Assessment & Plan (09/16/2017 9:23 AM CDT): History of necrotizing fasciitis of LLE s/p multiple debridements and skin grafting, last seen Mach 2017. Now admitted to [facility] wound, swelling - s/p STSG to LLE wound on 09/15 - continue wound care with vac and JIN Acute deep venous thrombosis 09/14/2017 11/17/2017 Assessment & Plan (11/16/2017 8:07 AM CDT): L common femoral vein. On heparin drip, as procedures may be planned in the near future. Also has filling defect of atriocaval junction - TTE to be performed to further evaluate, possible NAFISA. Assessment & Plan (09/22/2017 10:29 AM CDT): Continue therapeutic Lovenox. PCP Dr. Paris in [place]. PA gissell Paris wants eliquis and follow up in office 2-3 days post d/c. The patient was started on Eliquis at discharge Assessment & Plan (09/16/2017 9:24 AM CDT): Admitted with LLE swelling and pain. 09/12 venous duplex revealed DVT IN THE LEFT COMMON FEMORAL, DISTAL FEMORAL, POPLITEAL, GASTROCNEMIUS, POSTERIOR TIBIAL, PERONEAL, AND SOLEAL VEINS. - Therapeutic Lovenox, OK to resume post-op
--- OUTSIDE RECORDS SUMMARY | 2024-10-26 08:43 | XMS_ITS | Data Portability ---
Author Organization [place] - [facility] Chef [place], Main Office Address [address] [place] [address] Assessment No assessment recorded. Plan of Treatment Reminders Order Date Submit Date Provider Last Modified By Organization Details Last Modified Time Details Appointments None recorded. Lab phosphorus, serum or plasma 2022 023 [facility], 2022 K[address]omew, [address], [place], [address], 3 15:20:57 PTH (parathyroi d hormone), intact + calcium, serum or plasma 2022 023 [facility], 2022 K[address]ly [address]tholomew, [address], [place], [address], 3 15:20:58 vitamin D, 25-hydroxy, total, serum 2022 023 [facility], 2022 Kare[address]omew, [address], [place], [address], 3 15:20:58 HbA1c (hemoglobin A1c), blood 2022 023 [facility], 2022 K[address]omew, [address], [place], [address], 3 15:19:13 albumin/cre atinine, mass ratio, urine 2022 023 [facility], 2022 Kare[address]omew, [address], [place], [address], 3 15:19:14 CMP, serum or plasma 2022 023 [facility], 2022 K[address]omew, [address], [place], [address], 3 15:19:14 TSH + free T4, serum 2022 023 [facility], 2022 aKrely Bartholomew, [address], [place], [address], 3 15:19:14 lipid panel, serum 2022 023 [facility], 2022 K[address]omew, [address], [place], [address], 3 15:19:13 Referral None recorded. Procedures None recorded. Surgeries None recorded. Imaging SPECT-CT, parathyroid [address] [facility], [address] [place], [address], 3 16:58:19 bone density 2022 023 [facility] [place] [facility], 2022 Luci [address]omew, [address], [place], [address], 3 18:13:51 Medication Orders Jardiance 25 mg tablet 2022 023 [facility] [address] [place], [address], 3 15:13:21 Ozempic 0.25 mg or 0.5 mg (2 mg/1.5 mL) subcutaneou s pen injector 2022 023 [facility] [address], [address] [place], [address], 3 15:13:19 glimepiride 2 mg tablet 2022 023 [facility] [address], [address] [place], [address], 3 15:18:29 metformin ER 500 mg tablet,exte nded release 24 hr 2022 023 [facility] [address] [place], [address], 3 17:48:59 Patient TargetsNo targets recorded. Patient InstructionsNo instructions recorded. Reason for Referral None Reported. Results Created Date Observation Date Name Description Value Unit Range Abnormal Flag Note LastModifiedBy Organization Detail LastModifiedTime 08/11/1908/10/2022 SPECT -CT, parat braydonroi d No observ ation record ed. [facility] [place] [address] [place], [address], 09/15/2022 09:11:30 09/02/19 23 09/01/2022 bone densi ty No observ ation record ed. [facility] [address], [place], [address], 09/08/2022 11:00:47 09/16/19 bone densi ty No observ ation record ed. [email or web address] [facility] [address], [place], [address], 09/15/2022 11:40:46 Result Notes None recorded. Problems Name Problem SNOMED Code Status Onset Date Resolution Date Notes Provider Name and Address Organization Details Recorded Time Well controlled type 2 diabetes mellitus 471084126 Active 2022 Cata Velazquez MD [address], [place], [address], [employer] 3 15:11:07 Dyslipidemia 603681449 Active 2022 Cata Velazquez MD [address], [place], [address], [facility] 3 15:18:42 Menopausal symptom 64562026 Active 2022 Cata Velazquez MD [address], [address], [place], [address], [facility] 3 15:19:24 Hyperparathyro idism 55039930 Active 2022 Cata Velazquez MD [address], [address], [place], [address], [facility] 3 15:19:39 Primary hyperparathyro idi 43941603 Active 2022 Cata Velazquez MD [address], [address], [place], [address], [facility] 3 16:59:54 Problem Notes None recorded. Medical Equipment None Reported. Allergies Allergen ID Allergen Name Allergen Category Reaction Reaction Severity Criticality Documentation Date Start Date Code Code System Note Provider Name and Address Organization Details Recorded Time 77895 latex environme nt,medica tion Not available Not available Not available 06/16/2022 50629 91 RxNorm Not Available [facility] 3 00:02:23 84281 Compazine medicatio n Not available Not available Not available 06/16/2022 33060 6 RxNorm Not Available [facility] 3 00:02:24 Medications Name Sig Start Date [...] Not Available No t Available amoxicillin 875 mg-potassiu m clavulanate 125 mg tablet 04/23 completed [...] Heart rate Body temperature Body weight Systolic And Diastolic Provider Name and Address Organization Details Last Updated DateTime 3 35.4 kg/m2 160.02 cm 98 % 98 % 99 /min 98.2 [degF] 54687.4 7 g 132/71 mm[Hg] Not Available [facility] 3 00:00:13 Date Recorded Body height Body mass index (BMI) Body weight Body temperature Heart rate Systolic And Diastolic Provider Name and Address Organization Details Last Updated DateTime 3 160.02 cm 37 kg/m2 65403.8 1 g 97.2 [degF] 120 /min 126/72 mm[Hg] RADHA Ames [place] [facility] 3 14:51:06 Social History Question Answer Notes LastModified by Organizat ion Details LastModified Time Tobacco Smoking Status Never Smoker Not Available [facility] 06/15/2022 23:58:11 What Is Your Level Of Caffeine Consumption? Moderate [id number] Information not available 06/15/2022 In The 14 Days Before Symptom Onset, Have You Had Close Contact With A Laboratory-confirm ed COVID-19 While That Case Was Ill? No [id number] Information not available 06/15/2022 In The 14 Days Before Symptom Onset, Have You Had Close Contact With A Person Who Is Under Investigation For COVID-19 While That Person Was Ill? No [id number] Information not available 06/15/2022 What Type Of Diet Are You Following? REGULAR [id number] Information not available 06/15/2022 What Is Your Relationship Status? [id number] Information not available 06/15/2022 Have You Recently Traveled Abroad? No [id number] Information not available 06/15/2022 Sex: Female Functional Status Question Answer Note LastModified by [employer] Details LastModified Time What is your level of alcohol consumption? None [id number] Information not available 06/15/2022 Mental Status None recorded. Family History Relationship Description Onset Age of this Age Resolved Age Notes LastModified by Organization Details LastModified Time Mother Diabetes mellitus [id number] Not available 06/15/2022 23:58:20 Paternal Grandmother Diabetes mellitus [id number] [id number] Not available 06/15/2022 23:58:20 Maternal Aunt Diabetes mellitus [id number] Not available 06/15/2022 23:58:20 Maternal Uncle Diabetes mellitus [id number].057 [id number] Not available 06/15/2022 23:58:20 Maternal Uncle Heart disease [id number] [id number] Not available 06/15/2022 23:58:20 Medical History Condition Response DEPRESSION (INCLUDING POST ) Y USE OF BLOOD THINNERS Y GI PROBLEMS Y BLOOD TRANSFUSION Y ANEMIA/BLOOD DISORDER Y ARTHRITIS Y DIABETES, TYPE KIDNEY DISEASE HEART DISEASE/HEART PROBLEMS Y Gynecological HistoryNo gynecological history recorded. Obstetrics History GPAL:G 0 P 0 0 0 0 Past Encounters Encounter ID Performer Location Encounter Start Date Encounter Closed Date Diagnosis/Indication Diagnosis SNOMED-CT Code Diagnosis ICD10 Code Diagnosis Note [id number] MD JUAN Rose_Efraín [facility] [place] [address] [place] [address] 04/23/2021 00:00:00 04/23/2021 16:34:21 [id number] Cata Velazquez MD [facility] [place] [address] [place] [address] 04/29/2022 00:00:00 04/29/2022 17:48:00 [id number] MD BEBA Rose_ZAIRE [facility] [place] [address] [place] [address] 07/05/2022 14:27:36 07/05/2022 15:25:27 Well controlled type 2 diabetes mellitus 602776621 E11.9 a1c of 6.8% much improved with [...] based snack at bedtime to help reduce 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 She has no hx of [...] if sugars under 90 mg/dL fasting. Dyslipidemia 225652468 E 78.5 Continue statin therapy. Menopausal symptom 12935 002 N95.1 Send for bone density scan [...] she chooses to go outside of the [facility] system to obtain labwork she was [...] Recorded Advance Directives Directive None Recorded Payers Insurance Date Sequence Insurance Name Policy Number Policy Hanley Covered Member ID Hanley Member ID Guarantor Name 12/10/2022 1 [place] [id number] Lee Lopez [id number] Terrie Lopez Notes Date Note Type [...] 32 units at bedtime if having any educational programming director hypoglycemia for better bridging of therapy). We [...] mg/dLa1c 6.8%SPEP/immunofixation normal Cata Velazquez MD [address] [facility], [address], [place], [address], [place] [facility] 07/05/2022 17:52:03 OBGyn Episode No OBEpisode recorded.
--- OUTSIDE RECORDS SUMMARY | 2024-10-26 08:43 | XMS_ITS | Clinical Summary ---
Author Organization [facility] Address [address] [place] [address] Care Team Providers Care Finishing Pan Operator Name Role Phone Candida Paris MD Primary Care Provider [phone] Source Comments [facility],non-owned Affiliates and Associated Physician Practices is amultiple site organization consisting of ambulatory clinics and hospital sitesin [place], [place], [place] and [place]. This disclosure is being madepursuant to the Care Everywhere program and may not contain all information available regarding this patient. Last updated 18.[facility] Allergies Active Allergy Reactions Criticality Noted Date Comments Prochlorperazine Rash Low 07/14/2014 Latex Rash Low 07/14/2014 Medications * Be aware that medications may not be up to date on this document. Alwaysverify current medications with the patient. predniSONE (DELTASONE) 5 MG tablet Take 5 mg by mouth once daily. Active metoprolol succinate XL 24hr (TOPROL XL) 25 MG tablet Take 25 mg by mouth at bedtime. 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 Social History Tobacco Use Types Packs/Day Years Used Date Smoking Tobacco: Never Assessed Comments Unknown Sex and Gender Information Value Date Recorded Sex Assigned at Not on file 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 Gender Identity Not on file Sexual Orientation [...] 10:36 AM CDT Height 159.2 cm (5' 2.68) 10/21/2014 10:36 AM C DT Body Mass [...] SCREENING 1965 LIPID TESTING 1965 MAMMOGRAM 1965 HIV SCREENING 1980 HEPATITIS C SCREENING 07/07/1983 DTAP/TDAP/TD VACCINES (1 - Tdap) 1984 HEPATITIS B VACCINE (1 of 3 - 19+ 3-dose series) 1984 PAP SMEAR 1986 PNEUMOCOCCAL VACCINE 50+ (1 of 1 - PCV) 07/12/2015 ZOSTER VACCINE (1 of 2) 07/12/2015 COVID-19 VACCINE (1 - 2023-2 5 season) 2023 DEPRESSION SCREENING 04/17/2024 INFLUENZA VACCINE (#1) 2024 HIB VACCINE Aged Out No longer eligi ble based on patient's age to complete this topic HPV VACCINE Aged Out No longer eligi ble based on patient's age to complete this topic MENINGOCOCCAL (Group B) VACC INE SHARED DECISION-MAKING Aged Out No longer eligibl e based on patient's age to complete this topic MENINGOCOCCAL GROUPS A/C/Y/W VACCINE Aged Out No longer eligible b ased on patient's age to complete this topic Insurance [facility] SELF PAY NO INSURANCE Member Subscriber Plan / Payer (Ef fective for All Dates) Name:Terrie Ireen Member ID:Not on file Relation to Subscriber:Not on file Name:TERRIE IRENE Subscriber ID:Not on file (Home) Address: [address] [place], [place] [address] [address] Payer ID:Not on file Group ID:Not on file Type:Self Pay Address: [place], [place] [facility] SELF PAY NO INSURANCE Member Subscriber Plan / Payer (Ef fective for All Dates) Name:Maria VictoriaTerrie thrasher Member ID:Not on file Relation to Subscriber:Not on file Name:MARIA VICTORIATERRIE THRASHER Subscriber ID:Not on file (Home) Address: [address] [place] [id number] Payer ID:Not on file Group ID:Not on file Type:Self Pay Address: [place], [place] [facility] SELF PAY NO INSURANCE Member Subscriber Plan / Payer (Ef fective for All Dates) Name:Terrie Irene Member ID:Not on file Relation to Subscriber:Not on file Name:TERRIE IRENE Subscriber ID:Not on file (Home) Address: [address] [place] [phone] Payer ID:Not on file Group ID:Not on file Type:Self Pay Address: [place], [place] Care Teams Finishing Pan Operator Relationship Specialty Start Date End Date Candida Paris MD [address] [place] [address] PCP - General Family Medicine 06/11/14
--- OUTSIDE RECORDS SUMMARY | 2024-10-26 08:43 | XMS_ITS | Encounter Summary ---
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 Name Role Phone Candida Paris MD Primary Care Provider [phone] Encounter Details Date Type Department Care Team (Late st Contact Info) Description 07/24/2023 Lab Requisition [facility] - Pathology Lab [address] [place] [address] Jatin Altamirano MD [address] [address] Illness, unspecified Social History Tobacco Use Types Packs/Day Years Used Date Smoking Tobacco: Never Assessed Comments Unknown Sex and Gender Information Value Date Recorded Sex Assigned at Not on file 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 Gender Identity Not on file Sexual Orientation Not on file documented as of this encounter Plan of Treatment Not on file documented as of this encounter Procedures Procedure Name Priority Date/Time Associated Diagnosis Comments PATHOLOGY TISSUE Routine 07/21/2023 9:28 AM CDT Illness, unspecified documented in this encounter Results * PATHOLOGY TISSUE (07/21/2023 9:28 AM CDT) Case Report Surgical Pathology Report Case: [id number] Authorizing Provider: Jatin Altamirano MD Collected: 07/21/2023 09:28 AM Ordering Location: [facility] - Received: 07/24/2023 01:18 PM Pathology Lab Pathologist: Stephenie Arguelles MD Specimen: Lymph Node Biopsy 07/25/2023 9:56 AM CDT U PATHOLOGY [facility] Final Diagnosis Lymph node, right axilla, needle core biopsy: - Follicular and paracortical hyperplasia - No evidence of lymphoma or metastatic carcinoma, as sampled - See description 07/25/2023 9:56 AM [facility] PATHOLOGY LAB at 0956 CDT Microscopic Description and Comment Sections show lymph [...] negative for metastatic carcinoma. Concurrent flow cytometry ([employer] [address], [address], [place] [address]) shows non-specific findings. B-cells are described as [...] persists, consider excisional biopsy. 07/25/2023 9:56 AM [facility] PATH[facility] Clinical History The patient is a 58 year old woman with an enlarged right axillary lymph node. [facility]25[facility]2023 9:56 [facility] Materials Received Received are 2 slides and 1 block labeled [id number] for initial diagnostic interpretation. The materials originate from [address] [address]. All original materials are returned to the referring institution, along with a copy of our final report. 07/25/2023 9:56 AM CDT U PATHOLOGY LAB Pathologist Location at [facility] 07/25/2023 9:56 AM T [facility] PATHOLOGY LAB Disclaimer The performance characteristics of all immunohistochemical and indirect immunofluorescence stains (if any) cited in this report were determined by the Histopathology Laboratory of [facility]. Some of these tests were developed by [...] the attending (teaching) pathologist. 07/25/2023 9:56 AM T [facility] Embedded Images 07/25/2023 9:56 AM T [facility] PATHOLOGY LAB Pathology/Cytolo gy BIOPSY OF LYMPH NODE / Unknown 07/21/2023 9:28 AM CDT 07/24/2023 1:18 PM CDT Jatin Altamirano MD LAB - PATHOLOGY/CYTOLOGY ORDERAB LES Final Result Performing Organization Address City/State/[facility] Co de Phone Number [facility] LAB [address] [phone] documented in this encounter Visit Diagnoses Diagnosis Illness, unspecified documented in this encounter Care Teams High School Band Teacher Relationship Specialty Start Date End Date Candida Paris MD [address] [place] [address] PCP - General Family Medicine 06/11/14 documented as of this encounter
--- OUTSIDE RECORDS SUMMARY | 2024-10-26 08:43 | XMS_ITS | Encounter Summary ---
Author Organization [facility] Address [address] [place] [address] Phone Care Team Providers Care Ict Support Technicians Name Role Phone Candida Paris MD Primary Care Provider [phone] Rosalind Skelton RN Unavailable [phone] Jw Strong Primary Care Provider + Hillary Marcano MD Primary Care Provider + Cata Velazquez MD Unavailable [phone] Encounter Details Date Type Department Care Team (Latest Contact Info) Description 08/08/2017 Orders Only [facility] CONVERSION Scanning, Provider Social History Tobacco Use Types Packs/Day Years Used Date Smoking Tobacco: Former Comments Unknown Sex and Gender Information Value Date Recorded Sex Assigned at Not on file Legal Sex Female 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 Gender Identity Female 08/22/2024 7:58 AM CDT Sexual Orientation Straight 08/22/2024 7: 58 AM CDT documented as of this encounter Plan of Treatment Upcoming Encounters Date Type Department Care Team (Latest Contact Info) Description 11/22/2024 11:30 AM CDT Hospital Encounter [facility] [address] [place] [address] Trinity Butcher MD [address] [place] [address] 11/22/2024 11:30 AM CDT - 11/22/2024 12:00 PM CDT Surgery [facility] [address] [address] Trinity Butcher MD [address] [place] [address] ESOPHAGOGASTRODUODENOSCOPY Scheduled Procedures Name Priority Associated Diagnoses Date/Ti me ESOPHAGOGASTRODUODENOSCOPY Other cirrhosis of liver (HCC) 11/22/2024 11:30 AM CDT documented as of this encounter Procedures Procedure Name Priority Date/Time Associated Diagnosis Comments VASCULAR LABORATORY REPORT 08/08/2017 11:12 AM CDT documented in this encounter Results * VASCULAR LABORATORY REPORT (08/08/2017 11:12 AM CDT) Anatomical Region Laterality Modality Ultrasound us Provider Scanning CV VASCULAR PROCEDURES Final R esult documented in this encounter Visit Diagnoses Not on filedocumented [...] documented as of this encounter Care Teams Ict Support Technicians Relationship Specialty Start Date End Date Candida Paris MD [address] [place] [address] PCP - General 01/03/17 12/21/21 Jw Strong PA [address] [place], [place] [id number] PCP - General Physician Program Admin 12/22/21 09/19/22 Hillary Marcano MD [address] [place] [address] PCP - General Family Medicine 09/20/22 Rosalind [place], RN [address] [address] [facility] Laboratory Assistant 01/25/21 02/21/21 Cata Velazquez MD [address] [place] [address] Internal Medicine 10/11/22 documented as of this encounter
--- OUTSIDE RECORDS SUMMARY | 2024-10-26 08:43 | XMS_ITS | Clinical Summary ---
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 states some adhesive. Formaldehyde Stomach upset,Syncope,Dizzine ss High 10/14/2011 Kiwi Other (See comments) 10/14/2011 Tongue pain Latex Blisters,Rash High 09/08/2017 Monosodium Glutamate Itching Low 09/04/2024 MSG Prochlorperazine Itching,Rash Medium 09/08/2017 Ragweed Rhinitis Low 10/14/2011 Medications ondansetron (ZOFRAN) 4 mg tablet Take 1 tablet (4 mg total) by mouth every 8 (eight) hours as needed for nausea or vomiting rx#[id number] Active predniSONE (DELTASONE) 5 mg tablet Take 6 mg by mouth every morning crohn's Active rOPINIRole (REQUIP) 0.5 mg tabletIndicati ons:Restless Legs Syndrome Take 2 tablets (1 mg total) by mouth nightly 1 Active alcohol swabs (Alcohol Wipes) pads, medicated Use as directed. 100 each 1 Active blood glucose strip-disp meter kit Use as directed. 1 kit 1 Active lancets misc Use as directed up to 4 times a day. 100 each 1 1 Active insulin glargine (LANTUS, BASAGLAR, SEMGLEE) 100 unit/mL (3 mL) pen for injection Inject 50 Units under the skin nightly 3 mL 3 1 Active Additional Information Patient taking differently: 25 Unitssubcutaneous2 times daily, Indications: t2dm, Informant: Self, Reported on 09/04/2024 metFORMIN XR (GLUCOPHAGE XR) 500 mg 24 hr tabletIndicati ons:type 2 diabetes mellitus Take 1 tablet (500 mg total) by mouth 2 (two) times a day Active Ozempic 0.25 mg or 0.5 mg(2 mg/1.5 mL) pen injector injection Inject 0.5 mg under the skin once a week Will restart after EGD 09/17/[address] (CYMBALTA) 20 mg capsule Take 1 capsule (20 mg total) by mouth nightly pain 3 Active hydrocortisone 2.5 % cream Apply 1 Application topically 2 (two) times a day as needed for irritation or rash 3 Active gabapentin (NEURONTIN) 100 mg capsuleIndicat ions:Neuropath ic Pain Take 1 capsule (100 mg total) by mouth 3 (three) times a day 3 Active vit C/E/zinc/lutei n/zeaxanthin (OCUVITE EYE HEALTH ORAL) Take 1 tablet by mouth every morning supplement Active escitalopram (LEXAPRO) 5 mg tabletIndicati ons:Anxiety with Depression Take 1 tablet (5 mg total) by mouth nightly pain 5 Active oxyCODONE (ROXICODONE) 10 mg tablet Take 1 tablet (10 mg total) by mouth every 6 (six) hours as needed for pain Active clobetasoL (TEMOVATE) 0.05 % external solution Apply 1 Application topically as directed APPLY TO THE AFFECTED AREA(S) ONCE DAILY As needed 5 Active insulin lispro (HumaLOG, ADMELOG) 100 unit/mL pen for injectionIndic ations:type 2 diabetes mellitus Inject 25 Units under the skin as directed INJECT 25 UNITS SUBCUTANEOUSLY THREE TIMES DAILY Active clindamycin (CLEOCIN T) 1 % lotion Apply 1 Application topically 2 (two) times a day Skin condition 5 Active aspirin 81 mg enteric coated tablet Take 1 tablet (81 mg total) by mouth as needed for pain Active HAIR, SKIN AND NAILS, BIOTIN, ORAL Take 1 tablet/capsule by mouth every morning supplement Active UNABLE TO FIND Take 1 each by mouth every morning Med Name: Magnesium Potassium Calcium supplement Active cholecalcifero l, vitD3,/vit K2 (VITAMIN D3-VITAMIN K2 ORAL) Take 1 tablet/capsule by mouth every morning supplement Active albuterol HFA (PROVENTIL HFA,VENTOLIN HFA,PROAIR HFA) 90 mcg/actuation inhaler Inhale 2 puffs every 6 (six) hours as needed for wheezing Active Active Problems Problem Noted Date Diagnosed [...] (04/23/2018): Added automatically from request for surgery [id number] Crohn's disease with complication 03/28/2018 Overview (03/28/2018): Added automatically from request for surgery [id number] Moderate malnutrition 03/22/2018 Cutaneous abscess of back excluding buttocks 08/2017 Ventral hernia without obstruction or gangrene 1 05/14/2017 Overview (03/14/2018): Added automatically from request for surgery [id number] Crohn's disease of large intestine with fistula 02/08/2018 Overview (02/13/2018): Added automatically from request for surgery [id number] Nausea & vomiting 01/19/2018 Assessment & Plan [...] (10/16/2017 3:44 PM CDT): - Started Unasyn 10/16 - Ucx (10/13): Moderate mixed micro-organisms, including [...] home Symbicort, PRN albuterol 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 Now admitted to E wound, swelling - s/p STSG to LLE [...] Continue therapeutic Lovenox. PCP Dr. Paris in [place]. PA for Raina wants eliquis and follow up in office 2-3 days post d/c. The patient was started on Eliquis at discharge Assessment & Plan (09/16/2017 9:24 AM CDT): Admitted with LLE swelling and pain. 09/12 venous duplex revealed DVT IN THE LEFT COMMON FEMORAL, DISTAL FEMORAL, POPLITEAL, GASTROCNEMIUS, POSTERIOR TIBIAL, PERONEAL, AND SOLEAL VEINS. - Therapeutic Lovenox, OK to resume post-op Encounters Date Type Department Care Team Description 10/05/2024 Results Follow-Up [facility] [address] [facility] [address]th [place] [address] [place] [address] Trinity Burdick MD Transthoracic Echo (TTE) With Bubble Study 09/27/2024 4:30 PM CDT - 09/27/2024 11:59 PM CDT Hospital Encounter [facility] [address] [place] [address] Pre-operative exam Discharge Disposition: Discharge to home or self care 09/27/2024 3:00 PM CDT - 09/27/2024 11:59 PM CDT Hospital Encounter [facility] [place] [facility] [address] [facility] 8th [place] [address] Cirrhosis of liver without ascites, unspecified hepatic cirrhosis type (HCC); Shortness of breath; Valvular heart disease Discharge Disposition: Discharge to home or self care 09/18/2024 Orders Only [facility] Health Information Management [address] [place] [address] Scanning, Provider 09/12/2024 Telephone [facility] [address] [place] [address] [place] [address] [place] [address] Priscila Van, ADELINA 09/12/2024 Documentation [facility] [address] [place] [address] [place] [address] [place] [address] Loida Saldana RN 09/05/2024 Telephone [facility] [address] [place] [address] [place] [address] Priscila Van, ADELINA 09/04/2024 11:59 PM CDT Anesthesia Event [facility] [place] [facility] [address] [address] Gisel Del Cid NP 09/04/2024 3:30 PM CDT Pre-Admission Testing [facility] for Preoperative Assessment and Planning [facility] ([facility]) [address] [place] [id number] Preoperative testing (Primary Dx); Pre-operative exam 08/28/2024 Results Follow-Up [facility] [address] [place] [address] [place] [address] Trinity Burdick MD Vitamin D 25 hydroxy, IgG, IgA, Additional followed-up results: 19 08/26/2024 Telephone [facility] [address] [place] [address] [place] [address] Priscila Van, ADELINA 08/22/2024 10:20 AM CDT Lab [facility] ([facility]) [address] [place] [phone] Cirrhosis of liver without ascites, unspecified hepatic cirrhosis type (HCC) 08/22/2024 8:00 AM CDT Office Visit [facility] [address] [place] [address] [place] [address] Trinity Burdick MD Cirrhosis of liver without ascites, unspecified hepatic cirrhosis type (HCC) (Primary Dx) 08/22/2024 Telephone [facility] [address] [facility] 12th [place] [address] [place] [id number] Loida Saldana RN from Last 3 Months Immunizations Immunization Administration Dates Next Due Influenza, Trivalent, Preser vative Free, Intramuscular 03/07/2013 Influenza, Unspecified 02/15/2017 Pfizer SARS-CoV-2 Monovalent Vaccination (12+ Yrs) PURPLE 01/20/2021(Deferred: Other - Held per pt related to nausea. May take tomorrow.) Surgical History Surgery Date Site/Laterality Comments ABSCESS TUBE EXCHANGE 06/03/2015 N/A ABSCESS CATHETER INJECTION 07/17/2015 N/A IR INJECTION SINUS TRACT DIAGNOSTIC 05/20/2015 N/A ABSCESS TUBE EXCHANGE 05/20/2015 N/A ABSCESS TUBE EXCHANGE 05/06/2015 N/A ABSCESS CATHETER INJECTION 05/06/2015 N/A ABSCESS TUBE EXCHANGE 03/10/2015 N/A ABSCESS CATHETER INJECTION 03/10/2015 N/A ABSCESS TUBE EXCHANGE 01/19/2015 N/A ABSCESS CATHETER INJECTION 01/19/2015 N/A ABSCESS TUBE EXCHANGE 12/26/2014 N/A IR INJECTION SINUS TRACT DIAGNOSTIC 11/03/2014 N/A ABSCESS TUBE EXCHANGE 11/03/2014 N/A ABSCESS TUBE EXCHANGE 10/10/2014 N/A ABSCESS CATHETER INJECTION 10/10/2014 N/A IR INJECTION SINUS TRACT DIAGNOSTIC 09/19/2014 N/A ABSCESS TUBE EXCHANGE 09/19/2014 N/A ABSCESS TUBE EXCHANGE 09/13/2014 N/A ABSCESS CATHETER INJECTION 09/13/2014 N/A ABSCESS TUBE EXCHANGE 08/12/2014 N/A ABSCESS CATHETER INJECTION 08/12/2014 N/A ABSCESS TUBE EXCHANGE 07/25/2014 N/A ABSCESS TUBE EXCHANGE 07/09/2014 N/A ABSCESS CATHETER INJECTION 07/09/2014 N/A ABSCESS CATHETER INJECTION 07/03/2014 N/A ABSCESS CATHETER INJECTION 06/16/2014 N/A ABSCESS TUBE EXCHANGE 06/16/2014 N/A IR INJECTION SINUS TRACT DIAGNOSTIC 06/24/2014 N/A ABSCESS TUBE EXCHANGE 06/03/2014 N/A ABSCESS CATHETER INJECTION 05/30/2014 N/A ABSCESS CATHETER INJECTION 05/22/2014 N/A ABSCESS TUBE EXCHANGE 05/22/2014 N/A ABSCESS CATHETER INJECTION 05/02/2014 N/A US SOFT TISSUE ABSCESS DRAIN 04/23/2014 N/A ABSCESS CATHETER INJECTION 12/26/2014 N/A SKIN GRAFT SPLIT THICKNESS TRUNK 09/15/2017 Left left flank DEBRIDEMENT SKIN / SQ / MUSCLE OF TRUNK 07/06/2017 Left For NSTI of left flank/hip ILEOSTOMY 07/19/2017 Diverting End loop colostomy IMAGE GUIDED DRAINAGE PERITONEAL OR RETROPERITONEAL FLUID COLLECTION 11/16/2017 N/A CENTRAL LINE PLACEMENT > 5 YEARS 11/20/2017 N/A ABSCESS CATHETER INJECTION 12/01/2017 N/A GALLBLADDER SURGERY 04/17/2012 - 04/16/2013 HERNIA REPAIR 04/17/2017 - 04/16/2018 COLONOSCOPY 04/17/2012 - 04/16/2013 SECTION 04/17/1992 - 04/16/1993 ABSCESS CATHETER INJECTION 12/29/2017 N/A IMAGE GUIDED DRAINAGE PERITONEAL OR RETROPERITONEAL FLUID COLLECTION 03/20/2018 N/A OTHER SURGICAL HISTORY 05/04/2018 Laparoscopic lysis of adhesions, Conversion to open subtotal colectomy, Stoma revision, Takedown of colocutanous fistula, Flexible sigmoidoscopy, Repair of parastomal hernia, Repair of ventral hernia Medical History Medical History Date Comments Crohn disease (HCC) Adam-Danlos syndrome NAFLD (nonalcoholic fatty liver disease) Arthritis Asthma Ulcerative colitis (HCC) Crohn's disease (HCC) Asthma Arthritis Depression Anxiety Necrotizing fasciitis (HCC) Adam-Danlos syndrome Mitral valve prolapse Awareness under anesthesia 2004 pt re ports woke up during colonoscopy Postoperative delirium 2014 pt report s waking up wild after nec fasc surgery in 2017 required restraints PONV (postoperative nausea and vomiting) Zofran helps Family History Medical History Relation Name Comments Anesthesia problems Mother cardiac arrest in PACU, unknown cause, hip surgery for hip fracture. required emergency dialysis. was in shock. Diabetes Mother Family history of diabetes mellitus - (Added by TW Conv) Hyperlipidemia Mother Family histor y of hyperlipidemia - (Added by TW Conv) Hypertension Mother Family history of hypertension - (Added by TW Conv) Malig Hyperthermia Neg Hx Pseudochol deficiency Neg Hx Relation Name Status Comments Mother Alive Social History Tobacco Use Types Packs/Day Years Used Date Smoking Tobacco: Former Cigarettes 0.5 3 1 984 - 1987 Smokeless Tobacco: Never Tobacco Cessation:Counseling Given: Not Answered Alcohol Use Standard Drinks/Week Comments Yes 0 (1 standard drink = 0.6 oz pur e alcohol) holidays Social Connection and Isolat ion Panel [NHANES] Answer Date Recorded In a typical week, how many times do you talk on the phone with family, friends, or neighbors? More than three times a week 01/25/2021 How often do you get togethe r with friends or relatives? Three times a week 01/25/2021 How often do you attend chur or christianity services? More than 4 times per year 01/25/2021 Do you belong to any clubs o r organizations such as presybeterian groups, unions, fraternal or athletic groups, or school groups? No 01/25/2021 How often do you attend meet ings of the clubs or organizations you belong to? Never 01/25/2021 Are you , , di vorced, , never , or living with a partner? 01/25/2021 AUDIT-C Answer Date Recorded Q1: How often do you have a drink containing alcohol? Never 09/04/2024 Q2: How many drinks containi ng alcohol do you have on a typical day when you are drinking? Patient does not drink Q3: How often do you have si x or more drinks on one occasion? Never 09/04/2024 Overall Financial Resource Strain (CARDIA) Answe r Date Recorded How hard is it for you to pa y for the very basics like food, housing, medical care, and heating? Not very hard 01/25/2021 Hunger Vital Sign Answer Date Recorded Within the past 12 months, y ou worried that your food would run out before you got the money to buy more. Never true 01/26/20 21 Within the past 12 months, t he food you bought just didn't last and you didn't have money to get more. Never true 01/25/2021 PRAPARE - Transportation Answer Date Re corded In the past 12 months, has l ack of transportation kept you from medical appointments or from getting medications? No 01/15 In the past 12 months, has l ack of transportation kept you from meetings, work, or from getting things needed for daily living? No 01/25/2021 Housing Stability Vital Sign Answer Jorge e Recorded In the last 12 months, was t here a time when you were not able to pay the mortgage or rent on time? No 01/25/2021 In the last 12 months, how many places have you lived? 1 01/25/2021 In the last 12 months, was t here a time when you did not have a steady place to sleep or slept in a detention (including now)? No 01/25/2021 Personal Safety Answer Date Recorded Have you ever been in or are you currently in a harmful physical or emotional relationship or is someone making you feel afraid or unsafe? 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 Gender Identity Female 08/22/2024 7:58 AM CDT Sexual Orientation Straight 08/22/2024 7: 58 AM CDT Obstetrics History Last Filed Vital Signs Vital Sign Reading Time Taken Comments Blood Pressure 124/71 09/04/2024 4:45 PM CDT Pulse 110 09/04/2024 4:05 PM CDT Temperature 36.8 C (98.3 F) 08/22/2024 8:09 AM CDT Respiratory Rate 20 11/10/2022 5:55 PM CDT Oxygen Saturation 92% 09/04/2024 4:05 PM CDT Inhaled Oxygen Concentration - - Weight 89.8 kg (197 lb 15.6 oz) 09/04/2024 4:05 PM CDT Height 158.8 cm (5' 2.5) 09/04/2024 4:05 PM CDT Body Mass Index 35.63 09/04/2024 4:05 PM CDT Plan of Treatment Upcoming Encounters Date Type Department Care Team (Latest Contact Info) Description 11/22/2024 11:30 AM CDT Hospital Encounter [facility] [address] [address] Trinity Burdick MD [address] [place] [address] 11/22/2024 11:30 AM CDT - 11/22/2024 12:00 PM CDT Surgery [facility] [address] [address] Trinity Burdick MD [address] [place] [address] ESOPHAGOGASTRODUODENOSCOPY Scheduled Procedures Name Priority Associated Diagnoses Date/Ti me ESOPHAGOGASTRODUODENOSCOPY Other cirrhosis of liver (HCC) 11/22/2024 11:30 AM CDT Health Maintenance Due Date Last Done Comments Breast Cancer Screening-Mammogram 1965 Cervical Cancer Screening 1965 Depression Screening 1965 DTaP/Tdap/Td Vaccine (1 - Tdap) 1976 Regular Well Visit/Exam 18-64 07/12/1983 Pneumococcal vaccine <65 (1 of 2 - PCV) 1984 Zoster Vaccine (1 of 2) 07/12/2015 Colon Cancer Screening-Colonoscopy 05/16/20222012, 05/12/2012 Covid-19 Vaccine (3 - 2023-2 5 season) 2023 10/22/2020, 10/01/2020 Influenza Vaccine (#1) 2024 02/15/2017, 2012 Colon Cancer Screening-CT Colonography Discontinued 04/23/2014, 05/16/2012, 05/12/2012 Colon Cancer Screening-DNA Stool Discontinued 04/23/2014, 05/16/2012, 05/12/2012 Colon Cancer Screening-FIT Discontinued 04/23, 05/16/2012, 05/12/2012 Colon Cancer Screening-Sigmoidoscopy Discontinue d 04/23/2014, 05/16/2012, 05/12/2012 Hepatitis B Screening Completed 08/22/2024 Hepatitis C Screening Completed 08/22/2024 Procedures Procedure Name Priority Date/Time Associated Diagnosis Comments TRANSTHORACIC ECHO (TTE) COMPLETE W DOPPLER/CF W CONTRAST W BUBBLE Routine 09/27/2024 5:08 PM CDT Cirrhosis of liver without ascites, unspecified hepatic cirrhosis type (HCC) Shortness of breath Valvular heart disease XR CHEST PA LATERAL 2 VIEWS Schedule Routine, Read Routine (OP Routine) 09/27/2024 4:36 PM CDT Pre-operative exam SCAN - OTHER ORDERS 09/18/2024 EGFR Routine 09/04/2024 6:03 PM CDT Preoperative testing DIFFERENTIAL AUTO Routine 09/04/2024 6:0 3 PM CDT Preoperative testing PRO B-TYPE NATRIURETIC PEPTIDE Routine 09/04/2024 6:03 PM CDT Preoperative testing BASIC METABOLIC PANEL Routine 09/04/2024 6:03 PM CDT Preoperative testing CBC WITH AUTO DIFFERENTIAL Routine 09/04/2024 6:03 PM CDT Preoperative testing POCT HEMOGLOBIN A1C Routine 09/04/2024 4:30 PM CDT SMOOTH MUSCLE ANTIBODY, QUALITATIVE Routine 08/22/2024 10:01 AM CDT Cirrhosis of liver without ascites, unspecified hepatic cirrhosis type (HCC) TISSUE TRANSGLUTAMINASE, IGA Routine 08/22/2024 10:01 AM CDT Cirrhosis of liver without ascites, unspecified hepatic cirrhosis type (HCC) EGFR Routine 08/22/2024 10:01 AM CDT Cirrhosis of liver without ascites, unspecified hepatic cirrhosis type (HCC) DIFFERENTIAL AUTO Routine 08/22/2024 10: 01 AM CDT Cirrhosis of liver without ascites, unspecified hepatic cirrhosis type (HCC) [id number] PHENOTYPE Routine 08/22/2024 10:01 AM CDT Cirrhosis of liver without ascites, unspecified hepatic cirrhosis type (HCC) [id number], TUMOR MARKER Routine 08/22/2024 10:01 AM CDT Cirrhosis of liver without ascites, unspecified hepatic cirrhosis type (HCC) CHRISTOPH QUALITATIVE WITH REFLEX TO CHRISTOPH QUANTITATIVE Routine 08/22/2024 10:01 AM CDT Cirrhosis of liver without ascites, unspecified hepatic cirrhosis type (HCC) BILIRUBIN, DIRECT Routine 08/22/2024 10: 01 AM CDT Cirrhosis of liver without ascites, unspecified hepatic cirrhosis type (HCC) CBC WITH AUTO DIFFERENTIAL Routine 08/22/2024 10:01 AM CDT Cirrhosis of liver without ascites, unspecified hepatic cirrhosis type (HCC) CERULOPLASMIN Routine 08/22/2024 10:01 AM CDT Cirrhosis of liver without ascites, unspecified hepatic cirrhosis type (HCC) COMPREHENSIVE METABOLIC PANEL Routine 08/22/2024 10:01 AM CDT Cirrhosis of liver without ascites, unspecified hepatic cirrhosis type (HCC) FERRITIN Routine 08/22/2024 10:01 AM CDT Cirrhosis of liver without ascites, unspecified hepatic cirrhosis type (HCC) GAMMA GT Routine 08/22/2024 10:01 AM CDT Cirrhosis of liver without ascites, unspecified hepatic cirrhosis type (HCC) PROTIME-INR Routine 08/22/2024 10:01 AM CDT Cirrhosis of liver without ascites, unspecified hepatic cirrhosis type (HCC) IGA Routine 08/22/2024 10:01 AM CDT Cirrhosis of liver without ascites, unspecified hepatic cirrhosis type (HCC) IGG Routine 08/22/2024 10:01 AM CDT Cirrhosis of liver without ascites, unspecified hepatic cirrhosis type (HCC) VITAMIN D 25 HYDROXY Routine 08/22/2024 10:01 AM CDT Cirrhosis of liver without ascites, unspecified hepatic cirrhosis type (HCC) HEPATITIS A ANTIBODY, TOTAL Routine 08/22/2024 10:01 AM CDT Cirrhosis of liver without ascites, unspecified hepatic cirrhosis type (HCC) HEPATITIS B CORE ANTIBODY, TOTAL Routine 08/22/2024 10:01 AM CDT Cirrhosis of liver without ascites, unspecified hepatic cirrhosis type (HCC) HEPATITIS B SURFACE ANTIBODY (IMMUNE STATUS) Routine 08/22/2024 10:01 AM CDT Cirrhosis of liver without ascites, unspecified hepatic cirrhosis type (HCC) HEPATITIS B SURFACE ANTIGEN Routine 08/22/2024 10:01 AM CDT Cirrhosis of liver without ascites, unspecified hepatic cirrhosis type (HCC) HEPATITIS C ANTIBODY Routine 08/22/2024 10:01 AM CDT Cirrhosis of liver without ascites, unspecified hepatic cirrhosis type (HCC) FLEXIBLE SIGMOIDOSCOPY REPORT 04/23/2014 COLONOSCOPY REPORT 05/16/2012 from Last 3 Months or Most Recently Relevant to Health Maintenance Results * TRANSTHORACIC ECHO (TTE) COMPLETE W DOPPLER/CF W CONTRAST W BUBBLE (09/27/2024 5:08 PM CDT) EF Mod BP 67 % CONS SCIMAGE Anatomical Region Laterality Modality Ultrasound 09/27/2024 3:28 PM CDT Narrative 09/30/2024 6:[address] [facility] [place] [address] Transthoracic Echocardiographic Report Patient Name: TERRIE IRENE K : 1965 (59y 2m) Gender: F Study Date: 09/27/2024 03:28:46 PM Ht(Inch): 62 Wt(Lb): 197.09 BSA: 1.98 Blast Furnace Blower: Ayaka Jaeger RDCS Location: [facility] Order Provider: TRINITY BURDICK Heart Rate: 101 BMI: 36.04 BP: 133 / 40 Ref Provider: TRINITY BURDICK PROCEDURES: Echocardiographic Report: Transthoracic complete echo with strain imaging and contrast, 2D, spectral and tissue Doppler, color flow Doppler, M-mode. Additional Procedures: Agitated saline bubble study. Contrast: Contrast Enhancement was Employed: After initial imaging due to sub- optimal quality related to co-morbidity defined by patient's body habitus, due to suboptimal image quality with inadequate visualization of at least 2 of 16 LV wall segments in any view after initial imaging. Perflutren contrast was administered using the volume necessary to obtain adequate images and. 0.23 ml Definity Administered, (1.27 ml wasted) & NS Bubble Study. INDICATIONS: K74.60 Unspecified cirrhosis of liver, R06.02 Shortness of breath, and I38 Endocarditis, valve unspecified. CONCLUSIONS: 1. Normal left ventricular size based on volume index. Concentric LV remodeling. Normal left ventricular systolic function. The Ejection Fraction (Maier's) is measured at 67 %. The average global longitudinal strain is normal. 2. Normal right ventricular size. Normal right ventricular systolic function. 3. Agitated saline bubble study is late positive, suggestive of intrapulmonary shunting. 4. The estimated right ventricular systolic pressure is 20-25 mmHg. ATTESTATION: I have personally reviewed and interpreted this study without fellow or resident. - DISCLAIMER: The study images and the final report will be retained in the patient chart by the Echo Laboratory for the legally required time period. This chart constitutes the legal record of any testing performed. FINDINGS: Left Ventricle: Normal left ventricular size based on volume index. Concentric LV remodeling. Normal left ventricular systolic function. The Ejection Fraction (Maier's) is measured at 67 %. The average global longitudinal strain is normal. The LV global strain is: -18.3 %. Right Ventricle: Normal right ventricular size. Normal right ventricular systolic function. Left Atrium: The left atrium is normal in size. Right Atrium: The right atrium is normal in size. Atrial Septum: Agitated saline bubble study is late positive, suggestive of intrapulmonary shunting. Mitral Valve: Normal Mitral Valve Structure. Moderate mitral annular calcification. Aortic Valve: Normal trileaflet aortic valve. No aortic regurgitation. No aortic valve stenosis. Aortic valve dimensionless index is 0.83. Tricuspid Valve: Normal Tricuspid valve structure. Mild tricuspid regurgitation. The estimated right ventricular systolic pressure is 20-25 mmHg. Pulmonic Valve: Normal pulmonic valve structure. No pulmonic regurgitation. No pulmonic valve stenosis present. Pericardium: Normal pericardium without pericardial effusion. Aorta: Mild aortic root dilation at sinuses of Valsalva. Normal aortic root size when indexed. The ascending aorta is normal in size when indexed. PASP: Normal estimated pulmonary artery systolic pressure. Rhythm: The rhythm during the study was sinus tachycardia. MEASUREMENTS: 2D/MM Value Range Doppler Value Range LVIDd 2D 3.91 cm [ 3.80 - 5.20 ] AV Peak George 1.8 m/s [ 1.0 - 1.7 ] LVIDs 2D 2.60 cm [ 2.20 - 3.50 ] AV Peak PG 12.96 mmHg IVSd 2D 1.06 cm [ 0.60 - 0.90 ] AV Mean PG 8 mmHg LVPWd 2D 1.09 cm [ 0.60 - 0.90 ] AV VTI 32.0 cm LV Thickness Ratio 1.0 LVOT Peak George 1.7 m/s [ 0.7 - 1.1 ] LV FS 2D 33.56 % [ 27.00 - 45.00 ] LVOT Peak PG 11.56 mmHg LV Mass 2D 137.94 g LVOT Mean PG 7 mmHg LV Mass Index 2D 69.67 g/m2 LVOT VTI 26.6 cm RWT 0.56 LVOT Diam 2.04 cm EDV Mod BP 91.68 ml [ 46.00 - 106.00 ] ANGELIQUE VTI 2.72 cm2 LV EDV Index 46.30 ml/m2 LVOT/AV VTI 0.83 - Dimensionless index (DVI) ESV Mod BP 30.02 ml [ 14.00 - 42.00 ] MV E Peak George 0.6 m/s [ 0.6 - 1.3 ] EF Mod BP 67 % [ 54 - 74 ] MV A Peak George 0.8 m/s [ 1.0 - 1.2 ] LV GLS -18.3 % [ -25.0 - -18.0 ] MV E/A 0.8 ratio [ 0.8 - 1.5 ] LA Length 4C 5.34 cm MV Decel Time 158.25 msec [ 104.00 - 258.00 ] LA Length 2C 4.93 cm Med E` George 10.3 cm/sec [ 8.0 - 25.0 ] LA Volume BP 40.59 ml Lat E` George 11.9 cm/sec [ 10.0 - 25.0 ] LA Volume Index 20.50 ml/m2 [ 16.00 - 34.00 ] Average E/E` 5.41 RV Base Dimen 2D 3.3 cm [ 2.5 - 4.2 ] RV S` 19.87 cm/sec TAPSE 2.70 cm [ 1.71 - 5.00 ] TR Peak George 2.3 m/s [ 1.0 - 2.8 ] RA Volume 18.08 ml TR Peak PG 21.2 mmHg RA Volume Index 9.13 ml/m2 PV Peak George 1.0 m/s [ 0.4 - 0.8 ] IVC Diam 1.51 cm PV Peak PG 4.00 mmHg AoR Diam 2D 3.61 cm [ 2.70 - 3.70 ] PI ED George 81.66 m/sec Ao Root Index 1.82 cm/m2 [ 1.00 - 2.00 ] Asc Ao Diam 2D 3.34 cm Asc Ao Index 1.69 cm/m2 Electronically Signed By: Volodymyr Ny MD 09/30/2024 6:57:59 AM CDT Procedure Note Volodymyr Ny MD - 09/30/[address] [facility] Cardiac [place] [address] Transthoracic Echocardiographic Report Patient Name: TERRIE IRENE K : 1965 (59y 2m) Gender: F Study Date: 09/27/2024 03:28:46 PM Ht(Inch): 62 Wt(Lb): 197.09 BSA: 1.98 Blast Furnace Blower: Ayaka Jaeger RDCS Location: [facility] Order Provider:TRINITY BURDICK Heart Rate: 101 BMI: 36.04 BP: 133 / 40 Ref Provider:TRINITY BURDICK PROCEDURES: Echocardiographic Report: Transthoracic complete echo with strain imagingand contrast, 2D, spectral and tissue Doppler, color flow Doppler, M-mode. Additional Procedures: Agitated saline bubble study. Contrast: Contrast Enhancement was Employed: After initial imaging due tosub- optimal quality related to co-morbidity defined by patient's body habitus, due tosuboptimal image quality with inadequate visualization of at least 2 of 16 LV wallsegments in any view after initial imaging. Perflutren contrast was administered using thevolume necessary to obtain adequate images and. 0.23 ml Definity Administered,(1.27 ml wasted) & NS Bubble Study. INDICATIONS: K74.60 Unspecified cirrhosis of liver, R06.02 Shortness of breath, and [id number], valve unspecified. CONCLUSIONS: 1. Normal left ventricular size based on volume index. Concentric LVremodeling. Normal left ventricular systolic function. The Ejection Fraction (Maier's) ismeasured at 67 %. The average global longitudinal strain is normal. 2. Normal right ventricular size. Normal right ventricular systolicfunction. 3. Agitated saline bubble study is late positive, suggestive ofintrapulmonary shunting. 4. The estimated right ventricular systolic pressure is 20-25 mmHg. ATTESTATION: I have personally reviewed and interpreted this study without fellow orresident. - DISCLAIMER: The study images and the final report will be retained in the patientchart by the Echo Laboratory for the legally required time period. This chart constitutesthe legal record of any testing performed. FINDINGS: Left Ventricle: Normal left ventricular size based on volume index.Concentric LV remodeling. Normal left ventricular systolic function. The EjectionFraction (Maier's) is measured at 67 %. The average global longitudinal strain is normal. TheLV global strain is: -18.3 %. Right Ventricle: Normal right ventricular size. Normal right ventricularsystolic function. Left Atrium: The left atrium is normal in size. Right Atrium: The right atrium is normal in size. Atrial Septum: Agitated saline bubble study is late positive, suggestiveof intrapulmonary shunting. Mitral Valve: Normal Mitral Valve Structure. Moderate mitral annularcalcification. Aortic Valve: Normal trileaflet aortic valve. No aortic regurgitation. Noaortic valve stenosis. Aortic valve dimensionless index is 0.83. Tricuspid Valve: Normal Tricuspid valve structure. Mild tricuspidregurgitation. The estimated right ventricular systolic pressure is 20-25 mmHg. Pulmonic Valve: Normal pulmonic valve structure. No pulmonicregurgitation. No pulmonic valve stenosis present. Pericardium: Normal pericardium without pericardial effusion. Aorta: Mild aortic root dilation at sinuses of Valsalva. Normal aorticroot size when indexed. The ascending aorta is normal in size when indexed. PASP: Normal estimated pulmonary artery systolic pressure. Rhythm: The rhythm during the study was sinus tachycardia. MEASUREMENTS: 2D/MM Value Range DopplerValue Range LVIDd 2D 3.91 cm [ 3.80 - 5.20 ] AV Peak Vel1.8 m/s [ 1.0 - 1.7 ] LVIDs 2D 2.60 cm [ 2.20 - 3.50 ] AV Peak PG12.96 mmHg IVSd 2D 1.06 cm [ 0.60 - 0.90 ] AV Mean PG8 mmHg LVPWd 2D 1.09 cm [ 0.60 - 0.90 ] AV VTI32.0 cm LV Thickness Ratio 1.0 LVOT Peak Vel1.7 m/s [ 0.7 - 1.1 ] LV FS 2D 33.56 % [ 27.00 - 45.00 ] LVOT Peak PG11.56 mmHg LV Mass 2D 137.94 g LVOT Mean PG7 mmHg LV Mass Index 2D 69.67 g/m2 LVOT VTI26.6 cm RWT 0.56 LVOT Diam2.04 cm EDV Mod BP 91.68 ml [ 46.00 - 106.00 ] ANGELIQUE VTI2.72 cm2 LV EDV Index 46.30 ml/m2 LVOT/AV VTI0.83 - Dimensionless index (DVI) ESV Mod BP 30.02 ml [ 14.00 - 42.00 ] MV E Peak Vel0.6 m/s [ 0.6 - 1.3 ] EF Mod BP 67 % [ 54 - 74 ] MV A Peak Vel0.8 m/s [ 1.0 - 1.2 ] LV GLS -18.3 % [ -25.0 - -18.0 ] MV E/A0.8 ratio [ 0.8 - 1.5 ] LA Length 4C 5.34 cm MV Decel Fgfh970.25 msec [ 104.00 - 258.00 ] LA Length 2C 4.93 cm Med E` Vel10.3 cm/sec [ 8.0 - 25.0 ] LA Volume BP 40.59 ml Lat E` Vel11.9 cm/sec [ 10.0 - 25.0 ] LA Volume Index 20.50 ml/m2 [ 16.00 - 34.00 ] Average E/E`5.41 RV Base Dimen 2D 3.3 cm [ 2.5 - 4.2 ] RV S`19.87 cm/sec TAPSE 2.70 cm [ 1.71 - 5.00 ] TR Peak Vel2.3 m/s [ 1.0 - 2.8 ] RA Volume 18.08 ml TR Peak PG21.2 mmHg RA Volume Index 9.13 ml/m2 PV Peak Vel1.0 m/s [ 0.4 - 0.8 ] IVC Diam 1.51 cm PV Peak PG4.00 mmHg AoR Diam 2D 3.61 cm [ 2.70 - 3.70 ] PI ED Vel81.66 m/sec Ao Root Index 1.82 cm/m2 [ 1.00 - 2.00 ] Asc Ao Diam 2D3.34 cm Asc Ao Index1.69 cm/m2 Electronically Signed By: Volodymyr Ny MD 09/30/2024 6:57:59 AM CDT Trinity Burdick MD CV ECHO PROCEDURES F inal Result * XR Chest PA Lateral 2 Views (09/27/2024 4:36 PM CDT) Anatomical Region Laterality Modality Body, Chest N/A Computed Radiogr aphy 09/27/2024 4:38 PM CDT Impressions 09/27/2024 4:38 PM CDT Comparison to 01/19/2021. The heart and mediastinum are unchanged. There is no pleural effusion. There is no pneumothorax. The lungs are clear. Electronically signed by: Jason Randall M.D. Narrative 09/27/2024 4:38 PM CDT EXAMINATION: 2 view chest radiograph Procedure Note Jason Randall MD - 09/27/2024 EXAMINATION: 2 view chest radiograph IMPRESSION: Comparison to 01/19/2021. The heart and mediastinum are unchanged. There is no pleural effusion. There is no pneumothorax. The lungs are clear. Electronically signed by: Jason Randall M.D. Stephenie Mathews NP IMG XR PROCEDURES Fi nal Result * SCAN - OTHER ORDERS (09/18/2024) Provider Scanning Final Result * (ABNORMAL) eGFR (09/04/2024 6:03 PM CDT) eGFR 43(L) >=60 mL/min/1. 73 m2 Comment: Interpretive Data Reference Interval Normal >/= 90 mL/min/1.73m2 Mildly decreased* 60 - 89 mL/min/1.73m2 Mildly to moderately decreased 45 - 59 mL/min/1.73m2 Moderately to severely decreased 30 - 44 mL/min/1.73m2 Severely decreased 15 - 29 mL/min/1.73m2 Kidney Failure < 15 mL/min/1.73m2 *Relative to young adult level Estimated glomerular filtration rate is determined by the 2020 CKD-EPI equation recommended by the National Kidney Foundation (A Unifying Approach to GFR Estimation: Recommendations of the NKF-ASK Task Force on Reassessing the Inclusion of Race in Diagnosing Kidney Disease, JASN 2021). The CKD-EPI equation should not be used for patients with unstable renal function and has not been validated in children and those over 70. Current interpretive data was last reviewed 2021. Blood 09/04/2024 6:03 PM CDT 09/04/2024 6:16 PM CDT us Syeda Spears EPIC INTERFACE ANALYST LAB BLOOD ORDERABLES Final Re sult [facility] [place] [address] * (ABNORMAL) Differential, auto (09/04/2024 6:03 PM CDT) Neutrophil abs 7.17(H) 1.50 - 6.50 K/cumm Imm gran abs 0.06 0.00 - 0.10 K/cumm [facility] Lymphocyte abs 0.90 0.80 - 3.30 K/cumm [facility] Monocyte abs 0.67 0.20 - 0.80 K/cumm [facility] Eosinophil abs 0.20 0.00 - 0.50 K/cumm [facility] Basophil abs 0.13(H) 0.00 - 0.10 K/cumm [facility] Neutrophil pct 78.5 % [facility] Comment: Interpretive Data Percent cell count reference ranges are not reported, since discordance with absolute values may lead to misinterpretation of CBC data. Current Interpretive Data was last revised on 2017. Imm gran pct 0.7 % [facility] Comment: Interpretive Data Percent cell count reference ranges are not reported, since discordance with absolute values may lead to misinterpretation of CBC data. Current Interpretive Data was last revised on 2017. Lymphocyte pct 9.9 % [facility] Comment: Interpretive Data Percent cell count reference ranges are not reported, since discordance with absolute values may lead to misinterpretation of CBC data. Current Interpretive Data was last revised on 2017. Monocyte pct 7.3 % [facility] Comment: Interpretive Data Percent cell count reference ranges are not reported, since discordance with absolute values may lead to misinterpretation of CBC data. Current Interpretive Data was last revised on 2017. Eosinophil pct 2.2 % [facility] Comment: Interpretive Data Percent cell count reference ranges are not reported, since discordance with absolute values may lead to misinterpretation of CBC data. Current Interpretive Data was last revised on 2017. Basophil pct 1.4 % [facility] Comment: Interpretive Data Percent cell count reference ranges are not reported, since discordance with absolute values may lead to misinterpretation of CBC data. Current Interpretive Data was last revised on 2017. Blood 09/04/2024 6:03 PM CDT 09/04/2024 6:16 PM CDT us Syeda Spears EPIC INTERFACE ANALYST LAB BLOOD ORDERABLES Final Re sult [facility] [place] [address] * Pro B-type natriuretic peptide (09/04/2024 6:03 PM CDT) NT-proBNP <50 <=300 pg/mL Comment: Interpretive Comments: A. Dyspnea in Acute Care Setting All Ages: < 300 pg/ml, acute heart failure unlikely. < 50 yrs: 300 - 450 pg/ml, further investigation warranted. > 450 pg/ml, acute heart failure likely. 50 - 74 yrs: 300 - 900 pg/ml, further investigation warranted. > 900 pg/ml, acute heart failure likely . > or = 75 yrs: 450 - 1800 pg/ml, further investigation warranted. > 1800 pg/ml, acute heart failure likely. B. Non-acute Setting < 75 yrs < 125 pg/ml, rules out heart failure. > or = 125 pg/ml, further investigation warranted. > or = 75 yrs < 450 pg/ml, rules out heart failure. > or = 450 pg/ml, further investigation warranted. - Knowledge of each individual patient's NT-proBNP range may be more useful than using similar cut-points for every patient. Please note that marked elevations in NT-proBNP levels may be observed in state other than Left Ventricular Congestive Failure, including: acute coronary syndromes, right heart strain/failure (including pulmonary embolism and cor pulmonale), critical illness, renal failure, as well as advanced age. - References: 1. Linda VILLAFUERTE et.al. Eur Heart J. 2006:27:330-337. 2. Irena MANZANARES, Rosy NEWBERRY. J. AM Barrera Cardiol: Cardiovasc Imag. 2009;2: 216- 225. Interpretive Data Last Revised Date: 2017. Blood 09/04/2024 6:03 PM CDT 09/04/2024 6:16 PM CDT Syeda Spears EPIC INTERFACE ANALYST LAB BLOOD ORDERABLES Final Re sult [facility] [place] [address] * (ABNORMAL) CBC with auto differential (09/04/2024 6:03 PM CDT) WBC 9.13 3.80 - 9.90 K/cumm Hgb 12.2 11.9 - 15.5 g/dL [facility] Hct 37.9 35.6 - 45.5 % [facility] Plt 193 150 - 400 K/cumm [facility] MPV 10.6 9.1 - 12.3 fL [facility] RBC 3.83(L) 3.90 - 5.20 M/cumm [facility] MCV 99.0(H) 81.3 - 96.4 fL [facility] MCH 31.9 27.1 - 33.3 pg [facility] MCHC 32.2(L) 32.3 - 35.7 g/dL [facility] RDW CV 15.0(H) 11.1 - 14.9 % [facility] RDW SD 54.5(H) 35.7 - 48.1 fL [facility] NRBC abs 0.00 0.00 - 0.01 K/cumm [facility] Blood 09/04/2024 6:03 PM CDT 09/04/2024 6:16 PM CDT Syeda Spears EPIC INTERFACE ANALYST LAB BLOOD ORDERABLES Final [facility] [place] [address] * (ABNORMAL) Basic metabolic panel (09/04/2024 6:03 PM CDT) Pathologist [facility] Sodium 133(L) 135 - 145 mmol/L Potassium, pl 4.1 3.3 - 4.9 mmol/L [facility] Chloride 100 97 - 110 mmol/L [facility] CO2 23 22 - 32 mmol/L [facility] Anion gap 10 2 - 15 mmol/L [facility] BUN 21 6 - 25 mg/dL [facility] Creatinine 1.41(H) 0.60 - 1.10 mg/dL [facility] Glucose 394(H) 70 - 199 mg/dL [facility] Comment: Interpretive Data Fasting glucose >/= 126 mg/dl is diagnostic for diabetes. Fasting is defined as no caloric intake for at least 8 hours. Fasting glucose between 100 mg/dl to 125 mg/dl is diagnostic of prediabetes. In a patient with classic symptoms of hyperglycemia or hyperglycemic crisis, a random glucose >/= 200 mg/dl is diagnostic for diabetes. In the absence of unequivocal hyperglycemia, results should be confirmed by repeat testing. The classification and Diagnosis of Diabetes Diabetes Care 202; 46: S19-S40. Current interpretive data was last revised 2022. Calcium 8.9 8.5 - 10.3 mg/dL [facility] Blood 09/04/2024 6:0 3 PM CDT 09/04/2024 6:16 PM CDT Syeda Spears EPIC INTERFACE ANALYST LAB BLOOD ORDERABLES Final Re sult Performing Organization Address City/[facility] Co de Phone Number [facility] [place] [address] * (ABNORMAL) POCT hemoglobin A1c (09/04/2024 4:30 PM CDT) Hgb A1C, POC 10.7(H) 4.0 - 5.6 % Est Average Gluc POC 260 mg/dL [facility] Comment: The ADA recommends reporting an estimated Average Glucose (eAG) with all Hemoglobin A1c results using the equation derived from a study of 507 normal and diabetic adults. Minority populations were underrepresented and children were not included. (Diabetes Care 31:7004-3155, 2008). The eAG is not equivalent to a fasting glucose. Blood 09/04/2024 4:30 PM CDT 09/04/2024 4:30 PM CDT us Notinfile Unknown POINT OF CARE TEST ORDERABLES Final Result Performing Organization Address [facility] Co de Phone Number [facility] [place] [address] * CHRISTOPH ab ql w/rflx to CHRISTOPH qn (08/22/2024 10:01 AM CDT) CHRISTOPH Negative Comment: Interpretive Data Normal range for CHRISTOPH Qualitative Antibody = Negative. 1. CHRISTOPH is performed using indirect immunofluorescence against HEp-2 cells 2. CHRISTOPH titers are performed on all positive qualitative results. 3. A significantly positive CHRISTOPH result is defined as a positive nuclear fluorescence at a titer of 1:80 or greater. 4. 15% of normal people above age 65 have significantly positive CHRISTOPH results. 5% or less of normal people age 65 or under have significantly positive CHRISTOPH results. Current interpretive data was last revised on 2019. Blood 08/22/2024 10:0 1 AM CDT 08/22/2024 10:54 AM CDT us Trinity Burdick MD LAB BLOOD ORDERABLES Final Result Performing Organization Address [facility] Co de Phone Number [facility] Department [place] [address] * (ABNORMAL) eGFR (08/22/2024 10:01 AM CDT) eGFR 42(L) >=60 mL/min/1. 73 m2 Comment: Interpretive Data Reference Interval Normal >/= 90 mL/min/1.73m2 Mildly decreased* 60 - 89 mL/min/1.73m2 Mildly to moderately decreased 45 - 59 mL/min/1.73m2 Moderately to severely decreased 30 - 44 mL/min/1.73m2 Severely decreased 15 - 29 mL/min/1.73m2 Kidney Failure < 15 mL/min/1.73m2 *Relative to young adult level Estimated glomerular filtration rate is determined by the 2020 CKD-EPI equation recommended by the National Kidney Foundation (A Unifying Approach to GFR Estimation: Recommendations of the NKF-ASK Task Force on Reassessing the Inclusion of Race in Diagnosing Kidney Disease, JASN 2020). The CKD-EPI equation should not be used for patients with unstable renal function and has not been validated in children and those over 70. Current interpretive data was last reviewed 2021. Blood 08/22/2024 10:0 1 AM CDT 08/22/2024 11:20 AM CDT Trinity Burdick MD LAB BLOOD ORDERABLES Final Result [facility] [place] [address] * (ABNORMAL) Differential, auto (08/22/2024 10:01 AM CDT) Neutrophil abs 7.51(H) 1.50 - 6.50 K/cumm Imm gran abs 0.04 0.00 - 0.10 K/cumm [facility] Lymphocyte abs 0.63(L) 0.80 - 3.30 K/cumm [facility] Monocyte abs 0.53 0.20 - 0.80 K/cumm [facility] Eosinophil abs 0.18 0.00 - 0.50 K/cumm [facility] Basophil abs 0.13(H) 0.00 - 0.10 K/cumm [facility] Neutrophil pct 83.3 % [facility] Comment: Interpretive Data Percent cell count reference ranges are not reported, since discordance with absolute values may lead to misinterpretation of CBC data. Current Interpretive Data was last revised on 2017. Imm gran pct 0.4 % [facility] Comment: Interpretive Data Percent cell count reference ranges are not reported, since discordance with absolute values may lead to misinterpretation of CBC data. Current Interpretive Data was last revised on 2017. Lymphocyte pct 7.0 % [facility] Comment: Interpretive Data Percent cell count reference ranges are not reported, since discordance with absolute values may lead to misinterpretation of CBC data. Current Interpretive Data was last revised on 2017. Monocyte pct 5.9 % [facility] Comment: Interpretive Data Percent cell count reference ranges are not reported, since discordance with absolute values may lead to misinterpretation of CBC data. Current Interpretive Data was last revised on 2017. Eosinophil pct 2.0 % [facility] Comment: Interpretive Data Percent cell count reference ranges are not reported, since discordance with absolute values may lead to misinterpretation of CBC data. Current Interpretive Data was last revised on 2017. Basophil pct 1.4 % [facility] Comment: Interpretive Data Percent cell count reference ranges are not reported, since discordance with absolute values may lead to misinterpretation of CBC data. Current Interpretive Data was last revised on 2017. Blood 08/22/2024 10:0 1 AM CDT 08/22/2024 10:57 AM CDT us Trinity Burdick MD LAB BLOOD ORDERABLES Final Result Performing Organization Address [facility] Co de Phone Number [facility] Department [place] [address] * Smooth muscle antibody, qualitative (08/22/2024 10:01 AM CDT) Anti-smooth muscle Negative Negative Blood 08/22/2024 10:0 1 AM CDT 08/22/2024 10:54 AM CDT us Trinity Burdick MD LAB BLOOD ORDERABLES Final Result Performing Organization Address [facility] Co de Phone Number [facility] [place] [address] * Tjsco-1-nnuvhgbfwja phenotype (08/22/2024 10:01 AM CDT) Pathologist [facility] alpha-1 antitrypsin 180 100 - 190 mg/dL [facility] Comment: ADDITIONAL INFORMATION Method: Nephelometry Test Performed by: [facility] [address] [place] [address] Identity Management Consultant: Vance Martinez Ph.D.; CLIA# [id number] alpha-1 antitrypsin phenotype MM bands [facility] Comment: A single M isoform is detected. In the context of a normal meviu-8-xmhcvrmpbls concentration, this is consistent with an MM phenotype. ADDITIONAL INFORMATION Method: Isoelectric Focusing, This assay identifies the phenotype of the circulating pphmm-2-ekhxpgbrryp (A1A) protein. If the patient is on replacement therapy or has been recently transfused, the phenotype will detect patient and replacement or transfused plasma A1A protein. This test also cannot detect a null allele which could be responsible for an A1A deficiency. Blood 08/22/2024 10:0 1 AM CDT 08/22/2024 11:43 AM CDT us Trinity Burdick MD LAB BLOOD ORDERABLES Final Result [facility] [place] [address] [place] ref Lab * (ABNORMAL) CBC with auto differential (08/22/2024 10:01 AM CDT) Pathologist [facility] WBC 9.02 3.80 - 9.90 K/cumm Hgb 12.5 11.9 - 15.5 g/dL [facility] Hct 39.0 35.6 - 45.5 % [facility] Plt 137(L) 150 - 400 K/cumm [facility] MPV 10.6 9.1 - 12.3 fL [facility] RBC 3.82(L) 3.90 - 5.20 M/cumm [facility] MCV 102.1(H) 81.3 - 96.4 fL [facility] MCH 32.7 27.1 - 33.3 pg [facility] MCHC 32.1(L) 32.3 - 35.7 g/dL [facility] RDW CV 14.9 11.1 - 14.9 % [facility] RDW SD 56.2(H) 35.7 - 48.1 fL [facility] NRBC abs 0.00 0.00 - 0.01 K/cumm [facility] Blood 08/22/2024 10:0 1 AM CDT 08/22/2024 10:57 AM CDT Trinity Burdick MD LAB BLOOD ORDERABLES Final Result Performing Organization Address City/[facility]/ZIP Co de Phone Number [facility] [place] [employer] [place] [address] * Hepatitis C antibody Blood (08/22/2024 10:01 AM CDT) Hep C Ab Nonreactive Nonreactive Comment:Antibodies to HCV no t detected. Does NOT exclude the possibility of recent exposure to HCV. Current interpretive data was last revised on 21 Blood 08/22/2024 10:0 1 AM CDT 08/22/2024 10:57 AM CDT Trinity Burdick MD LAB MICROBIOLOGY - G ENERAL ORDERABLES Final Result [facility] [place] [employer] [place] [address] * Hepatitis A antibody, total Blood (08/22/2024 10:01 AM CDT) Hep A total Nonreactive Nonreactive Blood 08/22/2024 10:0 1 AM CDT 08/22/2024 10:57 AM CDT Trinity Burdick MD LAB MICROBIOLOGY - G ENERAL ORDERABLES Final Result Performing Organization Address [facility] Co de Phone Number [facility] [place] [employer] [place] [address] * Tissue transglutaminase IgA (TGG-IgA Ab) (08/22/2024 10:01 AM CDT) [facility] TTG ab, IgA <0.5 <=14.9 units/mL Comment: Interpretive data Negative: <15 units/mL Positive: > or equal to 15 units/mL Current interpretive data was last revised on 2016. Blood 08/22/2024 10:0 1 AM CDT 08/22/2024 10:54 AM CDT Trinity Burdick MD LAB BLOOD ORDERABLES Final Result Performing Organization Address [facility] de Phone Number [facility] [place] [employer] [place] [address] * Ceruloplasmin (08/22/2024 10:01 AM CDT) [facility] Ceruloplasmin 26.4 16.0 - 45.0 mg/dL Blood 08/22/2024 10:0 1 AM CDT 08/22/2024 11:20 AM CDT us Trinity Burdick MD LAB BLOOD ORDERABLES Final Result Performing Organization Address [facility] Co de Phone Number [facility] [place] [employer] [place] [address] * [id number], Tumor Marker (08/22/2024 10:01 AM CDT) alpha Fetoprotein 3.6 <=8.3 ng/mL Comment: Interpretive Data The Renetta AFP assay procedure was used. Results from different manufacturers or methods may not be comparable. Serial testing should be performed using the same method. 0-1 month. AFP concentrations may reach or exceed 100,000 ng/mL after depending on gestational age and weight. 1-3 months 50 1000 ng/ml 3-6 months 10 500 ng/ml 6-12 months 3.0 100 ng/ml >1 year 0.0 8.3 ng/ml References Tsuchishanique Y. et al. J. Ped Surg 1978;13:155-156 Disha Varner. et al. Clin Chem Lab Med 2018;57:783-797 Afua Pak et al. Clin Chem 2014;[id number]. Current interpretive data was last revised 2021. Blood 08/22/2024 10:0 1 AM CDT 08/22/2024 11:20 AM CDT Trinity Burdick MD LAB BLOOD ORDERABLES Final Result Performing Organization Address City/[facility]/ZIP Co de Phone Number [facility] [place] [employer] [place] [address] * Hepatitis B core antibody, total Blood (08/22/2024 10:01 AM CDT) Hep B core IgG/IgM Nonreactive Nonreactive Blood 08/22/2024 10:0 1 AM CDT 08/22/2024 10:57 AM CDT Trinity Burdick MD LAB MICROBIOLOGY - G ENERAL ORDERABLES Final Result Performing Organization Address City/[facility]/ZIP Co de Phone Number [facility] [place] [address] * Vitamin D 25 hydroxy (08/22/2024 10:01 AM CDT) Vitamin D 25-OH 58 30 - 80 ng/mL Blood 08/22/2024 10:0 1 AM CDT 08/22/2024 11:20 AM CDT Trinity Burdick MD LAB BLOOD ORDERABLES Final Result Performing Organization Address City/[facility] Co de Phone Number [facility] [place] [employer] [place] [address] * Hepatitis B surface antibody (immune status) Blood (08/22/2024 10:01 AM CDT) Pathologist [facility] HBsAb (immune status) Nonreactive Comment:This result is consi stent with a lack of immunity to Hepatitis B Virus when used in the setting of routine screening. Current interpretative data was last revised on 21 Blood 08/22/2024 10:0 1 AM CDT 08/22/2024 10:57 AM CDT Trinity Burdick MD LAB MICROBIOLOGY - G ENERAL ORDERABLES Final Result Performing Organization Address [facility] de Phone Number [facility] [place] [employer] [place] [address] * Hepatitis B Surface Antigen Blood (08/22/2024 10:01 AM CDT) Pathologist [facility] HepBsAg Nonreactive Nonreactive Blood 08/22/2024 10:0 1 AM CDT 08/22/2024 10:57 AM CDT Trinity Burdick MD LAB MICROBIOLOGY - G ENERAL ORDERABLES Final Result Performing Organization Address [facility] Co de Phone Number [facility] [place] [address] * Protime-INR (08/22/2024 10:01 AM CDT) PT 12.0 9.7 - 13.0 sec INR 1.11 0.90 - 1.20 [facility] Comment: Interpretive data Oral anticoagulant therapeutic ranges: Venous thromboembolism prophylaxis or treatment: 2.0-3.0 CARDIOLOGY Standard range: 2.0-3.0 High-intensity range: 2.5-3.5 Refer to indication-specific guidelines for appropriate target ranges for prosthetic heart valve replacement. Current interpretive data was last revised on 2019. Blood 08/22/2024 10:0 1 AM CDT 08/22/2024 10:55 AM CDT us Trinity Burdick MD LAB BLOOD ORDERABLES Final Result Performing Organization Address [facility] de Phone Number [facility] [place] [address] * (ABNORMAL) Gamma GT (08/22/2024 10:01 AM CDT) GGT 162(H) 5 - 35 Units/L Blood 08/22/2024 10:0 1 AM CDT 08/22/2024 11:20 AM CDT us Trinity Burdick MD LAB BLOOD ORDERABLES Final Result Performing Organization Address [facility] de Phone Number [facility] [place] [address] * (ABNORMAL) IgA (08/22/2024 10:01 AM CDT) Immunoglobulin A 710(H) 70 - 400 mg/dL Blood 08/22/2024 10:0 1 AM CDT 08/22/2024 11:20 AM CDT us Trinity Burdick MD LAB BLOOD ORDERABLES Final Result Performing Organization Address [facility]/ZIP Co de Phone Number [facility] [place] [address] * (ABNORMAL) IgG (08/22/2024 10:01 AM CDT) Immunoglobulin G 1,613(H) 700 - 1,600 mg/dL Blood 08/22/2024 10:0 1 AM CDT 08/22/2024 11:20 AM CDT Trinity Burdick MD LAB BLOOD ORDERABLES [place] [address] * Ferritin (08/22/2024 10:01 AM CDT) Pathologist [facility] Ferritin 64 13 - 150 ng/mL Blood 08/22/2024 10:0 1 AM CDT 08/22/2024 11:20 AM CDT Trinity Burdick MD LAB BLOOD ORDERABLES Final Result [facility] [address] * (ABNORMAL) Bilirubin, direct (08/22/2024 10:01 AM CDT) Pathologist [facility] Bilirubin, direct 0.5(H) 0.1 - 0.3 mg/dL Blood 08/22/2024 10:0 1 AM CDT 08/22/2024 11:20 AM CDT Trinity Burdick MD LAB BLOOD ORDERABLES Final Result [facility] [place] [address] * (ABNORMAL) Comprehensive metabolic panel (08/22/2024 10:01 AM CDT) Sodium 134(L) 135 - 145 mmol/L Potassium, pl 4.6 3.3 - 4.9 mmol/L [facility] Chloride 97 97 - 110 mmol/L [facility] CO2 23 22 - 32 mmol/L [facility] Anion gap 14 2 - 15 mmol/L [facility] BUN 21 6 - 25 mg/dL [facility] Creatinine 1.43(H) 0.60 - 1.10 mg/dL [facility] Glucose 433(H) 70 - 199 mg/dL [facility] Comment: Interpretive Data Fasting glucose >/= 126 mg/dl is diagnostic for diabetes. Fasting is defined as no caloric intake for at least 8 hours. Fasting glucose between 100 mg/dl to 125 mg/dl is diagnostic of prediabetes. In a patient with classic symptoms of hyperglycemia or hyperglycemic crisis, a random glucose >/= 200 mg/dl is diagnostic for diabetes. In the absence of unequivocal hyperglycemia, results should be confirmed by repeat testing. The classification and Diagnosis of Diabetes Diabetes Care 2021; 46: S19-S40. Current interpretive data was last revised 2022. Calcium 9.7 8.5 - 10.3 mg/dL [facility] Bilirubin, total 1.2 0.1 - 1.2 mg/dL [facility] Protein, pl 7.6 6.5 - 8.5 g/dL [facility] Albumin 3.4(L) 3.5 - 5.0 g/dL [facility] Alk phos 120 40 - 130 Units/L [facility] ALT 50(H) 7 - 45 Units/L [facility] AST 79(H) 10 - 45 Units/L [facility] Blood 08/22/2024 10:0 1 AM CDT 08/22/2024 11:20 AM CDT us Trinity Burdick MD LAB BLOOD ORDERABLES Final Result [facility] [place] [address] * FLEXIBLE SIGMOIDOSCOPY REPORT (04/23/2014) Anatomical Region Laterality Modality Other Narrative 04/23/2014 Ordered by an unspecified provider. us Historical Provider GI PROCEDURE ORDERABLES F inal Result * COLONOSCOPY REPORT (05/16/2012) Anatomical Region Laterality Modality Other Narrative 05/16/2012 Ordered by an unspecified provider. us Historical Provider GI PROCEDURE ORDERABLES F inal Result from Last 3 Months or Most Recently Relevant to Health Maintenance Insurance [employer] [place] [employer] [place] CHOICE [employer] [facility] [employer] [place] [address] [place] Advance Directives For more information, please contact: [phone] * Full Code (Latest Code Status on File) Date Activated Date Inactivated Comments 11/10/2022 3:32 PM 11/10/2022 10:59 PM * Full Code Date Activated Date Inactivated Comments 01/19/2021 5:00 AM 01/22/2021 6:14 PM * Full Code Date Activated Date Inactivated Comments 05/15/2018 2:54 PM 05/21/2018 7:27 PM * Full Code Date Activated Date Inactivated Comments 05/04/2018 3:59 PM 05/12/2018 5:02 PM * Full Code Date Activated Date Inactivated Comments 03/19/2018 9:13 PM 03/22/2018 3:58 PM Care Teams Digital Computer Operator Relationship Specialty Start Date End Date Hillary Marcano MD PCP - General Family Medicine 09/20/22 Cata Velazquez MD Internal Medicine 10/11/22
--- OUTSIDE RECORDS SUMMARY | 2024-10-26 08:43 | XMS_ITS | Clinical Summary ---
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 Gender Identity Not on file Sexual Orientation Not on file Last Filed Vital Signs Vital Sign Reading Time Taken Comments Blood Pressure 110/68 06/08/2022 1:36 PM EAR NOSE THROAT SURGEON Pulse 94 06/08/2022 1:36 PM EAR NOSE THROAT SURGEON Temperature 36.2 C (97.1 F) 06/08/2022 1:36 PM EAR NOSE THROAT SURGEON Respiratory Rate 20 06/08/2022 1:36 PM EAR NOSE THROAT SURGEON Oxygen Saturation 96% 06/08/2022 1:36 PM EAR NOSE THROAT SURGEON Inhaled Oxygen Concentration - - Weight 93.3 kg (205 lb 11.2 oz) 06/08/2022 1:36 PM EAR NOSE THROAT SURGEON Height 160 cm (5' 3) 06/08/2022 1:36 PM EAR NOSE THROAT SURGEON Body Mass Index 36.44 06/08/2022 1:36 PM EAR NOSE THROAT SURGEON Plan of Treatment Health Maintenance Due Date Last Done Comments DTAP/TDAP/TD VACCINES (1 - Tdap) 1984 HEPATITIS B VACCINES (1 of 3 - 19+ 3-dose series) 06/16 HPV/Cotest (21-29) 1986 CERVICAL CANCER SCREENING 07/12/1995 HPV/Cotest (30-65) 07/12/1995 PAP SMEAR 07/12/1995 BREAST CANCER SCREENING 2005 COLORECTAL SCREENING 2010 Colorectal Cancer Screening 2010 FIT-DNA Q 3 years 2010 FIT/FOBT Q 1 year 2010 Flex Sig/CT Colonography Q 5 years 2010 ZOSTER VACCINE (1 of 2) 07/12/2015 INFLUENZA VACCINE (#1) 2024 03/07/2013 Insurance [facility] [employer] CHOICE BLUE ACCESS CHOICE Care Teams Exercise Manager Relationship Specialty Start Date End Date Bhaskar Marcano MD PCP - General Family Practice 06/08/22
--- OUTSIDE RECORDS SUMMARY | 2024-10-26 08:44 | XMS_ITS | Referral Summary ---
Author Organization [facility] 2 Address [address] [place] [address] Care Team Providers Care Bone Puller Name Role Phone Hillary Marcano MD Primary Care Provider + Cata Velazquez MD Unavailable [phone] Encounters Date Type Department Care Team Description 10/05/2024 Results Follow-Up [facility] [address] [facility] Advanced Medicine 12th [place] [address] [place] [phone] Trinity Burdick MD Transthoracic Echo (TTE) With Bubble Study 09/27/2024 4:30 PM CDT - 09/27/2024 11:59 PM CDT Hospital Encounter [facility] [address] [place] [address] Pre-operative exam Discharge Disposition: Discharge to home or self care 09/27/2024 3:00 PM CDT - 09/27/2024 11:59 PM CDT Hospital Encounter [facility] Cardiac Diagnostic Lab [address] [facility] 8th [place] [phone] Cirrhosis of liver without ascites, unspecified hepatic cirrhosis type (HCC); Shortness of breath; Valvular heart disease Discharge Disposition: Discharge to home or self care 09/18/2024 Orders Only [facility] Health Information Management 1 [facility] [place] [address] Scanning, Provider 09/04/2024 11:59 PM CDT Anesthesia Event [facility] [address] [address] Gisel Del Cid NP 09/12/2024 Telephone [facility] [address] [place] [address] [place] [address] [place] [address] Priscila Van CMA 09/12/2024 Documentation [facility] [address] [place] [address] [place] [address] Loida Saldana RN 09/05/2024 Telephone [facility] [address] [place] [address] [place] [address] [place] [address] Priscila Van CMA 09/04/2024 3:30 PM CDT Pre-Admission Testing [facility] for Preoperative Assessment and Planning [facility] ([facility]) [address] [place] [id number] Preoperative testing (Primary Dx); Pre-operative exam 08/28/2024 Results Follow-Up [facility] [address] [place] [address] [place] [address] [place] [address] Trinity Burdick MD Vitamin D 25 hydroxy, IgG, IgA, Additional followed-up results: 19 08/26/2024 Telephone [facility] [address] [place] [address] [facility] [place] [address] [place] [address] Priscila Van CMA 08/22/2024 10:20 AM CDT Lab [facility] ([facility]) [address] [place] [phone] Cirrhosis of liver without ascites, unspecified hepatic cirrhosis type (HCC) 08/22/2024 Telephone [facility] [address] [facility] 12th [place] [address] [place] [phone] Loida Saldana RN 08/22/2024 8:00 AM CDT Office Visit [facility] [address] [facility] 12th [place] [address] [place] [phone] Trinity Burdick MD Cirrhosis of liver without ascites, unspecified hepatic cirrhosis type (HCC) (Primary Dx) from Last 3 Months Allergies Active Allergy Reactions Criticality Noted Date [...] hours as needed for nausea or vomiting rx#[id number] Active predniSONE (DELTASONE) 5 mg tablet Take [...] (04/23/2018): Added automatically from request for surgery [id number] Crohn's disease with complication 03/28/2018 Overview (03/28/2018): Added automatically from request for surgery [id number] Moderate malnutrition 03/22/2018 Cutaneous abscess of back excluding buttocks 08/2017 Ventral hernia without obstruction or gangrene 1 05/14/2017 Overview (03/14/2018): Added automatically from request for surgery [id number] Crohn's disease of large intestine with fistula 02/08/2018 Overview (02/13/2018): Added automatically from request for surgery [id number] Nausea & vomiting 01/19/2018 Assessment & Plan [...] last seen Mach 2017. Now admitted to [facility] wound, swelling - s/p STSG to E wound on 09/15 - continue wound care [...] Continue therapeutic Lovenox. PCP Dr. Paris in [place]. PA for Raina wants eliquis and follow up in office 2-3 days post d/c. The patient was started on Eliquis at discharge Assessment & Plan (09/16/2017 9:24 AM CDT): Admitted with LLE swelling and pain. 09/12 venous duplex revealed DVT IN THE LEFT COMMON FEMORAL, DISTAL FEMORAL, POPLITEAL, GASTROCNEMIUS, POSTERIOR TIBIAL, PERONEAL, AND SOLEAL VEINS. - Therapeutic Lovenox, OK to resume post-op Immunizations Immunization Administration Dates Next Due Influenza, Trivalent, Preser vative Free, Intramuscular 03/07/2013 Influenza, Unspecified 02/15/2017 Pfizer SARS-CoV-2 Monovalent Vaccination (12+ Yrs) PURPLE 01/20/2021(Deferred: Other - Held per pt related to nausea. May take tomorrow.) Social History Tobacco Use Types Packs/Day Years Used Date Smoking Tobacco: Former Cigarettes 0.5 3 1 984 - 1986 Smokeless Tobacco: Never Tobacco Cessation:Counseling Given: Not [...] How often do you attend chur or taoism services? More than 4 times per year 01/25/2021 Do you belong to any clubs o r organizations such as religion groups, unions, fraternal or athletic groups, or [...] place to sleep or slept in a jail (including now)? No 01/25/2021 Personal Safety Answer Date Recorded Have you ever been in or are you currently in a harmful physical or emotional relationship or is someone making you feel afraid or unsafe? 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 Gender Identity Female 08/22/2024 7:58 AM CDT Sexual Orientation Straight 08/22/2024 7: 58 AM CDT Last Filed Vital Signs Vital Sign Reading [...] Description 11/22/2024 11:30 AM CDT Hospital Encounter [facility] Endoscopy [address] [place] [address] Trinity Burdick MD [address] [place] [address] 11/22/2024 11:30 AM CDT - 11/22/2024 12:00 PM CDT Surgery [facility] Endoscopy [address] [address] [address] Trinity Burdick MD [address] [place] [address] ESOPHAGOGASTRODUODENOSCOPY Scheduled Procedures Name Priority Associated Diagnoses Date/Ti me ESOPHAGOGASTRODUODENOSCOPY Other cirrhosis of liver (HCC) 11/22/2024 11:30 AM CDT Procedures Procedure Name Priority Date/Time Associated Diagnosis [...] Preoperative testing POCT HEMOGLOBIN A1C Routine 09/04/2024 4 :30 PM CDT SMOOTH MUSCLE ANTIBODY, QUALITATIVE Routine [...] without ascites, unspecified hepatic cirrhosis type (HCC) [id number] PHENOTYPE Routine 08/22/2024 10:01 AM CDT Cirrhosis of liver without ascites, unspecified hepatic cirrhosis type (HCC) [id number], TUMOR MARKER Routine 08/22/2024 10:01 AM CDT [...] PM CDT Narrative 09/30/2024 6:59 AM CDT [facility] [place] [address] [place] [address] Transthoracic Echocardiographic Report Patient Name: TERRIE IRENE K : 1965 (59y 2m) Gender: F Study Date: 09/27/2024 03:28:46 PM Ht(Inch): 62 Wt(Lb): 197.09 BSA: 1.98 Outside Sales Advertising Executive: Ayaka Jaeger RDCS Location: [facility] Order Provider: TRINITY BURDICK Heart Rate: 101 [...] Procedure Note Volodymyr Ny MD - 09/30/2024 [facility] [place] [address] [place] [address] Transthoracic Echocardiographic Report Patient Name: TERRIE IRENE K : 1965 (59y 2m) Gender: F Study Date: 09/27/2024 03:28:46 PM Ht(Inch): 62 Wt(Lb): 197.09 BSA: 1.98 Outside Sales Advertising Executive: Ayaka Jaeger RDCS Location: [facility] Order Provider:TRINITY BURDICK Heart Rate: 101 BMI: [...] of liver, R06.02 Shortness of breath, and [id number], valve unspecified. CONCLUSIONS: 1. Normal left ventricular [...] LA Length 4C 5.34 cm MV Decel Ittf538.25 msec [ 104.00 - 258.00 ] LA [...] Volodymyr Ny MD 09/30/2024 6:57:59 AM CDT us Trinity Burdick MD CV ECHO PROCEDURES F [...] clear. Electronically signed by: Jason Randall M.D. us Stephenie Mathews EDUCATIONAL PARAPROFESSIONAL IMG XR PROCEDURES Fi nal Result * SCAN - OTHER ORDERS (09/18/2024) us Provider Scanning Final Result * (ABNORMAL) eGFR [...] CDT 09/04/2024 6:16 PM CDT Syeda Spears NP LAB BLOOD ORDERABLES Final Re sult J[facility]IC[facility] One [facility] [place] [address] * (ABNORMAL) Differential, auto (09/04/2024 6:03 PM CDT) Neutrophil abs 7.17(H) 1.50 - 6.50 K/cumm Imm gran abs 0.06 0.00 - 0.10 K/cumm [facility] Lymphocyte abs 0.90 0.80 - 3.30 K/cumm [facility] Monocyte abs 0.67 0.20 - 0.80 K/cumm [facility] Eosinophil abs 0.20 0.00 - 0.50 K/cumm [facility] Basophil abs 0.13(H) 0.00 - 0.10 K/cumm [facility] Neutrophil pct 78.5 % [facility] Comment: Interpretive Data Percent cell count reference ranges are not reported, since discordance with absolute values may lead to misinterpretation of CBC data. Current Interpretive Data was last revised on 2017. Imm gran pct 0.7 % [facility] Comment: Interpretive Data Percent cell count reference ranges are not reported, since discordance with absolute values may lead to misinterpretation of CBC data. Current Interpretive Data was last revised on 2017. Lymphocyte pct 9.9 % [facility] Comment: Interpretive Data Percent cell count reference ranges are not reported, since discordance with absolute values may lead to misinterpretation of CBC data. Current Interpretive Data was last revised on 2017. Monocyte pct 7.3 % [facility] Comment: Interpretive Data Percent cell count reference ranges are not reported, since discordance with absolute values may lead to misinterpretation of CBC data. Current Interpretive Data was last revised on 2017. Eosinophil pct 2.2 % [facility] Comment: Interpretive Data Percent cell count reference ranges are not reported, since discordance with absolute values may lead to misinterpretation of CBC data. Current Interpretive Data was last revised on 2017. Basophil pct 1.4 % [facility] Comment: Interpretive Data Percent cell count reference ranges are not reported, since discordance with absolute values may lead to misinterpretation of CBC data. Current Interpretive Data was last revised on 2017. Blood 09/04/2024 6:03 PM CDT 09/04/2024 6:16 PM CDT us Syeda Spears NP LAB BLOOD ORDERABLES Final Re sult J[facility]ICHO [facility] One [facility] [place] [address] * Pro B-type natriuretic peptide (09/04/2024 6:03 [...] CDT 09/04/2024 6:16 PM CDT Syeda Spears EDUCATIONAL PARAPROFESSIONAL LAB BLOOD ORDERABLES Final Re sult Performing Organization Address [facility] [address] [facility]/ZIP Co de Phone Number J[facility]ICHO [facility] [place] [address] * (ABNORMAL) CBC with auto differential (09/04/2024 6:03 PM CDT) [facility] WBC 9.13 3.80 - 9.90 K/cumm Hgb 12.2 11.9 - 15.5 g/dL [facility] Hct 37.9 35.6 - 45.5 % [facility] Plt 193 150 - 400 K/cumm [facility] MPV 10.6 9.1 - 12.3 fL [facility] RBC 3.83(L) 3.90 - 5.20 M/cumm [facility] MCV 99.0(H) 81.3 - 96.4 fL [facility] MCH 31.9 27.1 - 33.3 pg [facility] MCHC 32.2(L) 32.3 - 35.7 g/dL [facility] RDW CV 15.0(H) 11.1 - 14.9 % [facility] RDW SD 54.5(H) 35.7 - 48.1 fL [facility] NRBC abs 0.00 0.00 - 0.01 K/cumm [facility] Blood 09/04/2024 6:03 PM CDT 09/04/2024 6:16 PM CDT Syeda Spears EDUCATIONAL PARAPROFESSIONAL LAB BLOOD ORDERABLES Final Re sult [facility] [place] [address] * (ABNORMAL) Basic metabolic panel (09/04/2024 6:03 PM CDT) Pathologist [facility] Sodium 133(L) 135 - 145 mmol/L Potassium, pl 4.1 3.3 - 4.9 mmol/L [facility] Chloride 100 97 - 110 mmol/L [facility] CO2 23 22 - 32 mmol/L [facility] Anion gap 10 2 - 15 mmol/L [facility] BUN 21 6 - 25 mg/dL [facility] Creatinine 1.41(H) 0.60 - 1.10 mg/dL [facility] Glucose 394(H) 70 - 199 mg/dL [facility] Comment: Interpretive Data Fasting glucose >/= [...] 2022. Calcium 8.9 8.5 - 10.3 mg/dL [facility] Blood 09/04/2024 6:03 PM CDT 09/04/2024 6:16 PM CDT Syeda Spears NP LAB BLOOD ORDERABLES Final Re sult [facility] One [facility] [place] [address] * (ABNORMAL) POCT hemoglobin A1c (09/04/2024 4:30 PM CDT) Hgb A1C, POC 10.7(H) 4.0 - 5.6 % Est Average Gluc POC 260 mg/dL [facility] Comment: The ADA recommends reporting an estimated Average Glucose (eAG) with all Hemoglobin A1c results using the equation derived from a study of 507 normal and diabetic adults. Minority populations were underrepresented and children were not included. (Diabetes Care 31:8294-7443, 2008). The eAG is not equivalent to a fasting glucose. Blood 09/04/2024 4:30 PM CDT 09/04/2024 4:30 PM CDT us Notinfile Unknown POINT OF CARE TEST ORDERABLES Final Result Performing Organization Address [facility] [address]/[facility] de Phone Number JERICHO [facility] [place] [address] * CHRISTOPH ab ql w/rflx to CHRISTOPH [...] BLOOD ORDERABLES Final Result Performing Organization Address [facility] de Phone Number JERICHO [facility] [place] [address] * (ABNORMAL) eGFR (08/22/2024 10:01 AM CDT) [...] Inclusion of Race in Diagnosing Kidney Disease, ISAIAS 2020). The CKD-EPI equation should not be used for patients with unstable renal function and has not been validated in children and those over 70. Current interpretive data was last reviewed 2021. Blood 08/22/2024 10:0 1 AM CDT 08/22/2024 11:20 AM CDT us Trinity Burdick MD LAB BLOOD ORDERABLES Final Result [facility] One [facility] [place] [address] * (ABNORMAL) Differential, auto (08/22/2024 10:01 AM CDT) Neutrophil abs 7.51(H) 1.50 - 6.50 K/cumm Imm gran abs 0.04 0.00 - 0.10 K/cumm [facility] Lymphocyte abs 0.63(L) 0.80 - 3.30 K/cumm [facility] Monocyte abs 0.53 0.20 - 0.80 K/cumm [facility] Eosinophil abs 0.18 0.00 - 0.50 K/cumm [facility] Basophil abs 0.13(H) 0.00 - 0.10 K/cumm [facility] Neutrophil pct 83.3 % [facility] Comment: Interpretive Data Percent cell count reference ranges are not reported, since discordance with absolute values may lead to misinterpretation of CBC data. Current Interpretive Data was last revised on 2017. Imm gran pct 0.4 % [facility] Comment: Interpretive Data Percent cell count reference ranges are not reported, since discordance with absolute values may lead to misinterpretation of CBC data. Current Interpretive Data was last revised on 2017. Lymphocyte pct 7.0 % [facility] Comment: Interpretive Data Percent cell count reference ranges are not reported, since discordance with absolute values may lead to misinterpretation of CBC data. Current Interpretive Data was last revised on 2017. Monocyte pct 5.9 % [facility] Comment: Interpretive Data Percent cell count reference ranges are not reported, since discordance with absolute values may lead to misinterpretation of CBC data. Current Interpretive Data was last revised on 2017. Eosinophil pct 2.0 % [facility] Comment: Interpretive Data Percent cell count reference ranges are not reported, since discordance with absolute values may lead to misinterpretation of CBC data. Current Interpretive Data was last revised on 2017. Basophil pct 1.4 % [facility] Comment: Interpretive Data Percent cell count reference ranges are not reported, since discordance with absolute values may lead to misinterpretation of CBC data. Current Interpretive Data was last revised on 2017. Blood 08/22/2024 10:0 1 AM CDT 08/22/2024 10:57 AM CDT Trinity Burdick MD LAB BLOOD ORDERABLES Final Result Performing Organization Address City/[facility] [address]/[facility] Co de Phone Number [facility] [place] [address] * Smooth muscle antibody, qualitative (08/22/2024 10:01 AM CDT) Pathologist [facility] Anti-smooth muscle Negative Negative Blood 08/22/2024 10:0 1 AM CDT 08/22/2024 10:54 AM CDT Trinity Burdick MD LAB BLOOD ORDERABLES Final Result Performing Organization Address City/[facility] [address]/ZIP Co de Phone Number [facility] [place] [address] * Dvsyu-4-wrbbwarmvva phenotype (08/22/2024 10:01 AM CDT) alpha-1 antitrypsin 180 100 - 190 mg/dL [facility] Comment: ADDITIONAL INFORMATION Method: Nephelometry Test Performed by: [facility] [address] [place] [address] Digester Hand: Vance Martinez Ph.D.; CLIA# [id number] alpha-1 antitrypsin phenotype MM bands [facility] Comment: A single M isoform is detected. In the context of a normal actnc-1-tofjkunrvbl concentration, this is consistent with an MM phenotype. ADDITIONAL INFORMATION Method: Isoelectric Focusing, This assay identifies the phenotype of the circulating lrctq-6-lxmokkprkhv (A1A) protein. If the patient is on replacement therapy or has been recently transfused, the phenotype will detect patient and replacement or transfused plasma A1A protein. This test also cannot detect a null allele which could be responsible for an A1A deficiency. Blood 08/22/2024 10:0 1 AM CDT 08/22/2024 11:43 AM CDT us Trinity Burdick MD LAB BLOOD ORDERABLES Final Result [facility] One [facility] [place] [address] [facility] * (ABNORMAL) CBC with auto differential (08/22/2024 10:01 AM CDT) [facility] WBC 9.02 3.80 - 9.90 K/cumm Hgb 12.5 11.9 - 15.5 g/dL [facility] Hct 39.0 35.6 - 45.5 % [facility] Plt 137(L) 150 - 400 K/cumm [facility] MPV 10.6 9.1 - 12.3 fL [facility] RBC 3.82(L) 3.90 - 5.20 M/cumm [facility] MCV 102.1(H) 81.3 - 96.4 fL [facility] MCH 32.7 27.1 - 33.3 pg [facility] MCHC 32.1(L) 32.3 - 35.7 g/dL [facility] RDW CV 14.9 11.1 - 14.9 % [facility] RDW SD 56.2(H) 35.7 - 48.1 fL [facility] NRBC abs 0.00 0.00 - 0.01 K/cumm [facility] Blood 08/22/2024 10:0 1 AM CDT 08/22/2024 10:57 AM CDT Trinity Burdick MD LAB BLOOD ORDERABLES Final Result Performing Organization Address [facility] de Phone Number [facility] [place] [address] * Hepatitis C antibody Blood (08/22/2024 10:01 AM CDT) Hep C Ab Nonreactive Nonreactive Comment:Antibodies to HCV no t detected. Does NOT exclude the possibility of recent exposure to HCV. Current interpretive data was last revised on 21 Blood 08/22/2024 10:0 1 AM CDT 08/22/2024 10:57 AM CDT Trinity Burdick MD LAB MICROBIOLOGY - G ENERAL ORDERABLES Final Result Performing Organization Address [facility] [address] [facility] de Phone Number [facility] [place] [address] * Hepatitis A antibody, total Blood (08/22/2024 10:01 AM CDT) Hep A total Nonreactive Nonreactive Blood 08/22/2024 10:0 1 AM CDT 08/22/2024 10:57 AM CDT Trinity Burdick MD LAB MICROBIOLOGY - G ENERAL ORDERABLES Final Result Performing Organization Address City/[facility] [address]/[facility] Co de Phone Number [facility] [place] [address] * Tissue transglutaminase IgA (TGG-IgA Ab) (08/22/2024 10:01 AM CDT) TTG ab, IgA <0.5 <=14.9 units/mL Comment: Interpretive data Negative: <15 units/mL Positive: > or equal to 15 units/mL Current interpretive data was last revised on 2016. Blood 08/22/2024 10:0 1 AM CDT 08/22/2024 10:54 AM CDT us Trinity Burdick MD LAB BLOOD ORDERABLES Final Result Performing Organization Address [facility] [place] [address] * Ceruloplasmin (08/22/2024 10:01 AM CDT) Ceruloplasmin 26.4 16.0 - 45.0 mg/dL Blood 08/22/2024 10:0 1 AM CDT 08/22/2024 11:20 AM CDT us Trinity Burdick MD LAB BLOOD ORDERABLES Final Result Performing Organization Address [facility] [place] [address] * Vmozk-8-Rlbxiykqvbn, Tumor Marker (08/22/2024 10:01 AM CDT) alpha [...] ng/ml >1 year 0.0 8.3 ng/ml References Delmy Y. et al. J. Ped Surg 1978;13:155-156 Disha Neumann et al. Clin Chem Lab Med 2018;57:783-797 Afau Pak et al. Clin Chem 2014;5048-0105. Current interpretive data was last revised 2021. Blood 08/22/2024 10:0 1 AM CDT 08/22/2024 11:20 AM CDT Trinity Burdick MD LAB BLOOD ORDERABLES Final Result Performing Organization Address [facility] de Phone Number [facility] [place] [address] * Hepatitis B core antibody, total Blood (08/22/2024 10:01 AM CDT) Hep B core IgG/IgM Nonreactive Nonreactive Blood 08/22/2024 10:0 1 AM CDT 08/22/2024 10:57 AM CDT Trinity Burdick MD LAB MICROBIOLOGY - G ENERAL ORDERABLES Final Result Performing Organization Address [facility] [address]/[facility] de Phone Number [facility] [place] [address] * Vitamin D 25 hydroxy (08/22/2024 10:01 AM CDT) Vitamin D 25-OH 58 30 - 80 ng/mL Blood 08/22/2024 10:0 1 AM CDT 08/22/2024 11:20 AM CDT us Trinity Burdick MD LAB BLOOD ORDERABLES Final Result Performing Organization Address [facility] [address]/ZIP Co de Phone Number [facility] [place] [address] * Hepatitis B surface antibody (immune status) Blood (08/22/2024 10:01 AM CDT) HBsAb (immune status) Nonreactive Comment:This result is consi stent with a lack of immunity to Hepatitis B Virus when used in the setting of routine screening. Current interpretative data was last revised on 21 Blood 08/22/2024 10:0 1 AM CDT 08/22/2024 10:57 AM CDT Trinity Burdick MD LAB MICROBIOLOGY - G ENERAL ORDERABLES Final Result Performing Organization Address [facility] [address]/[facility] [place] [address] * Hepatitis B Surface Antigen Blood (08/22/2024 10:01 AM CDT) Pathologist [facility] HepBsAg Nonreactive Nonreactive Blood 08/22/2024 10:0 1 AM CDT 08/22/2024 10:57 AM CDT Trinity Burdick MD LAB MICROBIOLOGY - G ENERAL ORDERABLES Final Result Performing Organization Address [facility] [address]/[facility] Co de Phone Number [facility] [place] [address] * Protime-INR (08/22/2024 10:01 AM CDT) PT 12.0 9.7 - 13.0 sec INR 1.11 0.90 - 1.20 [facility] Comment: Interpretive data Oral anticoagulant therapeutic [...] BLOOD ORDERABLES Final Result Performing Organization Address [facility] [address] [facility] Co de Phone Number [facility] [place] [address] * (ABNORMAL) Gamma GT (08/22/2024 10:01 AM CDT) GGT 162(H) 5 - 35 Units/L Blood 08/22/2024 10:0 1 AM CDT 08/22/2024 11:20 AM CDT us Trinity Burdick MD LAB BLOOD ORDERABLES Final Result Performing Organization Address [facility] [address]/[facility] de Phone Number [facility] [place] [address] * (ABNORMAL) IgA (08/22/2024 10:01 AM CDT) Immunoglobulin A 710(H) 70 - 400 mg/dL Blood 08/22/2024 10:0 1 AM CDT 08/22/2024 11:20 AM CDT us Trinity Burdick MD LAB BLOOD ORDERABLES Final Result Performing Organization Address [facility] [address]/[facility] de Phone Number [facility] [place] [address] * (ABNORMAL) IgG (08/22/2024 10:01 AM CDT) Immunoglobulin G 1,613(H) 700 - 1,600 mg/dL Blood 08/22/2024 10:0 1 AM CDT 08/22/2024 11:20 AM CDT us Trinity Burdick MD LAB BLOOD ORDERABLES Final Result Performing Organization Address [facility] [address]/[facility] Co de Phone Number [facility] [place] [address] * Ferritin (08/22/2024 10:01 AM CDT) [facility] Ferritin 64 13 - 150 ng/mL Blood 08/22/2024 10:0 1 AM CDT 08/22/2024 11:20 AM CDT Trinity Burdick MD LAB BLOOD ORDERABLES Final Result Performing Organization Address [facility] [address]/[facility] [place] [address] * (ABNORMAL) Bilirubin, direct (08/22/2024 10:01 AM CDT) [facility] Bilirubin, direct 0.5(H) 0.1 - 0.3 mg/dL Blood 08/22/2024 10:0 1 AM CDT 08/22/2024 11:20 AM CDT Trinity Burdick MD LAB BLOOD ORDERABLES Final Result Performing Organization Address [facility] [address]/[facility] [place] [address] * (ABNORMAL) Comprehensive metabolic panel (08/22/2024 10:01 AM CDT) [facility] Sodium 134(L) 135 - 145 mmol/L Potassium, pl 4.6 3.3 - 4.9 mmol/L [facility] Chloride 97 97 - 110 mmol/L [facility] CO2 23 22 - 32 mmol/L [facility] Anion gap 14 2 - 15 mmol/L [facility] BUN 21 6 - 25 mg/dL [facility] Creatinine 1.43(H) 0.60 - 1.10 mg/dL [facility] Glucose 433(H) 70 - 199 mg/dL [facility] Comment: Interpretive Data Fasting glucose >/= [...] 2022. Calcium 9.7 8.5 - 10.3 mg/dL [facility] Bilirubin, total 1.2 0.1 - 1.2 mg/dL [facility] Protein, pl 7.6 6.5 - 8.5 g/dL [facility] Albumin 3.4(L) 3.5 - 5.0 g/dL [facility] Alk phos 120 40 - 130 Units/L [facility] ALT 50(H) 7 - 45 Units/L [facility] AST 79(H) 10 - 45 Units/L [facility] Blood 08/22/2024 10:0 1 AM CDT 08/22/2024 11:20 AM CDT Trinity Burdick MD LAB BLOOD ORDERABLES Final Result Performing Organization Address City/State/[facility] Co de Phone Number [facility] [place] [address] * FLEXIBLE SIGMOIDOSCOPY REPORT (04/23/2014) Anatomical Region Laterality Modality Other Narrative 04/23/2014 Ordered by an unspecified provider. Historical Provider GI PROCEDURE ORDERABLES F inal Result * COLONOSCOPY REPORT (05/16/2012) Anatomical Region Laterality Modality Other Narrative 05/16/2012 Ordered by an unspecified provider. Historical Provider MD GI PROCEDURE ORDERABLES F inal Result from Last 3 Months or Most Recently Relevant to Health Maintenance Insurance [employer] [place] ACCESS CHOICE [facility] EPO [place] Advance Directives For more information, please contact: [phone] * Full Code (Latest Code Status on [...] 9:13 PM 03/22/2018 3:58 PM Care Teams Bone Puller Relationship Specialty Start Date End Date Hillary Marcano MD PCP - General Family Medicine 09/20/22 Cata Velazquez MD Internal Medicine 10/11/22
[2024-10-26 08:47] VITALS: BP 144/67; PULSE 109; RESP 17; TEMP 36.4; O2SAT 96
--- OUTSIDE RECORDS SUMMARY | 2024-10-26 09:09 | XMS_ITS | Clinical Summary ---
Author Organization [facility] Address [address] [place] [address] Care Team Providers Care Kiln Charger Name Role Phone Candida Paris MD Primary Care Provider [phone] Source Comments [facility],non-owned Affiliates and Associated Physician Practices is amultiple site organization consisting of ambulatory clinics and hospital sitesin [place], [place], [place] and [place]. This disclosure is being madepursuant to the Care Everywhere program and may not contain all information available regarding this patient. 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 Gender Identity Not on file Sexual Orientation [...] patient's age to complete this topic Insurance [facility] SELF PAY NO INSURANCE Member Subscriber Plan / Payer (Ef fective for All Dates) Name:Terrie Irene Member ID:Not on file Relation to Subscriber:Not on file Name:TERRIE IRENE Subscriber ID:Not on file (Home) Address: [address] [place], [place] [address] [address] Payer ID:Not on file Group ID:Not on file Type:Self Pay Address: [place], [place] [facility] SELF PAY NO INSURANCE Member Subscriber Plan / Payer (Ef fective for All Dates) Name:Maria VictoriaTerrie thrasher Member ID:Not on file Relation to Subscriber:Not on file Name:MARIA VICTORIATERRIE THRASHER Subscriber ID:Not on file (Home) Address: [address] [place] [id number] Payer ID:Not on file Group ID:Not on file Type:Self Pay Address: [place], [place] [facility] SELF PAY NO INSURANCE Member Subscriber Plan / Payer (Ef fective for All Dates) Name:Terrie Irene Member ID:Not on file Relation to Subscriber:Not on file Name:TERRIE IRENE Subscriber ID:Not on file (Home) Address: [address] [place] [id number] Payer ID:Not on file Group ID:Not on file Type:Self Pay Address: [place], [place] Care Teams Kiln Charger Relationship Specialty Start Date End Date Candida Paris MD [address] [place] [address] PCP - General Family Medicine 06/11/14
--- OUTSIDE RECORDS SUMMARY | 2024-10-26 09:10 | XMS_ITS | Encounter Summary ---
Author Organization [facility] Address [address] [place] [address] Phone Care Team Providers Care Pigment Presser Name Role Phone Candida Paris MD Primary Care Provider [phone] Rosalind Skelton RN Unavailable [phone] Jw Strong Primary Care Provider + Hillary Marcano MD Primary Care Provider + Cata Velazquez MD Unavailable [phone] Encounter Details Date Type Department Care Team (Latest Contact Info) Description 08/08/2017 Orders Only [facility] CONVERSION Scanning, Provider Social History Tobacco Use Types Packs/Day Years Used Date Smoking Tobacco: Former Comments Unknown Sex and Gender Information Value Date Recorded Sex Assigned at Not on file 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 Gender Identity Female 08/22/2024 7:58 AM CDT Sexual Orientation Straight 08/22/2024 7: 58 AM CDT documented as of this encounter Plan of Treatment Upcoming Encounters Date Type Department Care Team (Latest Contact Info) Description 11/22/2024 11:30 AM CDT Hospital Encounter [facility] Endoscopy [address] [address] Trinity Butcher MD [address] [place] [address] 11/22/2024 11:30 AM CDT - 11/22/2024 12:00 PM CDT Surgery [facility] Endoscopy [address] [place] [address] Trinity Butcher MD [address] [place] [address] ESOPHAGOGASTRODUODENOSCOPY Scheduled Procedures Name Priority Associated Diagnoses [...] documented as of this encounter Care Teams Pigment Presser Relationship Specialty Start Date End Date Candida Paris MD [address] [place] [address] PCP - General 01/03/17 12/21/21 Jw Strong PA [address] [place], [place] [id number] PCP - General Physician Tire Buffer 12/22/21 09/19/22 Hillary Marcano MD [address] [place] [address] PCP - General Family Medicine 09/20/22 Rosalind Skelton, RN [address] [address] [facility] Outpatient Correction Worker 01/25/21 02/21/21 Cata Velazquez MD [address] [place] [address] Internal Medicine 10/11/22 documented as of this encounter
--- OUTSIDE RECORDS SUMMARY | 2024-10-26 09:10 | XMS_ITS | Encounter Summary ---
Author Organization [facility] Address [address] [place] [address] Care Team Providers Care Gluing Machine Operator Electronic Name Role Phone Candida Paris MD Primary Care Provider [phone] Rosalind Skelton RN Unavailable [phone] Jw Strong Primary Care Provider + Hillary Marcano MD Primary Care Provider + Cata Velazquez MD Unavailable [phone] Encounter Details Date Type Department Care Team (Late st Contact Info) Description 10/16/2017 Documentation [facility] [address] [place] [id number] Mary Anne Lee RN Social History Tobacco Use Types Packs/Day Years Used Date Smoking Tobacco: Former Smokeless Tobacco: Never Alcohol Use Standard Drinks/Week Comments No 0 (1 standard drink = 0.6 oz pur e alcohol) Comments Unknown Sex and Gender Information Value Date Recorded Sex Assigned at Not on file 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 Endoscopy [address] [place] [address] Trinity Butcher MD [address] [place] [address] 11/22/2024 11:30 AM CDT - 11/22/2024 12:00 PM CDT Surgery [facility] Endoscopy [address] [place] [address] Trinity Butcher MD [address] [place] [address] ESOPHAGOGASTRODUODENOSCOPY Scheduled Procedures Name Priority Associated Diagnoses [...] documented as of this encounter Care Teams Gluing Machine Operator Electronic Relationship Specialty Start Date End Date Candida Paris MD [address] [place] [address] PCP - General 01/03/17 12/21/21 Jw Strong PA [address] [place] [address] PCP - General Physician Career Law Clerk 12/22/21 09/19/22 Hillary Marcano MD [address] [place] [address] PCP - General Family Medicine 09/20/22 Rosalind Skelton, RN [address] [address] [facility] Outpatient Contracting Manager 01/25/21 02/21/21 Cata Velazquez MD [address] [place] [address] Internal Medicine 10/11/22 documented as of this encounter
--- OUTSIDE RECORDS SUMMARY | 2024-10-26 09:10 | XMS_ITS | Clinical Summary ---
Author Organization [facility] Address [address] [place] [address] Care Team Providers Care Electoral Officer Name Role Phone Bhaskar Marcano MD Primary Care Provider [phone] Allergies Active Allergy Reactions Criticality Noted Date [...] on file Legal Sex Female 10:27 AM BACKEND TESTER Gender Identity Not on file Sexual Orientation Not on file Last Filed Vital Signs Vital Sign Reading Time Taken Comments Blood Pressure 110/68 06/08/2022 1:36 PM BACKEND TESTER Pulse 94 06/08/2022 1:36 PM BACKEND TESTER Temperature 36.2 C (97.1 F) 06/08/2022 1:36 PM BACKEND TESTER Respiratory Rate 20 06/08/2022 1:36 PM BACKEND TESTER Oxygen Saturation 96% 06/08/2022 1:36 PM BACKEND TESTER Inhaled Oxygen Concentration - - Weight 93.3 kg (205 lb 11.2 oz) 06/08/2022 1:36 PM BACKEND TESTER Height 160 cm (5' 3) 06/08/2022 1:36 PM BACKEND TESTER Body Mass Index 36.44 06/08/2022 1:36 PM BACKEND TESTER Plan of Treatment Health Maintenance Due Date [...] 07/12/2015 INFLUENZA VACCINE (#1) 2024 03/07/2013 Insurance [facility] [employer] CHOICE BLUE ACCESS CHOICE Care Teams Electoral Officer Relationship Specialty Start Date End Date Bhaskar Marcano MD PCP - General Family Practice 06/08/22
--- OUTSIDE RECORDS SUMMARY | 2024-10-26 09:10 | XMS_ITS | Encounter Summary ---
Author Organization [facility] Address [address] [place], [place] [address] [address] Care Team Providers Care Sales And Service Engineer Name Role Phone Candida Paris MD Primary Care Provider [phone] Encounter Details Date Type Department Care Team (Late st Contact Info) Description 07/24/2023 Lab Requisition [facility] - Pathology Lab [address] [place] [id number] Jatin Altamirano MD [address] [address] Illness, unspecified Social History Tobacco Use Types Packs/Day Years Used Date Smoking Tobacco: Never Assessed Comments Unknown Sex and Gender Information Value Date Recorded Sex Assigned at Not on file 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 Gender Identity Not on file Sexual Orientation Not on file documented as of this encounter Plan of Treatment Not on file documented as of this encounter Procedures Procedure Name Priority Date/Time Associated Diagnosis Comments PATHOLOGY TISSUE Routine 07/21/2023 9:28 AM CDT Illness, unspecified documented in this encounter Results * PATHOLOGY TISSUE (07/21/2023 9:28 AM CDT) Case Report Surgical Pathology Report Case: [id number] Authorizing Provider: Jatin Altamirano MD Collected: 07/21/2023 09:28 AM Ordering Location: [facility] - Received: 07/24/2023 01:18 PM Pathology Lab Pathologist: Stephenie Arguelles MD Specimen: Lymph Node Biopsy 07/25/2023 9:56 AM CDT [facility] PATH[facility]Y LAB Final Diagnosis Lymph node, right axilla, needle core biopsy: - Follicular and paracortical hyperplasia - No evidence of lymphoma or metastatic carcinoma, as sampled - See description 07/25/2023 9:56 AM [facility] PATHOLOGY LAB at 0956 CDT Microscopic [...] negative for metastatic carcinoma. Concurrent flow cytometry ([employer] [address], [address], [place] [address]) shows non-specific findings. B-cells are described as [...] persists, consider excisional biopsy. 07/25/2023 9:56 AM [facility] PATHOLOGY LAB Clinical History The patient is a 58 year old woman with an enlarged right axillary lymph node. 07[facility]25/2023 9:56 AM [facility] Materials Received Received are 2 slides and 1 block labeled [id number] for initial diagnostic interpretation. The materials originate from [address] [address]. All original materials are returned to the referring institution, along with a copy of our final report. 07/25/2023 9:56 AM CDT [facility] PATHOLOGY LAB Pathologist Location at [facility] 07/25/2023 9:56 AM T [facility] PATHOLOGY LAB Disclaimer The performance characteristics of all immunohistochemical and indirect immunofluorescence stains (if any) cited in this report were determined by the Histopathology Laboratory of [facility]. Some of these tests were developed by [...] LAB Embedded Images 07/25/2023 9:56 AM T [facility] PATHOLOGY LAB Pathology/Cytolo gy BIOPSY OF LYMPH NODE / Unknown 07/21/2023 9:28 AM CDT 07/24/2023 1:18 PM CDT Jatin Altamirano MD LAB - PATHOLOGY/CYTOLOGY ORDERAB LES Final Result Performing Organization Address City/State/[facility] Co de Phone Number [facility] PATHOLOGY LAB [address] [phone] documented in this encounter Visit Diagnoses Diagnosis Illness, unspecified documented in this encounter Care Teams Sales And Service Engineer Relationship Specialty Start Date End Date Candida Paris MD [address] [place] [address] PCP - General Family Medicine 06/11/14 documented as of this encounter
--- OUTSIDE RECORDS SUMMARY | 2024-10-26 09:10 | XMS_ITS | Referral Summary ---
Author Organization [facility] [address] Address [address] [place] [address] Care Team Providers Care Electrical Tests Supervisor Name Role Phone Hillary Marcano MD Primary Care Provider + Cata Velazquez MD Unavailable [phone] Encounters Date Type Department Care Team Description 10/05/2024 Results Follow-Up [facility] [address] [facility] 12th [place] [address] [place] [phone] Trinity Burdick MD Transthoracic Echo (TTE) With Bubble Study 09/27/2024 4:30 PM CDT - 09/27/2024 11:59 PM CDT Hospital Encounter [facility] ([facility] [address] [place] [address] Pre-operative exam Discharge Disposition: Discharge to home or self care 09/27/2024 3:00 PM CDT - 09/27/2024 11:59 PM CDT Hospital Encounter [facility] Cardiac Diagnostic Lab [address] [facility] 8th [place] [phone] Cirrhosis of liver without ascites, unspecified hepatic cirrhosis type (HCC); Shortness of breath; Valvular heart disease Discharge Disposition: Discharge to home or self care 09/18/2024 Orders Only [facility] Health Information Management [address] [facility] [place] [address] Scanning, Provider 09/04/2024 11:59 PM CDT Anesthesia Event [facility] [address] [address] Gisel Del Cid NP 09/12/2024 Telephone [facility] G[facility]enter[facility] [address] [place] [address] [place] [address] [place] [address] Priscila Van CMA 09/12/2024 Documentation [facility] [address] [place] [address] [place] [address] Loida Saldana RN 09/05/2024 Telephone [facility] [address] [place] [address] [place] [address] [place] [address] Priscila Van CMA 09/04/2024 3:30 PM CDT Pre-Admission Testing [facility] for Preoperative Assessment and Planning [place] [facility] ([facility]) [address] [place] [address] Preoperative testing (Primary Dx); Pre-operative exam 08/28/2024 Results Follow-Up [facility] [address] [place] [address] [place] [address] [place] [address] Trinity Burdick MD Vitamin D 25 hydroxy, IgG, IgA, Additional followed-up results: 19 08/26/2024 Telephone [facility] Gastroenterology [address] [place] [address] Medicine [facility] [place] [address] [place] [address] Priscila Van CMA 08/22/2024 10:[address] [facility] ([facility]) [address] [place] [phone] Cirrhosis of liver without ascites, unspecified hepatic cirrhosis type (HCC) 08/22/2024 Telephone [facility] [address] [facility] 12th [place] [address] [place] [phone] Loida Saldana RN 08/22/2024 8:00 AM CDT Office Visit [facility] [address] [facility] 12th [place] [address] [place] [phone] Trinity Burdick MD Cirrhosis of liver without [...] hours as needed for nausea or vomiting rx#[id number] Active predniSONE (DELTASONE) 5 mg tablet Take [...] (04/23/2018): Added automatically from request for surgery [id number] Crohn's disease with complication 03/28/2018 Overview (03/28/2018): Added automatically from request for surgery [id number] Moderate malnutrition 03/22/2018 Cutaneous abscess of back excluding buttocks 08/2017 Ventral hernia without obstruction or gangrene 1 05/14/2017 Overview (03/14/2018): Added automatically from request for surgery [id number] 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 Now admitted to [facility] wound, swelling - s/p STSG to E [...] Continue therapeutic Lovenox. PCP Dr. [place] in [place] for [place] wants eliquis and follow [...] How often do you attend chur or jew services? More than 4 times per year 01/25/2021 Do you belong to any clubs o r organizations such as buddhism groups, unions, fraternal or athletic groups, or [...] place to sleep or slept in a halfway (including now)? No 01/25/2021 Personal Safety Answer Date Recorded Have you ever been in or are you currently in a harmful physical or emotional relationship or is someone making you feel afraid or unsafe? Denies 09/04/2024 Comments No Sex and Gender Information Value Date Recorded Sex Assigned at Not on file Legal Sex Female 6:33 PM WEIGHT RECORDER Gender Identity Female 08/22/2024 7:58 AM CDT [...] Description 11/22/2024 11:30 AM CDT Hospital Encounter [facility] [address] [place] [address] Trinity Burdick MD [address] [place] [address] 11/22/2024 11:30 AM CDT - 11/22/2024 12:00 PM CDT Surgery [facility] [address] [address] [address] Trinity Burdick MD [address] [place] [address] ESOPHAGOGASTRODUODENOSCOPY Scheduled Procedures Name Priority Associated Diagnoses [...] without ascites, unspecified hepatic cirrhosis type (HCC) [id number] PHENOTYPE Routine 08/22/2024 10:01 AM CDT Cirrhosis of liver without ascites, unspecified hepatic cirrhosis type (HCC) [id number]-[id number], TUMOR MARKER Routine 08/22/2024 10:01 AM CDT [...] PM CDT Narrative 09/30/2024 6:59 AM CDT [facility] Cardiac [place] [address] Transthoracic Echocardiographic Report Patient Name: TERRIE IRENE K : 1965 (59y 2m) Gender: F Study Date: 09/27/2024 03:28:46 PM Ht(Inch): 62 Wt(Lb): 197.09 BSA: 1.[address] Magistrate: Ayaka Jaeger RDCS Location: [facility] Order Provider: TRINITY BURDICK Heart Rate: 101 [...] Procedure Note Volodymyr Ny MD - 09/30/2024 [facility] Cardiac [place] [address] Transthoracic Echocardiographic Report Patient Name: TERRIE IRENE K : 1965 (59y 2m) Gender: F Study Date: 09/27/2024 03:28:46 PM Ht(Inch): 62 Wt(Lb): 197.09 BSA: 1.[address] Magistrate: Ayaka Jaeger RDCS Location: [facility] Order Provider:TRINITY BURDICK Heart Rate: 101 BMI: [...] of liver, R06.02 Shortness of breath, and A89Uctoxpibnnpd, valve unspecified. CONCLUSIONS: 1. Normal left ventricular [...] LA Length 4C 5.34 cm MV Decel Gipq937.25 msec [ 104.00 - 258.00 ] LA [...] by: Jason Randall M.D. us Stephenie Mathews PERSONNEL DIRECTOR IMG XR PROCEDURES Fi nal Result * [...] LAB BLOOD ORDERABLES Final Re sult JERICHO [facility] One [facility] Department [place] [address] * (ABNORMAL) Differential, auto (09/04/2024 6:03 PM [...] CERNER BJ Neutrophil pct 78.5 % CERNER [facility] Comment: Interpretive Data Percent cell count reference ranges are not reported, since discordance with absolute values may lead to misinterpretation of CBC data. Current Interpretive Data was last revised on 2017. Imm gran pct 0.7 % [facility] Comment: Interpretive Data Percent cell count reference ranges are not reported, since discordance with absolute values may lead to misinterpretation of CBC data. Current Interpretive Data was last revised on 2017. Lymphocyte pct 9.9 % CERNER [facility] Comment: Interpretive Data Percent cell count reference ranges are not reported, since discordance with absolute values may lead to misinterpretation of CBC data. Current Interpretive Data was last revised on 2017. Monocyte pct 7.3 % CERNER [facility] Comment: Interpretive Data Percent cell count reference ranges are not reported, since discordance with absolute values may lead to misinterpretation of CBC data. Current Interpretive Data was last revised on 2017. Eosinophil pct 2.2 % CERNER [facility] Comment: Interpretive Data Percent cell count reference ranges are not reported, since discordance with absolute values may lead to misinterpretation of CBC data. Current Interpretive Data was last revised on 2017. Basophil pct 1.4 % CERNER [facility] Comment: Interpretive Data Percent cell count reference ranges are not reported, since discordance with absolute values may lead to misinterpretation of CBC data. Current Interpretive Data was last revised on 2017. Blood 09/04/2024 6:03 PM CDT 09/04/2024 6:16 PM CDT us Syeda Spears NP LAB BLOOD ORDERABLES Final Re sult JERICHO BJ One [facility] Department [place] [address] * Pro B-type natriuretic peptide (09/04/2024 6:03 [...] CDT 09/04/2024 6:16 PM CDT Syeda Spears PERSONNEL DIRECTOR LAB BLOOD ORDERABLES Final Re sult Performing Organization Address [facility]/ZIP Co de Phone Number JERICHO [facility] Department [place] [address] * (ABNORMAL) CBC with auto differential (09/04/2024 6:03 PM CDT) [facility] WBC 9.13 3.80 - 9.90 K/cumm Hgb 12.2 11.9 - 15.5 g/dL [facility] Hct 37.9 35.6 - 45.5 % [facility] Plt 193 150 - 400 K/cumm [facility] MPV 10.6 9.1 - 12.3 fL [facility] RBC 3.83(L) 3.90 - 5.20 M/cumm [facility] MCV 99.0(H) 81.3 - 96.4 fL [facility] MCH 31.9 27.1 - 33.3 pg [facility] MCHC 32.2(L) 32.3 - 35.7 g/dL [facility] RDW CV 15.0(H) 11.1 - 14.9 % [facility] RDW SD 54.5(H) 35.7 - 48.1 fL [facility] NRBC abs 0.00 0.00 - 0.01 K/cumm [facility] Blood 09/04/2024 6:03 PM CDT 09/04/2024 6:16 PM CDT Syeda Spears PERSONNEL DIRECTOR LAB BLOOD ORDERABLES Final Re sult [facility] Department [place] [address] * (ABNORMAL) Basic metabolic panel (09/04/2024 6:03 PM CDT) Pathologist [facility] Sodium 133(L) 135 - 145 mmol/L Potassium, pl 4.1 3.3 - 4.9 mmol/L [facility] Chloride 100 97 - 110 mmol/L [facility] CO2 23 22 - 32 mmol/L [facility] Anion gap 10 2 - 15 mmol/L [facility] BUN 21 6 - 25 mg/dL [facility] Creatinine 1.41(H) 0.60 - 1.10 mg/dL [facility] Glucose 394(H) 70 - 199 mg/dL [facility] Comment: Interpretive Data Fasting glucose >/= 126 [...] 2022. Calcium 8.9 8.5 - 10.3 mg/dL [facility] Blood 09/04/2024 6:03 PM CDT 09/04/2024 6:16 PM CDT Syeda Spears NP LAB BLOOD ORDERABLES Final Re sult [facility] One [facility] Department [place] [address] * (ABNORMAL) POCT hemoglobin A1c (09/04/2024 4:30 PM CDT) Hgb A1C, POC 10.7(H) 4.0 - 5.6 % Est Average Gluc POC 260 mg/dL [facility] Comment: The ADA recommends reporting an estimated Average Glucose (eAG) with all Hemoglobin A1c results using the equation derived from a study of 507 normal and diabetic adults. Minority populations were underrepresented and children were not included. (Diabetes Care 31:7104-4729, 2008). The eAG is not equivalent to a fasting glucose. Blood 09/04/2024 4:30 PM CDT 09/04/2024 4:30 PM CDT us Notinfile Unknown POINT OF CARE TEST ORDERABLES Final Result Performing Organization Address [facility] de Phone Number JERICHO [facility] Department [place] [address] * CHRISTOPH ab ql w/rflx to CHRISTOPH [...] Organization Address [facility] de Phone Number JERICHO [facility] Department [place] [address] * (ABNORMAL) eGFR (08/22/2024 10:01 AM CDT) [...] Burdick MD LAB BLOOD ORDERABLES Final Result [facility] One [facility] Department [place] [address] * (ABNORMAL) Differential, auto (08/22/2024 10:01 AM CDT) Neutrophil abs 7.51(H) 1.50 - 6.50 K/cumm Imm gran abs 0.04 0.00 - 0.10 K/cumm [facility] Lymphocyte abs 0.63(L) 0.80 - 3.30 K/cumm [facility] Monocyte abs 0.53 0.20 - 0.80 K/cumm [facility]ER [facility] Eosinophil abs 0.18 0.00 - 0.50 K/cumm [facility] Basophil abs 0.13(H) 0.00 - 0.10 K/cumm [facility] Neutrophil pct 83.3 % [facility] Comment: Interpretive Data Percent cell count reference ranges are not reported, since discordance with absolute values may lead to misinterpretation of CBC data. Current Interpretive Data was last revised on 2017. Imm gran pct 0.4 % [facility] Comment: Interpretive Data Percent cell count reference ranges are not reported, since discordance with absolute values may lead to misinterpretation of CBC data. Current Interpretive Data was last revised on 2017. Lymphocyte pct 7.0 % [facility] Comment: Interpretive Data Percent cell count reference ranges are not reported, since discordance with absolute values may lead to misinterpretation of CBC data. Current Interpretive Data was last revised on 2017. Monocyte pct 5.9 % [facility] Comment: Interpretive Data Percent cell count reference ranges are not reported, since discordance with absolute values may lead to misinterpretation of CBC data. Current Interpretive Data was last revised on 2017. Eosinophil pct 2.0 % [facility] Comment: Interpretive Data Percent cell count reference ranges are not reported, since discordance with absolute values may lead to misinterpretation of CBC data. Current Interpretive Data was last revised on 2017. Basophil pct 1.4 % [facility] Comment: Interpretive Data Percent cell count reference ranges are not reported, since discordance with absolute values may lead to misinterpretation of CBC data. Current Interpretive Data was last revised on 2017. Blood 08/22/2024 10:0 1 AM CDT 08/22/2024 10:57 AM CDT Trinity Burdick MD LAB BLOOD ORDERABLES Final Result Performing Organization Address City/[facility] Co de Phone Number [facility] Department of [address] [place] [address] * Smooth muscle antibody, qualitative (08/22/2024 10:01 AM CDT) Pathologist [facility] Anti-smooth muscle Negative Negative Blood 08/22/2024 10:0 1 AM CDT 08/22/2024 10:54 AM CDT Trinity Burdick MD LAB BLOOD ORDERABLES Final Result Performing Organization Address City/[facility]/ZIP Co de Phone Number [facility] of [address] [place] [address] * Dxgve-5-dqmssfevutt phenotype (08/22/2024 10:01 AM CDT) alpha-1 antitrypsin 180 100 - 190 mg/dL [facility] Comment: ADDITIONAL INFORMATION Method: Nephelometry Test Performed by: [facility] [address] [place] [address] Assistant Pastry Chef: Vance Martinez Ph.D.; CLIA# [id number] alpha-1 antitrypsin phenotype MM bands [facility] Comment: A single M isoform is detected. In the context of a normal cdgci-7-pbrlnyjxlnr concentration, this is consistent with an MM phenotype. ADDITIONAL INFORMATION Method: Isoelectric Focusing, This assay identifies the phenotype of the circulating pxmso-0-arjhwxkiaxr (A1A) protein. If the patient is on replacement therapy or has been recently transfused, the phenotype will detect patient and replacement or transfused plasma A1A protein. This test also cannot detect a null allele which could be responsible for an A1A deficiency. Blood 08/22/2024 10:0 1 AM CDT 08/22/2024 11:43 AM CDT us Trinity Burdick MD LAB BLOOD ORDERABLES Final Result [facility] One [facility] Department [place] [address] [facility] * (ABNORMAL) CBC with auto differential (08/22/2024 10:01 AM CDT) [facility] WBC 9.02 3.80 - 9.90 K/cumm Hgb 12.5 11.9 - 15.5 g/dL [facility] Hct 39.0 35.6 - 45.5 % [facility] Plt 137(L) 150 - 400 K/cumm [facility] MPV 10.6 9.1 - 12.3 fL [facility] RBC 3.82(L) 3.90 - 5.20 M/cumm [facility] MCV 102.1(H) 81.3 - 96.4 fL [facility] MCH 32.7 27.1 - 33.3 pg [facility] MCHC 32.1(L) 32.3 - 35.7 g/dL [facility] RDW CV 14.9 11.1 - 14.9 % [facility] RDW SD 56.2(H) 35.7 - 48.1 fL [facility] NRBC abs 0.00 0.00 - 0.01 K/cumm [facility] Blood 08/22/2024 10:0 1 AM CDT 08/22/2024 10:57 AM CDT Trinity Burdick MD LAB BLOOD ORDERABLES Final Result Performing Organization Address [facility] de Phone Number [facility] Department of [address] [place] [address] * Hepatitis C antibody Blood (08/22/2024 10:01 AM CDT) Hep C Ab Nonreactive Nonreactive Comment:Antibodies to HCV no t detected. Does NOT exclude the possibility of recent exposure to HCV. Current interpretive data was last revised on 21 Blood 08/22/2024 10:0 1 AM CDT 08/22/2024 10:57 AM CDT Trinity Burdick MD LAB MICROBIOLOGY - G ENERAL ORDERABLES Final Result Performing Organization Address [facility] de Phone Number [facility] Department of [address] [place] [address] * Hepatitis A antibody, total Blood (08/22/2024 10:01 AM CDT) Hep A total Nonreactive Nonreactive Blood 08/22/2024 10:0 1 AM CDT 08/22/2024 10:57 AM CDT Trinity Burdick MD LAB MICROBIOLOGY - G ENERAL ORDERABLES Final Result Performing Organization Address City/[facility] Co de Phone Number [facility] of [address] [place] [address] * Tissue transglutaminase IgA (TGG-IgA Ab) (08/22/2024 10:01 AM CDT) TTG ab, IgA <0.5 <=14.9 units/mL Comment: Interpretive data Negative: <15 units/mL Positive: > or equal to 15 units/mL Current interpretive data was last revised on 2016. Blood 08/22/2024 10:0 1 AM CDT 08/22/2024 10:54 AM CDT us Trinity Burdick MD LAB BLOOD ORDERABLES Final Result Performing Organization Address [facility] [place] [address] * Ceruloplasmin (08/22/2024 10:01 AM CDT) Ceruloplasmin 26.4 16.0 - 45.0 mg/dL Blood 08/22/2024 10:0 1 AM CDT 08/22/2024 11:20 AM CDT us Trinity Burdick MD LAB BLOOD ORDERABLES Final Result Performing Organization Address [facility] [place] [address] * Iofbx-4-Ulhsypjmjgv, Tumor Marker (08/22/2024 10:01 AM CDT) alpha [...] 2018;57:783-797 Afua Pak et al. Clin Chem 2014;9215-1689. Current interpretive data was last revised 2021. Blood 08/22/2024 10:0 1 AM CDT 08/22/2024 11:20 AM CDT Trinity Burdick MD LAB BLOOD ORDERABLES Final Result Performing Organization Address [facility] de Phone Number [facility] Department [place] [address] * Hepatitis B core antibody, total Blood (08/22/2024 10:01 AM CDT) Hep B core IgG/IgM Nonreactive Nonreactive Blood 08/22/2024 10:0 1 AM CDT 08/22/2024 10:57 AM CDT Trinity Burdick MD LAB MICROBIOLOGY - G ENERAL ORDERABLES Final Result Performing Organization Address [facility] de Phone Number [facility] Department [place] [address] * Vitamin D 25 hydroxy (08/22/2024 10:01 AM CDT) Vitamin D 25-OH 58 30 - 80 ng/mL Blood 08/22/2024 10:0 1 AM CDT 08/22/2024 11:20 AM CDT us Trinity Burdick MD LAB BLOOD ORDERABLES Final Result Performing Organization Address [facility]/ZIP Co de Phone Number [facility] [place] [address] * Hepatitis B surface antibody (immune status) [...] ENERAL ORDERABLES Final Result Performing Organization Address [facility] [place] [address] * Hepatitis B Surface Antigen Blood (08/22/2024 10:01 AM CDT) Pathologist [facility] HepBsAg Nonreactive Nonreactive Blood 08/22/2024 10:0 1 AM CDT 08/22/2024 10:57 AM CDT Trinity Burdick MD LAB MICROBIOLOGY - G ENERAL ORDERABLES Final Result Performing Organization Address [facility] Co de Phone Number [facility] [place] [address] * Protime-INR (08/22/2024 10:01 AM CDT) PT 12.0 9.7 - 13.0 sec INR 1.11 0.90 - 1.20 [facility] Comment: Interpretive data Oral anticoagulant therapeutic ranges: Venous thromboembolism prophylaxis or treatment: 2.0-3.0 CARDIOLOGY Standard range: 2.0-3.0 High-intensity range: 2.5-3.5 Refer to indication-specific guidelines for appropriate target ranges for prosthetic heart valve replacement. Current interpretive data was last revised on 2019. Blood 08/22/2024 10:0 1 AM CDT 08/22/2024 10:55 AM CDT us Trinity Burdick MD LAB BLOOD ORDERABLES Final Result Performing Organization Address [facility] Co de Phone Number [facility] [address] [place] [address] * (ABNORMAL) Gamma GT (08/22/2024 10:01 AM CDT) GGT 162(H) 5 - 35 Units/L Blood 08/22/2024 10:0 1 AM CDT 08/22/2024 11:20 AM CDT us Trinity Burdick MD LAB BLOOD ORDERABLES Final Result Performing Organization Address [facility] de Phone Number [facility] [place] [address] * (ABNORMAL) IgA (08/22/2024 10:01 AM CDT) Immunoglobulin A 710(H) 70 - 400 mg/dL Blood 08/22/2024 10:0 1 AM CDT 08/22/2024 11:20 AM CDT us Trinity Burdick MD LAB BLOOD ORDERABLES Final Result Performing Organization Address [facility] de Phone Number [facility] [place] [address] * (ABNORMAL) IgG (08/22/2024 10:01 AM CDT) Immunoglobulin G 1,613(H) 700 - 1,600 mg/dL Blood 08/22/2024 10:0 1 AM CDT 08/22/2024 11:20 AM CDT us Trinity Burdick MD LAB BLOOD ORDERABLES Final Result Performing Organization Address [facility] Co de Phone Number [facility] [place] [address] * Ferritin (08/22/2024 10:01 AM CDT) [facility] Ferritin 64 13 - 150 ng/mL Blood 08/22/2024 10:0 1 AM CDT 08/22/2024 11:20 AM CDT Trinity Burdick MD LAB BLOOD ORDERABLES Final Result Performing Organization Address [facility] [place] [address] * (ABNORMAL) Bilirubin, direct (08/22/2024 10:01 AM CDT) [facility] Bilirubin, direct 0.5(H) 0.1 - 0.3 mg/dL Blood 08/22/2024 10:0 1 AM CDT 08/22/2024 11:20 AM CDT Trinity Burdick MD LAB BLOOD ORDERABLES Final Result Performing Organization Address [facility] [place] [address] * (ABNORMAL) Comprehensive metabolic panel (08/22/2024 10:01 AM CDT) [facility] Sodium 134(L) 135 - 145 mmol/L Potassium, pl 4.6 3.3 - 4.9 mmol/L [facility] Chloride 97 97 - 110 mmol/L [facility] CO2 23 22 - 32 mmol/L [facility] Anion gap 14 2 - 15 mmol/L [facility] BUN 21 6 - 25 mg/dL [facility] Creatinine 1.43(H) 0.60 - 1.10 mg/dL [facility] Glucose 433(H) 70 - 199 mg/dL [facility] Comment: Interpretive Data Fasting glucose >/= 126 [...] 2022. Calcium 9.7 8.5 - 10.3 mg/dL [facility] Bilirubin, total 1.2 0.1 - 1.2 mg/dL [facility] Protein, pl 7.6 6.5 - 8.5 g/dL [facility] Albumin 3.4(L) 3.5 - 5.0 g/dL [facility] Alk phos 120 40 - 130 Units/L [facility] ALT 50(H) 7 - 45 Units/L [facility] AST 79(H) 10 - 45 Units/L [facility] Blood 08/22/2024 10:0 1 AM CDT 08/22/2024 11:20 AM CDT Trinity Burdick MD LAB BLOOD ORDERABLES Final Result Performing Organization Address City/State/[facility] Co de Phone Number [facility] Department [place] [address] * FLEXIBLE SIGMOIDOSCOPY REPORT (04/23/2014) Anatomical Region Laterality Modality Other Narrative 04/23/2014 Ordered by an unspecified provider. Historical Provider GI PROCEDURE ORDERABLES F inal Result * COLONOSCOPY REPORT (05/16/2012) Anatomical Region Laterality Modality Other Narrative 05/16/2012 Ordered by an unspecified provider. Historical Provider MD GI PROCEDURE ORDERABLES F inal Result from Last 3 Months or Most Recently Relevant to Health Maintenance Insurance [employer] CHOICE OR [employer] OR ANTHEM ACCESS CHOICE [facility] EPO [place] Advance Directives For more information, please contact: [phone] * Full Code (Latest Code Status on [...] 9:13 PM 03/22/2018 3:58 PM Care Teams Electrical Tests Supervisor Relationship Specialty Start Date End Date Hillary Marcano MD PCP - General Family Medicine 09/20/22 Cata Velazquez MD Internal Medicine 10/11/22
--- OUTSIDE RECORDS SUMMARY | 2024-10-26 09:10 | XMS_ITS | Clinical Summary ---
Author Organization [facility] 2 Address [address] [place] [address] Care Team Providers Care Hotel Maintenance Worker Name Role Phone Hillary Marcano MD Primary Care Provider + Cata Velazquez MD Unavailable [phone] Allergies Active Allergy Reactions Criticality Noted Date [...] hours as needed for nausea or vomiting rx#[id number] Active predniSONE (DELTASONE) 5 mg tablet Take [...] (04/23/2018): Added automatically from request for surgery [id number] Crohn's disease with complication 03/28/2018 Overview (03/28/2018): Added automatically from request for surgery [id number] Moderate malnutrition 03/22/2018 Cutaneous abscess of back excluding buttocks 08/2017 Ventral hernia without obstruction or gangrene 1 05/14/2017 Overview (03/14/2018): Added automatically from request for surgery [id number] Crohn's disease of large intestine with fistula 02/08/2018 Overview (02/13/2018): Added automatically from request for surgery [id number] Nausea & vomiting 01/19/2018 Assessment & Plan [...] Continue therapeutic Lovenox. PCP Dr. [place] in [place]. [place] for Raina wants eliquis and follow [...] Department Care Team Description 10/05/2024 Results Follow-Up [facility] Gastroenterology [address] [facility] Advanced Medicine 12th [place] [address] [place] [address] Trinity Burdick MD Transthoracic Echo (TTE) With Bubble Study 09/27/2024 4:30 PM CDT - 09/27/2024 11:59 PM CDT Hospital Encounter [facility] [address] [place] [address] Pre-operative exam Discharge Disposition: Discharge to home or self care 09/27/2024 3:00 PM CDT - 09/27/2024 11:59 PM CDT Hospital Encounter [facility] Cardiac Diagnostic Lab [address] [facility] 8th [place] [address] Cirrhosis of liver without ascites, unspecified hepatic cirrhosis type (HCC); Shortness of breath; Valvular heart disease Discharge Disposition: Discharge to home or self care 09/18/2024 Orders Only [facility] Health Information Management [address] [place] [address] Scanning, Provider 09/12/2024 Telephone [facility] Gastroenterology [address] [place] [address] [place] [address] [place] [address] Priscila Van, ADELINA 09/12/2024 Documentation [facility] Gastroenterology [address] [place] [address] [place] [address] [place] [address] Loida Saldana RN 09/05/2024 Telephone [facility] Gastroenterology [address] [place] [address] [place] [address] Priscila Van, ADELINA 09/04/2024 11:59 PM CDT Anesthesia Event [facility] Digestive Disease [address] [address] Gisel Del Cid NP 09/04/2024 3:30 PM CDT Pre-Admission Testing [facility] for Pre[facility] and [facility] ([facility]) [address] [place] [address] Preoperative testing (Primary Dx); Pre-operative exam 08/28/2024 Results Follow-Up [facility] Gastroenterology [address] [place] [address] [place] [address] Trinity Burdick MD Vitamin D 25 hydroxy, IgG, IgA, Additional followed-up results: 19 08/26/2024 Telephone [facility] Gastroenterology [address] [place] [address] [place] [address] Priscila Van, ADELINA 08/22/2024 10:20 AM CDT Lab [facility] ([facility]) [address] [place] [address] Cirrhosis of liver without ascites, unspecified hepatic cirrhosis type (HCC) 08/22/2024 8:00 AM CDT Office Visit [facility] Gastroenterology [address] [place] [address] [place] [address] Trinity Burdick MD Cirrhosis of liver without ascites, unspecified hepatic cirrhosis type (HCC) (Primary Dx) 08/22/2024 Telephone [facility] Gastroenterology [address] [facility] 12th [place] [address] [place] [id number] Loida Saldana RN from Last 3 Months [...] How often do you attend chur or scientologist services? 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oscopy [address] [address] [address] Trinity Burdick MD [address] [place] [address] 11/22/2024 11:30 AM CDT - 11/22/2024 12:00 PM CDT Surgery [facility] [address] [place] [address] [address] Trinity Burdick MD [address] [place] [address] ESOPHAGOGASTRODUODENOSCOPY Scheduled Procedures Name Priority Associated Diagnoses [...] without ascites, unspecified hepatic cirrhosis type (HCC) [id number] PHENOTYPE Routine 08/22/2024 10:01 AM CDT Cirrhosis of liver without ascites, unspecified hepatic cirrhosis type (HCC) [id number], TUMOR MARKER Routine 08/22/2024 10:01 AM CDT [...] PM CDT Narrative 09/30/2024 6:59 AM CDT [facility] Cardiac [place] [address] Transthoracic Echocardiographic Report Patient Name: TERRIE IRENE K : 1965 (59y 2m) Gender: F Study Date: 09/27/2024 03:28:46 PM Ht(Inch): 62 Wt(Lb): 197.09 BSA: 1.98 Opener Verifier Packer Customs: Ayaka Jaeger RDCS Location: [facility] Order Provider: TRINITY BURDICK Heart [...] Procedure Note Volodymyr Ny MD - 09/30/2024 [facility] [place] [address] Transthoracic Echocardiographic Report Patient Name: TERRIE IRENE K : 1965 (59y 2m) Gender: F Study Date: 09/27/2024 03:28:46 PM Ht(Inch): 62 Wt(Lb): 197.09 BSA: 1.98 Opener Verifier [employer] Customs: Ayaka Jaeger RDCS Location: [facility] Order Provider:TRINITY BURDICK Heart Rate: [...] of liver, R06.02 Shortness of breath, and [id number], valve unspecified. CONCLUSIONS: 1. Normal left ventricular [...] LA Length 4C 5.34 cm MV Decel Xkkw905.25 msec [ 104.00 - 258.00 ] LA [...] 09/04/2024 6:16 PM CDT us Syeda Spears BAGGAGE SECURITY CHECKER LAB BLOOD ORDERABLES Final Re sult [facility] [address] [facility] Department [place] [address] * (ABNORMAL) Differential, auto (09/04/2024 6:03 PM CDT) Neutrophil abs 7.17(H) 1.50 - 6.50 K/cumm Imm gran abs 0.06 0.00 - 0.10 K/cumm [facility] Lymphocyte abs 0.90 0.80 - 3.30 K/cumm [facility] Monocyte abs 0.67 0.20 - 0.80 K/cumm [facility] Eosinophil abs 0.20 0.00 - 0.50 K/cumm [facility] Basophil abs 0.13(H) 0.00 - 0.10 K/cumm [facility] Neutrophil pct 78.5 % [facility] Comment: Interpretive Data Percent cell count reference ranges are not reported, since discordance with absolute values may lead to misinterpretation of CBC data. Current Interpretive Data was last revised on 2017. Imm gran pct 0.7 % [facility] Comment: Interpretive Data Percent cell count reference ranges are not reported, since discordance with absolute values may lead to misinterpretation of CBC data. Current Interpretive Data was last revised on 2017. Lymphocyte pct 9.9 % [facility] Comment: Interpretive Data Percent cell count reference ranges are not reported, since discordance with absolute values may lead to misinterpretation of CBC data. Current Interpretive Data was last revised on 2017. Monocyte pct 7.3 % [facility] Comment: Interpretive Data Percent cell count reference ranges are not reported, since discordance with absolute values may lead to misinterpretation of CBC data. Current Interpretive Data was last revised on 2017. Eosinophil pct 2.2 % [facility] Comment: Interpretive Data Percent cell count reference ranges are not reported, since discordance with absolute values may lead to misinterpretation of CBC data. Current Interpretive Data was last revised on 2017. Basophil pct 1.4 % [facility] Comment: Interpretive Data Percent cell count reference ranges are not reported, since discordance with absolute values may lead to misinterpretation of CBC data. Current Interpretive Data was last revised on 2017. Blood 09/04/2024 6:03 PM CDT 09/04/2024 6:16 PM CDT us Syeda Spears BAGGAGE SECURITY CHECKER LAB BLOOD ORDERABLES Final Re sult [facility] [address] [facility] Department [place] [address] * Pro B-type natriuretic peptide (09/04/2024 6:03 [...] CDT 09/04/2024 6:16 PM CDT Syeda Spears BAGGAGE SECURITY CHECKER LAB BLOOD ORDERABLES Final Re sult [facility] [address] [facility] Department [place] [address] * (ABNORMAL) CBC with auto differential (09/04/2024 6:03 PM CDT) WBC 9.13 3.80 - 9.90 K/cumm Hgb 12.2 11.9 - 15.5 g/dL [facility] Hct 37.9 35.6 - 45.5 % [facility] Plt 193 150 - 400 K/cumm [facility] MPV 10.6 9.1 - 12.3 fL [facility] RBC 3.83(L) 3.90 - 5.20 M/cumm [facility] MCV 99.0(H) 81.3 - 96.4 fL [facility] MCH 31.9 27.1 - 33.3 pg [facility] MCHC 32.2(L) 32.3 - 35.7 g/dL [facility] RDW CV 15.0(H) 11.1 - 14.9 % [facility] RDW SD 54.5(H) 35.7 - 48.1 fL [facility] NRBC abs 0.00 0.00 - 0.01 K/cumm [facility] Blood 09/04/2024 6:03 PM CDT 09/04/2024 6:16 PM CDT Syeda Spears BAGGAGE SECURITY CHECKER LAB BLOOD ORDERABLES Final Re sult [facility] [place] [address] * (ABNORMAL) Basic metabolic panel (09/04/2024 6:03 PM CDT) Pathologist [facility] Sodium 133(L) 135 - 145 mmol/L Potassium, pl 4.1 3.3 - 4.9 mmol/L [facility] Chloride 100 97 - 110 mmol/L [facility] CO2 23 22 - 32 mmol/L [facility] Anion gap 10 2 - 15 mmol/L [facility] BUN 21 6 - 25 mg/dL [facility] Creatinine 1.41(H) 0.60 - 1.10 mg/dL [facility] Glucose 394(H) 70 - 199 mg/dL [facility] Comment: Interpretive Data Fasting glucose >/= [...] 2022. Calcium 8.9 8.5 - 10.3 mg/dL [facility] Blood 09/04/2024 6:0 3 PM CDT 09/04/2024 6:16 PM CDT Syeda Spears BAGGAGE SECURITY CHECKER LAB BLOOD ORDERABLES Final Re sult Performing Organization Address City/[facility] Co de Phone Number [facility]ILKINSON Everardo [facility] Department [place] [address] * (ABNORMAL) POCT hemoglobin A1c (09/04/2024 4:30 PM CDT) Hgb A1C, POC 10.7(H) 4.0 - 5.6 % Est Average Gluc POC 260 mg/dL [facility] Comment: The ADA recommends reporting an estimated Average Glucose (eAG) with all Hemoglobin A1c results using the equation derived from a study of 507 normal and diabetic adults. Minority populations were underrepresented and children were not included. (Diabetes Care 31:9470-2876, 2008). The eAG is not equivalent to a fasting glucose. Blood 09/04/2024 4:30 PM CDT 09/04/2024 4:30 PM CDT us Notinfile Unknown POINT OF CARE TEST ORDERABLES Final Result Performing Organization Address [facility] Co de Phone Number [facility] Department [place] [address] * CHRISTOPH ab ql w/rflx to CHRISTOPH [...] ORDERABLES Final Result Performing Organization Address [facility] Co de Phone Number [facility] Department [place] [address] * (ABNORMAL) eGFR (08/22/2024 10:01 AM CDT) [...] Burdick MD LAB BLOOD ORDERABLES Final Result [facility] One [facility] [place] [address] * (ABNORMAL) Differential, auto (08/22/2024 10:01 AM CDT) Neutrophil abs 7.51(H) 1.50 - 6.50 K/cumm Imm gran abs 0.04 0.00 - 0.10 K/cumm [facility] Lymphocyte abs 0.63(L) 0.80 - 3.30 K/cumm [facility] Monocyte abs 0.53 0.20 - 0.80 K/cumm [facility] Eosinophil abs 0.18 0.00 - 0.50 K/cumm [facility] Basophil abs 0.13(H) 0.00 - 0.10 K/cumm [facility] Neutrophil pct 83.3 % [facility] Comment: Interpretive Data Percent cell count reference ranges are not reported, since discordance with absolute values may lead to misinterpretation of CBC data. Current Interpretive Data was last revised on 2017. Imm gran pct 0.4 % [facility] Comment: Interpretive Data Percent cell count reference ranges are not reported, since discordance with absolute values may lead to misinterpretation of CBC data. Current Interpretive Data was last revised on 2017. Lymphocyte pct 7.0 % [facility] Comment: Interpretive Data Percent cell count reference ranges are not reported, since discordance with absolute values may lead to misinterpretation of CBC data. Current Interpretive Data was last revised on 2017. Monocyte pct 5.9 % [facility] Comment: Interpretive Data Percent cell count reference ranges are not reported, since discordance with absolute values may lead to misinterpretation of CBC data. Current Interpretive Data was last revised on 2017. Eosinophil pct 2.0 % [facility] Comment: Interpretive Data Percent cell count reference ranges are not reported, since discordance with absolute values may lead to misinterpretation of CBC data. Current Interpretive Data was last revised on 2017. Basophil pct 1.4 % [facility] Comment: Interpretive Data Percent cell count reference ranges are not reported, since discordance with absolute values may lead to misinterpretation of CBC data. Current Interpretive Data was last revised on 2017. Blood 08/22/2024 10:0 1 AM CDT 08/22/2024 10:57 AM CDT us Trinity Burdick MD LAB BLOOD ORDERABLES Final Result Performing Organization Address [facility] Co de Phone Number [facility] Department [place] [address] * Smooth muscle antibody, qualitative (08/22/2024 10:01 AM CDT) Anti-smooth muscle Negative Negative Blood 08/22/2024 10:0 1 AM CDT 08/22/2024 10:54 AM CDT us Trinity Burdick MD LAB BLOOD ORDERABLES Final Result Performing Organization Address [facility] Co de Phone Number JERICHO Mcgee [facility] Department [place] [address] * Lemih-0-xaydpogvmeb phenotype (08/22/2024 10:01 AM CDT) Pathologist [facility] alpha-1 antitrypsin 180 100 - 190 mg/dL [facility] Comment: ADDITIONAL INFORMATION Method: Nephelometry Test Performed by: [facility] [address] [place] [address] Superintendent Logging: Vance Martinez Ph.D.; CLIA# [id number] alpha-1 antitrypsin phenotype MM bands [facility] Comment: A single M isoform is detected. In the context of a normal dcyrq-5-wqvcfmzjtyh concentration, this is consistent with an MM phenotype. ADDITIONAL INFORMATION Method: Isoelectric Focusing, This assay identifies the phenotype of the circulating uxbmu-0-dlbhsxthlgr (A1A) protein. If the patient is on replacement therapy or has been recently transfused, the phenotype will detect patient and replacement or transfused plasma A1A protein. This test also cannot detect a null allele which could be responsible for an A1A deficiency. Blood 08/22/2024 10:0 1 AM CDT 08/22/2024 11:43 AM CDT us Trinity Burdick MD LAB BLOOD ORDERABLES Final Result [facility] Mcgee [facility] Department [place] [address] [facility] ref [facility] * (ABNORMAL) CBC with auto differential (08/22/2024 10:01 AM CDT) Pathologist [facility] WBC 9.02 3.80 - 9.90 K/cumm Hgb 12.5 11.9 - 15.5 g/dL [facility] Hct 39.0 35.6 - 45.5 % [facility] Plt 137(L) 150 - 400 K/cumm [facility] MPV 10.6 9.1 - 12.3 fL [facility] RBC 3.82(L) 3.90 - 5.20 M/cumm [facility] MCV 102.1(H) 81.3 - 96.4 fL [facility] MCH 32.7 27.1 - 33.3 pg [facility] MCHC 32.1(L) 32.3 - 35.7 g/dL [facility] RDW CV 14.9 11.1 - 14.9 % [facility] RDW SD 56.2(H) 35.7 - 48.1 fL [facility] NRBC abs 0.00 0.00 - 0.01 K/cumm [facility] Blood 08/22/2024 10:0 1 AM CDT 08/22/2024 10:57 AM CDT Trinity Burdick MD LAB BLOOD ORDERABLES Final Result Performing Organization Address City/[facility]/ZIP Co de Phone Number [facility] [place] [address] * Hepatitis C antibody Blood (08/22/2024 10:01 AM CDT) Hep C Ab Nonreactive Nonreactive Comment:Antibodies to HCV no t detected. Does NOT exclude the possibility of recent exposure to HCV. Current interpretive data was last revised on 21 Blood 08/22/2024 10:0 1 AM CDT 08/22/2024 10:57 AM CDT Trinity Burdick MD LAB MICROBIOLOGY - G ENERAL ORDERABLES Final Result [facility] [place] [address] * Hepatitis A antibody, total Blood (08/22/2024 10:01 AM CDT) Hep A total Nonreactive Nonreactive Blood 08/22/2024 10:0 1 AM CDT 08/22/2024 10:57 AM CDT Trinity Burdick MD LAB MICROBIOLOGY - G ENERAL ORDERABLES Final Result Performing Organization Address [facility] Co de Phone Number [facility] [place] [address] * Tissue transglutaminase IgA (TGG-IgA Ab) (08/22/2024 10:01 AM CDT) [facility] TTG ab, IgA <0.5 <=14.9 units/mL Comment: Interpretive data Negative: <15 units/mL Positive: > or equal to 15 units/mL Current interpretive data was last revised on 2016. Blood 08/22/2024 10:0 1 AM CDT 08/22/2024 10:54 AM CDT Trinity Burdick MD LAB BLOOD ORDERABLES Final Result Performing Organization Address [facility] de Phone Number [facility] [place] [address] * Ceruloplasmin (08/22/2024 10:01 AM CDT) [facility] Ceruloplasmin 26.4 16.0 - 45.0 mg/dL Blood 08/22/2024 10:0 1 AM CDT 08/22/2024 11:20 AM CDT us Trinity Burdick MD LAB BLOOD ORDERABLES Final Result Performing Organization Address [facility] Co de Phone Number [facility] [address] * Boeme-3-Vgztcydnsjr, Tumor Marker (08/22/2024 10:01 AM CDT) alpha [...] et al. J. Ped Surg 1978;13:155-156 Disha Varenr. et al. Clin Chem Lab Med 2018;57:783-797 Afua Pak et al. Clin Chem 2014;7482-4972. Current interpretive data was last revised 2021. Blood 08/22/2024 10:0 1 AM CDT 08/22/2024 11:20 AM CDT Trinity Burdick MD LAB BLOOD ORDERABLES Final Result Performing Organization Address City/[facility]/ZIP Co de Phone Number [facility] [place] [address] * Hepatitis B core antibody, total Blood (08/22/2024 10:01 AM CDT) Hep B core IgG/IgM Nonreactive Nonreactive Blood 08/22/2024 10:0 1 AM CDT 08/22/2024 10:57 AM CDT Trinity Burdick MD LAB MICROBIOLOGY - G ENERAL ORDERABLES Final Result Performing Organization Address City/[facility]/ZIP Co de Phone Number [facility] Department [place] [address] * Vitamin D 25 hydroxy (08/22/2024 10:01 AM CDT) Vitamin D 25-OH 58 30 - 80 ng/mL Blood 08/22/2024 10:0 1 AM CDT 08/22/2024 11:20 AM CDT Trinity Burdick MD LAB BLOOD ORDERABLES Final Result Performing Organization Address City/[facility] Co de Phone Number [facility] [place] [address] * Hepatitis B surface antibody (immune status) Blood (08/22/2024 10:01 AM CDT) Pathologist [facility] HBsAb (immune status) Nonreactive Comment:This result is consi stent with a lack of immunity to Hepatitis B Virus when used in the setting of routine screening. Current interpretative data was last revised on 21 Blood 08/22/2024 10:0 1 AM CDT 08/22/2024 10:57 AM CDT Trinity Burdick MD LAB MICROBIOLOGY - G ENERAL ORDERABLES Final Result Performing Organization Address [facility] de Phone Number [facility] [place] [address] * Hepatitis B Surface Antigen Blood (08/22/2024 10:01 AM CDT) Pathologist [facility] HepBsAg Nonreactive Nonreactive Blood 08/22/2024 10:0 1 AM CDT 08/22/2024 10:57 AM CDT Trinity Burdick MD LAB MICROBIOLOGY - G ENERAL ORDERABLES Final Result Performing Organization Address [facility] Co de Phone Number [facility] [place] [address] * Protime-INR (08/22/2024 10:01 AM CDT) PT 12.0 9.7 - 13.0 sec INR 1.11 0.90 - 1.20 [facility] Comment: Interpretive data Oral anticoagulant therapeutic [...] ORDERABLES Final Result Performing Organization Address [facility] de Phone Number [facility] Department [place] [address] * (ABNORMAL) Gamma GT (08/22/2024 10:01 AM CDT) GGT 162(H) 5 - 35 Units/L Blood 08/22/2024 10:0 1 AM CDT 08/22/2024 11:20 AM CDT us Trinity Burdick MD LAB BLOOD ORDERABLES Final Result Performing Organization Address [facility] de Phone Number [facility] Department [place] [address] * (ABNORMAL) IgA (08/22/2024 10:01 AM CDT) Immunoglobulin A 710(H) 70 - 400 mg/dL Blood 08/22/2024 10:0 1 AM CDT 08/22/2024 11:20 AM CDT us Trinity Burdick MD LAB BLOOD ORDERABLES Final Result Performing Organization Address [facility]/ZIP Co de Phone Number [facility] [place] [address] * (ABNORMAL) IgG (08/22/2024 10:01 AM CDT) Immunoglobulin G 1,613(H) 700 - 1,600 mg/dL Blood 08/22/2024 10:0 1 AM CDT 08/22/2024 11:20 AM CDT Trinity Burdick MD LAB BLOOD ORDERAB[place] [address] * Ferritin (08/22/2024 10:01 AM CDT) Pathologist [facility] Ferritin 64 13 - 150 ng/mL Blood 08/22/2024 10:0 1 AM CDT 08/22/2024 11:20 AM CDT Trinity Burdick MD LAB BLOOD ORDERABLES Final Result [employer] [facility] [facility] [place] [address] * (ABNORMAL) Bilirubin, direct (08/22/2024 10:01 AM CDT) Pathologist [facility] Bilirubin, direct 0.5(H) 0.1 - 0.3 mg/dL Blood 08/22/2024 10:0 1 AM CDT 08/22/2024 11:20 AM CDT Trinity Burdick MD LAB BLOOD ORDERABLES Final Result [facility] [place] [address] * (ABNORMAL) Comprehensive metabolic panel (08/22/2024 10:01 AM CDT) Sodium 134(L) 135 - 145 mmol/L Potassium, pl 4.6 3.3 - 4.9 mmol/L [facility] Chloride 97 97 - 110 mmol/L [facility] CO2 23 22 - 32 mmol/L [facility] Anion gap 14 2 - 15 mmol/L [facility] BUN 21 6 - 25 mg/dL [facility] Creatinine 1.43(H) 0.60 - 1.10 mg/dL [facility] Glucose 433(H) 70 - 199 mg/dL [facility] Comment: Interpretive Data Fasting glucose >/= [...] 2022. Calcium 9.7 8.5 - 10.3 mg/dL [facility] Bilirubin, total 1.2 0.1 - 1.2 mg/dL [facility] Protein, pl 7.6 6.5 - 8.5 g/dL [facility] Albumin 3.4(L) 3.5 - 5.0 g/dL [facility] Alk phos 120 40 - 130 Units/L [facility] ALT 50(H) 7 - 45 Units/L [facility] AST 79(H) 10 - 45 Units/L [facility] Blood 08/22/2024 10:0 1 AM CDT 08/22/2024 11:20 AM CDT us Trinity Burdick MD LAB BLOOD ORDERABLES Final Result [facility] Department [place] [address] * FLEXIBLE SIGMOIDOSCOPY REPORT (04/23/2014) Anatomical Region Laterality Modality Other Narrative 04/23/2014 Ordered by an unspecified provider. us Historical Provider GI PROCEDURE ORDERABLES F inal Result * COLONOSCOPY REPORT (05/16/2012) Anatomical Region Laterality Modality Other Narrative 05/16/2012 Ordered by an unspecified provider. us Historical Provider GI PROCEDURE ORDERABLES F inal Result from Last 3 Months or Most Recently Relevant to Health Maintenance Insurance [employer] CHOICE ME Peer[employer] ME ANTHEM ACCESS CHOICE [facility] [employer] [place] [address] BLUE ACCESS CHOICE ME Advance Directives For more information, please contact: [phone] * Full Code (Latest Code Status on [...] 9:13 PM 03/22/2018 3:58 PM Care Teams Hotel Maintenance Worker Relationship Specialty Start Date End Date Hillary Marcano MD PCP - General Family Medicine 09/20/22 Cata Velazquez MD Internal Medicine 10/11/22
--- OUTSIDE RECORDS SUMMARY | 2024-10-26 09:10 | XMS_ITS ---
Author Organization [facility] [address] [place] [address] Care Team Providers Care Finished Goods Stock Clerk Name Role Phone Hillary Marcano MD Primary Care Provider + Cata Velazquez MD Unavailable [phone] Active Problems Problem Noted Date Diagnosed Date [...] (04/23/2018): Added automatically from request for surgery [id number] Crohn's disease with complication 03/28/2018 Overview (03/28/2018): Added automatically from request for surgery [id number] Moderate malnutrition 03/22/2018 Cutaneous abscess of back excluding buttocks 08/2017 Ventral hernia without obstruction or gangrene 1 05/14/2017 Overview (03/14/2018): Added automatically from request for surgery [id number] 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 Now admitted to [facility] wound, swelling - s/p STSG to LLE [...] Continue therapeutic Lovenox. PCP Dr. [place] in [place]. [place] gissell [place] wants eliquis and follow [...]
[2024-10-26 09:11] LABS: Hematocrit 35.8 % (37.0-47.0); Hemoglobin 11.1 g/dL (12.0-15.0); Immature Granulocyte Percent A 0.5 % (0-0.5); Lymphocytes Absolute Auto 0.91 K/mm3 (0.9-3.2); Mean Corpuscular HGB Conc 31.0 g/dl (32-36); Mean Corpuscular Hemoglobin 31.3 pg (26-34); Mean Corpuscular Volume 100.8 fl (80-100); Nucleated Red Blood Cells Absolute Auto 0.000 K/mm3 (0.0-0.012); Nucleated Red Blood Cells Perc 0.0 % (0.0-0.2); Platelet Count Result 163 k/mm3 (150-375); Red Blood Count 3.55 M/mm3 (4.2-5.4); White Blood Count 8.3 K/mm3 (4.5-10.0)
[2024-10-26 09:16] VITALS: BP 110/54; PULSE 103; RESP 12; O2SAT 94
[2024-10-26 09:22] LABS: INR 1.2; Prothrombin Time 14.8 Seconds (11.1-14.7)
[2024-10-26 09:23] LABS: Partial Thromboplastin Time 26.9 Seconds (22.3-36.8)
[2024-10-26 09:29] LABS: Alanine Aminotransferase 48 U/L (6-35); Albumin Level 3.1 g/dL (3.5-5.1); Alkaline Phosphatase 85 U/L (38-126); Anion Gap 11 mmol/L (4-12); Aspartate Amino Transferase 107 U/L (14-36); Bilirubin,Total 0.6 mg/dL (0.2-1.3); Blood Urea Nitrogen 26 mg/dL (7-17); Calcium 8.4 mg/dL (8.4-10.2); Carbon Dioxide 20 mmol/L (22-30); Chloride 107 mmol/L (98-107); Estimated CRCL calculation 37 ml/min; Estimated Glomerular Filt Rate 35; Glucose 248 mg/dL (65-110); Potassium 3.4 mmol/L (3.4-5.0); Sodium 138 mmol/L (137-145); Total Protein 6.9 g/dL (6.3-8.2)
--- NOTE | 2024-10-26 09:44 | ED.EXTPRO ---
HPI - Extremity Problem General Chief complaint: Extremity Problem,Nontraumatic Stated complaint: blood clot in my leg Time Seen by Provider: 10/26/24 08:44 History of Present Illness HPI Narrative: Patient is a 59-year-old female who presents ER with concerns for blood clot in her lower extremities. Reports bilateral lower extremity swelling over last 4 days but worse on the left side. Has history of necrotizing fasciitis and had a chunk of her left leg removed proximally. She also has cirrhosis. No chest pain. Reports chronic shortness of breath for 3 months. No hemoptysis. Has history of DVT in the past from when she had her leg infection. She is not currently on anticoagulation. Related Data Home Medications ?Medication ?Instructions ?Recorded ?Confirmed ?Last Taken ?Type oxycodone 10 mg tablet 10 mg PO Q6H PRN Pain 01/28/21 10/21/24 05/23/24 History gabapentin 100 mg capsule 100 mg PO TID 03/08/22 10/21/24 05/23/24 History ropinirole 0.5 mg tablet 1 mg PO QHS 07/06/23 10/21/24 05/23/24 History hydrocortisone 2.5 % topical cream 1 applic topical BID-TID PRN 05/24/24 10/21/24 05/23/24 History itching Allergies Allergy/AdvReac Type Severity Reaction Status Date / Time adhesive tape Allergy Unknown BLISTERED Verified 10/26/24 08:55 erythromycin base Allergy Unknown intolerance Verified 10/26/24 08:55 latex Allergy Unknown Unknown Verified 10/26/24 08:55 prochlorperazine Allergy Unknown Skin Verified 10/26/24 08:55 Reaction semaglutide (From Ozempic) AdvReac Severe Vomiting Verified 10/26/24 08:55 formaldehyde AdvReac Intermediate Itching Verified 10/26/24 08:55 meperidine AdvReac Unknown Nausea Verified 10/26/24 08:55 Review of Systems Review of Systems: All systems reviewed & are unremarkable except as noted in HPI and below Constitutional: Constitutional: Reports no additional constitutional complaints Cardiovascular: Cardiovascular: Reports no additional cardiovascular complaints Respiratory: Respiratory: Reports no additional respiratory complaints Gastrointestinal: Gastrointestinal: Reports no additional gastrointestinal complaints Musculoskeletal: Musculoskeletal: Reports no additional musculoskeletal complaints [facility] Past Medical History Medical History (Updated 10/26/24 @ 12:23 by Lee Galvan MD) Syncope due to orthostatic hypotension Breast hypertrophy Dysphagia Large breasts Ureteral stone with hydronephrosis Parathyroid tumor Arthralgia Abdominal pain Tachycardia Dizziness Irritable bowel syndrome Hypertension History of gastroesophageal reflux (GERD) Gallbladder disorder History of blood clots Arthritis Anxiety Asthma Allergies Elective Hx of herpes zoster Disseminated superficial actinic porokeratosis Trigger finger of right hand Uterine fibroid ct 2021: cm fibroid @ R posterior lower uterine segment .exerts mass effect upon the posterior wall of the bladder History of osteomyelitis History of meningioma Ileostomy in place History of necrotizing fasciitis Crohn's disease Partial intestinal obstruction Intractable nausea and vomiting Acute dehydration Gastro-esophageal reflux disease without esophagitis Vitamin D deficiency, unspecified Calculus of kidney Ch DVT/embl low ext NOS Not currently on anticoagulation Adam-Danlos syndrome Essential hypertension Fatty (change of) liver, not elsewhere classified Surgical History Surgical History History of parathyroid surgery [place] teeth removed H/O colectomy History of ventral hernia repair Strangulated ventral hernia that required emergent repair at [facility] with reported small bowel resection and suture repair. This was prior to her subtotal colectomy. History of delivery x1 History of laparoscopic cholecystectomy Hx of total colectomy 04/2018 at [facility] - Laparoscopic converted to open subtotal colectomy History of surgery on lower extremity 2018 - Necrotizing fasciitis in the left flank area extending to the left lateral upper leg with extensive debridement and wound care at [facility]. Ro[place] to be a result of fistulizing Crohn's with abscess and possible connection to the necrotizing fasciitis. Family History Family History Mother Hypertension Family history of elevated blood lipids Diabetes mellitus Alcoholism Anxiety Depression Cerebrovascular accident Grandparent Diabetes mellitus Family history of glaucoma Hypertension Family history of elevated blood lipids Alcoholism Social History Social History Smoking status: Never smoker Alcohol intake: never Substance use: never Substance use type: does not use Do You Feel Safe in your Home?: Yes Lack of Transportation: No Lack of Food: Never True Current Housing: I Have Housing Concerned About Future Housing: No Difficulty Paying Gas/Electric Bills: No Difficulty Paying for Meds: No Currently Unemployed: No Education: High School Diploma/GED Difficulty w/ Childcare or Family Care: No Living arrangements: with family Additional living arrangements comments: Lives with her . Has two children. Spiritual care concerns: No Exam Narrative: GENERAL: Well-appearing, well-nourished, and in no acute distress. HEAD: Normocephalic, atraumatic. ENT: Mucous membranes moist. CHEST: Clear to auscultation. No respiratory distress. HEART: Regular rate and rhythm. Normal peripheral pulses. EXTREMITIES: Normal range of motion. 2+ edema. SKIN: Warm, dry, no rash. NEURO: Alert and oriented x3. PSYCH: Normal mood and affect. Course Course Emergency Course: Patient informed of results. Discharge home with slick. Vital Signs Vital signs: Vital Signs Temperature 97.6 F 10/26/24 08:47 Pulse Rate 109 H 10/26/24 08:47 Respiratory Rate 17 10/26/24 08:47 Blood Pressure 144/67 H 10/26/24 08:47 Pulse Oximetry 96 10/26/24 08:47 Oxygen Delivery Room Air 10/26/24 08:47 Temperature 97.6 F 10/26/24 08:47 Pulse Rate 99 10/26/24 11:00 Respiratory Rate 17 10/26/24 11:00 Blood Pressure 119/63 10/26/24 11:00 Pulse Oximetry 96 10/26/24 11:00 Oxygen Delivery Room Air 10/26/24 08:47 MDM - Extremity (Nontraumatic) Lab Data 10/26/24 09:05 10/26/24 09:05 Labs: Lab Results 10/26/24 Range/Units 09:05 WBC 8.3 (4.5-10.0) K/mm3 RBC 3.55 L (4.2-5.4) M/mm3 Hgb 11.1 L (12.0-15.0) g/dL Hct 35.8 L (37.0-47.0) % MCV 100.8 H (80-100) fl MCH 31.3 (26-34) pg MCHC 31.0 L (32-36) g/dl RDW 16.1 H (11.5-14.5) % Plt Count 163 (150-375) k/mm3 MPV 10.2 (7.4-10.4) fl Immature Gran % (Auto) 0.5 (0-0.5) % Neut % (Auto) 69.5 (45.5-73.1) % Lymph % (Auto) 10.9 L (18.3-44.2) % [place] % (Auto) 11.5 H (2.6-8.5) % Eos % (Auto) 5.9 H (0-4.4) % Baso % (Auto) 1.7 H (0.2-1.2) % Lymph # (Auto) 0.91 (0.9-3.2) K/mm3 [place] # (Auto) 1.0 H (0.1-0.6) K/mm3 Eos # (Auto) 0.5 H (0-0.3) K/mm3 Baso # (Auto) 0.1 (0.0-0.1) K/mm3 Abs Immat Gran (auto) 0.04 H (0.00-0.031) K/mm3 Absolute Neuts (auto) 5.8 (1.3-6.7) K/mm3 Absolute Nucleated RBC 0.000 (0.0-0.012) K/mm3 Nucleated RBC % 0.0 (0.0-0.2) % PT 14.8 H (11.1-14.7) Seconds INR 1.2 APTT 26.9 (22.3-36.8) Seconds Sodium 138 (137-145) mmol/L Potassium 3.4 (3.4-5.0) mmol/L Chloride 107 (98-107) mmol/L Carbon Dioxide 20 L (22-30) mmol/L Anion Gap 11 (4-12) mmol/L BUN 26 H (7-17) mg/dL Creatinine 1.51 H (0.7-1.0) mg/dL Estim Creat Clear Calc 37 ml/min Estimated GFR 35 L (59 - ) Glucose 248 H (65-110) mg/dL Calcium 8.4 (8.4-10.2) mg/dL Total Bilirubin 0.6 (0.2-1.3) mg/dL AST 107 H (14-36) U/L ALT 48 H (6-35) U/L Alkaline Phosphatase 85 (38-126) U/L Total Protein 6.9 (6.3-8.2) g/dL Albumin 3.1 L (3.5-5.1) g/dL Imaging Data Radiologist's impression: ITS Impressions Venous Doppler Study 10/26/24 12:00 IMPRESSION: 1. Thrombus at the left greater saphenous vein outflow which is generally considered a deep vein equivalent for treatment purposes. Dr. De Luna discussed these findings with Dr. Galvan at 12:05 PM. 2. No deep venous thrombosis in either lower limb. Discharge Plan Discharge Clinical Impression: DVT (deep venous thrombosis) Patient Disposition: Home Condition: Stable Instructions: Apixaban (By mouth), Deep Vein Thrombosis (ED) Additional Instructions: Please return to the emergency department if you develop severe and persistent chest pain, difficulty breathing, dizziness, leg swelling or if you are coughing up blood as these can be signs of a medical emergency. Please call your doctor for a follow up appointment to determine the need for further testing. Patient Language: Stateless Prescriptions: [place] DVT-PE Treat 30D Start 5 mg (74 tabs) tablets,dose pack See Rx Instructions .ROUTE .COMPLEX Qty: 74 0RF Rx Instructions: orally per package directions No Action oxycodone 10 mg tablet 10 mg PO Q6H PRN (Reason: Pain) ondansetron HCl 4 mg tablet 4 mg PO Q8H PRN (Reason: nausea and vomiting) Qty: 60 0RF Breztri Aerosphere 160-9-4.8 mcg/actuation HFA aerosol inhaler 2 inh inhalation BID Qty: 10.7 0RF gabapentin 100 mg capsule 100 mg PO TID ropinirole 0.5 mg tablet 1 mg PO QHS hydrocortisone 2.5 % cream 1 applic topical BID-TID PRN (Reason: itching) escitalopram oxalate 5 mg tablet 5 mg PO DAILY Qty: 90 3RF IV Therapy See Rx Instructions .ROUTE .prn Qty: 1 6RF Rx Instructions: Standard dose with Magnesium, calcium, potassium, & zinc. PRN; Magnesium, calcium, potassium, & zinc. prednisone 1 mg tablet See Rx Instructions .ROUTE .COMPLEX Qty: 90 1RF Dose Instruction: TAKE 1 TABLET BY MOUTH ONCE DAILY WITH A 5MG TABLET FOR 6MG TOTAL Rx Instructions: TAKE 1 TABLET BY MOUTH ONCE DAILY WITH A 5MG TABLET FOR 6MG TOTAL prednisone 5 mg tablet See Rx Instructions .ROUTE .COMPLEX Qty: 90 1RF Dose Instruction: Take 1 tablet by mouth once daily Rx Instructions: Take 1 tablet by mouth once daily clindamycin phosphate 1 % lotion See Rx Instructions .ROUTE .COMPLEX Qty: 120 0RF Dose Instruction: APPLY TO THE AFFECTED AREA(S) TWICE DAILY Rx Instructions: APPLY TO THE AFFECTED AREA(S) TWICE DAILY metformin 500 mg tablet extended release 24 hr 500 mg PO BID Qty: 180 3RF Rx Instructions: take after food insulin glargine [Lantus Solostar U-100 Insulin] 100 unit/mL (3 mL) insulin pen 25 unit subcut BID Qty: 36 2RF Patient Comments: noon and midnight insulin lispro 100 unit/mL insulin pen 25 unit subcut QID Qty: 15 5RF metronidazole 0.75 % (37.5mg/5 gram) gel 1 appful vaginal QHS 5 Days Qty: 70 0RF Follow-up/Referrals: Hillary Marcano MD [Primary Care Provider] - 1 Week
[2024-10-26 09:45] VITALS: BP 113/55; PULSE 94; RESP 20; O2SAT 96
[2024-10-26 11:00] VITALS: BP 119/63; PULSE 99; RESP 17; O2SAT 96
[2024-10-26 12:35] VITALS: BP 105/62; PULSE 89; RESP 14; O2SAT 96
== END 2024-10-26 12:35 | disposition home or self-care (01) ==
PROVIDERS: Emergency Provider Emergency Medicine; PCP Family Medicine
DX: I82.492 Acute embolism and thrombosis of other specified deep vein of left lower extremity (principal); I10 Essential (primary) hypertension; J45.909 Unspecified asthma, uncomplicated; E55.9 Vitamin D deficiency, unspecified; K74.60 Unspecified cirrhosis of liver; K21.9 Gastro-esophageal reflux disease without esophagitis; K50.90 Crohn's disease, unspecified, without complications; M19.90 Unspecified osteoarthritis, unspecified site; Q79.60 Ehlers-Danlos syndrome, unspecified; F41.9 Anxiety disorder, unspecified; Z87.442 Personal history of urinary calculi; Z86.718 Personal history of other venous thrombosis and embolism; Z90.49 Acquired absence of other specified parts of digestive tract; Z79.899 Other long term (current) drug therapy; Z79.4 Long term (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 of insulin; Z79.84 Long term (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 of oral hypoglycemic drugs
CPT/HCPCS: 36415; 80053; 85025; 85610; 85730; 93970; 99284

== ENCOUNTER 2025-02-26 15:29 | Outpatient (CLI) | payer BC, SELFPAY ==
--- NOTE | ~2025-02-26 | XR_ITS ---
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 Technique: 3 view. Findings: Bowel gas pattern unremarkable. No obstruction. Right-sided renal calculi the largest lower pole 1.5 x 1.6 cm, this may actually represent multiple small calculi in close proximity. No acute osseous abnormality. Impression: 1. Right-sided renal calculi. Correlation with CT is suggested Reviewed, dictated and finalized at location P. FINISHER Impression: 1. Right-sided renal calculi. Correlation with CT is suggested
--- OUTSIDE RECORDS SUMMARY | 2025-02-26 16:09 | XMS_ITS | Clinical Summary ---
Author Organization [facility] Address [address] [place] [address] Care Team Providers Care Commercial Light Fixture Assembler Name Role Phone Candida [place] MD Primary Care Provider [phone] Source Comments [facility],non-owned Affiliates and Associated Physician Practices is amultiple site organization consisting of ambulatory clinics and hospital sitesin [place], [place], [place] and [place]. This disclosure is being madepursuant to the Care Everywhere program and may not contain all information available regarding this patient. 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 Gender Identity Not on file Sexual Orientation [...] 07/12/2015 ZOSTER VACCINE (1 of 2) 07/12/2015 DEPRESSION SCREENING 04/17/2024 COVID-19 VACCINE (1 - 2023-2 5 season) 2024 INFLUENZA VACCINE (#1) 2024 HIB VACCINE Aged [...] patient's age to complete this topic Insurance [facility] SELF PAY NO INSURANCE Member Subscriber Plan / Payer (Ef fective for All Dates) Name:Terrie Irene Member ID:Not on file Relation to Subscriber:Not on file Name:TERRIE IRENE Subscriber ID:Not on file (Home) Address: [address] [place], [place] [address] [address] Payer ID:Not on file Group ID:Not on file Type:Self Pay Address: [place] [facility] SELF PAY NO INSURANCE Member Subscriber Plan / Payer (Ef fective for All Dates) Name:PinalTerrie thrasher Member ID:Not on file Relation to Subscriber:Not on file Name:MARIA VICTORIATERRIE THRASHER Subscriber ID:Not on file (Home) Address: [address] [place] [id number] Payer ID:Not on file Group ID:Not on file Type:Self Pay Address: [place] [facility] SELF PAY NO INSURANCE Member Subscriber Plan / Payer (Ef fective for All Dates) Name:Terrie Irene Member ID:Not on file Relation to Subscriber:Not on file Name:TERRIE IRENE Subscriber ID:Not on file (Home) Address: [address] [place] [id number] Payer ID:Not on file Group ID:Not on file Type:Self Pay Address: [place], [place] Care Teams Commercial Light Fixture Assembler Relationship Specialty Start Date End Date Candida [place] MD [address] [place] [id number] PCP - General Family Medicine 06/11/14
--- OUTSIDE RECORDS SUMMARY | 2025-02-26 16:09 | XMS_ITS ---
Author Organization [facility] [address] [place] [address] Care Team Providers Care Shell Core And Molding Supervisor Name Role Phone Hillary Marcano MD Primary Care Provider + Cata Velazquez MD Unavailable [phone] Active Problems Problem Noted Date Diagnosed Date Shortness of breath 10/31/2024 Other cirrhosis of liver 10/05/2024 Cirrhosis of [...] (04/23/2018): Added automatically from request for surgery [id number] Crohn's disease with complication 03/28/2018 Overview (03/28/2018): Added automatically from request for surgery [id number] Moderate malnutrition 03/22/2018 Cutaneous abscess of back excluding buttocks 08/2017 Ventral hernia without obstruction or gangrene 1 05/14/2017 Overview (03/14/2018): Added automatically from request for surgery [id number] 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 Now admitted to [facility] wound, swelling - s/p STSG [...] Continue therapeutic Lovenox. PCP Dr. [place] in [place]. [place] gissell [place] wants eliquis and follow [...]
--- OUTSIDE RECORDS SUMMARY | 2025-02-26 16:09 | XMS_ITS | Clinical Summary ---
Author Organization [facility] Address [address] [address] Phone Care Team Providers Care Undergraduate Advisor Name Role Phone Viral [place] MD Primary [...] Cervical Cancer Screening (CCS) 07/12/1995 HPV/Cotest 07/12/1995 Cologuard 2010 Colonoscopy 2010 Colorectal Cancer Screening 2010 Immunochemical Fecal Occult Blood 2010 Pneumococcal Immunization (5 0+ years) (1 of 1 - PCV) 07/12/2015 Zoster Immunization (1 of 2) 07/12/2015 Influenza Immunization (#1) 2024 SARS-COV-2 Immunization (1 - 2023- season) 2024 Respiratory Syncytial Virus (RSV) Immunization (Adult) (1 - 1-dose 75+ series) 2040 Human Papillomavirus (HPV) Immunization Aged Out No longer eligible b ased on patient's age to complete this topic Meningococcal Immunization (ACWY) Aged Out No longer eligible based on patient's age to complete this topic Rotavirus Immunization Aged Out No lo nger eligible based on patient's age to complete this topic Insurance [facility] Care Teams Undergraduate Advisor Relationship Specialty Start Date End Date Viral [place] MD [address] [place] [address] PCP - General Family Medicine 05/31/16
--- OUTSIDE RECORDS SUMMARY | 2025-02-26 16:09 | XMS_ITS | Encounter Summary ---
Author Organization [facility] Address [address] [place] [address] Phone Care Team Providers Care Golf Course Assistant Name Role Phone Candida [place] MD Primary Care Provider [phone] Rosalind [place] RN Unavailable [phone] Jw Strong Primary Care Provider + Hillary Marcano MD Primary Care Provider + Cata Velazquez MD Unavailable [phone] Encounter Details Date Type Department Care Team (Latest Contact Info) Description 08/08/2017 Orders Only [facility] CONVERSION Scanning, Provider Social History Tobacco Use Types Packs/Day Years Used Date Smoking Tobacco: Former Comments Unknown Sex and Gender Information Value Date Recorded Sex Assigned at Not on file Legal Sex Female 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 Gender Identity Female 08/22/2024 7:58 AM CDT Sexual Orientation Straight 08/22/2024 7: 58 AM CDT documented as of this encounter Functional Status documented as of this encounter Plan of [...] documented as of this encounter Care Teams Golf Course Assistant Relationship Specialty Start Date End Date Candida [place] MD [address] [place] [address] PCP - General 01/03/17 12/21/21 Jw Strong PA [address] [place] [address] PCP - General Physician Buffing Wheel Former Machine 12/22/21 09/19/22 Hillary Marcano MD [address] [place] [address] PCP - General Family Medicine 09/20/22 Rosalind [place], RN [address] [address] [facility] Outpatient Financial Agent 01/25/21 02/21/21 Cata Velazquez MD [address] [place] [address] Internal Medicine 10/11/22 documented as of this encounter
--- OUTSIDE RECORDS SUMMARY | 2025-02-26 16:10 | XMS_ITS | Encounter Summary ---
Author Organization [facility] Address [address] [place] [address] Care Team Providers Care Manager Title Name Role Phone Candida Paris MD Primary Care Provider [phone] Rosalind Skelton RN Unavailable Jw Strong Primary Care Provider + Hillary Marcano MD Primary Care Provider + Cata Velazquez MD Unavailable [phone] Encounter Details Date Type Department Care Team (Late st Contact Info) Description 10/16/2017 Documentation [facility] Case Management [address] [place] [address] Mary Anne Lee RN Social History Tobacco Use Types Packs/Day Years Used Date Smoking Tobacco: Former Smokeless Tobacco: Never Alcohol Use Standard Drinks/Week Comments No 0 (1 standard drink = 0.6 oz pur e alcohol) Comments Unknown Sex and Gender Information Value Date Recorded Sex Assigned at Not on file 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 Gender Identity Female 08/22/2024 7:58 AM CDT Sexual Orientation Straight 08/22/2024 7: 58 AM CDT documented as of this encounter Functional Status * Question Answer Date of Assessment Author MAP (mmHg) 82 10/18/2017 4:45 PM CDT Kiley Bruner RN * Kinney Fall Risk Question Answer Date of Assessment Author History of Falling 0 10/19/2017 7:25 AM CLAUDIAT Kiley Jules RN Secondary Diagnosis 15 10/19/2017 7:25 AM CD Kiley Macias RN Ambulatory Aids 0 10/19/2017 7:25 AM CDT Kiley Villarreal RN Intravenous Therapy/Heparin/Saline Lock 20 10/19/2017 7:25 AM CLAUDIAT Kiley Jules RN Gait/Transferring 10 10/19/2017 7:25 AM CDT Kiley Jules RN Mental Status 0 10/19/2017 7:25 AM CDT Kiley Blankenship RN * Braeden Scale Question Answer Date of Assessment Author Sensory Perceptions 4 10/19/2017 8:09 AM Kiley Francis RN Moisture 3 10/19/2017 8:09 AM CDT Kiley Bruner RN Activity 3 10/19/2017 8:09 AM CDT Kiley Bruner RN Mobility 3 10/19/2017 8:09 AM CDT Kiley Bruner RN Nutrition 2 10/19/2017 8:09 AM CDT Kiley Bruner RN Friction and Shear 2 10/19/2017 8:09 AM CLAUDIAT Kiley Jules RN Braeden Scale Score 17 10/19/2017 8:09 AM CDT Kiley Jules RN * BP Location Answer Date of Assessment Author Left arm 10/19/2017 12:08 PM CDT Janak Rodriguez * BP Method Answer Date of Assessment Author Automatic 10/19/2017 12:08 PM CDT Janak Rodriguez * Fall Risk Interventions Question Answer Date of Assessment Author All Low Fall Interventions Applied Yes 10/19/2017 1:04 AM CDT Raissa Meza RN All Moderate Fall Interventions Applied Yes 10/19/2017 7:25 AM CDT Eneida Jules RN All High Fall Risk Interventions Applied No 10/19/2017 1:04 AM CLAUDIAT Raissa Meza RN All High Risk Interventions EXCEPT: Chair alarm;Bed alarm 10/19/2017 1:04 AM CLAUDIAT Shagufta Meza RN Additional Interventions Applied Over-bed table on non-exit side 10/18/2017 7:08 AM CDT Matt Blanchard Reason For Exception(s) PT calls out 10/19/2017 1:04 A M CDT Shagufta Meza RN * Integumentary Question Answer Date of Assessment Author Skin Color Appropriate for ethnicity 10/19/2017 8:09 AM CLAUDIAT Kiley Jules RN Skin Condition/Temp Warm 10/19/2017 8 :09 AM CLAUDIAT Kiley Jules RN Skin Integrity Excoriation;Surgical incision 10/19/2017 8:09 AM CLAUDIAT Kiley Jules RN Skin Turgor Non-tenting 10/19/2017 8:09 AM CDT Kiley Jules RN Integumentary Additional Assessments Yes-Braeden 10/17/2017 8:30 AM CDT Cata Ruiz Integumentary (WDL) X 10/19/2017 8 :09 AM CLAUDIAT Kiley Jules RN Skin Location Left Hip 10/19/2017 1:05 AM CLAUDIAT Shagufta Meza RN * Question Answer Date of Assessment Author Edema Trace 10/19/2017 8:09 AM CDT Kiley Bruner RN Edema Generalized 10/19/2017 8:09 AM CDT Kiley Bruner RN * Question Answer Date of Assessment Author Affect Sad 10/17/2017 8:30 AM CDT Cata Ruiz Mood Irritable;Sad 10/17/2017 8:30 AM CDT Cata Ayon * BP Location Answer Date of Assessment Author Left arm 10/19/2017 12:08 PM CDT Janak Rodriguez * BP Method Answer Date of Assessment Author Automatic 10/19/2017 12:08 PM CDT Michael Janak n * Question Answer Date of Assessment Author Bed In Lowest Position Yes 10/19/2017 12:08 P M CDT Justin Rodriguez Bed Wheels Locked Yes 10/19/2017 12:08 PM CDT Justin Rodriguez * Fall Risk Interventions Question Answer Date of Assessment Author All Low Fall Interventions Applied Yes 10/19/2017 1:04 AM CLAUDIAT Raissa Meza RN All Moderate Fall Interventions Applied Yes 10/19/2017 7:25 AM CDT Eneida Jules RN All High Fall Risk Interventions Applied No 10/19/2017 1:04 AM CLAUDIAT Raissa Meza RN All High Risk Interventions EXCEPT: Chair alarm;Bed alarm 10/19/2017 1:04 AM CLAUDIAT Shagufta Meza RN Additional Interventions Applied Over-bed table on non-exit side 10/18/2017 7:08 AM CDT Matt Blanchard Reason For Exception(s) PT calls out 10/19/2017 1:04 A M CLAUDIAT Shagufta Meza RN * Question Answer Date of Assessment Author Skin Care Skin cleanser 10/17/2017 10:00 AM CDT Cata Santiago Hygiene Patient refused 10/19/2017 8:40 AM CDT Justin Rodriguez Toileting: Assistance with Use of bedpan/urinal setup 10/17/2017 10:00 AM CDT Cata Ruiz * Nutrition Question Answer Date of Assessment Author Percent Meal Eaten (%) Other (Comment) 10/18/2017 8:42 AM CLAUDIAT Kiley Jules RN Feeding Level of Assistance Able to feed self 10/18/2017 8:42 AM CLAUDIAT Kiley Jules RN Appetite Poor 10/18/2017 8:42 AM CDT Kiley Bruner RN documented as of this encounter Mental Status * Question Answer Entry Date Author Neuro (WDL) WDL 10/18/2017 7:00 PM CDT Veronica Espinal * Question Answer Entry Date Author Level of Consciousness Alert;Awake 10/19/2017 8:09 AM CLAUDIAT Kiley Juels RN Orientation Oriented X4 10/19/2017 8:09 AM CDT Kiley Bruner RN Neuro (WD) WDL 10/19/2017 8:09 AM CDT Pippa anderson, Kiley Powers, CRIS Other Neuro Symptoms Drowsiness 10/17/2017 8:30 AM C DT Cata Ruiz documented in this encounter Plan of Treatment Not on file documented as of this encounter Visit Diagnoses Not on filedocumented in this encounter Additional Health Concerns Infection Onset Date Last Indicated Resolved Time MRSA Comment:Germ watcher auto flagging Negatives 11/15&06/04 Latanya Cole, CRIS 01/09/2018 04/23/2014 04/23/2014 01/09/2018 7:50 AM C DT VRE Comment:Last Postive 05/09/18 rectal swab. Pt to remain on contact precautions at this time. Stephanie Lemus, MARYCARMEN 05/16/2018 02/09/18 rectal VRE culture= Positive 07/14/2017 05/09/2018 12/02/2020 5:00 AM C DT documented as of this encounter Care Teams Manager Title Relationship Specialty Start Date End Date Candida Paris MD [address] [place] [address] PCP - General 01/03/17 12/21/21 Jw Strong PA [address] [place] [address] PCP - General Physician Manager Body 12/22/21 09/19/22 Hillary Marcano MD [address] [place] [id number] PCP - General Family Medicine 09/20/22 Rosalind Skelton, CRIS [address] [address] [facility] Outpatient Nuclear Equipment Sales Engineer 01/25/21 02/21/21 Cata Velazquez MD [address] [place] [id number] Internal Medicine 10/11/22 documented as of this encounter
--- OUTSIDE RECORDS SUMMARY | 2025-02-26 16:10 | XMS_ITS | Encounter Summary ---
Author Organization [facility] Address [address] [place], [place] [address] [address] Care Team Providers Care Payloader Machine Operator Name Role Phone Candida Paris MD Primary Care Provider [phone] Encounter Details Date Type Department Care Team (Late st Contact Info) Description 07/24/2023 Lab Requisition [facility] - Pathology Lab [address] [place] [address] Jatin Altamirano MD [address] [address] Illness, unspecified Social History Tobacco Use Types Packs/Day Years Used Date Smoking Tobacco: Never Assessed Comments Unknown Sex and Gender Information Value Date Recorded Sex Assigned at Not on file 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 Gender Identity Not on file Sexual Orientation Not on file documented as of this encounter Plan of Treatment Not on file documented as of this encounter Procedures Procedure Name Priority Date/Time Associated Diagnosis Comments PATHOLOGY TISSUE Routine 07/21/2023 9:28 AM CDT Illness, unspecified documented in this encounter Results * PATHOLOGY TISSUE (07/21/2023 9:28 AM CDT) Case Report Surgical Pathology Report Case: [id number] Authorizing Provider: Jatin Altamirano MD Collected: 07/21/2023 09:28 AM Ordering Location: [facility] - Received: 07/24/2023 01:18 PM Pathology Lab Pathologist: Stephenie Arguelles MD Specimen: Lymph Node Biopsy 07/25/2023 9:56 AM CDT [facility] PATH[facility]Y LAB Final Diagnosis Lymph node, right axilla, needle core biopsy: - Follicular and paracortical hyperplasia - No evidence of lymphoma or metastatic carcinoma, as sampled - See description 07/25/2023 9:56 AM [facility] PATHOLOGY LAB at 0956 CDT Microscopic [...] negative for metastatic carcinoma. Concurrent flow cytometry ([employer] [address], [place] [address]) shows non-specific findings. B-cells are described as [...] persists, consider excisional biopsy. 07/25/2023 9:56 AM [facility] PATHOLOGY [facility] Clinical History The patient is a 58 year old woman with an enlarged right axillary lymph node. [facility]25/2023 9:56 [facility] Materials Received Received are 2 slides and 1 block labeled [id number] for initial diagnostic interpretation. The materials originate from [address] [address]. All original materials are returned to the referring institution, along with a copy of our final report. 07/25/2023 9:56 AM CDT [facility] PATHOLOGY LAB Pathologist Location at [facility] 07/25/2023 9:56 AM T [facility] PATHOLOGY LAB Disclaimer The performance characteristics of all immunohistochemical and indirect immunofluorescence stains (if any) cited in this report were determined by the Histopathology Laboratory of [facility]. Some of these tests were [...] LAB Embedded Images 07/25/2023 9:56 AM T [facility] PATHOLOGY LAB Pathology/Cytolo gy BIOPSY OF LYMPH NODE / Unknown 07/21/2023 9:28 AM CDT 07/24/2023 1:18 PM CDT Jatin Altamirano MD LAB - PATHOLOGY/CYTOLOGY ORDERAB LES Final Result Performing Organization Address City/State/[facility] Co de Phone Number [facility] PATHOLOGY LAB [address] [phone] documented in this encounter Visit Diagnoses Diagnosis Illness, unspecified documented in this encounter Care Teams Payloader Machine Operator Relationship Specialty Start Date End Date Candida Paris MD [address] [place] [address] PCP - General Family Medicine 06/11/14 documented as of this encounter
--- OUTSIDE RECORDS SUMMARY | 2025-02-26 16:10 | XMS_ITS | Data Portability ---
Author Organization [place] - [facility] [employer], Main Office Address [address] [place] [address] Assessment No assessment recorded. Plan of Treatment Reminders Order Date Submit Date Provider Last Modified By Organization Details Last Modified Time Details Appointments None recorded. Lab phosphorus, serum or plasma 2022 023 [facility], [address], [place], [address], 3 15:20:57 PTH (parathyroi d hormone), intact + calcium, serum or plasma 2022 023 [facility], [address], [place], [address], 3 15:20:58 vitamin D, 25-hydroxy, total, serum 2022 023 [facility], [address], [place], [address], 3 15:20:58 HbA1c (hemoglobin A1c), blood 2022 023 [facility], [address], [place], [address], 3 15:19:13 albumin/cre atinine, mass ratio, urine 2022 023 [facility], [address], [place], [address], 3 15:19:14 CMP, serum or plasma 2022 023 [facility], [address], [place], [address], 3 15:19:14 TSH + free T4, serum 2022 023 [facility], [address], [place], [address], 3 15:19:14 lipid panel, serum 2022 023 [facility], [address], [place], [address], 3 15:19:13 Referral None recorded. Procedures None recorded. Surgeries None recorded. Imaging SPECT-CT, parathyroid [address] [facility], [address] [place], [address], 3 16:58:19 bone density [address] [facility], [address], [place], [address], 3 18:13:51 Medication Orders Jardiance 25 mg tablet 2022 023 [facility] [place], [address], 3 15:13:21 Ozempic 0.25 mg or 0.5 mg (2 mg/1.5 mL) subcutaneou s pen injector 2022 023 [facility], [address] [place], [address], 3 15:13:19 glimepiride 2 mg tablet 2022 023 [facility] [address] [place], [address], 3 15:18:29 metformin ER 500 mg tablet,exte nded release 24 hr [address] [facility] [address] [place], [address], 3 17:48:59 Patient TargetsNo targets recorded. Patient InstructionsNo instructions recorded. Reason for Referral None Reported. Results Created Date Observation Date Name Description Value Unit Range Abnormal Flag Note LastModifiedBy Organization Detail LastModifiedTime 08/11/1908/10/2022 SPECT -CT, parat braydonroi d No observ ation record ed. [facility] [place] [address] [place], [address], 09/15/2022 09:11:30 09/02/19 23 09/01/2022 bone densi ty No observ ation record ed. [facility] [address], [place], [address], 09/08/2022 11:00:47 09/16/19 bone densi ty No observ ation record ed. [email or web address] [facility] [address], [place], [address], 09/15/2022 11:40:46 Result Notes None recorded. Problems Name Problem SNOMED Code Status Onset Date Resolution Date Notes Provider Name and Address Organization Details Recorded Time Well controlled type 2 diabetes mellitus 139659121 Active 2022 Cata Velazquez MD [address], [place], [address], [employer] 3 15:11:07 Dyslipidemia 523044548 Active 2022 Cata Velazquez MD [address], [place], [address], [employer] 3 15:18:42 Menopausal symptom 68364487 Active 2022 Cata Velazquez MD [address], [place], [address], [employer] 3 15:19:24 Hyperparathyro idism 10960116 Active 2022 Cata Velaqzuez MD [address], [address], [place], [address], [employer] 3 15:19:39 Primary hyperparathyro idi 53655891 Active 2022 Cata Velazquez MD [address], [place], [address], [employer] 3 16:59:54 Problem Notes None recorded. Medical Equipment None Reported. Allergies Allergen ID Allergen Name Allergen Category Reaction Reaction Severity Criticality Documentation Date Start Date Code Code System Note Provider Name and Address Organization Details Recorded Time 38153 latex environme nt,medica tion Not available Not available Not available 06/16/2022 04368 91 RxNorm Not Available [facility] 3 00:02:23 06863 Compazine medicatio n Not available Not available Not available 06/16/2022 37046 6 RxNorm Not Available [facility] 3 00:02:24 Medications Name Sig Start Date [...] % 98 % 99 /min 98.2 [degF] 98835.4 7 g 132/71 mm[Hg] Not Available [facility] 3 00:00:13 Date Recorded Body height Body mass index (BMI) Body weight Body temperature Heart rate Systolic And Diastolic Provider Name and Address Organization Details Last Updated DateTime 3 160.02 cm 37 kg/m2 60866.8 1 g 97.2 [degF] 120 /min 126/72 mm[Hg] RADHA Ames [place] [facility] [place] [facility] 3 14:51:06 Social History Question Answer Notes LastModified by Organizat ion Details LastModified Time Tobacco Smoking Status Never Smoker Not Available [facility] 06/15/2022 23:58:11 What Is Your Level Of Caffeine Consumption? Moderate [id number] Information not available 06/15/2022 In The 14 Days Before Symptom Onset, Have You Had Close Contact With A Laboratory-confirm ed COVID-19 While That Case Was Ill? No [id number] Information not available 06/15/2022 In The 14 Days Before Symptom Onset, Have You Had Close Contact With A Person Who Is Under Investigation For COVID-19 While That Person Was Ill? No [id number] Information not available 06/15/2022 What Type Of Diet Are You Following? REGULAR [id number] Information not available 06/15/2022 What Is Your Relationship Status? [id number] Information not available 06/15/2022 Have You Recently Traveled Abroad? No [id number] Information not available 06/15/2022 Sex: Female Functional Status Question Answer Note LastModified by [employer] Details LastModified Time What is your level of alcohol consumption? None [id number] Information not available 06/15/2022 Mental Status None recorded. Family History Relationship Description Onset Age of this Age Resolved Age Notes LastModified by Organization Details LastModified Time Mother Diabetes mellitus [id number] Not available 06/15/2022 23:58:20 Paternal Grandmother Diabetes mellitus [id number] Not available 06/15/2022 23:58:20 Maternal Aunt Diabetes mellitus [id number] Not available 06/15/2022 23:58:20 Maternal Uncle Diabetes mellitus [id number] Not available 06/15/2022 23:58:20 Maternal Uncle Heart disease [id number] Not available 06/15/2022 23:58:20 Medical History Condition Response ARTHRITIS Y USE OF BLOOD THINNERS Y GI PROBLEMS Y BLOOD TRANSFUSION Y ANEMIA/BLOOD DISORDER Y DIABETES, TYPE KIDNEY DISEASE HEART DISEASE/HEART PROBLEMS Y DEPRESSION (INCLUDING POST ) Y Gynecological HistoryNo gynecological history recorded. Obstetrics History GPAL:G 0 P 0 0 0 0 Past Encounters Encounter ID Performer Location Encounter Start Date Encounter Closed Date Diagnosis/Indication Diagnosis SNOMED-CT Code Diagnosis ICD10 Code Diagnosis IMO Codes Diagnosis Note [id number] Cata Velazquez MD [facility] [place] [place] [address] [place] [address] 04/23/2021 00:00:00 04/23/2021 16:34:21 [id number] Cata Velazquez MD [facility] [place] [address] [place] [address] 04/29/2022 00:00:00 04/29/2022 17:48:00 [id number] Cata Velazquez MD [facility] [place] [address] [place] [address] 07/05/2022 14:27:36 07/05/2022 15:25:27 Well controlled type 2 diabetes mellitus 757194432 E11.9 a1c of 6.8% much improved with [...] based snack at bedtime to help reduce 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 She has no hx of [...] if sugars under 90 mg/dL fasting. Dyslipidemia 201807564 E 78.5 Continue statin therapy. Menopausal symptom 99966 002 N95.1 Send for bone density scan [...] she chooses to go outside of the [facility] to obtain labwork she was [...] 12/10/2022 1 [employer] [id number] Lee Lopez [id number] 98 Terrie Lopez Notes Date Note Type Note Provider Name and Address Organization Details Recorded Time 3 text/html ROS as noted in the HPI 56 yo female comes in for follow up in management of well controlled type 2 DM (A1C 6.8%), dyslipidemia and hypercalcemia appears secondary to hyperparathyroidism (get bone denity/scan) last seen in April at that time we added metformin and had patient split her lantus and take 28 units in morning and 32 units at bedtime if having any 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 We [...] mg/dLa1c 6.8%SPEP/immunofixation normal Cata Velazquez MD [address] [facility] [address], [place], [address], [place] [facility] 07/05/2022 17:52:03 OBGyn Episode No OBEpisode recorded.
--- OUTSIDE RECORDS SUMMARY | 2025-02-26 16:10 | XMS_ITS | Clinical Summary ---
Author Organization [facility] [address] [place] [address] Care Team Providers Care Exploration Geologist Name Role Phone Hillary Marcano MD Primary Care Provider + Cata Velazquez MD Unavailable [phone] Allergies Active Allergy Reactions Criticality Noted Date Comments Adhesive Blisters,Rash High 09/08/2017 pt. states some adhesive. Formaldehyde Stomach upset,Syncope,Dizzine ss High 10/14/2011 Kiwi Other (See comments) Medium 10/14/2011 Tongue pain Latex Blisters,Rash High 09/08/2017 Monosodium Glutamate Itching Low 09/04/2024 MSG Prochlorperazine Itching,Rash Medium 09/08/2017 Ragweed Rhinitis Low 10/14/2011 Medications ondansetron (ZOFRAN) 4 mg tablet Take 1 tablet (4 mg total) by mouth every 8 (eight) hours as needed for nausea or vomiting rx#[id number] Active predniSONE (DELTASONE) 5 mg tablet Take [...] (04/23/2018): Added automatically from request for surgery [id number] Crohn's disease with complication 03/28/2018 Overview (03/28/2018): Added automatically from request for surgery [id number] Moderate malnutrition 03/22/2018 Cutaneous abscess of back excluding buttocks 08/2017 Ventral hernia without obstruction or gangrene 1 05/14/2017 Overview (03/14/2018): Added automatically from request for surgery [id number] 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 PCP Dr. Paris in [place]. [place] for Rain[place] wants eliquis and follow [...] fatty liver disease) Arthritis Asthma Ulcerative colitis Crohn's disease (HCC) Asthma Arthritis Depression Anxiety Necrotizing fasciitis (HCC) Adam-Danlos syndrome Mitral valve prolapse Awareness under anesthesia 2004 pt re ports woke up during colonoscopy Postoperative delirium 2014 pt report s waking up wild after nec fasc surgery in 2018 required restraints PONV (postoperative nausea and vomiting) Best ho Family History Medical History Relation Name Comments [...] pur e alcohol) holidays Social Connection and Isolation Panel Answer Date Recorded In a typical week, how many times do you talk on the phone with family, friends, or neighbors? More than three times a week 01/25/2021 How often do you get togethe r with friends or relatives? Three times a week 01/25/2021 How often do you attend [facility] or [employer] services? More than 4 times per year 01/25/2021 Do you belong to any clubs o r organizations such as mosque groups, unions, fraternal or athletic groups, or [...] place to sleep or slept in a mcc (including now)? No 01/25/2021 Personal Safety Answer Date Recorded Have you ever been in or are you currently in a harmful physical or emotional relationship or is someone making you feel afraid or unsafe? 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 Gender Identity Female 08/22/2024 7:58 AM [...] 09/04/2024 4:05 PM CDT Plan of Treatment Health Maintenance Due Date Last Done Comments Breast Cancer Screening-Mammogram 1965 Cervical Cancer Screening 1965 Depression Screening 1965 Regular Well Visit/Exam 18-64 07/12/1983 Pneumococcal vaccine <65 (1 of 2 - PCV) 1984 Zoster Vaccine (1 of 2) 07/12/2015 Colon Cancer Screening-Colonoscopy 05/16/2022 05/16/2012, 05/12/2012 Covid-19 Vaccine (3 - 2024-2 6 season) 2024 10/22/2020, 10/01/2020 Influenza Vaccine (#1) 2024 , 01/31/2024, 03/06/2023, Additional history exists DTaP/Tdap/Td Vaccine (2 - Td or Tdap) 10/23/2033 10/24/2023, 09/20/2004 Colon Cancer Screening-CT Colonography Discontinued 04/23/2014, 05/16/2012, 05/12/2012 Colon Cancer Screening-DNA Stool Discontinued 04/23/2014, 05/16/2012, 05/12/2012 Colon Cancer Screening-FIT Discontinued 04/23, 05/16/2012, 05/12/2012 Colon Cancer Screening-Sigmoidoscopy Discontinued 04/23/2014, 05/16/2012, 05/12/2012 Hepatitis B Screening Completed 08/22/2024 Hepatitis C Screening Completed 08/22/2024 Procedures Procedure Name Priority Date/Time Associated Diagnosis Comments HEPATITIS C ANTIBODY Routine 08/22/2024 10:01 AM CDT Cirrhosis of liver without ascites, unspecified hepatic cirrhosis type (HCC) FLEXIBLE SIGMOIDOSCOPY REPORT 04/23/2014 COLONOSCOPY REPORT 05/16/2012 from Last 3 Months or Most Recently Relevant to Health Maintenance Results * Hepatitis C antibody Blood (08/22/2024 10:01 AM CDT) Hep C Ab Nonreactive Nonreactive Comment:Antibodies to HCV no t detected. Does NOT exclude the possibility of recent exposure to HCV. Current interpretive data was last revised on 21 Blood 08/22/2024 10:0 1 AM CDT 08/22/2024 10:57 AM CDT Trinity Butcher MD LAB MICROBIOLOGY - G ENERAL ORDERABLES Final Result [facility] [place] [address] * FLEXIBLE SIGMOIDOSCOPY REPORT (04/23/2014) Anatomical Region Laterality Modality Other Narrative 04/23/2014 Ordered by an unspecified provider. Historical Provider GI PROCEDURE ORDERABLES F inal Result * COLONOSCOPY REPORT (05/16/2012) Anatomical Region Laterality Modality Other Narrative 05/16/2012 Ordered by an unspecified provider. Historical Provider GI PROCEDURE ORDERABLES F inal Result from Last 3 Months or Most Recently Relevant to Health Maintenance [place] [address] [employer] [facility] [place]ESS [place] ANTH [employer] [facility] EPO [place] [address] [place] Advance Directives For more information, please contact: [phone] * Full Code (Latest Code Status on [...] 9:13 PM 03/22/2018 3:58 PM Care Teams Exploration Geologist Relationship Specialty Start Date End Date Hillary Marcano MD PCP - General Family Medicine 09/20/22 Cata Velazquez MD Internal Medicine 10/11/22
--- OUTSIDE RECORDS SUMMARY | 2025-02-26 16:10 | XMS_ITS | Clinical Summary ---
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 Gender Identity Not on file Sexual Orientation Not on file Last Filed Vital Signs Vital Sign Reading Time Taken Comments Blood Pressure 110/68 06/08/2022 1:36 PM FISH PROTECTOR Pulse 94 06/08/2022 1:36 PM FISH PROTECTOR Temperature 36.2 C (97.1 F) 06/08/2022 1:36 PM FISH PROTECTOR Respiratory Rate 20 06/08/2022 1:36 PM FISH PROTECTOR Oxygen Saturation 96% 06/08/2022 1:36 PM FISH PROTECTOR Inhaled Oxygen Concentration - - Weight 93.3 kg (205 lb 11.2 oz) 06/08/2022 1:36 PM FISH PROTECTOR Height 160 cm (5' 3) 06/08/2022 1:36 PM FISH PROTECTOR Body Mass Index 36.44 06/08/2022 1:36 PM FISH PROTECTOR Plan of Treatment Health Maintenance Due Date [...] 07/12/2015 INFLUENZA VACCINE (#1) 2024 03/07/2013 Insurance [facility] [employer] CHOICE BLUE ACCESS CHOICE Care Teams Hogshead Liner Relationship Specialty Start Date End Date Bhaskar Marcano MD PCP - General Family Practice 06/08/22
== END 2025-02-26 15:30 | disposition home or self-care (01) ==
PROVIDERS: PCP Family Medicine; Visit Provider Urology
DX: N20.0 Calculus of kidney (principal); Z87.442 Personal history of urinary calculi
CPT/HCPCS: 74018